=== PATIENT | female | born 1940 | race Caucasian/White ===

== ENCOUNTER 2019-09-12 15:16 | Outpatient (CLI) | payer MEDICARE, SELFPAY ==
--- NOTE | ~2019-09-12 | MM_ITS ---
EXAMINATION: MM screening rajiv BI w deangelo HISTORY: Screening mammogram TECHNIQUE: Craniocaudal and mediolateral oblique 3-D tomosynthesis images were obtained and synthetic 2-D images were generated. CAD analysis was submitted and interpreted. COMPARISON: 09/14/2018 diagnostic right digital mammogram , 08/18/2017, 08/16/2016 bilateral digital screening mammogram examinations BREAST PARENCHYMAL COMPOSITION: There are scattered areas of fibroglandular density. FINDINGS: There is no evidence of suspicious mass, calcification, or architectural distortion to sugg est malignancy in either breast. There has been no suspicious interval change. IMPRESSION: 1. No mammographic evidence of malignancy. 2. Recommend routine screening mammography in one year. BI-RADS Category 1: Negative Reviewed, dictated and finalized at location A. LOOP MACHINE OPERATOR
== END 2019-09-12 15:17 | disposition home or self-care (01) ==
LOC: ANHIMG 15:22
PROVIDERS: PCP Emergency Medicine; Visit Provider Emergency Medicine
DX: Z12.31 Encounter for screening mammogram for malignant neoplasm of breast (principal)
CPT/HCPCS: 77063; 77067

== ENCOUNTER 2019-11-12 12:32 | Outpatient (CLI) | payer MEDICARE, SELFPAY ==
[2019-11-12 13:08] LABS: Alanine Aminotransferase 11 U/L (4-35); Albumin Level 4.2 g/dL (3.5-5.1); Alkaline Phosphatase 103 U/L (38-126); Aspartate Amino Transferase 23 U/L (14-36); Bilirubin,Total 0.2 mg/dL (0.2-1.3); Blood Urea Nitrogen 18 mg/dL (7-17); Calcium 9.2 mg/dL (8.4-10.2); Carbon Dioxide 29 mmol/L (22-30); Chloride 104 mmol/L (98-107); Estimated Glomerular Filt Rate > 60; Glucose 112 mg/dL (65-105); Potassium 3.7 mmol/L (3.4-5.0); Sodium 138 mmol/L (137-145)
[2019-11-12 13:37] LABS: Thyroid Stimulating Hormone 0.603 uIU/mL (0.465-4.680)
== END 2019-11-12 12:33 | disposition home or self-care (01) ==
PROVIDERS: PCP Emergency Medicine; Visit Provider Emergency Medicine
DX: E78.5 Hyperlipidemia, unspecified (principal); E03.9 Hypothyroidism, unspecified
CPT/HCPCS: 36415; 80053; 84443

== ENCOUNTER 2020-01-11 10:40 | Outpatient (CLI) | payer MEDICARE, SELFPAY ==
[2020-01-11 11:02] LABS: Basophils Percent Auto 0.3 % (0.2-1.2); Eosinophils Percent Auto 0.5 % (0-4.4); Hematocrit 39.9 % (37.0-47.0); Hemoglobin 12.8 g/dL (12.0-15.0); Immature Granulocyte Absolute 0.01 K/mm3 (0.00-0.031); Immature Granulocyte Percent A 0.2 % (0-0.5); Lymphocytes Absolute Auto 1.06 K/mm3 (0.9-3.2); Lymphocytes Percent Auto 17.2 % (18.3-44.2); Mean Corpuscular HGB Conc 32.1 g/dl (32-36); Mean Corpuscular Hemoglobin 29.5 pg (26-34); Mean Corpuscular Volume 91.9 fl (80-100); Mean Platelet Volume 9.7 fl (7.4-10.4); Monocytes Absolute Auto 0.4 K/mm3 (0.1-0.6); Monocytes Percent Auto 6.5 % (2.6-8.5); Neutrophils Absolute Auto 4.7 K/mm3 (1.3-6.7); Neutrophils Percent Auto 75.3 % (45.5-73.1); Platelet Count Result 221 k/mm3 (150-375); Red Blood Count 4.34 M/mm3 (4.2-5.4); Red Cell Distribution Width 14.3 % (11.5-14.5); White Blood Count 6.2 K/mm3 (4.5-10.0)
[2020-01-11 11:14] LABS: Alanine Aminotransferase 11 U/L (4-35); Albumin Level 4.3 g/dL (3.5-5.1); Alkaline Phosphatase 115 U/L (38-126); Aspartate Amino Transferase 22 U/L (14-36); Bilirubin,Total 0.3 mg/dL (0.2-1.3); Blood Urea Nitrogen 14 mg/dL (7-17); Calcium 9.3 mg/dL (8.4-10.2); Carbon Dioxide 26 mmol/L (22-30); Chloride 103 mmol/L (98-107); Estimated Glomerular Filt Rate > 60; Glucose 102 mg/dL (65-105); Potassium 4.1 mmol/L (3.4-5.0); Sodium 137 mmol/L (137-145)
== END 2020-01-11 10:41 | disposition home or self-care (01) ==
LOC: ANHLAB 10:45
PROVIDERS: PCP Emergency Medicine; Visit Provider Internal Medicine Gastroenterology
DX: K50.919 Crohn's disease, unspecified, with unspecified complications (principal)
CPT/HCPCS: 36415; 80048; 80076; 85025

== ENCOUNTER 2020-01-17 10:48 | Outpatient (CLI) | payer MEDICARE, SELFPAY ==
--- NOTE | ~2020-01-17 | XR_ITS ---
XR chest 2V DATE: 01/17/2020 11:31 INDICATION: Crohn's disease of small intestine TECHNIQUE: PA and lateral views COMPARISON: 10/27/2018 2 view chest FINDINGS: Normal heart size. No hilar or mediastinal enlargement. Bilateral hyperinflation. No pulmon brayden infiltrate or consolidation, pleural effusion or pulmonary vascular congestion or pneumothorax. IMPRESSION: Bilateral hyperinflation; no active cardiopulmonary disease Diffuse osteopenia Reviewed, dictated and finalized at location B.
[2020-01-22 23:04] LABS: NIL 0.01 IU/mL; Quantiferon TB Plus, 1T NEGATIVE (NEGATIVE); TB1-NIL 0.01 IU/mL; TB2-NIL 0.03 IU/mL
== END 2020-01-17 10:49 | disposition home or self-care (01) ==
PROVIDERS: PCP Emergency Medicine
DX: K50.00 Crohn's disease of small intestine without complications (principal); M85.88 Other specified disorders of bone density and structure, other site; R91.8 Other nonspecific abnormal finding of lung field
CPT/HCPCS: 36415; 71046; 86480

== ENCOUNTER 2020-02-28 09:56 | Outpatient (CLI) | payer MEDICARE, SELFPAY ==
[2020-02-28 10:44] LABS: Alanine Aminotransferase 12 U/L (4-35); Albumin Level 4.4 g/dL (3.5-5.1); Alkaline Phosphatase 105 U/L (38-126); Anion Gap 6 mmol/L (8-16); Aspartate Amino Transferase 25 U/L (14-36); Bilirubin,Total 0.6 mg/dL (0.2-1.3); Blood Urea Nitrogen 12 mg/dL (7-17); Calcium 9.5 mg/dL (8.4-10.2); Carbon Dioxide 28 mmol/L (22-30); Chloride 103 mmol/L (98-107); Estimated Glomerular Filt Rate > 60; Glucose 101 mg/dL (65-105); Potassium 4.2 mmol/L (3.4-5.0); Sodium 137 mmol/L (137-145)
[2020-02-28 11:14] LABS: Thyroid Stimulating Hormone 0.703 uIU/mL (0.465-4.680)
== END 2020-02-28 09:57 | disposition home or self-care (01) ==
PROVIDERS: PCP Emergency Medicine; Visit Provider Emergency Medicine
DX: E78.5 Hyperlipidemia, unspecified (principal)
CPT/HCPCS: 36415; 80053; 84443

== ENCOUNTER 2020-06-24 11:26 | Outpatient (CLI) | payer MEDICARE, SELFPAY ==
[2020-06-24 12:45] LABS: Alanine Aminotransferase 10 U/L (4-35); Albumin Level 3.7 g/dL (3.5-5.1); Alkaline Phosphatase 86 U/L (38-126); Anion Gap 5 mmol/L (8-16); Aspartate Amino Transferase 23 U/L (14-36); Bilirubin,Total 0.4 mg/dL (0.2-1.3); Blood Urea Nitrogen 14 mg/dL (7-17); Calcium 9.2 mg/dL (8.4-10.2); Carbon Dioxide 30 mmol/L (22-30); Chloride 103 mmol/L (98-107); Estimated Glomerular Filt Rate > 60; Glucose 97 mg/dL (65-105); Potassium 3.6 mmol/L (3.4-5.0); Sodium 138 mmol/L (137-145)
[2020-06-24 13:14] LABS: Thyroid Stimulating Hormone 0.618 uIU/mL (0.465-4.680)
== END 2020-06-24 11:27 | disposition home or self-care (01) ==
LOC: ANHLAB 11:28
PROVIDERS: PCP Emergency Medicine; Visit Provider Emergency Medicine
DX: E03.9 Hypothyroidism, unspecified (principal)
CPT/HCPCS: 36415; 80053; 84443

== ENCOUNTER 2020-08-11 15:41 | Outpatient (CLI) | payer MEDICARE, SELFPAY ==
[2020-08-11 16:54] LABS: Alanine Aminotransferase 17 U/L (4-35); Albumin Level 3.5 g/dL (3.5-5.1); Alkaline Phosphatase 105 U/L (38-126); Anion Gap 3 mmol/L (8-16); Aspartate Amino Transferase 24 U/L (14-36); Bilirubin,Total 0.4 mg/dL (0.2-1.3); Blood Urea Nitrogen 10 mg/dL (7-17); Calcium 8.8 mg/dL (8.4-10.2); Carbon Dioxide 29 mmol/L (22-30); Chloride 106 mmol/L (98-107); Estimated Glomerular Filt Rate > 60; Glucose 91 mg/dL (65-105); Potassium 3.5 mmol/L (3.4-5.0); Sodium 138 mmol/L (137-145)
[2020-08-11 17:01] LABS: NT Pro B Type Natriuretic Pept 2460 PG/ML (5-100)
== END 2020-08-11 15:42 | disposition home or self-care (01) ==
LOC: ANHLAB 15:41
PROVIDERS: PCP Emergency Medicine; Visit Provider Emergency Medicine
DX: I50.9 Heart failure, unspecified (principal); E78.5 Hyperlipidemia, unspecified
CPT/HCPCS: 36415; 80053; 83880

== ENCOUNTER 2020-09-15 09:25 | Outpatient (CLI) | payer MEDICARE, SELFPAY ==
--- NOTE | ~2020-09-15 | MM_ITS ---
EXAMINATION: MM screening rajiv BI w deangelo HISTORY: Screening mammogram TECHNIQUE: Craniocaudal and mediolateral oblique 3-D tomosynthesis images were obtained and synthetic 2-D images were generated. CAD analysis was submitted and interpreted. COMPARISON: 09/2019 bilateral digital screening mammogram 09/14/2018 diagnostic right digital mammogram 08/21/2018, 08/18/2016, 08/16/2016 bilateral digital screening mammogram examinations BREAST PARENCHYMAL COMPOSITION: There are scattered areas of fibroglandular density. FINDINGS: There is no evidence of suspicious mass, calcification, or architectural distortion to sugg est malignancy in either breast. There has been no suspicious interval change. IMPRESSION: 1. No mammographic evidence of malignancy. 2. Recommend routine screening mammography in one year. BI-RADS Category 1: Negative Reviewed, dictated and finalized at location A. ASSEMBLY LINE MACHINE OPERATOR
== END 2020-09-15 09:26 | disposition home or self-care (01) ==
LOC: ANHIMG 09:31
PROVIDERS: PCP Emergency Medicine; Visit Provider Emergency Medicine
DX: Z12.31 Encounter for screening mammogram for malignant neoplasm of breast (principal)
CPT/HCPCS: 77063; 77067

== ENCOUNTER 2020-09-23 12:26 | Outpatient (CLI) | payer MEDICARE, SELFPAY ==
--- NOTE | 2020-09-23 13:02 | ECHO_ITS ---
Patient Info Name: Mikaela Mesa Age: 80 years : 1940 Gender: Female Ht: 67 in Wt: 135 lbs BSA: 1.70 m2 HR: 71 bpm BP: 172 / 90 mmHg Technical Quality: Good Exam Date: 09/23/2020 1:12 PM Exam Location: [facility] Patient Status: Outpatient Admit Date: 09/23/2020 Staff Ordering Physician: Manjit Obregon MD Rubber Mold Maker: Ricky Marcos, SARAH, RT Attending Provider: Manjit Obregon MD Referring Physician: Sabas MOSER; Exam Type: CA echo doppler color flow Study Info Indications R60.0 - Localized edema Complete two-dimentional, color flow and Doppler transthoracic echocardiogram is performed with agitated saline and with contrast to opacify the left ventricle and to improve the delineation of the left ventricle endocardial borders. Strain analysis performed. Summary 1. Left ventricular chamber dimension is normal. 2. Left ventricular systolic function is normal, estimated at 60-65%. 3. The left ventricular diastolic function is grade I diastolic dysfunction. 4. E/e' 11 is mildly elevated. 5. Global longitudinal strain is normal at -17.9%. 6. Left atrial chamber dimension is mildly enlarged. 7. There is mild aortic valve sclerosis. 8. The mitral valve has mildly calcified annulus. 9. There is mild mitral valve regurgitation. 10. There is trace tricuspid valve regurgitation. 11. Mild pulmonary hypertension, estimated pulmonary arterial systolic pressure is 42 mmHg. 12. Dilated inferior vena cava with >50% collapse upon inspiration consistent with elevated right atrial pressure, 10 mmHg. Left Ventricle E/e' 11 is mildly elevated. Global longitudinal strain is normal at -17.9%. Left ventricular chamber dimension is normal. Left ventricular systolic function is normal, estimated at 60-65%. The left ventricular diastolic function is grade I diastolic dysfunction. Right Ventricle Right ventricular chamber dimension is normal. Right ventricular systolic function is normal. Left Atria Left atrial chamber dimension is mildly enlarged. Right Atria Right atrial chamber dimension is normal. Aortic Valve The aortic valve is trileaflet. There is mild aortic valve sclerosis. There is no aortic valve stenosis. There is no aortic valve regurgitation. Pulmonic Valve There is no pulmonic regurgitation. Mitral Valve The mitral valve has mildly calcified annulus. There is no mitral valve stenosis. There is mild mitral valve regurgitation. Tricuspid Valve There is trace tricuspid valve regurgitation. Mild pulmonary hypertension, estimated pulmonary arterial systolic pressure is 42 mmHg. Pericardium/Pleural There is no pericardial effusion. Inferior Vena Cava Dilated inferior vena cava with >50% collapse upon inspiration consistent with elevated right atrial pressure, 10 mmHg. Aorta The aortic root size at the sinus of Valsalva is normal. Left Ventricular Outflow Tract Name Value Normal LVOT 2D LVOT Diameter 2.0 cm LVOT Doppler LVOT Peak Gradient 5 mmHg LVOT Mean Gradient 3 mmHg LVOT VTI
== END 2020-09-23 12:27 | disposition home or self-care (01) ==
PROVIDERS: PCP Emergency Medicine; Visit Provider Emergency Medicine
DX: R60.0 Localized edema (principal); I35.8 Other nonrheumatic aortic valve disorders; I34.0 Nonrheumatic mitral (valve) insufficiency
CPT/HCPCS: 93306

== ENCOUNTER 2020-09-30 14:25 | Outpatient (CLI) | payer MEDICARE, SELFPAY ==
[2020-09-30 15:30] LABS: Alanine Aminotransferase 10 U/L (4-35); Albumin Level 4.1 g/dL (3.5-5.1); Alkaline Phosphatase 101 U/L (38-126); Anion Gap 5 mmol/L (8-16); Aspartate Amino Transferase 24 U/L (14-36); Bilirubin,Total 0.3 mg/dL (0.2-1.3); Blood Urea Nitrogen 15 mg/dL (7-17); Calcium 9.7 mg/dL (8.4-10.2); Carbon Dioxide 30 mmol/L (22-30); Chloride 104 mmol/L (98-107); Estimated Glomerular Filt Rate > 60; Glucose 94 mg/dL (65-105); Potassium 3.8 mmol/L (3.4-5.0); Sodium 139 mmol/L (137-145)
[2020-09-30 15:38] LABS: NT Pro B Type Natriuretic Pept 365 PG/ML (5-100)
[2020-09-30 15:59] LABS: Thyroid Stimulating Hormone 0.673 uIU/mL (0.465-4.680)
== END 2020-09-30 14:26 | disposition home or self-care (01) ==
PROVIDERS: PCP Emergency Medicine; Visit Provider Emergency Medicine
DX: E03.9 Hypothyroidism, unspecified (principal); I11.0 Hypertensive heart disease with heart failure
CPT/HCPCS: 36415; 80053; 83880; 84443

== ENCOUNTER 2020-12-24 13:07 | Outpatient (CLI) | payer MEDICARE, SELFPAY ==
[2020-12-24 13:53] LABS: Alanine Aminotransferase 10 U/L (4-35); Albumin Level 3.9 g/dL (3.5-5.1); Alkaline Phosphatase 99 U/L (38-126); Anion Gap 8 mmol/L (8-16); Aspartate Amino Transferase 24 U/L (14-36); Bilirubin,Total 0.2 mg/dL (0.2-1.3); Blood Urea Nitrogen 17 mg/dL (7-17); Calcium 9.5 mg/dL (8.4-10.2); Carbon Dioxide 27 mmol/L (22-30); Chloride 106 mmol/L (98-107); Estimated Glomerular Filt Rate > 60; Glucose 86 mg/dL (65-105); Potassium 3.6 mmol/L (3.4-5.0); Sodium 141 mmol/L (137-145)
== END 2020-12-24 13:08 | disposition home or self-care (01) ==
PROVIDERS: PCP Emergency Medicine; Visit Provider Emergency Medicine
DX: I10 Essential (primary) hypertension (principal); E03.9 Hypothyroidism, unspecified
CPT/HCPCS: 36415; 80053; 84443

== ENCOUNTER 2021-03-31 15:04 | Outpatient (CLI) | payer MEDICARE, SELFPAY ==
[2021-03-31 16:28] LABS: Alanine Aminotransferase 11 U/L (4-35); Albumin Level 3.9 g/dL (3.5-5.1); Alkaline Phosphatase 99 U/L (38-126); Anion Gap 7 mmol/L (8-16); Aspartate Amino Transferase 22 U/L (14-36); Bilirubin,Total 0.2 mg/dL (0.2-1.3); Blood Urea Nitrogen 20 mg/dL (7-17); Calcium 9.7 mg/dL (8.4-10.2); Carbon Dioxide 28 mmol/L (22-30); Chloride 106 mmol/L (98-107); Estimated Glomerular Filt Rate > 60; Glucose 129 mg/dL (65-110); Potassium 3.4 mmol/L (3.4-5.0); Sodium 141 mmol/L (137-145)
[2021-03-31 16:57] LABS: Thyroid Stimulating Hormone 0.893 uIU/mL (0.465-4.680)
== END 2021-03-31 15:05 | disposition home or self-care (01) ==
LOC: ANHLAB 15:06
PROVIDERS: PCP Emergency Medicine; Visit Provider Emergency Medicine
DX: E03.9 Hypothyroidism, unspecified (principal); I10 Essential (primary) hypertension
CPT/HCPCS: 36415; 80053; 84443

== ENCOUNTER 2021-04-20 13:38 | Outpatient (CLI) | payer MEDICARE, SELFPAY ==
--- NOTE | ~2021-04-20 | XR_ITS ---
XR knee LT 3V DATE: 04/20/2021 14:11 INDICATION: Knee pain TECHNIQUE: AP, lateral and sunrise views COMPARISON: None FINDINGS: There is diffuse osteopenia. No fracture or dislocation or joint effusion. There is superior pole patellar enthesopathy at the quadriceps tendon insertion. No periosteal reaction or bone destruction. No radiopaque intra-articular loose body or chondrocalcin osis. Joint spaces are relatively preserved. IMPRESSION: Osteopenia Reviewed, dictated and finalized at location B. IMPRESSION: Osteopenia
--- NOTE | ~2021-04-20 | XR_ITS ---
XR knee RT 3V DATE: 04/20/2021 14:11 INDICATION: Right knee pain TECHNIQUE: AP, lateral, sunrise views COMPARISON: None FINDINGS: There is diffuse osteopenia. No fracture or dislocation or joint effusion. No periosteal reaction or bone destruction. No radiopaq ue intra-articular loose body or chondrocalcinosis. Knee joint spaces are relatively preserved. There is slight periarticular spurring of the patella. IMPRESSION: Osteopenia Slight periarticular spurring of the patella Reviewed, dictated and finalized at location B.
== END 2021-04-20 13:39 | disposition home or self-care (01) ==
LOC: ANHIMG 13:45
PROVIDERS: PCP Emergency Medicine; Visit Provider Emergency Medicine
DX: M85.861 Other specified disorders of bone density and structure, right lower leg (principal); M85.862 Other specified disorders of bone density and structure, left lower leg
CPT/HCPCS: 73562

== ENCOUNTER 2021-04-29 16:04 | Emergency (ER) | payer MEDICARE, SELFPAY ==
[2021-04-29 16:30] VITALS: BP 127/62; PULSE 99; RESP 20; TEMP 36.4; O2SAT 97
[2021-04-29] MEDS: ONDANSETRON HCL ODT 4 MG TABLET PO (18:51)
[2021-04-29] MEDS: HYDROcodone/acetaminophen (*CRX) 5-325 MG TABLET 1 TAB PO (18:52)
--- NOTE | 2021-04-29 19:01 | ED.GENADULT ---
HPI - General Adult General Chief complaint: Extremity Problem,Nontraumatic Stated complaint: Bilateral Knee pain Time Seen by Provider: 04/29/21 18:38 Source: patient, family and RN notes reviewed Mode of arrival: ambulatory Limitations: no limitations History of Present Illness HPI narrative: Patient is 80-year-old female who presents for evaluation of bilateral knee pain that began after dancing at a wedding 3 weeks ago primary care is seen her for this have bilateral knee x-rays which were unremarkable has been taken Tylenol arthritis with no pain the pain has increased over the duration of this time presents noting aching pain to the bilateral knees no other complaints denies any radicular symptoms or paresthesias Related Data Home Medications Medication Instructions Recorded Confirmed adalimumab [Humira] 40 mg SUBCUT [id number] 07/12/19 04/08/21 cyanocobalamin (vitamin B-12) 1,000 mcg DAILY 07/12/19 04/08/21 mesalamine 500 mg 500 mg PO .COMPLEX 11/14/19 04/08/21 capsule,controlled release Allergies Allergy/AdvReac Type Severity Reaction Status Date / Time certolizumab pegol Allergy Unknown RASH, Verified 04/29/21 18:45 SWELLING tetracycline Allergy Unknown Unknown Verified 04/29/21 18:45 Tetracyclines Allergy Unknown unknown Verified 04/29/21 18:45 Review of Systems Review of Systems: All systems reviewed & are unremarkable except as noted in HPI and below PMFSH Past Medical History Medical History (Updated 04/29/21 @ 19:04 by Piyush Love PA-C) COPD (chronic obstructive pulmonary disease) Crohn's disease Hypertension Hypothyroid Pulmonary nodule Surgical History Surgical History Hx of colonoscopy Hx of tubal ligation Family History Family History Father Family history of malignant neoplasm of brain, Onset Age: 68 Grandparent Diabetes mellitus Hypertension Asthma Family history of cardiovascular disease Other Family history of malignant neoplasm Family history of throat cancer Social History Social History Smoking packs per day: 1 Smoking cigarettes per day: 20.0 Smoking status: Current every day smoker Alcohol intake: never Substance use: never Gender identity (if verbalized by the patient): Female Exam Narrative: GENERAL: Well-appearing, well-nourished, and in no acute distress. HEAD: Normocephalic, atraumatic. EYES: PERRLA and EOMI. ENT: Nares clear, no rhinorrhea or epistaxis. Mucous membranes moist. CHEST: Clear to auscultation. No respiratory distress. No wheezes rales or rhonchi HEART: Regular rate and rhythm. No murmur heard. Normal peripheral pulses. EXTREMITIES: Normal range of motion. No edema. Tenderness of the anterior knees bilaterally noted other deformities noted SKIN: Warm, dry, no rash. NEURO: No focal deficits. Alert and oriented x3. Neurovascularly intact. Capillary refill less than 2 seconds PSYCH: Normal mood and affect. Course Course Emergency Course: Patient in the room nondistressed will be referred to orthopedic surgery Jason wrap supplied bilaterally provided with reasons to return afebrile nontoxic-appearing Vital Signs Vital signs: Vital Signs Temperature 97.6 F 04/29/21 16:30 Pulse Rate 99 04/29/21 16:30 Respiratory Rate 20 04/29/21 16:30 Blood Pressure 127/62 04/29/21 16:30 Pulse Oximetry 97 04/29/21 16:30 Temperature 97.6 F 04/29/21 16:30 Pulse Rate 99 04/29/21 16:30 Respiratory Rate 20 04/29/21 16:30 Blood Pressure 127/62 04/29/21 16:30 Pulse Oximetry 97 04/29/21 16:30 Medical Decision Making MDM Narrative Medical decision making narrative: Patients injury or pain is consistent with musculoskeletal etiology. No signs of neurological or vascular compromise on exam. Compartments and tisues are soft witho
[2021-04-29 19:34] VITALS: BP 134/75; PULSE 93; RESP 18; TEMP 36.4; O2SAT 100
== END 2021-04-29 19:36 | disposition home or self-care (01) ==
LOC: ANHED 19:04
PROVIDERS: Emergency Provider Family Medicine; PCP Emergency Medicine
DX: M25.562 Pain in left knee (principal); M25.561 Pain in right knee; J44.9 Chronic obstructive pulmonary disease, unspecified; I10 Essential (primary) hypertension; E03.9 Hypothyroidism, unspecified
CPT/HCPCS: 99283; A9270

== ENCOUNTER 2021-06-13 07:49 | Outpatient (CLI) | payer MEDICARE, SELFPAY ==
--- NOTE | ~2021-06-13 | DEXA_ITS ---
Bone Density Report Name: Mikaela Mesa Age: 80 Sex: Female Ethnicity: White Date of : 1940 Indication: osteopenia; parental hip fracture; height loss; inflammatory bowel disease; postmenopausal Referring Provider: Julián, Linda Alvarez Study: Bone densitometry was performed. Exam Date: June 13, 2021 Accession number: [id number] Bone Density: Region BMD T-score Z-score Classification AP Spine (L1-L4) 0.800 -2.2 0.4 Osteopenia Femoral Neck (Left) 0.599 -2.2 0.0 Osteopenia Total Hip (Left) 0.620 -2.6 -0.6 Osteoporosis Total Hip Bilateral Avg 0.626 -2.6 -0.6 Osteoporosis Femoral Neck (Right) 0.626 -2.0 0.3 Osteopenia Total Hip (Right) 0.630 -2.6 -0.5 Osteoporosis World Health Organization criteria for BMD impression classify patients as: Normal (T-score at or above -1.0), Osteopenia (T-score between -1.0 and -2.5), or Osteoporosis (T-score at or below -2.5). 10-year Fracture Risk: FRAX not reported because: Some T-score for Spine Total or Hip Total or Femoral Neck at or below -2.5 Previous Exams: Region Exam Age BMD T-score BMD Change BMD Change Date g/cm2 vs Baseline vs Previous AP Spine(L1-L4) 06/13/2021 80 0.800 -2.2 -0.025(-3.1%)# -0.006(-0.8%) 04/27/2019 78 0.806 -2.2 -0.019(-2.3%)# -0.005(-0.6%) 11/15/2016 76 0.812 -2.1 -0.014(-1.7%)# -0.024(-2.9%)* 09/04/2014 74 0.836 -1.9 0.010(1.3%)# 0.009(1.1%)# 06/12/2012 71 0.827 -2.0 0.001(0.2%)# 0.071(9.4%)# 06/09/2010 69 0.755 -2.7 -0.070(-8.5%)* -0.070(-8.5%)* 06/01/2008 67 0.825 -2.0 Total Hip(Left) 06/13/2021 80 0.620 -2.6 -0.089(-12.5%) -0.046(-6.9%)* 04/27/2019 78 0.666 -2.3 -0.043(-6.1%)# -0.085(-11.4%) 11/15/2016 76 0.751 -1.6 0.042(6.0%)# 0.016(2.1%) 09/04/2014 74 0.736 -1.7 0.027(3.8%)# -0.026(-3.5%)# 06/12/2012 71 0.762 -1.5 0.053(7.5%)# 0.079(11.6%)# 06/09/2010 69 0.683 -2.1 -0.026(-3.7%) -0.026(-3.7%) 06/01/2008 67 0.709 -1.9 Total Hip(Right) 06/13/2021 80 0.630 -2.6 -0.078(-11.0%) -0.042(-6.2%)* 04/27/2019 78 0.672 -2.2 -0.036(-5.1%)# -0.020(-2.9%) 11/15/2016 76 0.692 -2.0 -0.016(-2.2%)# -0.003(-0.5%) 09/04/2014 74 0.696 -2.0 -0.012(-1.8%)# -0.047(-6.4%)# 06/12/2012 71 0.743 -1.6 0.035(4.9%)# 0.075(11.3%)# 06/09/2010 69 0.668 -2.2 -0.040(-5.7%)* -0.040(-5.7%)* 06/01/2008 67 0.708 -1.9 *Denotes significance at 95% confidence level, LSC for AP Spine = 0.022 g/cm2, LSC for Total Hip = 0.027 g/cm2 Clinical Information Provided by Patient:
== END 2021-06-13 07:50 | disposition home or self-care (01) ==
PROVIDERS: PCP Emergency Medicine; Visit Provider Physician Assistant Medical
DX: Z78.0 Asymptomatic menopausal state (principal); E55.9 Vitamin D deficiency, unspecified; M85.89 Other specified disorders of bone density and structure, multiple sites; M81.0 Age-related osteoporosis without current pathological fracture
CPT/HCPCS: 77080

== ENCOUNTER 2021-06-25 09:05 | Outpatient (CLI) | payer MEDICARE, SELFPAY ==
[2021-06-25 11:54] LABS: Vitamin D 25 Hydroxy 41.5 ng/mL
== END 2021-06-25 09:06 | disposition home or self-care (01) ==
PROVIDERS: PCP Emergency Medicine; Visit Provider Physician Assistant Medical
DX: E55.9 Vitamin D deficiency, unspecified (principal); E53.8 Deficiency of other specified B group vitamins
CPT/HCPCS: 36415; 82306; 82607

== ENCOUNTER 2021-07-10 11:39 | Outpatient (CLI) | payer MEDICARE, SELFPAY ==
[2021-07-10 12:07] LABS: Alanine Aminotransferase 10 U/L (4-35); Alkaline Phosphatase 97 U/L (38-126); Anion Gap 7 mmol/L (8-16); Aspartate Amino Transferase 20 U/L (14-36); Bilirubin,Total 0.3 mg/dL (0.2-1.3); Blood Urea Nitrogen 13 mg/dL (7-17); Calcium 9.4 mg/dL (8.4-10.2); Carbon Dioxide 28 mmol/L (22-30); Chloride 104 mmol/L (98-107); Estimated Glomerular Filt Rate > 60; Glucose 144 mg/dL (65-110); Potassium 3.2 mmol/L (3.4-5.0); Sodium 139 mmol/L (137-145)
[2021-07-10 12:37] LABS: Thyroid Stimulating Hormone 0.203 uIU/mL (0.465-4.680)
== END 2021-07-10 11:40 | disposition home or self-care (01) ==
LOC: ANHLAB 11:42
PROVIDERS: PCP Emergency Medicine; Visit Provider Emergency Medicine
DX: E03.9 Hypothyroidism, unspecified (principal); I10 Essential (primary) hypertension
CPT/HCPCS: 36415; 80053; 84443

== ENCOUNTER 2021-07-15 08:26 | Outpatient (CLI) | payer MEDICARE, SELFPAY ==
[2021-07-15 09:10] LABS: Potassium 3.4 mmol/L (3.4-5.0)
== END 2021-07-15 08:27 | disposition home or self-care (01) ==
PROVIDERS: PCP Emergency Medicine; Visit Provider Emergency Medicine
DX: E87.6 Hypokalemia (principal)
CPT/HCPCS: 36415; 84132

== ENCOUNTER 2021-08-11 09:35 | Outpatient (CLI) | payer MEDICARE, SELFPAY ==
[2021-08-11 13:55] LABS: Magnesium 1.7 mg/dL (1.6-2.3); Potassium 3.9 mmol/L (3.4-5.0)
[2021-08-11 14:26] LABS: Thyroid Stimulating Hormone 0.628 uIU/mL (0.465-4.680)
== END 2021-08-11 09:36 | disposition home or self-care (01) ==
PROVIDERS: PCP Emergency Medicine; Visit Provider Emergency Medicine
DX: R53.83 Other fatigue (principal)
CPT/HCPCS: 36415; 83735; 84132; 84443

== ENCOUNTER 2021-09-09 12:06 | Outpatient (CLI) | payer MEDICARE, SELFPAY ==
[2021-09-09 12:22] LABS: Hematocrit 36.9 % (37.0-47.0); Hemoglobin 11.5 g/dL (12.0-15.0); Mean Corpuscular HGB Conc 31.2 g/dl (32-36); Mean Corpuscular Hemoglobin 29.6 pg (26-34); Mean Corpuscular Volume 95.1 fl (80-100); Mean Platelet Volume 9.5 fl (7.4-10.4); Platelet Count Result 221 k/mm3 (150-375); Red Blood Count 3.88 M/mm3 (4.2-5.4); Red Cell Distribution Width 14.3 % (11.5-14.5); White Blood Count 6.4 K/mm3 (4.5-10.0)
[2021-09-09 12:30] LABS: Alanine Aminotransferase 10 U/L (4-35); Albumin Level 4.1 g/dL (3.5-5.1); Alkaline Phosphatase 99 U/L (38-126); Anion Gap 6 mmol/L (8-16); Aspartate Amino Transferase 21 U/L (14-36); Bilirubin,Total 0.5 mg/dL (0.2-1.3); Blood Urea Nitrogen 19 mg/dL (7-17); Carbon Dioxide 28 mmol/L (22-30); Chloride 105 mmol/L (98-107); Estimated Glomerular Filt Rate > 60; Glucose 133 mg/dL (65-110); Potassium 3.2 mmol/L (3.4-5.0); Sodium 139 mmol/L (137-145)
[2021-09-12 13:18] LABS: NIL 0.02 IU/mL; Quantiferon TB Plus, 1T NEGATIVE (NEGATIVE); TB2-NIL 0.01 IU/mL
== END 2021-09-09 12:07 | disposition home or self-care (01) ==
LOC: ANHLAB 12:09
PROVIDERS: PCP Emergency Medicine; Visit Provider Nurse Practitioner Family
DX: K50.90 Crohn's disease, unspecified, without complications (principal)
CPT/HCPCS: 36415; 80053; 85027; 86480

== ENCOUNTER 2021-10-05 14:19 | Outpatient (CLI) | payer MEDICARE, SELFPAY ==
--- NOTE | ~2021-10-05 | MM_ITS ---
EXAMINATION: MM screening [facility] BI w deangelo HISTORY: Screening mammogram TECHNIQUE: Craniocaudal and mediolateral oblique 3-D tomosynthesis images were obtained and synthetic 2-D images were generated. CAD analysis was submitted and interpreted. COMPARISON: 09/15/2020, 09/12/2019, 09/14/2018, 08/21/2018 BREAST PARENCHYMAL COMPOSITION: There are scattered areas of fibroglandular density. FINDINGS: There is no suspicious mass, calcification, or architectural distortion to suggest malignan cy in either breast. There has been no suspicious interval change. IMPRESSION: 1. No mammographic evidence of malignancy. 2. Recommend routine screening mammography while the patient remains in good health. BI-RADS Category 1: Negative Reviewed, dictated and finalized at location A. IMPRESSION: 1. No mammographic evidence of malignancy. 2. Recommend routine screening mammography while the patient remains in good he alth. BI-RADS Category 1: Negative
== END 2021-10-05 14:20 | disposition home or self-care (01) ==
LOC: ANHIMG 14:21
PROVIDERS: PCP Emergency Medicine; Visit Provider Emergency Medicine
DX: Z12.31 Encounter for screening mammogram for malignant neoplasm of breast (principal)
CPT/HCPCS: 77063; 77067

== ENCOUNTER 2021-10-08 12:19 | Outpatient (CLI) | payer MEDICARE, SELFPAY ==
[2021-10-08 12:46] LABS: Alanine Aminotransferase 9 U/L (4-35); Albumin Level 4.3 g/dL (3.5-5.1); Alkaline Phosphatase 110 U/L (38-126); Anion Gap 6 mmol/L (8-16); Aspartate Amino Transferase 24 U/L (14-36); Bilirubin,Total 0.4 mg/dL (0.2-1.3); Blood Urea Nitrogen 18 mg/dL (7-17); Calcium 9.3 mg/dL (8.4-10.2); Carbon Dioxide 28 mmol/L (22-30); Chloride 104 mmol/L (98-107); Estimated Glomerular Filt Rate > 60; Glucose 94 mg/dL (65-110); Potassium 3.9 mmol/L (3.4-5.0); Sodium 138 mmol/L (137-145)
[2021-10-08 13:17] LABS: Thyroid Stimulating Hormone 0.871 uIU/mL (0.465-4.680)
== END 2021-10-08 12:20 | disposition home or self-care (01) ==
LOC: ANHLAB 12:21
PROVIDERS: PCP Emergency Medicine; Visit Provider Emergency Medicine
DX: R53.83 Other fatigue (principal); I10 Essential (primary) hypertension
CPT/HCPCS: 36415; 80053; 84443

== ENCOUNTER 2022-01-12 11:58 | Outpatient (CLI) | payer MEDICARE, SELFPAY ==
[2022-01-12 12:14] LABS: Basophils Percent Auto 0.3 % (0.2-1.2); Eosinophils Absolute Auto 0.1 K/mm3 (0-0.3); Eosinophils Percent Auto 0.8 % (0-4.4); Hematocrit 37.6 % (37.0-47.0); Hemoglobin 11.7 g/dL (12.0-15.0); Immature Granulocyte Absolute 0.01 K/mm3 (0.00-0.031); Immature Granulocyte Percent A 0.2 % (0-0.5); Lymphocytes Absolute Auto 1.55 K/mm3 (0.9-3.2); Lymphocytes Percent Auto 23.6 % (18.3-44.2); Mean Corpuscular HGB Conc 31.1 g/dl (32-36); Mean Corpuscular Hemoglobin 29.4 pg (26-34); Mean Corpuscular Volume 94.5 fl (80-100); Mean Platelet Volume 9.4 fl (7.4-10.4); Monocytes Absolute Auto 0.5 K/mm3 (0.1-0.6); Monocytes Percent Auto 6.9 % (2.6-8.5); Neutrophils Absolute Auto 4.5 K/mm3 (1.3-6.7); Neutrophils Percent Auto 68.2 % (45.5-73.1); Platelet Count Result 214 k/mm3 (150-375); Red Blood Count 3.98 M/mm3 (4.2-5.4); White Blood Count 6.6 K/mm3 (4.5-10.0)
[2022-01-12 12:29] LABS: Alanine Aminotransferase 11 U/L (6-35); Albumin Level 4.1 g/dL (3.5-5.1); Alkaline Phosphatase 104 U/L (38-126); Anion Gap 5 mmol/L (8-16); Aspartate Amino Transferase 19 U/L (14-36); Bilirubin,Total 0.2 mg/dL (0.2-1.3); Blood Urea Nitrogen 17 mg/dL (7-17); Calcium 8.9 mg/dL (8.4-10.2); Carbon Dioxide 27 mmol/L (22-30); Chloride 105 mmol/L (98-107); Estimated Glomerular Filt Rate > 60; Glucose 94 mg/dL (65-110); Potassium 3.9 mmol/L (3.4-5.0); Sodium 137 mmol/L (137-145)
[2022-01-12 13:44] LABS: Folic Acid > 20.0 ng/mL (2.76->20)
== END 2022-01-12 11:59 | disposition home or self-care (01) ==
LOC: ANHLAB 12:00
PROVIDERS: PCP Emergency Medicine; Visit Provider Emergency Medicine
DX: R53.83 Other fatigue (principal); I10 Essential (primary) hypertension; Z13.6 Encounter for screening for cardiovascular disorders; E03.9 Hypothyroidism, unspecified
CPT/HCPCS: 36415; 80053; 82607; 82746; 84443; 85025

== ENCOUNTER 2022-04-12 01:56 | Day surgery (SDC) | payer MEDICARE, SELFPAY ==
[2022-03-24 10:52] VITALS: BMI 22.6
[2022-04-12 07:57] VITALS: BP 115/72; PULSE 83; RESP 16; TEMP 36.1; O2SAT 98; BMI 23.7
[2022-04-12] MEDS: LACTATED RINGERS 1,000 ML 150 ML IV CONT (08:07)
--- NOTE | 2022-04-12 08:44 | WPDANESEPPF ---
Anes - Initial Pre Proc Eval Procedure: Operation Date: 04/12/22 09:15 Proposed Procedures p Colonoscopy - Beto Langley MD Date/Time: 04/12/22 08:44 Surgeon: Beto Langley MD Pre Op Diagnosis: crohn's disease Patient Data Age: 81 Gender: F Height: 1.68 m Weight: 66.7 kg Last Vital Signs Temp 97 F L 04/12/22 07:57 Pulse 83 04/12/22 07:57 Resp 16 04/12/22 07:57 BP 115/72 04/12/22 07:57 Pulse Ox 98 04/12/22 07:57 O2 Del Method Room Air 04/12/22 07:57 Allergies Allergy/AdvReac Type Severity Reaction Status Date / Time certolizumab pegol Allergy Unknown RASH, Verified 04/12/22 07:56 SWELLING tetracycline Allergy Unknown Unknown Verified 04/12/22 07:56 Tetracyclines Allergy Unknown unknown Verified 04/12/22 07:56 Home Medications Medication Instructions Recorded Confirmed Type potassium chloride 10 mEq 10 meq PO DAILY #7 tabs 08/11/20 03/24/22 Rx tablet,extended release lisinopril 10 See Rx Instructions .Route 08/03/21 03/24/22 Rx mg-hydrochlorothiazide 12.5 mg .COMPLEX #90 tabs tablet adalimumab 40 mg/0.8 mL 40 mg (0.8 mL) subcut [id number] #2 ea 03/03/22 03/24/22 Rx subcutaneous syringe kit (Humira) azathioprine 75 mg tablet (Azasan) 75 mg PO DAILY #90 tabs 03/03/22 03/24/22 Rx calcium carbonate 600 mg calcium 600 mg PO BID 03/03/22 03/24/22 History (1,500 mg) tablet (Calcium) mesalamine 500 mg capsule,extended 1,000 mg PO QID 1 month #240 caps 03/04/22 03/24/22 Rx release (Pentasa) Patient hx anesthesia problems: none Family hx anesthesia problems: none Results Review: All pre-operative results and documents have been reviewed as part of the pre-operative evaluation. [facility] Past Medical History Medical History (Updated 03/03/22 @ 14:07 by SINCERE PatelN-C) COPD (chronic obstructive pulmonary disease) Crohn's disease Hypertension Hypothyroid Pulmonary nodule Vitamin B 12 deficiency Surgical History Surgical History Hx of colonoscopy Hx of tubal ligation Family History Family History Father Family history of malignant neoplasm of brain, Onset Age: 68 Grandparent Diabetes mellitus Hypertension Asthma Family history of cardiovascular disease Other Family history of malignant neoplasm Family history of throat cancer Social History Social History Smoking packs per day: 1 Smoking cigarettes per day: 20.0 Smoking status: Current every day smoker Tobacco type: cigarettes Alcohol intake: never Substance use: never Living arrangements: with family Gender identity (if verbalized by the patient): Female Anes - Eval Final PreProcedure Day of Procedure 04/12/22 08:44 Patient weight: normal Heart: regular rate and rhythm Lungs: clear to auscultation Airway: Mallampati scale class II Neurological: alert and oriented Last oral intake: >/= 8 hours ASA classification: III Emergent: no Anesthetic plan: proceed Anesthesia type and monitoring: general GIVS and standard monitoring Results Review: All pre-operative results and documents have been reviewed as part of the pre-operative evaluation. Informed Consent: The patient's anesthetic plan and its attendant risks and benefits were discussed with the patient/family/POA. Questions were solicited and answers provided to the satisfaction of the patient/family/POA.
--- NOTE | 2022-04-12 08:49 | PM.HPGS ---
History of Present Illness History of Present Illness Consent: Risks, benefits, and alternatives have been discussed and questions answered. Patient agrees to proceed with procedure. Chief complaint: crohn's disease Narrative: Mikaela Mesa is a 81 year old female due to have another colonoscopy,c urrently on Humira 40 mg subq every 2 weeks, Azasan 75 mg daily and Pentasa 500mg x 8 pills daily. No recent flares.. Her last colonoscopy was in 2019 with TA polyps, ileum with a moderate benign appearing intrinsic stenosis, diverticulosis, and hemorrhoids Review of Systems Constitutional: Constitutional: Denies headache(s) and Denies weakness Eyes: Eyes: Denies blurry vision ENT: Reports Normal hearing present, Denies headache(s) and Denies neck pain Cardiovascular: Cardiovascular: Denies chest pain and Denies dyspnea Respiratory: Respiratory: Denies dyspnea Gastrointestinal: Gastrointestinal: Reports no additional gastrointestinal complaints Genitourinary: Genitourinary: Denies dysuria Musculoskeletal: Musculoskeletal: Denies neck pain Integumentary/Breasts: Skin/Breast: Denies dry skin Neurologic: Reports Normal hearing present, Denies headache(s) and Denies weakness Psychiatric: Psychiatric: Denies anxiety Endocrine: Endocrine: Denies change in body appearance Hematologic/Lymphatic: Hematologic/Lymphatic: Denies easy bleeding Allergic/Immunologic: Allergic/Immunologic: Denies urticaria PMFSH Past Medical History Medical History (Updated 03/03/22 @ 14:07 by SINCERE PatelN-C) COPD (chronic obstructive pulmonary disease) Crohn's disease Hypertension Hypothyroid Pulmonary nodule Vitamin B 12 deficiency Surgical History Surgical History Hx of colonoscopy Hx of tubal ligation Family History Family History Father Family history of malignant neoplasm of brain, Onset Age: 68 Grandparent Diabetes mellitus Hypertension Asthma Family history of cardiovascular disease Other Family history of malignant neoplasm Family history of throat cancer Social History Social History Smoking packs per day: 1 Smoking cigarettes per day: 20.0 Smoking status: Current every day smoker Tobacco type: cigarettes Alcohol intake: never Substance use: never Living arrangements: with family Gender identity (if verbalized by the patient): Female Meds Home Medications and Allergies Home Medications Medication Instructions Recorded Confirmed Type potassium chloride 10 mEq 10 meq PO DAILY #7 tabs 08/11/20 03/24/22 Rx tablet,extended release lisinopril 10 See Rx Instructions .Route 08/03/21 03/24/22 Rx mg-hydrochlorothiazide 12.5 mg .COMPLEX #90 tabs tablet adalimumab 40 mg/0.8 mL 40 mg (0.8 mL) subcut [id number] #2 ea 03/03/22 03/24/22 Rx subcutaneous syringe kit (Humira) azathioprine 75 mg tablet (Azasan) 75 mg PO DAILY #90 tabs 03/03/22 03/24/22 Rx calcium carbonate 600 mg calcium 600 mg PO BID 03/03/22 03/24/22 History (1,500 mg) tablet (Calcium) mesalamine 500 mg capsule,extended 1,000 mg PO QID 1 month #240 caps 03/04/22 03/24/22 Rx release (Pentasa) Allergies Allergy/AdvReac Type Severity Reaction Status Date / Time certolizumab pegol Allergy Unknown RASH, Verified 04/12/22 07:56 SWELLING tetracycline Allergy Unknown Unknown Verified 04/12/22 07:56 Tetracyclines Allergy Unknown unknown Verified 04/12/22 07:56 Vital Signs Vital Signs - 24 hr 04/12/22 07:57 Temperature 97 F L Pulse Rate 83 Respiratory Rate 16 Blood Pressure 115/72 Pulse Oximetry 98 Oxygen Delivery Room Air Exam Const: General: comfortable and no acute distress HENMT: Face/Nose/Sinus: Normal nares present Eyes: General: appearance normal, both eyes and all related structures Neck: Neck: no JVD Resp:
[2022-04-12 09:13] VITALS: BP 100/54; PULSE 81; RESP 26; O2SAT 96
[2022-04-12 09:23] VITALS: BP 94/53; PULSE 77; RESP 25; O2SAT 98
[2022-04-12 09:33] VITALS: BP 101/64; PULSE 74; RESP 21; O2SAT 98
== END 2022-04-12 09:44 | disposition home or self-care (01) ==
PROVIDERS: PCP Emergency Medicine; Visit Provider Internal Medicine Gastroenterology
PROC: 0DJD8ZZ Inspection of Lower Intestinal Tract, Via Natural or Artificial Opening Endoscopic (ICD-10-PCS; CPT 45378; principal; 2022-04-12 09:15)
DX: K50.90 Crohn's disease, unspecified, without complications (principal); Z86.010 Personal history of colon polyps; K57.30 Diverticulosis of large intestine without perforation or abscess without bleeding; K64.8 Other hemorrhoids; K64.4 Residual hemorrhoidal skin tags; K56.699 Other intestinal obstruction unspecified as to partial versus complete obstruction; K52.9 Noninfective gastroenteritis and colitis, unspecified; J44.9 Chronic obstructive pulmonary disease, unspecified; I10 Essential (primary) hypertension; E03.9 Hypothyroidism, unspecified; E53.8 Deficiency of other specified B group vitamins; F17.210 Nicotine dependence, cigarettes, uncomplicated
CPT/HCPCS: 45380; 88305; J2704; J7120

== ENCOUNTER 2022-04-13 11:26 | Outpatient (CLI) | payer MEDICARE, SELFPAY ==
[2022-04-13 12:51] LABS: Alanine Aminotransferase 15 U/L (6-35); Albumin Level 4.1 g/dL (3.5-5.1); Alkaline Phosphatase 101 U/L (38-126); Anion Gap 10 mmol/L (8-16); Aspartate Amino Transferase 24 U/L (14-36); Bilirubin,Total 0.3 mg/dL (0.2-1.3); Blood Urea Nitrogen 23 mg/dL (7-17); Calcium 9.1 mg/dL (8.4-10.2); Carbon Dioxide 26 mmol/L (22-30); Chloride 105 mmol/L (98-107); Cholesterol 199 mg/dL (0-200); Estimated Glomerular Filt Rate 53; Glucose 100 mg/dL (65-110); HDL Direct 65 mg/dL; Potassium 3.7 mmol/L (3.4-5.0); Sodium 141 mmol/L (137-145); Triglycerides 130 mg/dL (<150)
[2022-04-13 13:02] LABS: LDL Cholesterol Direct 89 mg/dL
[2022-04-16 14:19] LABS: Vitamin D 1,25 (OH)2 Total 13 pg/mL (18-72); Vitamin D2 1,25 (OH)2 <8 pg/mL; Vitamin D3 1,25 (OH)2 13 pg/mL
== END 2022-04-13 11:27 | disposition home or self-care (01) ==
PROVIDERS: PCP Emergency Medicine; Visit Provider Emergency Medicine
DX: E55.9 Vitamin D deficiency, unspecified (principal); E03.9 Hypothyroidism, unspecified; I10 Essential (primary) hypertension
CPT/HCPCS: 36415; 80053; 80061; 82652

== ENCOUNTER 2022-07-21 13:20 | Outpatient (CLI) | payer MEDICARE, SELFPAY ==
[2022-07-21 13:59] LABS: Alanine Aminotransferase 13 U/L (6-35); Albumin Level 3.9 g/dL (3.5-5.1); Alkaline Phosphatase 88 U/L (38-126); Anion Gap 4 mmol/L (8-16); Aspartate Amino Transferase 19 U/L (14-36); Bilirubin,Total 0.3 mg/dL (0.2-1.3); Blood Urea Nitrogen 14 mg/dL (7-17); Calcium 9.1 mg/dL (8.4-10.2); Carbon Dioxide 30 mmol/L (22-30); Chloride 103 mmol/L (98-107); Estimated Glomerular Filt Rate > 60; Glucose 115 mg/dL (65-110); Potassium 3.7 mmol/L (3.4-5.0); Sodium 137 mmol/L (137-145)
[2022-07-21 14:27] LABS: Thyroid Stimulating Hormone 0.838 uIU/mL (0.465-4.680)
[2022-07-24 23:20] LABS: Vitamin D 1,25 (OH)2 Total 41 pg/mL (18-72); Vitamin D2 1,25 (OH)2 <8 pg/mL; Vitamin D3 1,25 (OH)2 41 pg/mL
== END 2022-07-21 13:21 | disposition home or self-care (01) ==
PROVIDERS: PCP Emergency Medicine; Visit Provider Emergency Medicine
DX: E55.9 Vitamin D deficiency, unspecified (principal); I10 Essential (primary) hypertension; E03.9 Hypothyroidism, unspecified
CPT/HCPCS: 36415; 80053; 82652; 84443

== ENCOUNTER 2022-08-18 13:49 | Outpatient (CLI) | payer MEDICARE, SELFPAY ==
[2022-08-18 14:19] LABS: Hematocrit 38.2 % (37.0-47.0); Hemoglobin 12.1 g/dL (12.0-15.0); Mean Corpuscular HGB Conc 31.7 g/dl (32-36); Mean Corpuscular Hemoglobin 29.3 pg (26-34); Mean Corpuscular Volume 92.5 fl (80-100); Mean Platelet Volume 9.9 fl (7.4-10.4); Platelet Count Result 278 k/mm3 (150-375); Red Blood Count 4.13 M/mm3 (4.2-5.4); White Blood Count 6.2 K/mm3 (4.5-10.0)
[2022-08-18 14:25] LABS: CRP 1.4 mg/dL (<1.0)
[2022-08-18 15:12] LABS: Erythrocyte Sedimentation Rate 45 mm/hr (0-20)
[2022-08-20 14:27] LABS: NIL 0.01 IU/mL; Quantiferon TB Plus, 1T NEGATIVE (NEGATIVE); TB1-NIL 0.02 IU/mL; TB2-NIL 0.01 IU/mL
== END 2022-08-18 13:50 | disposition home or self-care (01) ==
LOC: ANHLAB 13:50
PROVIDERS: PCP Emergency Medicine; Visit Provider Nurse Practitioner Family
DX: K50.90 Crohn's disease, unspecified, without complications (principal); K52.9 Noninfective gastroenteritis and colitis, unspecified
CPT/HCPCS: 36415; 85027; 85652; 86140; 86480

== ENCOUNTER 2022-08-19 08:25 | Outpatient (CLI) | payer MEDICARE, SELFPAY ==
[2022-08-26 20:51] LABS: Calprotectin, Stool 258 mcg/g
== END 2022-08-19 08:26 | disposition home or self-care (01) ==
PROVIDERS: PCP Emergency Medicine; Visit Provider Nurse Practitioner Family
DX: K50.90 Crohn's disease, unspecified, without complications (principal)
CPT/HCPCS: 83993

== ENCOUNTER 2022-09-03 09:01 | Outpatient (CLI) | payer MEDICARE, SELFPAY ==
--- NOTE | ~2022-09-03 | XR_ITS ---
XR small bowel follow through DATE: 09/03/2022 10:26 INDICATION: Crohn's disease TECHNIQUE: Serial images of the abdomen after oral ingestion of barium. Spot radiographs of the small bowel including terminal ileum. DAP: 20 6.251Gycm 2 1.6 minutes fluoroscopy time 16 images COMPARISON: 03/17/2013 small bowel series FINDINGS: There is evidence for small sliding hiatal hernia. Normal position of the ligament of Treitz. There is no evidence of small bowel obstruction. Contrast material is noted in the transverse colon w ithin 30 minutes. There is a long segment of distal and terminal ileum which is strictured, with mucosal effacement and mild irregularity, consistent with Crohn's disease. No extravasated contrast material is detected. IMPRESSION: Abnormal stricture of the distal and terminal ileum consistent with Crohn's disease Reviewed, dictated and finalized at [facility]. Reviewed, dictated and finalized at location A. [employer]
== END 2022-09-03 09:02 | disposition home or self-care (01) ==
PROVIDERS: PCP Emergency Medicine; Visit Provider Nurse Practitioner Family
DX: K50.90 Crohn's disease, unspecified, without complications (principal)
CPT/HCPCS: 74250

== ENCOUNTER 2022-10-20 13:40 | Outpatient (CLI) | payer MEDICARE, SELFPAY ==
[2022-10-20 14:15] LABS: Alanine Aminotransferase 17 U/L (6-35); Albumin Level 4.1 g/dL (3.5-5.1); Alkaline Phosphatase 94 U/L (38-126); Anion Gap 7 mmol/L (8-16); Aspartate Amino Transferase 22 U/L (14-36); Bilirubin,Total 0.5 mg/dL (0.2-1.3); Blood Urea Nitrogen 17 mg/dL (7-17); Calcium 9.4 mg/dL (8.4-10.2); Carbon Dioxide 30 mmol/L (22-30); Chloride 103 mmol/L (98-107); Estimated Glomerular Filt Rate > 60; Glucose 118 mg/dL (65-110); Potassium 3.6 mmol/L (3.4-5.0); Sodium 140 mmol/L (137-145)
[2022-10-20 15:35] LABS: Folic Acid > 20.0 ng/mL (2.76->20)
[2022-10-24 21:40] LABS: Vitamin D 1,25 (OH)2 Total 33 pg/mL (18-72); Vitamin D2 1,25 (OH)2 <8 pg/mL; Vitamin D3 1,25 (OH)2 33 pg/mL
== END 2022-10-20 13:41 | disposition home or self-care (01) ==
PROVIDERS: PCP Emergency Medicine; Visit Provider Emergency Medicine
DX: E53.8 Deficiency of other specified B group vitamins (principal); E11.9 Type 2 diabetes mellitus without complications; E55.9 Vitamin D deficiency, unspecified
CPT/HCPCS: 36415; 77063; 77067; 80053; 82607; 82652; 82746

== ENCOUNTER 2022-10-20 16:08 | Outpatient (CLI) | payer MEDICARE, SELFPAY ==
--- NOTE | ~2022-10-20 | MM_ITS ---
EXAMINATION: MM screening [facility] BI w deangelo HISTORY: Screening TECHNIQUE: Craniocaudal and mediolateral oblique 3-D tomosynthesis images were obtained and synthetic 2-D images were generated. CAD analysis was submitted and interpreted. COMPARISON: Comparison to multiple prior studies sequentially, with oldest reviewed study dated 02/2018. BREAST PARENCHYMAL COMPOSITION: Breast composed of scattered areas of fibroglandular density FINDINGS: There is possible new area of architectural distortion in the subareolar location of the le ft breast. The right breast is stable without evidence for malignancy. IMPRESSION: 1. Possible new focus of architectural distortion subareolar location of the left breast. 2. Additional mammographic views and possible breast ultrasound are recommended. BI-RADS Category 0: Incomplete: Needs additional imaging evaluation. Reviewed, dictated and finalized at location L. IMPRESSION: 1. Possible new focus of architectural distortion subareolar location of the le ft breast. 2. Additional mammographic views and possible breast ultrasound are recommended . BI-RADS Category 0: Incomplete: Needs additional imaging evaluation.
== END 2022-10-20 16:09 | disposition home or self-care (01) ==
LOC: ANHIMG 16:08
PROVIDERS: PCP Emergency Medicine; Visit Provider Emergency Medicine
DX: Z12.31 Encounter for screening mammogram for malignant neoplasm of breast (principal); R92.8 Other abnormal and inconclusive findings on diagnostic imaging of breast
CPT/HCPCS: 77063; 77067

== ENCOUNTER 2022-11-30 12:02 | Outpatient (CLI) | payer MEDICARE, SELFPAY ==
--- NOTE | ~2022-11-30 | MM_ITS ---
EXAMINATION: MM diagnostic [facility] LT w deangelo HISTORY: Possible left breast architectural distortion on screening mammogram TECHNIQUE: Additional 3-D tomosynthesis images of the left breast were performed and synthetic 2-D im ages were generated. CAD analysis was submitted and interpreted. COMPARISON: 10/20/2022, 10/05/2021, 09/15/2020, 09/12/2019 BREAST PARENCHYMAL COMPOSITION: There are scattered areas of fibroglandular density. FINDINGS: There is a return to baseline fibroglandular appearance with spot compression of the left b reast in the area questioned on screening mammogram. IMPRESSION: 1. No mammographic evidence of malignancy. 2. Recommend annual screening mammography while the patient remains in good health. BI-RADS Category 1: Negative Reviewed, dictated and finalized at location A. IMPRESSION: 1. No mammographic evidence of malignancy. 2. Recommend annual screening mammography while the patient remains in good hea lt. BI-RADS Category 1: Negative
== END 2022-11-30 12:03 | disposition home or self-care (01) ==
PROVIDERS: PCP Emergency Medicine; Visit Provider Emergency Medicine
DX: R92.8 Other abnormal and inconclusive findings on diagnostic imaging of breast (principal)
CPT/HCPCS: 77061; 77065; G0279

== ENCOUNTER 2023-01-10 16:07 | Inpatient (IN) | payer MEDICARE, SELFPAY ==
[2023-01-10] VITALS (15 sets, daily range): BP systolic 108–136; BP diastolic 54–70; PULSE 88–112; RESP 18–22; TEMP 36.5–36.6; O2SAT 93–98; BMI 22.3; BMI 22.2
--- NOTE | ~2023-01-10 | CT_ITS ---
EXAMINATION: CT abdomen pelvis w con DATE: 01/10/2023 20:38 INDICATION: Abdominal generalized pain, diarrhea, nausea, vomiting. TECHNIQUE: Computed tomography (CT) of the abdomen and pelvis was performed with 100 CC Omnipaque 350 intravenous contrast. Automated exposure control and iterative reconstruction technique were employe d. Exam dose: 386.88 mGy-cm total exam DLP. COMPARISON: September 03, 2022 small bowel follow-through 11/14/2017 CT abdomen pelvis FINDINGS: There is mild discoid atelectasis or scarring at the anteromedial right mid and lower lung including right upper and middle lobes. Calcified left hilar nodes, calcified left lower lobe pulmonary granulomas consistent with old pulmon brayden granulomatous disease. There is peripheral septal soft tissue thickening of the lungs, greatest in the lower lung zones, wit h honeycombing, suggesting usual interstitial pneumonia type interstitial fibrosis. Normal heart size. Coronary artery calcifications. No pericardial or pleural effusion. Moderate sized sliding hiatal hernia. The liver, gallbladder, bile ducts, pancreas, pancreatic duct and spleen are unremarkable. There are calcified hepatic and splenic granulomas consistent with old granulomatous disease. Normal morphology of the adrenal glands. Occasional bilateral renal cysts, the largest on the right, measuring 11 mm. No urinary tract calculus or hydroureteronephrosis. There is atherosclerotic calcification of the abdominal aorta but no aneurysm. No intraperitoneal or retroperitoneal or pelvic mass lesion or adenopathy or ascites. The urinary bladder is evacuated. There dilated small bowel segment measuring up to 4 cm, with multiple small bowel air-fluid levels. There is mucosal enhancement, wall thickening and irregularity of the distal 10 cm of the terminal il eum, consistent with history of Crohn's disease, with active disease. No abscess cavity is identified . No intraperitoneal free air is detected. There is diverticulosis in the colon; no CT evidence of diverticulitis. No suspicious osteolytic or osteoblastic lesions. 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 Reviewed, dictated and finalized at [facility]. 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
--- NOTE | ~2023-01-10 | XR_ITS ---
XR chest 2V DATE: 01/10/2023 19:42 INDICATION: Productive cough. History of COPD, smoking. TECHNIQUE: PA and lateral views 01/17/2020 COMPARISON: PA and lateral chest FINDINGS: Bilateral hyperinflation and relative flattening of the diaphragm and increased retrosterna l airspace, consistent with COPD. There are increased pulmonary interstitial markings particularly lower lung zones, which are likely c hronic comminuted interstitial fibrotic change. No pulmonary consolidation, pleural effusion, pulmona ry vascular congestion or pneumothorax is detected. Heart size is within normal limits. Aortic arch calcification. There is evidence of old pulmonary granulomatous disease including calcified pulmonary granulomas, ca lcified hilar nodes. Diffuse osteopenia. IMPRESSION: COPD Reviewed, dictated and finalized at [facility]. IMPRESSION: COPD
--- NOTE | ~2023-01-10 | XR_ITS ---
EXAMINATION: XR UGI water soluble w sbs DATE: 01/12/2023 09:29 INDICATION: Crohn disease. Small bowel stricture. TECHNIQUE: The patient drank thick barium, gas-producing crystals, and thin barium. Fluoroscopy of th e esophagus, stomach, and small bowel was performed. Fluoroscopy exposure time was 4.0 minutes. Radio graphs of the abdomen were obtained. The total number of images was 247. COMPARISON: CT abdomen and pelvis 01/10/2023 FINDINGS: UPPER GASTROINTESTINAL SERIES: There is no mass or stricture of the esophagus. There is decreased primary and secondary esophageal p eristalsis. No abnormal tertiary waves. There is a moderate-sized sliding hiatal hernia. The stomach shows a normal folding pattern. SMALL BOWEL SERIES: There are dilated loops of distal small bowel. There is a stricture of the terminal ileum spanning 20 cm. Transit time to the colon was 15 minutes. IMPRESSION: 1. Dilated small bowel with stricture of the terminal ileum spanning 20 cm, consistent with partial s mall bowel obstruction. 2. Moderate-sized sliding hiatal hernia. 3. Moderate esophageal dysmotility. Reviewed, dictated and finalized at [facility]. IMPRESSION: 1. Dilated small bowel with stricture of the terminal ileum spanning 20 cm, con sistent with partial small bowel obstruction. 2. Moderate-sized sliding hiatal hernia. 3. Moderate esophageal dysmotility.
[2023-01-10 18:48] LABS: Basophils Percent Auto 0.2 % (0.2-1.2); Eosinophils Percent Auto 0.3 % (0-4.4); Hematocrit 40.3 % (37.0-47.0); Hemoglobin 13.1 g/dL (12.0-15.0); Immature Granulocyte Absolute 0.04 K/mm3 (0.00-0.031); Immature Granulocyte Percent A 0.3 % (0-0.5); Lymphocytes Absolute Auto 1.61 K/mm3 (0.9-3.2); Lymphocytes Percent Auto 13.7 % (18.3-44.2); Mean Corpuscular HGB Conc 32.5 g/dl (32-36); Mean Corpuscular Hemoglobin 29.9 pg (26-34); Mean Platelet Volume 9.9 fl (7.4-10.4); Monocytes Absolute Auto 0.8 K/mm3 (0.1-0.6); Neutrophils Absolute Auto 9.3 K/mm3 (1.3-6.7); Neutrophils Percent Auto 78.5 % (45.5-73.1); Platelet Count Result 272 k/mm3 (150-375); Red Blood Count 4.38 M/mm3 (4.2-5.4); Red Cell Distribution Width 14.5 % (11.5-14.5); White Blood Count 11.8 K/mm3 (4.5-10.0)
[2023-01-10 18:59] LABS: Alanine Aminotransferase 19 U/L (6-35); Albumin Level 4.1 g/dL (3.5-5.1); Alkaline Phosphatase 92 U/L (38-126); Anion Gap 5 mmol/L (8-16); Aspartate Amino Transferase 25 U/L (14-36); Bilirubin,Total 0.8 mg/dL (0.2-1.3); Blood Urea Nitrogen 32 mg/dL (7-17); Calcium 9.3 mg/dL (8.4-10.2); Carbon Dioxide 31 mmol/L (22-30); Chloride 102 mmol/L (98-107); Estimated Glomerular Filt Rate 48; Glucose 110 mg/dL (65-110); Lipase 57 U/L (23-300); Sodium 138 mmol/L (137-145)
--- NOTE | 2023-01-10 19:22 | ED.ABDPAIN ---
HPI - Abdominal Pain General Chief Complaint: Abdominal Pain <Juliana Lyon PA-C - Last Filed: 01/10/23 23:00> Stated Complaint: abd pain <Juliana Lyon PA-C - Last Filed: 01/10/23 23:00> Time Seen by Provider: 01/10/23 18:34 <Juliana Lyon PA-C - Last Filed: 01/10/23 23:00> Source: patient <KB Reyna Last Filed: 01/10/23 23:00> Mode of arrival: ambulatory <KB Reyna Last Filed: 01/10/23 23:00> Limitations: no limitations <KB Reyna Last Filed: 01/10/23 23:00> History of Present Illness HPI narrative: This is an 82-year-old female that presents to the emergency department after feeling unwell for the last week. Reports she started to have subjective fevers, cough, and congestion about a week ago. Over the last several days she has developed abdominal discomfort and vomiting. She does also report she has had some loose stools. She has history of Crohn's disease. She got in touch with her GI doctor who prompted her to be seen in the ER. Denies chest pain, shortness of breath or dysuria. <Juliana Lyon PA-C - Last Filed: 01/10/23 23:00> Related Data Home Medications: Home Medications Medication Instructions Recorded Confirmed folic acid 1 mg tablet 1 mg PO DAILY 01/10/23 01/10/23 <Juliana Lyon PA-C - Last Filed: 01/10/23 23:00> Allergies/Adverse Reactions: Allergies Allergy/AdvReac Type Severity Reaction Status Date / Time certolizumab pegol Allergy Unknown RASH, Verified 12/28/22 11:30 SWELLING tetracycline Allergy Unknown Unknown Verified 12/28/22 11:30 Tetracyclines Allergy Unknown unknown Verified 12/28/22 11:30 <KB Reyna Last Filed: 01/10/23 23:00> Review of Systems Review of Systems: CONSTITUTIONAL: Reports fever ENT: Reports rhinorrhea, congestion CARDIOVASCULAR: Denies chest pain, or edema. RESPIRATORY: Reports cough. Denies dyspnea. GASTROINTESTINAL: Reports abdominal pain, nausea, vomiting, and diarrhea. GENITOURINARY: Denies dysuria or hematuria. <Juliana Lyon PA-C - Last Filed: 01/10/23 23:00> All systems reviewed & are unremarkable except as noted in HPI and below <Juliana Lyon PA-C - Last Filed: 01/10/23 23:00> [facility] Past Medical History Medical History: Medical History COPD (chronic obstructive pulmonary disease) Crohn's disease Hypertension Hypothyroid Pulmonary nodule Vitamin B 12 deficiency <Juliana Lyon PA-C - Last Filed: 01/10/23 23:00> Surgical History Surgical History: Surgical History History of squamous cell carcinoma excision Hx of colonoscopy Hx of tubal ligation <Juliana Lyon PA-C - Last Filed: 01/10/23 23:00> Family History Family History: Family History Father Family history of malignant neoplasm of brain, Onset Age: 68 Grandparent Diabetes mellitus Hypertension Asthma Family history of cardiovascular disease Other Family history of malignant neoplasm Family history of throat cancer <Juliana Lyon PA-C - Last Filed: 01/10/23 23:00> Social History Social History: Social History Smoking packs per day: 1 Smoking cigarettes per day: 20.0 Years smoked: 61 Smoking pack-years: 61.00 Smoking status: Current every day smoker Tobacco type: cigarettes Second hand tobacco smoke exposure: Yes Alcohol intake: never Substance use: never Substance use type: does not use Lack of Transportation: No Lack of Food: Never True Current Housing: I Have Housing Concerned About Future Housing: No Difficulty Paying Gas/Electric Bills: No Difficulty Paying for Meds: No Currently Unemployed: No Education: High School Diploma/GED Difficulty w/ Chil
[2023-01-10 19:34] LABS: Add Urine Microscopic? YES; Appearance Urine Cloudy (Clear); Bacteria Urine None Seen /hpf; Bilirubin Urine Negative (Negative); Blood Urine Negative (Negative); Color Urine Dark Yellow (Yellow); Glucose Urine UA Negative (Negative); Hyaline Casts Urine Present /lpf; Ketones Urine 1+ mg/dL (Negative); Leukocyte Esterase Ur Trace LEU/UL (Negative); Nitrate Urine Negative (Negative); Protein Urine 1+ mg/dL (Negative); Specific Grav Ur 1.023 (1.001-1.035); Squamous Epithelial Cell Urine Few /hpf (Few); WBC Urine 0-5 /hpf; pH Urine 5.5 (5.0-9.0)
[2023-01-10] MEDS: SODIUM CHLORIDE 0.9% IV 500 ML 999 ML IV CONT (19:58)
[2023-01-10 20:22] LABS: Influenza A QL RT-PCR Negative (Negative); Influenza B QL RT-PCR Negative (Negative); SARS-CoV-2 RNA PCR Negative (Negative)
--- NOTE | 2023-01-10 22:26 | PM.IMHP ---
H&P: HPI History of Present Illness Date/Time: 01/10/23 22:26 Chief Complaint: Acute abdominal pain Narrative: This is an 82-year-old female with a past medical history of Crohn's disease, HTN, COPD, hypothyroidism that presents to the emergency department after feeling unwell for the last week.? She started to have subjective fevers, cough, and congestion about a week ago.? During the subsequent week, she has developed abdominal discomfort and vomiting.? She does also report she has had some loose stools.? She has history of Crohn's disease.? She got in touch with her GI doctor who prompted her to be seen in the ER.? Denies chest pain, shortness of breath or dysuria. She has recently lost her sister and has been upset about the situation. She was started on clear liquid, IV fluids, IV antibiotics and pain medications with mild improvement of her symptoms. GI was consulted. CT of the med and pelvis reveals?mucosal enhancement, wall thickening and stricture of approximately 10 cm length of terminal ileum consistent with active Crohn's; the patient was admitted to this hospital. Review of Systems Review of Systems: CONSTITUTIONAL: Positive for fatigue, malaise, decreased appetite, loose bowel stool when she eats fluid. Negative for any fevers, chills, night sweats. CARDIOVASCULAR: Negative for chest pain, palpitations, dizziness, orthopnea or lower extremity edema. RESPIRATORY: Negative for shortness of breath, cough, wheezing, sputum. GASTROintestinal: no nausea, vomiting; positive for diarrhea and diarrhea. No blood in stools. GENITOURINARY: Negative for frequency, nocturia, dysuria, hematuria. GYNECOLOGIC: Negative for abnormal bleeding. HEMATOLOGIC: Negative for any abnormal bleeding or bruising. MUSCULOSKELETAL: Negative for joint swelling, stiffness or pain. SKIN: Negative for rashes, eruptions, lesions or dryness. NEUROLOGIC: Negative for any focal neurologic complaints. PSYCHIATRIC: Negative for anxiety, panic, depression. [facility] Past Medical History Medical History COPD (chronic obstructive pulmonary disease) Crohn's disease Hypertension Hypothyroid Pulmonary nodule Vitamin B 12 deficiency Surgical History Surgical History History of squamous cell carcinoma excision Hx of colonoscopy Hx of tubal ligation Family History Family History Father Family history of malignant neoplasm of brain, Onset Age: 68 Grandparent Diabetes mellitus Hypertension Asthma Family history of cardiovascular disease Other Family history of malignant neoplasm Family history of throat cancer Social History Social History Smoking packs per day: 1 Smoking cigarettes per day: 20.0 Years smoked: 61 Smoking pack-years: 61.00 Smoking status: Current every day smoker Tobacco type: cigarettes Second hand tobacco smoke exposure: Yes Alcohol intake: never Substance use: never Substance use type: does not use Lack of Transportation: No Lack of Food: Never True Current Housing: I Have Housing Concerned About Future Housing: No Difficulty Paying Gas/Electric Bills: No Difficulty Paying for Meds: No Currently Unemployed: No Education: High School Diploma/GED Difficulty w/ Childcare or Family Care: No Living arrangements: with family Gender identity (if verbalized by the patient): Female Spiritual care concerns: No Meds Home Medications and Allergies Home Medications Medication Instructions Recorded Confirmed Type adalimumab 40 mg/0.8 mL 40 mg (0.8 mL) subcut [id number] #2 ea 03/03/22 01/10/23 Rx subcutaneous syringe kit (Humira) mesalamine 500 mg capsule,extended 1,000 mg PO QID 1 month #240 caps 03/04/22 01/10/23 Rx release (Pentasa) lisinopril 10 See Rx I
[2023-01-10] MEDS: levoFLOXacin 750 MG/D5W 150 ML 750 MG/150 ML BAG 100 MG IVPB (22:43)
[2023-01-10] MEDS: methylPREDNISolone SOD SUCC 40 MG VIAL IV PUSH (22:43)
[2023-01-11] MEDS: metroNIDAZOLE 500 MG/ISO 100ML 500 MG/100 ML BAG 100 MG IVPB ×5 (00:03→23:41)
--- NOTE | 2023-01-11 00:18 | ADMGEN ---
This patient, Mikaela Mesa, was admitted to Medical Room [facility] at 2324. Patient/family oriented to hospital policies and general routines including ID bracelet, bed and alarms, visiting hours, pain management, procedures, bathroom and other care routines, personal items, smoking policy, room service/diet, and visiting hours. Information on how to activate the Rapid Response Team has been discussed. Patient/Family are encouraged to report perceived risks to care and to ask questions if they do not understand what they are told or what they should do.
[2023-01-11] MEDS: LACTATED RINGERS 1,000 ML 70 ML IV CONT ×2 (04:07→22:32)
[2023-01-11] MEDS: ACETAMINOPHEN/CODEINE ELIXIR (*CRX) 120-12 MG/5 ML UDC 10 ML PO ×2 (04:08→23:43)
[2023-01-11 05:48] LABS: Basophils Percent Auto 0.1 % (0.2-1.2); Hematocrit 37.7 % (37.0-47.0); Hemoglobin 12.1 g/dL (12.0-15.0); Immature Granulocyte Absolute 0.04 K/mm3 (0.00-0.031); Immature Granulocyte Percent A 0.5 % (0-0.5); Lymphocytes Absolute Auto 0.65 K/mm3 (0.9-3.2); Mean Corpuscular HGB Conc 32.1 g/dl (32-36); Mean Corpuscular Hemoglobin 29.7 pg (26-34); Mean Corpuscular Volume 92.6 fl (80-100); Mean Platelet Volume 10.2 fl (7.4-10.4); Monocytes Absolute Auto 0.1 K/mm3 (0.1-0.6); Neutrophils Absolute Auto 7.3 K/mm3 (1.3-6.7); Neutrophils Percent Auto 90.4 % (45.5-73.1); Platelet Count Result 251 k/mm3 (150-375); Red Blood Count 4.07 M/mm3 (4.2-5.4); Red Cell Distribution Width 14.4 % (11.5-14.5); White Blood Count 8.1 K/mm3 (4.5-10.0)
[2023-01-11 05:52] VITALS: BP 108/65; PULSE 76; RESP 20; TEMP 36.5; O2SAT 96
[2023-01-11 05:56] LABS: Anion Gap 9 mmol/L (8-16); Blood Urea Nitrogen 30 mg/dL (7-17); Calcium 8.7 mg/dL (8.4-10.2); Carbon Dioxide 25 mmol/L (22-30); Chloride 104 mmol/L (98-107); Estimated CRCL calculation 38 ml/min; Estimated Glomerular Filt Rate 53; Glucose 152 mg/dL (65-110); Potassium 3.9 mmol/L (3.4-5.0); Sodium 138 mmol/L (137-145)
[2023-01-11] MEDS: methylPREDNISolone SOD SUCC 40 MG VIAL IV PUSH ×3 (05:59→20:33)
--- NOTE | 2023-01-11 08:35 | WPDGICN ---
Assessment and Plan Assessment and plan (1) Crohn's disease: Code(s): K50.90 - Crohn's disease, unspecified, without complications Status: Acute Assessment and Plan: Patient with Crohn's disease. She appears to have a recent flare of disease. Small-bowel stricturing appears evident on CT scan imaging performed emergency room. At present time because of her symptoms with some vomiting abdominal cramping will limit her to liquid diet. Small-bowel follow-through will be obtained today. Agree with treating her with IV steroids currently Solu-Medrol, broad-spectrum antibiotics with Levaquin and Flagyl. Continue oral Pentasa and Humira for now. Further recommendations after small-bowel follow-through. Hopefully as small-bowel narrowing improves diet can be advanced to a low residue diet eventually. GI Consult Note Consult date/time: 01/11/23 08:35 Reason for consult: Crohn's disease HPI: Mikaela Mesa is a 82 year old female I am asked see at the request the hospitalist service because of Crohn's disease. Patient diagnosed with Crohn's disease many years ago. She recently has been treated with Humira supplemented with Pentasa. Patient states last week she developed sinusitis. [place] some sinus congestion. Over the weekend developed vague abdominal pain with nausea and vomited. Upon presenting to the emergency room CT scan imaging reveals small-bowel strictures. These are chronic and consistent with her known Crohn's disease. Patient states after overnight IV fluid rehydration she feels somewhat better. She has not eaten. She did drink some water. She states she had a bowel movement yesterday. Patient denies any fever. She denies any abdominal pain this morning. Family history is significant for recent passage of her sister. There is no other family with inflammatory bowel disease. Small-bowel follow-through in August of this year revealed small bowel stricture ring. 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 Review of Systems Review of Systems: Review of systems noncontributory. [facility] Past Medical History Medical History COPD (chronic obstructive pulmonary disease) Crohn's disease Hypertension Hypothyroid Pulmonary nodule Vitamin B 12 deficiency Surgical History Surgical History History of squamous cell carcinoma excision Hx of colonoscopy Hx of tubal ligation Family History Family History Father Family history of malignant neoplasm of brain, Onset Age: 68 Grandparent Diabetes mellitus Hypertension Asthma Family history of cardiovascular disease Other Family history of malignant neoplasm Family history of throat cancer Social History Social History Smoking packs per day: 1 Smoking cigarettes per day: 20.0 Years smoked: 61 Smoking pack-years: 61.00 Smoking status: Current every day smoker Tobacco type: cigarettes Second hand tobacco smoke exposure: Yes Alcohol intake: never Substance use: never Substance use type: does not use Lack of Transportation: No Lack of Food: Never True Current Housing: I Have Housing Concerned About Future Housing: No Difficulty Paying Gas/Electric Bills: No Difficulty Paying for Meds: No Currently Unemployed: No Education: High School Diploma/GED Difficulty w/ Childcare or Family Care: No Living arrangements: with family Gender identity (if verbalized by the patient): Female Spiritual care concerns: No Meds Home Medications and Allergies Home Medications Medication Instructions Recorded Confirmed Type adalimumab 40 mg/0.8 mL 40 mg (0.8 mL) subcut [id number] #2 ea 03/03/22 01/10/23 Rx subcutaneous syringe kit (Humira) mesalamine 500 mg capsule,extended 1,000
[2023-01-11] MEDS: FOLIC ACID 1 MG TABLET PO (09:28)
[2023-01-11] MEDS: ENOXAPARIN 30 MG/0.3 ML SYRINGE SUB-Q (09:28)
--- NOTE | 2023-01-11 10:45 | PM.IMPN ---
Progress Note: A&P Assessment and Plan (1) Acute Crohn's disease: Qualifiers: Digestive disease complication type: without complication Qualified Code(s): K50.90 - Crohn's disease, unspecified, without complications Code(s): K50.90 - Crohn's disease, unspecified, without complications Status: Acute Assessment and Plan: Presented to the ED with complaints of fevers, cough, congestion diarrhea nausea and vomiting CT of the abdomen and pelvis showed mucosal enhancement wall thickening and stricture of 10 cm in length consistent with active Crohn's GI consulted patient was started on clear liquids IV fluids continue continue Levaquin and Flagyl for now along with Humira and Pentasa small-bowel follow-through per GI ordered advance diet per GI (2) Acute kidney injury: Code(s): N17.9 - Acute kidney failure, unspecified Status: Acute Assessment and Plan: BUN and creatinine upon arrival was 32/1.10 unknown baseline however in October BUN creatinine was 17/0.7 currently 30/1.0 most likely related to dehydration since she was having severe nausea vomiting diarrhea seems to be resolved continue trend continue IV fluids (3) Vitamin D2 deficiency: Code(s): E55.9 - Vitamin D deficiency, unspecified Status: Acute Assessment and Plan: vitamin-D level vitamin-D 133, vitamin-D2 less than 8, vitamin D3 33 supplement as needed stable at this time (4) Vitamin B 12 deficiency: Code(s): E53.8 - Deficiency of other specified B group vitamins Status: Acute Assessment and Plan: vitamin B12 160 continue home B12 injections monthly on the 5th supplement as needed. (5) Hypothyroid: Qualifiers: Hypothyroidism type: acquired Qualified Code(s): E03.9 - Hypothyroidism, unspecified Code(s): E03.9 - Hypothyroidism, unspecified Status: Acute Assessment and Plan: stable (6) HTN (hypertension): Qualifiers: Hypertension type: primary hypertension Qualified Code(s): I10 - Essential (primary) hypertension Code(s): I10 - Essential (primary) hypertension Status: Acute Assessment and Plan: current blood pressure 108/65 hold hydrochlorothiazide and lisinopril Trend blood pressure adjust therapy as indicated (7) COPD (chronic obstructive pulmonary disease): Qualifiers: COPD type: unspecified COPD Qualified Code(s): J44.9 - Chronic obstructive pulmonary disease, unspecified Code(s): J44.9 - Chronic obstructive pulmonary disease, unspecified Status: Acute Assessment and Plan: No evidence of acute exacerbation. Continue home meds Time Spent With Patient Time: 39 minutes Time with patient: Greater than 35 minutes Subjective Date/time seen: 01/11/23 1045 Interval history: 01/11/23 104 patient was resting in bed. Patient stated that she did have very good 19 get much sleep. She denies having any abdominal pain, nausea, vomiting, diarrhea, constipation, chest pain or shortness of breath. Patient stated that she is feeling a lot better and she is doing well with food. Currently she is hungry and stated that she would like something to eat. 01/10/23? 22:26 This is an 82-year-old female with a past medical history of Crohn's disease, HTN, COPD, hypothyroidism that presents to the emergency department after feeling unwell for the last week.? She started to have subjective fevers, cough, and congestion about a week ago.? During the subsequent week, she has developed abdominal discomfort and vomiting.? She does also report she has had some loose stools.? She has history of Crohn's disease.? She got in touch with her GI doctor who prompted her to be seen in the ER.? Denies chest pain, shortness of breath or dysuria. She has re
--- NOTE | 2023-01-11 10:45 | P.PNIM_ITS ---
Progress Note: A&P Assessment and Plan (1) Acute Crohn's disease: Qualifiers: Digestive disease complication type: without complication Qualified Code(s): K50.90 - Crohn's disease, unspecified, without complications Code(s): K50.90 - Crohn's disease, unspecified, without complications Status: Acute Assessment and Plan: * Presented to the ED with complaints of fevers, cough, congestion diarrhea nausea and vomiting * CT of the abdomen and pelvis showed mucosal enhancement wall thickening and s tricture of 10 cm in length consistent with active Crohn's * GI consulted * patient was started on clear liquids * IV fluids continue * continue Levaquin and Flagyl for now along with Humira and Pentasa * small-bowel follow-through per GI ordered * advance diet per GI (2) Acute kidney injury: Code(s): N17.9 - Acute kidney failure, unspecified Status: Acute Assessment and Plan: * BUN and creatinine upon arrival was 32/1.10 * unknown baseline however in October BUN creatinine was 17/0.7 * currently 30/1.0 * most likely related to dehydration since she was having severe nausea vomiting diarrhea * seems to be resolved * continue trend * continue IV fluids (3) Vitamin D2 deficiency: Code(s): E55.9 - Vitamin D deficiency, unspecified Status: Acute Assessment and Plan: * vitamin-D level vitamin-D 133, vitamin-D2 less than 8, vitamin D3 33 * supplement as needed * stable at this time (4) Vitamin B 12 deficiency: Code(s): E53.8 - Deficiency of other specified B group vitamins Status: Acute Assessment and Plan: * vitamin B12 160 * continue home B12 injections monthly on the * supplement as needed. (5) Hypothyroid: Qualifiers: Hypothyroidism type: acquired Qualified Code(s): E03.9 - H ypothyroidism, unspecified Code(s): E03.9 - Hypothyroidism, unspecified Status: Acute Assessment and Plan: * stable (6) HTN (hypertension): Qualifiers: Hypertension type: primary hypertension Qualified Code(s): I10 - Essential (primary) hypertension Code(s): I10 - Essential (primary) hypertension Status: Acute Assessment and Plan: * current blood pressure 108/65 * hold hydrochlorothiazide and lisinopril * Trend blood pressure * adjust therapy as indicated (7) COPD (chronic obstructive pulmonary disease): Qualifiers: COPD type: unspecified COPD Qualified Code(s): J44.9 - Chronic obstructive pulmonary disease, unspecified Code(s): J44.9 - Chronic obstructive pulmonary disease, unspecified Status: Acute Assessment and Plan: * No evidence of acute exacerbation. Continue home meds Time Spent With Patient Time: 39 minutes Time with patient: Greater than 35 minutes Subjective Date/time seen: 01/11/231044 Interval history: 01/11/231044 patient was resting in bed. Patient stated that she did have very good 19 get much sleep. She denies having any abdominal pain, nausea, vomiting, diarrhea, constipation, chest pain or shortness of breath. Patient stated that she is feeling a lot better and she is doing well with food. Currently she is hungry and stated that she woul
[2023-01-11 14:00] VITALS: BP 120/54; PULSE 68; RESP 16; TEMP 36.5; O2SAT 96
[2023-01-11 20:00] VITALS: PULSE 81; RESP 20; O2SAT 95
[2023-01-11 20:56] VITALS: BP 139/62; PULSE 81; RESP 20; TEMP 36.5; O2SAT 95
[2023-01-12 05:33] LABS: Basophils Percent Auto 0.1 % (0.2-1.2); Hematocrit 34.1 % (37.0-47.0); Hemoglobin 10.8 g/dL (12.0-15.0); Immature Granulocyte Absolute 0.08 K/mm3 (0.00-0.031); Immature Granulocyte Percent A 0.6 % (0-0.5); Lymphocytes Absolute Auto 0.87 K/mm3 (0.9-3.2); Lymphocytes Percent Auto 6.8 % (18.3-44.2); Mean Corpuscular HGB Conc 31.7 g/dl (32-36); Mean Corpuscular Hemoglobin 29.2 pg (26-34); Mean Corpuscular Volume 92.2 fl (80-100); Mean Platelet Volume 10.2 fl (7.4-10.4); Monocytes Absolute Auto 0.4 K/mm3 (0.1-0.6); Neutrophils Absolute Auto 11.4 K/mm3 (1.3-6.7); Neutrophils Percent Auto 89.5 % (45.5-73.1); Platelet Count Result 203 k/mm3 (150-375); Red Cell Distribution Width 14.2 % (11.5-14.5); White Blood Count 12.7 K/mm3 (4.5-10.0)
[2023-01-12 05:39] LABS: Alanine Aminotransferase 15 U/L (6-35); Albumin Level 3.2 g/dL (3.5-5.1); Alkaline Phosphatase 59 U/L (38-126); Anion Gap 5 mmol/L (8-16); Aspartate Amino Transferase 20 U/L (14-36); Bilirubin,Total 0.5 mg/dL (0.2-1.3); Blood Urea Nitrogen 23 mg/dL (7-17); Calcium 8.8 mg/dL (8.4-10.2); Carbon Dioxide 27 mmol/L (22-30); Chloride 107 mmol/L (98-107); Estimated CRCL calculation 47 ml/min; Estimated Glomerular Filt Rate > 60; Glucose 135 mg/dL (65-110); Magnesium 1.7 mg/dL (1.6-2.3); Potassium 4.1 mmol/L (3.4-5.0); Sodium 139 mmol/L (137-145)
[2023-01-12] MEDS: methylPREDNISolone SOD SUCC 40 MG VIAL IV PUSH (05:40)
[2023-01-12] MEDS: metroNIDAZOLE 500 MG/ISO 100ML 500 MG/100 ML BAG 100 MG IVPB ×3 (05:40→19:48)
[2023-01-12 05:46] VITALS: BP 138/64; PULSE 62; RESP 20; TEMP 36.5; O2SAT 95
--- NOTE | 2023-01-12 07:42 | WPDGIPROGNO ---
Progress Note: A&P Assessment and Plan (1) Crohn's disease: Code(s): K50.90 - Crohn's disease, unspecified, without complications Status: Acute Assessment and Plan: Patient admitted with apparent flare of Crohn's disease. Currently symptoms have improved. Plan to advance to low residue diet. Small-bowel follow-through to further assess stricture ring is pending at this time. If she is able to tolerate diet than changing IV steroids to a tapering dose of prednisone and oral antibiotics for 1 week is advised. If able to tolerate diet with no pain she can be discharged in a.m.. Subjective Date/time seen: 01/12/23 07:42 Interval history: Patient comfortable this morning. Denies abdominal pain. She states she is hungry. She has been passing bowel movements. Small-bowel follow-through unable to be obtained yesterday. Review of Systems Review of Systems: Review of systems noncontributory. Exam Narrative: Physical exam reveals patient be alert. Vital signs stable. HEENT exam is unremarkable. Patient is anicteric. Lungs are clear. Heart without murmur. Abdomen soft flat nontender bowel sounds present no hepatosplenomegaly. No tenderness. Objective Data Vital Signs Vital Signs: Vital Signs - 24 hr 01/11/23 09:28 01/11/23 14:00 01/11/23 20:56 Temperature 97.7 F 97.7 F Pulse Rate 68 81 Respiratory Rate 16 20 Blood Pressure 120/54 L 139/62 Pulse Oximetry 96 95 Oxygen Delivery Room Air 01/11/23 20:00 01/12/23 05:46 Temperature 97.7 F Pulse Rate 81 62 Respiratory Rate 20 20 Blood Pressure 138/64 Pulse Oximetry 95 95 Oxygen Delivery Room Air Intake/Output Intake/Output: Intake & Output 01/09/23 01/10/23 01/11/23 01/12/23 23:59 23:59 23:59 23:59 Intake Total 650 2840 200 Output Total 1 Balance 650 2839 200 Meds/Results Medications: Active Medications Generic Name Dose Route Start Last Admin Trade Name Freq PRN Reason Stop Dose Admin Acetaminophen 650 mg 01/11/23 02:41 Acetaminophen Elixir 325 Mg/10.15 Ml Udc PO Q4H PRN Mild Pain (1-3) or Fever Acetaminophen/Codeine Phosphate 10 ml 01/11/23 02:41 01/11/23 23:43 Acetaminophen/Codeine Elixir (*Crx) 120-12 Mg/5 Ml Udc PO 10 ml Q4H PRN Administration Pain Rated 4-6 Cyanocobalamin 200 mcg 01/12/23 09:00 Cyanocobalamin Inj 1,000 Mcg/Ml Vial IM MONTHLY ANTONIO Enoxaparin Sodium 30 mg 01/11/23 09:00 01/11/23 09:28 Enoxaparin 30 Mg/0.3 Ml Syringe SUB-Q 30 mg DAILY ANTONIO Administration Folic Acid 1 mg 01/11/23 09:00 01/11/23 09:28 Folic Acid 1 Mg Tablet PO 1 mg DAILY ANTONIO Administration Levofloxacin/Dextrose 750 mg in 150 mls @ 100 mls/hr 01/12/23 21:00 Levaquin 750 Mg/D5w 150 Ml IVPB Q48H ANTONIO Metronidazole 500 mg in 100 mls @ 100 mls/hr 01/11/23 06:00 01/12/23 06:40 Flagyl 500 Mg/Iso Soln 100 Ml IVPB Infused Q6H ANTONIO Infusion Lactated Ringer's 1,000 mls @ 70 mls/hr 01/11/23 02:50 01/11/23 22:32 Lr - Lactated Ringers Iv IV CONT 70 mls/hr .[id number] ANTONIO Administration Methylprednisolone Sodium Succinate 40 mg 01/11/23 06:00 01/12/23 05:40 Methylprednisolone Sod Succ 40 Mg Vial IV PUSH 40 mg Q8H ANTONIO Administration Radiology Results: ITS Impressions Chest X-Ray 01/10/23 19:44 IMPRESSION: COPD Abdomen/Pelvis CT 01/10/23 20:58 IMPRESSION: Mucosal enhancement, wall thickening and stricture of approximately 10 cm length of terminal ileum consistent with active Crohn's, small bowel dilatation proximally up to 4 cm diameter, multiple small bowel air-fluid levels Moderate size sliding hiatal hernia 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
[2023-01-12] MEDS: ENOXAPARIN 30 MG/0.3 ML SYRINGE SUB-Q (08:18)
[2023-01-12] MEDS: FOLIC ACID 1 MG TABLET PO (08:18)
[2023-01-12] MEDS: CYANOCOBALAMIN INJ 1,000 MCG/ML VIAL 200 MCG IM (08:18)
[2023-01-12] MEDS: LACTATED RINGERS 1,000 ML 70 ML IV CONT (13:31)
[2023-01-12] MEDS: predniSONE 20 MG TABLET PO (13:31)
[2023-01-12 14:00] VITALS: BP 132/54; PULSE 74; RESP 16; TEMP 36.9; O2SAT 99
--- NOTE | 2023-01-12 15:19 | P.PNIM_ITS ---
Progress Note: A&P Assessment and Plan (1) Acute Crohn's disease: Qualifiers: Digestive disease complication type: without complication Qualified Code(s): K50.90 - Crohn's disease, unspecified, without complications Code(s): K50.90 - Crohn's disease, unspecified, without complications Status: Acute Assessment and Plan: Presented to the ED with complaints of fevers, cough, congestion diarrhea nausea and vomiting. CT of the abdomen and pelvis showed mucosal enhancement wall thickening and stricture of 10 cm in length consistent with active Crohn's * GI consulted * IV fluids continue * continue Levaquin and Flagyl for now along with Humira and Pentasa * IV Solu-Medrol tapered to oral prednisone * small-bowel follow-through per GI revealing partial small-bowel obstruction * advance diet per GI (2) Acute kidney injury: Code(s): N17.9 - Acute kidney failure, unspecified Status: Resolved Assessment and Plan: * BUN and creatinine upon arrival was 32/1.10 * unknown baseline however in October BUN creatinine was 17/0.7 * most likely related to dehydration since she was having severe nausea vomiting diarrhea * continue trend * resolved (3) Vitamin D2 deficiency: Code(s): E55.9 - Vitamin D deficiency, unspecified Status: Acute Assessment and Plan: * vitamin-D level vitamin-D 133, vitamin-D2 less than 8, vitamin D3 33 * supplement as needed * stable at this time (4) Vitamin B 12 deficiency: Code(s): E53.8 - Deficiency of other specified B group vitamins Status: Acute Assessment and Plan: * vitamin B12 160 * continue home B12 injections monthly on the * supplement as needed. (5) Hypothyroid: Qualifiers: Hypothyroidism type: acquired Qualified Code(s): E03.9 - Hypothyroidism, unspecified Code(s): E03.9 - Hypothyroidism, unspecified Status: Acute Assessment and Plan: * stable (6) HTN (hypertension): Qualifiers: Hypertension type: primary hypertension Qualified Code(s): I10 - Essential (primary) hypertension Code(s): I10 - Essential (primary) hypertension Status: Acute Assessment and Plan: * current blood pressure 108/65 * hold hydrochlorothiazide and lisinopril * Trend blood pressure * adjust therapy as indicated (7) COPD (chronic obstructive pulmonary disease): Qualifiers: COPD type: unspecified COPD Qualified Code(s): J44.9 - Chronic obstructive pulmonary disease, unspecified Code(s): J44.9 - Chronic obstructive pulmonary disease, unspecified Status: Acute Assessment and Plan: * No evidence of acute exacerbation. Continue home meds Subjective Date/time seen: 01/12/23 15:19 Interval history: patient is doing well and sitting up on side of the bed. She is having diarrhea currently that this is normal for her to her Crohn's disease. She d enies any bloody diarrhea. She is not having any abdominal pain at this time she did have small-bowel follow-through that showed partial obstruction. Per GI she is able to advance diet as tolerated. IV steroids were tapered. I suspect the patient should be able to discharge home tomorrow if she tolerates her diet. Review of Systems
--- NOTE | 2023-01-12 15:19 | PM.IMPN ---
Progress Note: A&P Assessment and Plan (1) Acute Crohn's disease: Qualifiers: Digestive disease complication type: without complication Qualified Code(s): K50.90 - Crohn's disease, unspecified, without complications Code(s): K50.90 - Crohn's disease, unspecified, without complications Status: Acute Assessment and Plan: Presented to the ED with complaints of fevers, cough, congestion diarrhea nausea and vomiting. CT of the abdomen and pelvis showed mucosal enhancement wall thickening and stricture of 10 cm in length consistent with active Crohn's GI consulted IV fluids continue continue Levaquin and Flagyl for now along with Humira and Pentasa IV Solu-Medrol tapered to oral prednisone small-bowel follow-through per GI revealing partial small-bowel obstruction advance diet per GI (2) Acute kidney injury: Code(s): N17.9 - Acute kidney failure, unspecified Status: Resolved Assessment and Plan: BUN and creatinine upon arrival was 32/1.10 unknown baseline however in October BUN creatinine was 17/0.7 most likely related to dehydration since she was having severe nausea vomiting diarrhea continue trend resolved (3) Vitamin D2 deficiency: Code(s): E55.9 - Vitamin D deficiency, unspecified Status: Acute Assessment and Plan: vitamin-D level vitamin-D 133, vitamin-D2 less than 8, vitamin D3 33 supplement as needed stable at this time (4) Vitamin B 12 deficiency: Code(s): E53.8 - Deficiency of other specified B group vitamins Status: Acute Assessment and Plan: vitamin B12 160 continue home B12 injections monthly on the 5th supplement as needed. (5) Hypothyroid: Qualifiers: Hypothyroidism type: acquired Qualified Code(s): E03.9 - Hypothyroidism, unspecified Code(s): E03.9 - Hypothyroidism, unspecified Status: Acute Assessment and Plan: stable (6) HTN (hypertension): Qualifiers: Hypertension type: primary hypertension Qualified Code(s): I10 - Essential (primary) hypertension Code(s): I10 - Essential (primary) hypertension Status: Acute Assessment and Plan: current blood pressure 108/65 hold hydrochlorothiazide and lisinopril Trend blood pressure adjust therapy as indicated (7) COPD (chronic obstructive pulmonary disease): Qualifiers: COPD type: unspecified COPD Qualified Code(s): J44.9 - Chronic obstructive pulmonary disease, unspecified Code(s): J44.9 - Chronic obstructive pulmonary disease, unspecified Status: Acute Assessment and Plan: No evidence of acute exacerbation. Continue home meds Subjective Date/time seen: 01/12/23 15:19 Interval history: patient is doing well and sitting up on side of the bed. She is having diarrhea currently that this is normal for her to her Crohn's disease. She denies any bloody diarrhea. She is not having any abdominal pain at this time she did have small-bowel follow-through that showed partial obstruction. Per GI she is able to advance diet as tolerated. IV steroids were tapered. I suspect the patient should be able to discharge home tomorrow if she tolerates her diet. Review of Systems Review of Systems: All systems reviewed & are unremarkable except as noted in HPI and below Exam Narrative: GENERAL: Comfortable, no acute distress HENMT: moist mucous membranes EYES: EOM intact b/l NECK: no lymphadenopathy RESPIRATORY: clear to auscultation CARDIO: RRR GI: soft, nontender, bowel sounds present SKIN: no rashes EXTREMITIES: no edema, redness or tenderness Objective Data Vital Signs Vital Signs: Vital Signs - 24 hr 01/11/23 20:56 01/11/23 20:00 01/12/23 05:46 Temperature 97.7 F 97.7 F Pulse Rate 81 81 62 Respiratory Rate 20 20 20 Blood
[2023-01-12 20:00] VITALS: PULSE 74; RESP 16; O2SAT 99
[2023-01-12] MEDS: levoFLOXacin 750 MG/D5W 150 ML 750 MG/150 ML BAG 100 MG IVPB (20:56)
[2023-01-12 21:35] VITALS: BP 137/59; PULSE 62; RESP 14; TEMP 37.2; O2SAT 95
[2023-01-12] MEDS: ACETAMINOPHEN/CODEINE ELIXIR (*CRX) 120-12 MG/5 ML UDC 10 ML PO (23:43)
[2023-01-13] MEDS: metroNIDAZOLE 500 MG/ISO 100ML 500 MG/100 ML BAG 100 MG IVPB ×2 (01:44→12:30)
[2023-01-13 05:38] VITALS: BP 142/55; PULSE 52; RESP 12; TEMP 36.6; O2SAT 97
[2023-01-13 05:46] LABS: Hematocrit 32.3 % (37.0-47.0); Hemoglobin 10.4 g/dL (12.0-15.0); Mean Corpuscular HGB Conc 32.2 g/dl (32-36); Mean Corpuscular Volume 93.1 fl (80-100); Mean Platelet Volume 10.4 fl (7.4-10.4); Platelet Count Result 186 k/mm3 (150-375); Red Blood Count 3.47 M/mm3 (4.2-5.4); Red Cell Distribution Width 14.6 % (11.5-14.5); White Blood Count 10.1 K/mm3 (4.5-10.0)
[2023-01-13 05:56] LABS: Alanine Aminotransferase 18 U/L (6-35); Alkaline Phosphatase 62 U/L (38-126); Anion Gap 6 mmol/L (8-16); Aspartate Amino Transferase 22 U/L (14-36); Bilirubin,Total 0.4 mg/dL (0.2-1.3); Blood Urea Nitrogen 24 mg/dL (7-17); Calcium 8.5 mg/dL (8.4-10.2); Carbon Dioxide 27 mmol/L (22-30); Chloride 108 mmol/L (98-107); Estimated CRCL calculation 42 ml/min; Estimated Glomerular Filt Rate 60; Glucose 93 mg/dL (65-110); Potassium 3.4 mmol/L (3.4-5.0); Sodium 141 mmol/L (137-145)
[2023-01-13 08:00] VITALS: PULSE 52; RESP 12; O2SAT 97
[2023-01-13] MEDS: predniSONE 20 MG TABLET PO (08:24)
[2023-01-13] MEDS: FOLIC ACID 1 MG TABLET PO (08:24)
[2023-01-13] MEDS: ENOXAPARIN 30 MG/0.3 ML SYRINGE SUB-Q (08:24)
--- NOTE | 2023-01-13 08:47 | WPDGIPROGNO ---
Progress Note: A&P Assessment and Plan (1) Crohn's disease: Code(s): K50.90 - Crohn's disease, unspecified, without complications Status: Acute Assessment and Plan: Patient admitted with what appears to have been acute exacerbation of her Crohn's disease. Imaging studies reveal a stricture of the ileum. Plan for patient to be on a low residue diet. Continue outpatient medications including Humira and Pentasa. Tapering dose of prednisone advised after discharge. One week of oral antibiotics to be continued and subsequently discharged. Patient should follow-up electively with the GI service as currently scheduled. She currently follows with Dr. Abrams in the GI office. Subjective Date/time seen: 01/13/23 08:47 Interval history: Patient alert comfortable this morning. Denies abdominal pain. Tolerating low residue diet without difficulty. No fever. No abdominal pain reported. Review of Systems Review of Systems: Review of systems noncontributory. Exam Narrative: Physical exam reveals patient be alert. Vital signs stable. HEENT exam unremarkable. Patient anicteric. Lungs are clear. Heart without murmur. Abdomen bowel sounds present soft nontender with no organomegaly. Objective Data Vital Signs Vital Signs: Vital Signs - 24 hr 01/12/23 09:30 01/12/23 14:00 01/12/23 20:00 Temperature 98.5 F Pulse Rate 74 74 Respiratory Rate 16 16 Blood Pressure 132/54 L Pulse Oximetry 99 99 Oxygen Delivery Room Air Room Air 01/12/23 21:35 01/13/23 05:38 Temperature 98.9 F 97.8 F Pulse Rate 62 52 L Respiratory Rate 14 12 Blood Pressure 137/59 L 142/55 H Pulse Oximetry 95 97 Oxygen Delivery Intake/Output Intake/Output: Intake & Output 01/10/23 01/11/23 01/12/23 01/13/23 23:59 23:59 23:59 23:59 Intake Total 650 3690 2750 850 Output Total 1 Balance 650 2839 2750 850 Meds/Results Medications: Active Medications Generic Name Dose Route Start Last Admin Trade Name Freq PRN Reason Stop Dose Admin Acetaminophen 650 mg 01/11/23 02:41 Acetaminophen Elixir 325 Mg/10.15 Ml Udc PO Q4H PRN Mild Pain (1-3) or Fever Acetaminophen/Codeine Phosphate 10 ml 01/11/23 02:41 01/12/23 23:43 Acetaminophen/Codeine Elixir (*Crx) 120-12 Mg/5 Ml Udc PO 10 ml Q4H PRN Administration Pain Rated 4-6 Cyanocobalamin 200 mcg 01/12/23 09:00 01/12/23 08:18 Cyanocobalamin Inj 1,000 Mcg/Ml Vial IM 200 mcg MONTHLY ANTONIO Administration Enoxaparin Sodium 30 mg 01/11/23 09:00 01/13/23 08:24 Enoxaparin 30 Mg/0.3 Ml Syringe SUB-Q 30 mg DAILY ANTONIO Administration Folic Acid 1 mg 01/11/23 09:00 01/13/23 08:24 Folic Acid 1 Mg Tablet PO 1 mg DAILY ANTONIO Administration Levofloxacin/Dextrose 750 mg in 150 mls @ 100 mls/hr 01/12/23 21:00 01/12/23 22:30 Levaquin 750 Mg/D5w 150 Ml IVPB Infused Q48H ANTONIO Infusion Metronidazole 500 mg in 100 mls @ 100 mls/hr 01/11/23 06:00 01/13/23 07:51 Flagyl 500 Mg/Iso Soln 100 Ml IVPB Not Given Q6H ANTONIO Lactated Ringer's 1,000 mls @ 70 mls/hr 01/11/23 02:50 01/12/23 13:31 Lr - Lactated Ringers Iv IV CONT 70 mls/hr .[id number] ANTONIO Administration Prednisone 20 mg 01/12/23 12:00 01/13/23 08:24 Prednisone 20 Mg Tablet PO 20 mg DAILY@0800 ANTONIO Administration Radiology Results: ITS Impressions Chest X-Ray 01/10/23 19:44 IMPRESSION: COPD Abdomen/Pelvis CT 01/10/23 20:58 IMPRESSION: Mucosal enhancement, wall thickening and stricture of approximately 10 cm length of terminal ileum consistent with active Crohn's, small bowel dilatation proximally up to 4 cm diameter, multiple small bowel air-fluid levels Moderate size sliding hiatal hernia 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 Dilated small bowel with stricture of the terminal ileum spanning 20 cm, consistent with partial smal
[2023-01-13] MEDS: LACTATED RINGERS 1,000 ML 70 ML IV CONT (12:31)
--- NOTE | 2023-01-13 12:47 | P.DS_ITS ---
DS: Admitting Diagnosis Discharge Date 01/13/23 Admitting Diagnosis Crohn's disease flare DS: Discharge Diagnosis Discharge Diagnosis (1) Acute Crohn's disease: Qualifiers: Digestive disease complication type: without complication Qualified Code(s): K50.90 - Crohn's disease, unspecified, without complications Code(s): K50.90 - Crohn's disease, unspecified, without complications Status: Acute Assessment and Plan: Presented to the ED with complaints of fevers, cough, congestion diarrhea nausea and vomiting. CT of the abdomen and pelvis showed mucosal enhancement wall thickening and stricture of 10 cm in length consistent with active Crohn's * GI consulted * IV fluids continue * continue Levaquin and Flagyl for now along with Humira and Pentasa * IV Solu-Medrol tapered to oral prednisone * small-bowel follow-through per GI revealing partial small-bowel obstruction * advance diet per GI -- patient tolerated diet well. Per GI patient can be discharged (2) Acute kidney injury: Code(s): N17.9 - Acute kidney failure, unspecified Status: Resolved Assessment and Plan: * BUN and creatinine upon arrival was 32/1.10 * unknown baseline however in October BUN creatinine was 17/0.7 * most likely related to dehydration since she was having severe nausea vomiting diarrhea * continue trend * resolved (3) Vitamin D2 deficiency: Code(s): E55.9 - Vitamin D deficiency, unspecified Status: Acute Assessment and Plan: * vitamin-D level vitamin-D 133, vitamin-D2 less than 8, vitamin D3 33 * supplement as needed * stable at this time (4) Vitamin B 12 deficiency: Code(s): E53.8 - Deficiency of other specified B group vitamins Status: Acute Assessment and Plan: * vitamin B12 160 * continue home B12 injections monthly on the * supplement as needed. (5) Hypothyroid: Qualifiers: Hypothyroidism type: acquired Qualified Code(s): E03.9 - Hypothyroidism, unspecified Code(s): E03.9 - Hypothyroidism, unspecified Status: Acute Assessment and Plan: * stable (6) HTN (hypertension): Qualifiers: Hypertension type: primary hypertension Qualified Code(s): I10 - Essential (primary) hypertension Code(s): I10 - Essential (primary) hypertension Status: Acute Assessment and Plan: * current blood pressure 108/65 * hold hydrochlorothiazide and lisinopril * Trend blood pressure * adjust therapy as indicated (7) COPD (chronic obstructive pulmonary disease): Qualifiers: COPD type: unspecified COPD Qualified Code(s): J44.9 - Chronic o bstructive pulmonary disease, unspecified Code(s): J44.9 - Chronic obstructive pulmonary disease, unspecified Status: Acute Assessment and Plan: * No evidence of acute exacerbation. Continue home meds DS: Summary Hospital Course Hospital Course: This is an 83-year-old female with past medical history of Crohn's disease, hypertension, COPD and hypothyroidism presents to the ED on 01/10/2023 for subjective fever, cough and congestion approximately 1 week prior. After this she developed abdominal pain and vomiting. CT of the abdomen pelvis revealed mucosal enhancement, wall thick
--- NOTE | 2023-01-13 12:47 | PM.DS ---
DS: Admitting Diagnosis Discharge Date 01/13/23 Admitting Diagnosis Crohn's disease flare DS: Discharge Diagnosis Discharge Diagnosis (1) Acute Crohn's disease: Qualifiers: Digestive disease complication type: without complication Qualified Code(s): K50.90 - Crohn's disease, unspecified, without complications Code(s): K50.90 - Crohn's disease, unspecified, without complications Status: Acute Assessment and Plan: Presented to the ED with complaints of fevers, cough, congestion diarrhea nausea and vomiting. CT of the abdomen and pelvis showed mucosal enhancement wall thickening and stricture of 10 cm in length consistent with active Crohn's GI consulted IV fluids continue continue Levaquin and Flagyl for now along with Humira and Pentasa IV Solu-Medrol tapered to oral prednisone small-bowel follow-through per GI revealing partial small-bowel obstruction advance diet per GI -- patient tolerated diet well. Per GI patient can be discharged (2) Acute kidney injury: Code(s): N17.9 - Acute kidney failure, unspecified Status: Resolved Assessment and Plan: BUN and creatinine upon arrival was 32/1.10 unknown baseline however in October BUN creatinine was 17/0.7 most likely related to dehydration since she was having severe nausea vomiting diarrhea continue trend resolved (3) Vitamin D2 deficiency: Code(s): E55.9 - Vitamin D deficiency, unspecified Status: Acute Assessment and Plan: vitamin-D level vitamin-D 133, vitamin-D2 less than 8, vitamin D3 33 supplement as needed stable at this time (4) Vitamin B 12 deficiency: Code(s): E53.8 - Deficiency of other specified B group vitamins Status: Acute Assessment and Plan: vitamin B12 160 continue home B12 injections monthly on the 5th supplement as needed. (5) Hypothyroid: Qualifiers: Hypothyroidism type: acquired Qualified Code(s): E03.9 - Hypothyroidism, unspecified Code(s): E03.9 - Hypothyroidism, unspecified Status: Acute Assessment and Plan: stable (6) HTN (hypertension): Qualifiers: Hypertension type: primary hypertension Qualified Code(s): I10 - Essential (primary) hypertension Code(s): I10 - Essential (primary) hypertension Status: Acute Assessment and Plan: current blood pressure 108/65 hold hydrochlorothiazide and lisinopril Trend blood pressure adjust therapy as indicated (7) COPD (chronic obstructive pulmonary disease): Qualifiers: COPD type: unspecified COPD Qualified Code(s): J44.9 - Chronic obstructive pulmonary disease, unspecified Code(s): J44.9 - Chronic obstructive pulmonary disease, unspecified Status: Acute Assessment and Plan: No evidence of acute exacerbation. Continue home meds DS: Summary Hospital Course Hospital Course: This is an 83-year-old female with past medical history of Crohn's disease, hypertension, COPD and hypothyroidism presents to the ED on 01/10/2023 for subjective fever, cough and congestion approximately 1 week prior. After this she developed abdominal pain and vomiting. CT of the abdomen pelvis revealed mucosal enhancement, wall thickening and stricture of approximately 10 cm length of terminal ileum consistent with active Crohn's. GI consulted. Patient was started on IV fluids, IV antibiotics and clear liquid diet. She was started on IV Solu-Medrol, Levaquin and Flagyl. Her home Crohn's medications were continued. Small-bowel follow-through revealing partial small-bowel obstruction. Patient improved with steroids and antibiotic therapy. Her diet was slowly advanced and she tolerated it well. She will undergo a steroid taper and complete p.o. antibiotics for 7 days after discharge. Is advised that she follow-up wit
== END 2023-01-13 14:20 | disposition home or self-care (01) | DRG 386 ==
LOC: ANHED 18:39 → ANH3MED 22:56
PROVIDERS: Nurse Practitioner; Admitting Provider Internal Medicine; Emergency Provider Physician Assistant; PCP Emergency Medicine; Visit Provider Internal Medicine Critical Care Medicine
DX: K50.012 Crohn's disease of small intestine with intestinal obstruction (principal); N17.9 Acute kidney failure, unspecified; E86.0 Dehydration; E55.9 Vitamin D deficiency, unspecified; E53.8 Deficiency of other specified B group vitamins; E03.9 Hypothyroidism, unspecified; J44.9 Chronic obstructive pulmonary disease, unspecified; I10 Essential (primary) hypertension; F17.210 Nicotine dependence, cigarettes, uncomplicated; Z85.828 Personal history of other malignant neoplasm of skin; Z20.822 Contact with and (suspected) exposure to COVID-19
CPT/HCPCS: 36415; 71046; 74177; 74240; 74248; 80048; 80053; 81001; 83690; 83735; 85025; 85027; 87177; 87209; 87269; 87272; 87636; 96360; 96361; 99285; A9270; J1650; J1836; J1956; J2920; J3420; J7040; J7120; J7512; Q9967

== ENCOUNTER 2023-01-18 14:39 | Outpatient (CLI) | payer MEDICARE, SELFPAY ==
[2023-01-18 15:26] LABS: Hematocrit 40.5 % (37.0-47.0); Hemoglobin 12.9 g/dL (12.0-15.0); Mean Corpuscular HGB Conc 31.9 g/dl (32-36); Mean Corpuscular Hemoglobin 29.7 pg (26-34); Mean Corpuscular Volume 93.1 fl (80-100); Mean Platelet Volume 10.8 fl (7.4-10.4); Platelet Count Result 224 k/mm3 (150-375); Red Blood Count 4.35 M/mm3 (4.2-5.4); Red Cell Distribution Width 14.7 % (11.5-14.5)
[2023-01-18 15:49] LABS: Iron 63 ug/dL (37-170)
[2023-01-18 15:53] LABS: Alanine Aminotransferase 21 U/L (6-35); Albumin Level 3.9 g/dL (3.5-5.1); Alkaline Phosphatase 78 U/L (38-126); Anion Gap 5 mmol/L (8-16); Aspartate Amino Transferase 22 U/L (14-36); Bilirubin,Total 0.5 mg/dL (0.2-1.3); Blood Urea Nitrogen 15 mg/dL (7-17); CRP < 0.5 mg/dL (<1.0); Calcium 9.2 mg/dL (8.4-10.2); Carbon Dioxide 30 mmol/L (22-30); Chloride 104 mmol/L (98-107); Estimated Glomerular Filt Rate > 60; Glucose 126 mg/dL (65-110); Potassium 3.2 mmol/L (3.4-5.0); Sodium 139 mmol/L (137-145)
[2023-01-18 15:58] LABS: Percent Iron Saturation 22 % (20-50)
[2023-01-18 16:08] LABS: Erythrocyte Sedimentation Rate 19 mm/hr (0-20)
[2023-01-18 17:12] LABS: Folic Acid > 20.0 ng/mL (2.76->20)
== END 2023-01-18 14:40 | disposition home or self-care (01) ==
LOC: ANHLAB 14:45
PROVIDERS: PCP Emergency Medicine; Visit Provider Nurse Practitioner Family
DX: K50.90 Crohn's disease, unspecified, without complications (principal)
CPT/HCPCS: 36415; 80053; 82607; 82746; 83540; 83550; 85027; 85652; 86140

== ENCOUNTER 2023-02-01 09:23 | Outpatient (CLI) | payer MEDICARE, SELFPAY ==
--- NOTE | ~2023-02-01 | XR_ITS ---
EXAMINATION: XR small bowel follow through DATE: 02/01/2023 10:40 INDICATION: Crohn's disease with small bowel strictures TECHNIQUE: Production Control Pegboard Clerk radiograph(s) of the abdomen was/were obtained. Oral contrast was administered, and sequential radiographs of the abdomen were obtained until oral contrast was noted to be in the proxi mal colon. Spot fluoroscopic images of the small bowel were obtained. Fluoroscopy exposure time was 0 .9 minutes. A total of 12 fluoroscopic images and 3 overhead radiographs were obtained. COMPARISON: CT abdomen pelvis dated 01/10/2023 and small bowel follow-through dated 01/12/2023 FINDINGS: Normal bowel gas pattern on the [employer] integration architect radiograph. Small sliding-type hiatal hernia.Transit time from the stomach to proximal colon was between 15 and 30 minutes. Again seen is a stricture approximately 20 cm length of the terminal ileum. When filled with contrast the minimal diameter of the region of s tricture is approximately 3 mm. There is normal caliber and mucosal fold pattern throughout the more proximal small bowel. IMPRESSION: 1. Persistent stricture of approximately 20 cm length at the terminal ileum consistent with sequela o f chronic Crohn's disease. This does not appear to result in a significant stenosis with no dilation of the more upstream small bowel and with normal transit time to the colon of between 15-30 minutes. Reviewed, dictated and finalized at location A. IMPRESSION: 1. Persistent stricture of approximately 20 cm length at the terminal ileum con sistent with sequela of chronic Crohn's disease. This does not appear to result in a significant stenosis with no dilation of the more upstream small bowel an d with normal transit time to the colon of between 15-30 minutes.
== END 2023-02-01 09:24 | disposition home or self-care (01) ==
LOC: ANHIMG 09:24
PROVIDERS: PCP Emergency Medicine; Visit Provider Nurse Practitioner Family
DX: K50.90 Crohn's disease, unspecified, without complications (principal); Z87.19 Personal history of other diseases of the digestive system
CPT/HCPCS: 74250

== ENCOUNTER 2023-03-16 12:56 | Outpatient (CLI) | payer MEDICARE, SELFPAY ==
[2023-03-16 13:48] LABS: Hematocrit 41.8 % (37.0-47.0); Mean Corpuscular HGB Conc 31.1 g/dl (32-36); Mean Corpuscular Hemoglobin 29.1 pg (26-34); Mean Corpuscular Volume 93.5 fl (80-100); Mean Platelet Volume 10.7 fl (7.4-10.4); Platelet Count Result 250 k/mm3 (150-375); Red Blood Count 4.47 M/mm3 (4.2-5.4); Red Cell Distribution Width 13.6 % (11.5-14.5); White Blood Count 7.1 K/mm3 (4.5-10.0)
[2023-03-16 13:57] LABS: Alanine Aminotransferase 15 U/L (6-35); Albumin Level 4.1 g/dL (3.5-5.1); Alkaline Phosphatase 98 U/L (38-126); Anion Gap 7 mmol/L (8-16); Aspartate Amino Transferase 24 U/L (14-36); Bilirubin,Total 0.4 mg/dL (0.2-1.3); Blood Urea Nitrogen 13 mg/dL (7-17); Calcium 9.2 mg/dL (8.4-10.2); Carbon Dioxide 28 mmol/L (22-30); Chloride 103 mmol/L (98-107); Estimated Glomerular Filt Rate > 60; Glucose 106 mg/dL (65-110); Potassium 3.3 mmol/L (3.4-5.0); Sodium 138 mmol/L (137-145)
[2023-03-16 15:11] LABS: Folic Acid > 20.0 ng/mL (2.76->20)
== END 2023-03-16 12:57 | disposition home or self-care (01) ==
PROVIDERS: PCP Emergency Medicine; Visit Provider Emergency Medicine
DX: I10 Essential (primary) hypertension (principal)
CPT/HCPCS: 36415; 80053; 82607; 82746; 84443; 85027

== ENCOUNTER 2023-05-22 09:29 | Emergency (ER) | payer MEDICARE, SELFPAY ==
[2023-05-22 09:31] VITALS: BP 149/63; PULSE 102; RESP 20; TEMP 36.1; O2SAT 98
[2023-05-22 09:50] VITALS: BP 129/72; PULSE 65; RESP 16; O2SAT 99
--- NOTE | 2023-05-22 10:00 | ED.GENADULT ---
HPI - General Adult General Chief complaint: Neck Pain/Injury Stated complaint: posterior neck pain Time Seen by Provider: 05/22/23 09:34 History of Present Illness HPI narrative: Patient is an 82-year-old female who presents ER with neck pain. Ongoing over the last 2 days. Has difficulty turning her head. No fevers chills or sweats. No trauma. Located mainly in the trapezius muscle bilaterally. No numbness or tingling to an arm or leg. Has tried ibuprofen with minimal improvement. Related Data Home Medications Medication Instructions Recorded Confirmed folic acid 1 mg tablet 1 mg PO DAILY 01/10/23 05/07/23 ustekinumab 130 mg/26 mL 390 mg IV ONCE 03/21/23 05/07/23 intravenous solution (Stelara) Allergies Allergy/AdvReac Type Severity Reaction Status Date / Time certolizumab pegol Allergy Unknown RASH, Verified 05/22/23 09:41 SWELLING tetracycline Allergy Unknown Unknown Verified 05/22/23 09:41 Tetracyclines Allergy Unknown unknown Verified 05/22/23 09:41 Review of Systems Constitutional: Constitutional: Reports chills and Denies fever(s) ENT: Denies nasal congestion and Denies sore throat Cardiovascular: Cardiovascular: Reports no additional cardiovascular complaints Respiratory: Respiratory: Reports no additional respiratory complaints Musculoskeletal: Musculoskeletal: Denies back pain, Denies arthralgias and Denies joint swelling Comments: Right-sided neck pain Neurologic: Denies focal weakness and Denies numbness PMFSH Past Medical History Medical History COPD (chronic obstructive pulmonary disease) Crohn's disease Hypertension Hypothyroid Pulmonary nodule Small bowel stricture Vitamin B 12 deficiency Surgical History Surgical History History of squamous cell carcinoma excision Hx of colonoscopy Hx of tubal ligation Family History Family History Father Family history of malignant neoplasm of brain, Onset Age: 68 Grandparent Diabetes mellitus Hypertension Asthma Family history of cardiovascular disease Other Family history of malignant neoplasm Family history of throat cancer Social History Social History Smoking packs per day: 1 Smoking cigarettes per day: 20.0 Years smoked: 61 Smoking pack-years: 61.00 Smoking status: Current every day smoker Tobacco type: cigarettes Second hand tobacco smoke exposure: Yes Alcohol intake: never Substance use: never Substance use type: does not use Lack of Transportation: No Lack of Food: Never True Current Housing: I Have Housing Concerned About Future Housing: No Difficulty Paying Gas/Electric Bills: No Difficulty Paying for Meds: No Currently Unemployed: No Education: High School Diploma/GED Difficulty w/ Childcare or Family Care: No Living arrangements: with family Gender identity (if verbalized by the patient): Female Spiritual care concerns: No Exam Narrative: GENERAL: Well-appearing, well-nourished, and in no acute distress. HEAD: Normocephalic, atraumatic. ENT: Mucous membranes moist. NECK: Supple. Tender palpation over the trapezius musculature of the neck right greater than left reproducing patient's pain. CHEST: Clear to auscultation. No respiratory distress. HEART: Regular rate and rhythm. Normal peripheral pulses. EXTREMITIES: Normal range of motion. No edema. SKIN: Warm, dry, no rash. NEURO: Alert and oriented x3. PSYCH: Normal mood and affect. Course Course Emergency Course: Patient resting comfortably. Feels improved with Toradol and tizanidine. Discharge home with supportive care. Vital Signs Vital signs: Vital Signs Temperature 96.9 F L 05/22/23 09:31 Pulse Rate 102 H 05/22/23 09:31 Respiratory Rate
[2023-05-22] MEDS: SODIUM CHLORIDE 0.9% IV 500 ML 999 ML IV CONT (10:16)
[2023-05-22] MEDS: KETOROLAC 15 MG/ML VIAL (*BKC) IV PUSH (10:17)
[2023-05-22] MEDS: TIZANIDINE HCL 2 MG TABLET PO (10:20)
[2023-05-22 10:31] VITALS: BP 153/70; PULSE 66; RESP 16; TEMP 36.7; O2SAT 100
[2023-05-22 12:15] VITALS: BP 145/80; PULSE 66; RESP 18; TEMP 36.7; O2SAT 100
== END 2023-05-22 12:19 | disposition home or self-care (01) ==
PROVIDERS: Emergency Provider Emergency Medicine; PCP Emergency Medicine
DX: S16.1XXA Strain of muscle, fascia and tendon at neck level, initial encounter (principal); J44.9 Chronic obstructive pulmonary disease, unspecified; I10 Essential (primary) hypertension; E03.9 Hypothyroidism, unspecified; E53.8 Deficiency of other specified B group vitamins; K50.90 Crohn's disease, unspecified, without complications; F17.210 Nicotine dependence, cigarettes, uncomplicated; Z85.828 Personal history of other malignant neoplasm of skin; X58.XXXA Exposure to other specified factors, initial encounter
CPT/HCPCS: 96361; 96374; 99284; A9270; J1885; J7040

== ENCOUNTER 2023-06-17 08:14 | Outpatient (CLI) | payer MEDICARE, SELFPAY ==
[2023-06-17 09:59] LABS: Alanine Aminotransferase 9 U/L (6-35); Albumin Level 3.7 g/dL (3.5-5.1); Alkaline Phosphatase 102 U/L (38-126); Anion Gap 8 mmol/L (8-16); Aspartate Amino Transferase 19 U/L (14-36); Bilirubin,Total 0.7 mg/dL (0.2-1.3); Blood Urea Nitrogen 17 mg/dL (7-17); Calcium 9.6 mg/dL (8.4-10.2); Carbon Dioxide 27 mmol/L (22-30); Chloride 104 mmol/L (98-107); Cholesterol 174 mg/dL (0-200); Estimated Glomerular Filt Rate > 60; Glucose 90 mg/dL (65-110); HDL Direct 49 mg/dL; Potassium 3.5 mmol/L (3.4-5.0); Sodium 139 mmol/L (137-145); Triglycerides 104 mg/dL (<150)
[2023-06-17 10:10] LABS: LDL Cholesterol Direct 81 mg/dL
[2023-06-17 11:05] LABS: Folic Acid > 20.0 ng/mL (2.76->20); Vitamin B12 > 1000.0 pg/mL (239-931)
[2023-06-17 11:34] LABS: Vitamin D 25 Hydroxy 13.3 ng/mL
== END 2023-06-17 08:15 | disposition home or self-care (01) ==
PROVIDERS: PCP Emergency Medicine; Visit Provider Emergency Medicine
DX: E53.8 Deficiency of other specified B group vitamins (principal); I10 Essential (primary) hypertension; E55.9 Vitamin D deficiency, unspecified; E03.9 Hypothyroidism, unspecified
CPT/HCPCS: 36415; 80053; 80061; 82306; 82607; 82746

== ENCOUNTER 2023-08-08 13:31 | Outpatient (CLI) | payer MEDICARE, SELFPAY ==
[2023-08-08 13:49] LABS: Hematocrit 38.3 % (37.0-47.0); Hemoglobin 11.7 g/dL (12.0-15.0); Immature Platelet Fraction Pct 5.2 % (0.9-11.2); Mean Corpuscular HGB Conc 30.5 g/dl (32-36); Mean Corpuscular Hemoglobin 27.9 pg (26-34); Mean Corpuscular Volume 91.2 fl (80-100); Mean Platelet Volume 9.9 fl (7.4-10.4); Platelet Count Result 296 k/mm3 (150-375); Red Cell Distribution Width 14.5 % (11.5-14.5); White Blood Count 6.7 K/mm3 (4.5-10.0)
[2023-08-08 14:07] LABS: Alanine Aminotransferase 12 U/L (6-35); Albumin Level 3.7 g/dL (3.5-5.1); Alkaline Phosphatase 106 U/L (38-126); Anion Gap 8 mmol/L (8-16); Aspartate Amino Transferase 20 U/L (14-36); Bilirubin,Total 0.3 mg/dL (0.2-1.3); Blood Urea Nitrogen 16 mg/dL (7-17); CRP 1.6 mg/dL (<1.0); Calcium 9.3 mg/dL (8.4-10.2); Carbon Dioxide 29 mmol/L (22-30); Chloride 102 mmol/L (98-107); Estimated Glomerular Filt Rate > 60; Glucose 116 mg/dL (65-110); Potassium 2.9 mmol/L (3.4-5.0); Sodium 139 mmol/L (137-145)
[2023-08-08 15:15] LABS: Erythrocyte Sedimentation Rate 53 mm/hr (0-20)
[2023-08-17 07:38] LABS: NIL 0.04; TB1-NIL <0.00; TB2-NIL <0.00
[2023-08-17 07:39] LABS: Quantiferon TB Plus, 1T Negative
== END 2023-08-08 13:32 | disposition home or self-care (01) ==
LOC: ANHLAB 13:34
PROVIDERS: Nurse Practitioner Family; PCP Emergency Medicine; Visit Provider Internal Medicine Gastroenterology
DX: K50.90 Crohn's disease, unspecified, without complications (principal); Z79.899 Other long term (current) drug therapy
CPT/HCPCS: 36415; 80053; 85027; 85055; 85652; 86140; 86480

== ENCOUNTER 2023-08-10 10:03 | Outpatient (CLI) | payer MEDICARE, SELFPAY ==
[2023-08-15 23:42] LABS: Calprotectin, Stool 122 mcg/g
== END 2023-08-10 10:04 | disposition home or self-care (01) ==
LOC: ANHLAB 10:04
PROVIDERS: PCP Emergency Medicine; Visit Provider Internal Medicine Gastroenterology
DX: K50.90 Crohn's disease, unspecified, without complications (principal)
CPT/HCPCS: 83993

== ENCOUNTER 2023-09-20 09:26 | Outpatient (CLI) | payer MEDICARE, SELFPAY ==
[2023-09-20 10:47] LABS: Alanine Aminotransferase 13 U/L (6-35); Albumin Level 3.9 g/dL (3.5-5.1); Alkaline Phosphatase 96 U/L (38-126); Anion Gap 6 mmol/L (8-16); Aspartate Amino Transferase 21 U/L (14-36); Bilirubin,Total 0.5 mg/dL (0.2-1.3); Blood Urea Nitrogen 15 mg/dL (7-17); Calcium 9.6 mg/dL (8.4-10.2); Carbon Dioxide 29 mmol/L (22-30); Chloride 106 mmol/L (98-107); Estimated Glomerular Filt Rate > 60; Glucose 126 mg/dL (65-110); Sodium 141 mmol/L (137-145)
[2023-09-20 11:40] LABS: Vitamin D 25 Hydroxy 28.5 ng/mL
[2023-09-20 13:09] LABS: Folic Acid > 20.0 ng/mL (2.76->20)
== END 2023-09-20 09:27 | disposition home or self-care (01) ==
LOC: ANHLAB 09:31
PROVIDERS: PCP Emergency Medicine; Visit Provider Emergency Medicine
DX: E55.9 Vitamin D deficiency, unspecified (principal); E53.9 Vitamin B deficiency, unspecified; I10 Essential (primary) hypertension
CPT/HCPCS: 36415; 80053; 82306; 82607; 82746

== ENCOUNTER 2023-09-27 15:56 | Outpatient (CLI) | payer MEDICARE, SELFPAY ==
[2023-09-27 16:38] LABS: Potassium 4.3 mmol/L (3.4-5.0)
== END 2023-09-27 15:57 | disposition home or self-care (01) ==
LOC: ANHLAB 15:59
PROVIDERS: PCP Emergency Medicine; Visit Provider Emergency Medicine
DX: E87.6 Hypokalemia (principal)
CPT/HCPCS: 36415; 84132

== ENCOUNTER 2024-01-03 12:30 | Outpatient (CLI) | payer MEDICARE, SELFPAY ==
[2024-01-03 14:08] LABS: Alanine Aminotransferase 8 U/L (6-35); Albumin Level 4.1 g/dL (3.5-5.1); Alkaline Phosphatase 104 U/L (38-126); Anion Gap 7 mmol/L (4-12); Aspartate Amino Transferase 33 U/L (14-36); Bilirubin,Total 0.5 mg/dL (0.2-1.3); Blood Urea Nitrogen 18 mg/dL (7-17); Calcium 9.3 mg/dL (8.4-10.2); Carbon Dioxide 28 mmol/L (22-30); Chloride 105 mmol/L (98-107); Estimated Glomerular Filt Rate > 60; Glucose 101 mg/dL (65-110); Potassium 3.9 mmol/L (3.4-5.0); Sodium 140 mmol/L (137-145)
[2024-01-03 14:16] LABS: Vitamin D 25 Hydroxy 27.8 ng/mL
== END 2024-01-03 12:31 | disposition home or self-care (01) ==
LOC: ANHLAB 12:32
PROVIDERS: PCP Emergency Medicine; Visit Provider Emergency Medicine
DX: E78.5 Hyperlipidemia, unspecified (principal); E55.9 Vitamin D deficiency, unspecified
CPT/HCPCS: 36415; 80053; 82306

== ENCOUNTER 2024-01-11 14:04 | Outpatient (CLI) | payer MEDICARE, SELFPAY ==
--- NOTE | ~2024-01-11 | XR_ITS ---
XR hip RT 2V w AP pelvis Ordering provider: Manjit Obregon MD History: . M25.551 - Pain in right hip, NO INJURY . Comparison: April 06, 2010 FINDINGS: BONES: No acute fracture or dislocation. HIP JOINT SPACES: Normal. SACROILIAC JOINT SPACES/LUMBAR SPINE: The sacroiliac joint spaces are normal. Mild degenerative brown es of the visualized lower lumbar spine. PUBIC SYMPHYSIS: Pubic symphysitis. SOFT TISSUES: Normal. IMPRESSION: No acute osseous abnormality pelvis and right hip. Reviewed, dictated and finalized at location A.
== END 2024-01-11 14:05 | disposition home or self-care (01) ==
LOC: ANHIMG 14:07
PROVIDERS: PCP Emergency Medicine; Visit Provider Emergency Medicine
DX: M25.551 Pain in right hip (principal)
CPT/HCPCS: 73502

== ENCOUNTER 2024-01-26 15:23 | Outpatient (CLI) | payer MEDICARE, SELFPAY ==
--- NOTE | ~2024-01-26 | MM_ITS ---
EXAMINATION: MM screening rajiv BI w deangelo HISTORY: Screening TECHNIQUE: Craniocaudal and mediolateral oblique 3-D tomosynthesis images were obtained and synthetic 2-D images were generated. CAD analysis was submitted and interpreted. COMPARISON: Comparison to multiple prior studies sequentially, with oldest reviewed study dated 01/2019. BREAST PARENCHYMAL COMPOSITION: Not dense: There are scattered areas of fibroglandular density. FINDINGS: There is no evidence of suspicious mass, calcification, or architectural distortion to sugg est malignancy in either breast. There has been no suspicious interval change. IMPRESSION: 1. No mammographic evidence of malignancy. 2. Recommend routine screening mammography in one year. BI-RADS Category 1: Negative Reviewed, dictated and finalized at location B.
== END 2024-01-26 15:24 | disposition home or self-care (01) ==
PROVIDERS: PCP Emergency Medicine; Visit Provider Emergency Medicine
DX: Z12.31 Encounter for screening mammogram for malignant neoplasm of breast (principal)
CPT/HCPCS: 77063; 77067

== ENCOUNTER 2024-02-17 11:26 | Outpatient (CLI) | payer MEDICARE, SELFPAY ==
[2024-02-17 12:12] LABS: Hematocrit 39.3 % (37.0-47.0); Hemoglobin 12.5 g/dL (12.0-15.0); Mean Corpuscular HGB Conc 31.8 g/dl (32-36); Mean Corpuscular Hemoglobin 29.3 pg (26-34); Platelet Count Result 271 k/mm3 (150-375); Red Blood Count 4.27 M/mm3 (4.2-5.4); White Blood Count 7.2 K/mm3 (4.5-10.0)
[2024-02-17 12:48] LABS: Erythrocyte Sedimentation Rate 24 mm/hr (0-20)
[2024-02-17 13:50] LABS: Alanine Aminotransferase 9 U/L (6-35); Alkaline Phosphatase 116 U/L (38-126); Anion Gap 7 mmol/L (4-12); Aspartate Amino Transferase 20 U/L (14-36); Bilirubin,Total 0.3 mg/dL (0.2-1.3); Blood Urea Nitrogen 14 mg/dL (7-17); Calcium 9.4 mg/dL (8.4-10.2); Carbon Dioxide 33 mmol/L (22-30); Chloride 101 mmol/L (98-107); Estimated Glomerular Filt Rate > 60; Glucose 104 mg/dL (65-110); Potassium 3.9 mmol/L (3.4-5.0); Sodium 141 mmol/L (137-145)
== END 2024-02-17 11:27 | disposition home or self-care (01) ==
LOC: ANHLAB 11:33
PROVIDERS: PCP Emergency Medicine; Visit Provider Internal Medicine Gastroenterology
DX: K50.90 Crohn's disease, unspecified, without complications (principal); K56.699 Other intestinal obstruction unspecified as to partial versus complete obstruction
CPT/HCPCS: 36415; 80053; 85027; 85652; 86140

== ENCOUNTER 2024-03-23 19:04 | Emergency (ER) | payer MEDICARE, SELFPAY ==
--- NOTE | ~2024-03-23 | CT_ITS ---
CT abdomen pelvis w con Ordering provider: Casie Alcaraz MD History: 83 years Female with . L flank pain . Comparison: January 15, 2023 Technique: CT abdomen and pelvis with IV and without oral contrast. Automated exposure control and it erative reconstruction technique were employed. The dose-length product was 344.13 mGy-cm. 100 mL Omn ipaque 350 was given IV. Findings: VISUALIZED LOWER CHEST: Fibrotic changes with left basilar atelectasis versus pneumonia. UPPER ABDOMINAL ORGANS: Liver: Normal. Gallbladder: Normal. Spleen: Normal. Stomach/duodenum: Sliding hiatus hernia. Pancreas: Normal. Adrenals: Normal. Kidneys: Small cyst in the right kidney upper pole. Tiny cyst in the left kidney upper pole. PELVIC ORGANS: The bladder shows soft tissue density in the right side of the urinary bladder posteri judy which may indicate ureterocele. BOWEL AND MESENTERY: Colon: No evidence of diverticulitis. Thickened wall of the rectum is noted which is suggestive of pr octitis. No evidence of appendicitis. Small Bowel: Slight dilatation of the small bowel in the pelvis which may indicate enteritis. Clinica l correlation and follow-up advised. No obstruction. Peritoneum/mesentery: No free air or free fluid. No mesenteric lymphadenopathy. RETROPERITONEUM: Mild atheromatous disease of the abdominal aorta. No retroperitoneal lymphadenopat hy. MUSCULOSKELETAL: Superficial soft tissues: The superficial soft tissues are normal. Bones: Normal spine. IMPRESSION: 1. No evidence of appendicitis, diverticulitis or intestinal obstruction. 2. Slightly dilated small bowel loops in the pelvis suggestive of enteritis. Early obstruction is le ss likely. Follow-up advised. 3. Constipation. 4. Left basal atelectasis versus pneumonia. Reviewed, dictated and finalized at location A. IMPRESSION: 1. No evidence of appendicitis, diverticulitis or intestinal obstruction. 2. Slightly dilated small bowel loops in the pelvis suggestive of enteritis. E naeem obstruction is less likely. Follow-up advised. 3. Constipation. 4. Left basal atelectasis versus pneumonia.
--- NOTE | ~2024-03-23 | XR_ITS ---
XR chest 2V Ordering provider: Casie Alcaraz MD History: 83 years Female with . L flank pain/KEAGAN . Comparison: January 10, 2023 FINDINGS: MEDIASTINUM: The cardiac silhouette is not enlarged. LUNGS: No , effusions or pneumothorax. Opacification the left lung base suggestive of atelectasis lois mikey pneumonia. Underlying fibrotic and emphysematous changes. OTHER: No free air under the diaphragm. IMPRESSION: Left basilar atelectasis versus pneumonia. Reviewed, dictated and finalized at location A.
--- NOTE | 2024-03-23 19:30 | ECG_ITS ---
Test Date: 2024-03-23 19:45:39 Measurements Intervals [place] Rate: 96 P: 8 ND: 147 QRS: -17 QRSD: 90 T: 44 QT: 340 QTc: 431 Interpretive Statements SINUS RHYTHM POSSIBLE LEFT ATRIAL ENLARGEMENT DELAYED PRECORDIAL R/S TRANSITION BORDERLINE ST ABNORMALITY- LATERAL LEADS BASELINE ARTIFACT- II, III, AVR, AVL, AVF, V4 BORDERLINE ECG No previous ECG available for comparison Electronically Signed On 03-23-2024 20:27:05 CDT by Fazal Peoples D.O.
[2024-03-23] MEDS: AZITHROMYCIN 250 MG TABLET 500 MG PO (20:01)
[2024-03-23 20:10] LABS: Basophils Percent Auto 0.1 % (0.2-1.2); Eosinophils Absolute Auto 0.1 K/mm3 (0-0.3); Eosinophils Percent Auto 0.4 % (0-4.4); Hematocrit 34.5 % (37.0-47.0); Hemoglobin 11.3 g/dL (12.0-15.0); Immature Granulocyte Absolute 0.06 K/mm3 (0.00-0.031); Immature Granulocyte Percent A 0.4 % (0-0.5); Lymphocytes Absolute Auto 1.26 K/mm3 (0.9-3.2); Lymphocytes Percent Auto 8.5 % (18.3-44.2); Mean Corpuscular HGB Conc 32.8 g/dl (32-36); Mean Corpuscular Hemoglobin 29.4 pg (26-34); Mean Corpuscular Volume 89.6 fl (80-100); Mean Platelet Volume 10.3 fl (7.4-10.4); Monocytes Absolute Auto 0.8 K/mm3 (0.1-0.6); Monocytes Percent Auto 5.5 % (2.6-8.5); Neutrophils Absolute Auto 12.6 K/mm3 (1.3-6.7); Neutrophils Percent Auto 85.1 % (45.5-73.1); Platelet Count Result 206 k/mm3 (150-375); Red Blood Count 3.85 M/mm3 (4.2-5.4); Red Cell Distribution Width 14.6 % (11.5-14.5); White Blood Count 14.8 K/mm3 (4.5-10.0)
--- NOTE | 2024-03-23 20:21 | ED.BACK ---
HPI - Back Pain/Injury General Chief Complaint: Back Pain/Injury Stated Complaint: left flank pain Time Seen by Provider: 03/23/24 19:10 History of Present Illness HPI Narrative: Patient started having a cough and chills around Tuesday, her son also has similar symptoms. Today it has been getting worse so she came in. No nausea vomiting or abdominal pain. States it feels like the time she got the flu. Also having some left back/side pain. Related Data Home Medications Medication Instructions Recorded Confirmed ustekinumab 130 mg/26 mL 390 mg IV ONCE 03/21/23 02/23/24 intravenous solution (Stelara) Allergies Allergy/AdvReac Type Severity Reaction Status Date / Time certolizumab pegol Allergy Unknown RASH, Verified 02/21/24 13:32 SWELLING tetracycline Allergy Unknown Unknown Verified 02/21/24 13:32 Tetracyclines Allergy Unknown unknown Verified 02/21/24 13:32 Review of Systems Review of Systems: All systems reviewed & are unremarkable except as noted in HPI and below PMFSH Past Medical History Medical History Abnormal mammogram Acute Crohn's disease Acute kidney injury Acute sinusitis, unspecified Anticipatory grieving Breast asymmetry Contact dermatitis COPD (chronic obstructive pulmonary disease) Crohn's disease Crohn's disease Crohn's disease, unspecified, without complications Flank pain Hypertension Hypokalemia Hypothyroid Interstitial lung disease Knee pain Neck strain Plantar fasciitis of left foot Polyosteoarthritis, unspecified Post herpetic neuralgia Pulmonary nodule Pulmonary nodule Sinusitis Slow transit constipation Small bowel stricture Thigh shingles Tobacco abuse URI, acute Vitamin B 12 deficiency Vitamin B 12 deficiency Vitamin D deficiency Surgical History Surgical History History of squamous cell carcinoma excision Hx of colonoscopy Hx of tubal ligation Family History Family History Father Family history of malignant neoplasm of brain, Onset Age: 68 Grandparent Diabetes mellitus Hypertension Asthma Family history of cardiovascular disease Other Family history of malignant neoplasm Family history of throat cancer Social History Social History Smoking packs per day: 1 Smoking cigarettes per day: 20.0 Years smoked: 61 Smoking pack-years: 61.00 Smoking status: Current every day smoker Tobacco type: cigarettes Second hand tobacco smoke exposure: Yes Alcohol intake: never Substance use: never Substance use type: does not use Do You Feel Safe in your Home?: Yes Lack of Transportation: No Lack of Food: Never True Current Housing: I Have Housing Concerned About Future Housing: No Difficulty Paying Gas/Electric Bills: YES Difficulty Paying for Meds: No Education: Associate Degree Living arrangements: with family Gender identity (if verbalized by the patient): Female Spiritual care concerns: No Exam Narrative: EXAMINATION OF ORGAN SYSTEMS/BODY AREAS: Constitutional: Vital signs per nursing GENERAL:[No acute distress, non-toxic appearing.] HEAD: Normal with no signs of head trauma. EYES: EOMI, conjunctiva normal ENT: Hearing grossly intact LUNGS: Nonlabored breathing. clear to auscultation bilaterally HEART: [Regular rate and rhythm] ABD: [Soft], non[tender to palpation] EXT: Normal range of motion SKIN: [No rashes or lesions.] NEURO: [Alert and oriented x 3. No gross focal sensory or strength deficits.] PSYCH: Normal affect Course Vital Signs Vital signs: Vital Signs Temperature 98.3 F 03/23/24 20:28 Pulse Rate 92 03/23/24 20:28 Respiratory Rate 23 H 03/23/24 20:28 Blood Pressure 131/68 03/23/24 20:28 Pulse Oximetry 95 03/23/24 20:28
[2024-03-23 20:22] LABS: Lactic Acid Reflex 0.8 mmol/L (0.7-2.0)
[2024-03-23 20:24] LABS: Alanine Aminotransferase 10 U/L (6-35); Alkaline Phosphatase 141 U/L (38-126); Anion Gap 12 mmol/L (4-12); Aspartate Amino Transferase 20 U/L (14-36); Bilirubin,Total 0.5 mg/dL (0.2-1.3); Blood Urea Nitrogen 21 mg/dL (7-17); Calcium 9.1 mg/dL (8.4-10.2); Carbon Dioxide 22 mmol/L (22-30); Chloride 104 mmol/L (98-107); Estimated CRCL calculation 37 ml/min; Estimated Glomerular Filt Rate 53; Glucose 108 mg/dL (65-110); Potassium 3.2 mmol/L (3.4-5.0); Sodium 138 mmol/L (137-145)
[2024-03-23 20:28] VITALS: BP 131/68; PULSE 92; RESP 23; TEMP 36.8; O2SAT 95
[2024-03-23] MEDS: POTASSIUM CHLORIDE 20 MEQ PACKET (FOR LIQUID) 40 MEQ PO (20:32)
[2024-03-23 20:45] LABS: Influenza A QL RT-PCR Negative (Negative); Influenza B QL RT-PCR Negative (Negative); RSV RNA, RT-PCR Negative (Negative); SARS-CoV-2 RNA PCR Negative (Negative)
[2024-03-23 20:53] LABS: Add Urine Microscopic? YES; Appearance Urine Cloudy (Clear); Bacteria Urine None Seen /hpf; Bilirubin Urine Negative (Negative); Blood Urine Negative (Negative); Color Urine Dark Yellow (Yellow); Glucose Urine UA Negative (Negative); Ketones Urine 1+ mg/dL (Negative); Leukocyte Esterase Ur 1+ LEU/UL (Negative); Need Manual Microscopic Reviewed; Nitrate Urine Negative (Negative); Non Pathogenic Casts >20; Protein Urine 1+ mg/dL (Negative); RBC Urine 0-2 /hpf (0-2); Specific Grav Ur 1.023 (1.001-1.035); Squamous Epithelial Cell Urine Few /hpf (Few)
[2024-03-23] MEDS: LACTATED RINGERS 1,000 ML 999 ML IV CONT (21:31)
[2024-03-23 22:36] VITALS: BP 133/66; PULSE 92; RESP 19; TEMP 36.9; O2SAT 97
== END 2024-03-23 22:55 | disposition home or self-care (01) ==
PROVIDERS: Emergency Provider Emergency Medicine; PCP Emergency Medicine
DX: J18.9 Pneumonia, unspecified organism (principal); Z20.822 Contact with and (suspected) exposure to COVID-19; I10 Essential (primary) hypertension; E03.9 Hypothyroidism, unspecified; E53.8 Deficiency of other specified B group vitamins; E55.9 Vitamin D deficiency, unspecified; J84.9 Interstitial pulmonary disease, unspecified; J44.9 Chronic obstructive pulmonary disease, unspecified; K50.90 Crohn's disease, unspecified, without complications; M19.90 Unspecified osteoarthritis, unspecified site; F17.210 Nicotine dependence, cigarettes, uncomplicated; Z85.828 Personal history of other malignant neoplasm of skin; Z79.899 Other long term (current) drug therapy; R94.31 Abnormal electrocardiogram [ECG] [EKG]; K59.00 Constipation, unspecified
CPT/HCPCS: 36415; 71046; 74177; 80053; 81001; 83605; 85025; 87040; 87086; 87637; 93005; 96361; 96365; 99284; A9270; J0696; J7120; Q9967

== ENCOUNTER 2024-03-26 13:05 | Outpatient (CLI) | payer MEDICARE, SELFPAY ==
--- NOTE | ~2024-03-26 | DEXA_ITS ---
Bone Density Report Name: CHELSI BOLDEN Age: 83 Sex: Female Ethnicity: White Date of : 1940 Indication: postmenopausal osteoporosis; parental hip fracture; height loss; inflammatory bowel disease; Referring Provider: KIN MA Study: Bone densitometry was performed. Exam Date: March 26, 2024 Accession number: [id number] Bone Density: Region BMD T-score Z-score Classification AP Spine(L1-L4) 0.777 -2.5 0.3 Osteoporosis Femoral Neck (Left) 0.606 -2.2 0.2 Osteopenia Total Hip (Left) 0.612 -2.7 -0.5 Osteoporosis Femoral Neck (Right) 0.602 -2.2 0.2 Osteopenia Total Hip (Right) 0.585 -2.9 -0.7 Osteoporosis Total Hip Mean 0.598 -2.8 -0.6 Osteoporosis World Health Organization criteria for BMD impression classify patients as: Normal (T-score at or above -1.0), Osteopenia (T-score between -1.0 and -2.5), or Osteoporosis (T-score at or below -2.5). 10-year Fracture Risk: FRAX not reported because: Some T-score for Spine Total or Hip Total or Femoral Neck at or below -2.5 Previous Exams: Region Exam Age BMD T-score BMD Change BMD Change Date g/cm2 vs Baseline vs Previous AP Spine (L1-L4) 03/26/2024 83 0.777 -2.5 -0.059 (-7.1%) -0.023 (-2.9%) 06/13/2021 80 0.800 -2.2 -0.036 (-4.3%) -0.006 (-0.8%) 04/27/2019 78 0.806 -2.2 -0.030 (-3.5%) -0.005 (-0.6%) 11/15/2016 76 0.812 -2.1 -0.024 (-2.9%) -0.024 (-2.9%) 09/04/2014 74 0.836 -1.9 Total Hip(Left) 03/26/2024 83 0.612 -2.7 -0.124 (-16.9% -0.009 (-1.4%) 06/13/2021 80 0.620 -2.6 -0.116 (-15.7% -0.046 (-6.9%) 04/27/2019 78 0.666 -2.3 -0.070 (-9.5%) -0.085 (-11.4% 11/15/2016 76 0.751 -1.6 0.016 (2.1%) 0.016 (2.1%) 09/04/2014 74 0.736 -1.7 Total Hip(Right) 03/26/2024 83 0.585 -2.9 -0.111 (-15.9% -0.045 (-7.2%) 06/13/2021 80 0.630 -2.6 -0.066 (-9.4%) -0.042 (-6.2%) 04/27/2019 78 0.672 -2.2 -0.024 (-3.4%) -0.020 (-2.9%) 11/15/2016 76 0.692 -2.0 -0.003 (-0.5%) -0.003 (-0.5%) 09/04/2014 74 0.696 -2.0 *Denotes significance at 95% confidence level, LSC for AP Spine = 0.022 g/cm2, LSC for Total Hip = 0.027 g/cm2 Clinical Information Provided by Patient: Parent has had a hip fracture Smokes Has the following medical conditions: Inflammatory bowel diseases Patient maximum height was 67.5 Menopause Age: 46 No regular weight bearing exercise Does not regularly consume dairy products Drinks caffeinated beverages Onset of menses at age 15 Number of children 2
== END 2024-03-26 13:06 | disposition home or self-care (01) ==
LOC: ANHIMG 13:06
PROVIDERS: PCP Emergency Medicine; Visit Provider Emergency Medicine
DX: Z78.0 Asymptomatic menopausal state (principal); M81.0 Age-related osteoporosis without current pathological fracture; M85.852 Other specified disorders of bone density and structure, left thigh; M85.851 Other specified disorders of bone density and structure, right thigh
CPT/HCPCS: 77080

== ENCOUNTER 2024-04-18 10:07 | Emergency (ER) | payer MEDICARE, SELFPAY ==
--- NOTE | ~2024-04-18 | XR_ITS ---
EXAMINATION: XR foot LT min 3V DATE: 04/18/2024 13:58 INDICATION: Left foot injury and pain. TECHNIQUE: 4 views of left foot were obtained. COMPARISON: Left foot radiographs 05/24/2017 FINDINGS: Alignment is normal. No fracture. There is mild osteoarthritis of talonavicular joint and s ome of the interphalangeal joints. There are enthesophytes at the posterior and plantar aspects of ca lcaneal tuberosity. IMPRESSION: 1. Mild polyarticular osteoarthritis. Reviewed, dictated and finalized at location A.
--- NOTE | ~2024-04-18 | XR_ITS ---
EXAMINATION: XR ankle LT min 3V DATE: 04/18/2024 14:46 INDICATION: Left ankle pain. TECHNIQUE: 4 views of left ankle were obtained. COMPARISON: None. FINDINGS: Alignment is normal. No fracture. There is mild osteoarthritis of talonavicular joint. Ther e are enthesophytes at the posterior and plantar aspects of calcaneal tuberosity. IMPRESSION: 1. Mild osteoarthritis of talonavicular joint. Reviewed, dictated and finalized at location A.
[2024-04-18 10:11] VITALS: BP 126/61; PULSE 88; RESP 20; TEMP 36.4; O2SAT 99
--- NOTE | 2024-04-18 13:14 | ED.GENADULT ---
HPI - General Adult General Chief complaint: Extremity Injury, Lower Stated complaint: trouble walking, started tuesday Time Seen by Provider: 04/18/24 13:14 Focused HPI: Patient is an 83 y/o female who presents to the ED with c/o L foot pain. Patient reports over the last couple of days, she has been having pain in her left dorsal foot. She has noticed an area of bruising. She notes she has been having trouble walking due to the pain. Denies any known injury or fall. She took Tylenol last night, has not taken anything for pain today. She does note that she had a flare-up of her Crohn's disease on Tuesday which consisted of several episodes of nausea, vomiting, diarrhea. She states the symptoms have since resolved. She also notes she was treated for pneumonia last month. Denies significant further cough or fevers. GENERAL: Elderly, well-nourished, and in no acute distress. HEAD: Normocephalic, atraumatic. CHEST: Clear to auscultation. ?No respiratory distress. HEART: Regular rate and rhythm.?Peripheral pulses intact. MSK: TTP in L dorsal proximal foot, extending laterally, small area of bruising/swelling. Sensation intact. NEURO: ?Alert and oriented x3. Patient screened in triage and initial orders placed.? ?Additional care and disposition to be based upon?diagnostic testing and treatment. Source: patient Mode of arrival: wheelchair Limitations: no limitations Related Data Home Medications Medication Instructions Recorded Confirmed ustekinumab 130 mg/26 mL 390 mg IV ONCE 03/21/23 04/10/24 intravenous solution (Stelara) Allergies Allergy/AdvReac Type Severity Reaction Status Date / Time certolizumab pegol Allergy Unknown RASH, Verified 04/18/24 10:08 SWELLING tetracycline Allergy Unknown Unknown Verified 04/18/24 10:08 Tetracyclines Allergy Unknown unknown Verified 04/18/24 10:08 [facility] Past Medical History Medical History Abnormal mammogram Acute Crohn's disease Acute kidney injury Acute sinusitis, unspecified Anticipatory grieving Breast asymmetry Contact dermatitis COPD (chronic obstructive pulmonary disease) Crohn's disease Crohn's disease Crohn's disease, unspecified, without complications Flank pain Hypertension Hypokalemia Hypothyroid Interstitial lung disease Knee pain Neck strain Plantar fasciitis of left foot Pneumonia Polyosteoarthritis, unspecified Post herpetic neuralgia Pulmonary nodule Pulmonary nodule Sinusitis Slow transit constipation Small bowel stricture Thigh shingles Tobacco abuse URI, acute Vitamin B 12 deficiency Vitamin B 12 deficiency Vitamin D deficiency Surgical History Surgical History History of squamous cell carcinoma excision Hx of colonoscopy Hx of tubal ligation Family History Family History Father Family history of malignant neoplasm of brain, Onset Age: 68 Grandparent Diabetes mellitus Hypertension Asthma Family history of cardiovascular disease Other Family history of malignant neoplasm Family history of throat cancer Social History Social History Smoking packs per day: 1 Smoking cigarettes per day: 20.0 Years smoked: 61 Smoking pack-years: 61.00 Smoking status: Current every day smoker Tobacco type: cigarettes Second hand tobacco smoke exposure: Yes Alcohol intake: never Substance use: never Substance use type: does not use Do You Feel Safe in your Home?: Yes Lack of Transportation: No Lack of Food: Never True Current Housing: I Have Housing Concerned About Future Housing: No Difficulty Paying Gas/Electric Bills: YES Difficulty Paying for Meds: No Education: Associate Degree Living arrangements: with family Gender identity (if verbalized by the patient): Fema
[2024-04-18 13:34] VITALS: BP 147/94; PULSE 80; RESP 19; TEMP 36.4; O2SAT 100
[2024-04-18 13:50] LABS: Basophils Percent Auto 0.2 % (0.2-1.2); Eosinophils Percent Auto 0.2 % (0-4.4); Hematocrit 38.4 % (37.0-47.0); Hemoglobin 12.3 g/dL (12.0-15.0); Immature Granulocyte Absolute 0.06 K/mm3 (0.00-0.031); Immature Granulocyte Percent A 0.4 % (0-0.5); Lymphocytes Absolute Auto 1.68 K/mm3 (0.9-3.2); Mean Corpuscular Hemoglobin 28.5 pg (26-34); Mean Corpuscular Volume 89.1 fl (80-100); Mean Platelet Volume 9.6 fl (7.4-10.4); Monocytes Absolute Auto 0.7 K/mm3 (0.1-0.6); Monocytes Percent Auto 4.9 % (2.6-8.5); Neutrophils Absolute Auto 11.5 K/mm3 (1.3-6.7); Neutrophils Percent Auto 82.3 % (45.5-73.1); Platelet Count Result 324 k/mm3 (150-375); Red Blood Count 4.31 M/mm3 (4.2-5.4); Red Cell Distribution Width 14.2 % (11.5-14.5)
[2024-04-18 13:52] VITALS: BP 125/68; PULSE 82; RESP 16; O2SAT 100
[2024-04-18 14:01] VITALS: BP 124/54; PULSE 66; RESP 16; TEMP 36.6; O2SAT 98
[2024-04-18 14:03] LABS: Anion Gap 13 mmol/L (4-12); Blood Urea Nitrogen 54 mg/dL (7-17); Calcium 9.2 mg/dL (8.4-10.2); Carbon Dioxide 24 mmol/L (22-30); Chloride 101 mmol/L (98-107); Estimated CRCL calculation 27 ml/min; Estimated Glomerular Filt Rate 39; Glucose 94 mg/dL (65-110); Magnesium 2.3 mg/dL (1.6-2.3); Potassium 3.6 mmol/L (3.4-5.0); Sodium 138 mmol/L (137-145)
[2024-04-18] MEDS: ACETAMINOPHEN 500 MG TABLET 1000 MG PO (14:26)
[2024-04-18 14:31] VITALS: BP 120/98; PULSE 89; RESP 15; O2SAT 99
--- NOTE | 2024-04-18 15:00 | ED.LOWEXIN ---
HPI - Extremity Injury (Lower) General Chief Complaint: Extremity Injury, Lower Stated Complaint: trouble walking, started tuesday Time Seen by Provider: 04/18/24 13:14 Source: patient Mode of arrival: wheelchair Limitations: no limitations History of Present Illness HPI Narrative: This is an 83-year-old female, with history of Crohn's, who presents to the emergency department complaining of left foot and ankle pain. The patient states 3 days ago, she felt increased abdominal pain and cramping consistent with a Crohn's flare. Throughout the night, her pain restricted her to the floor and she ultimately slept against a wall. She believes during that time her foot was pending against the floor by her body. She denies falls or other injury. She she states her left foot pain is sore and intermittently sharp, rated 6/10 with direct pressure and almost gone at rest. She has no other complaints at this time. Related Data Home Medications Medication Instructions Recorded Confirmed ustekinumab 130 mg/26 mL 390 mg IV ONCE 03/21/23 04/10/24 intravenous solution (Stelara) Allergies Allergy/AdvReac Type Severity Reaction Status Date / Time certolizumab pegol Allergy Unknown RASH, Verified 04/18/24 10:08 SWELLING tetracycline Allergy Unknown Unknown Verified 04/18/24 10:08 Tetracyclines Allergy Unknown unknown Verified 04/18/24 10:08 Review of Systems Review of Systems: All systems reviewed & are unremarkable except as noted in HPI and below PMFSH Past Medical History Medical History Abnormal mammogram Acute Crohn's disease Acute kidney injury Acute sinusitis, unspecified Anticipatory grieving Breast asymmetry Contact dermatitis COPD (chronic obstructive pulmonary disease) Crohn's disease Crohn's disease Crohn's disease, unspecified, without complications Flank pain Hypertension Hypokalemia Hypothyroid Interstitial lung disease Knee pain Neck strain Plantar fasciitis of left foot Pneumonia Polyosteoarthritis, unspecified Post herpetic neuralgia Pulmonary nodule Pulmonary nodule Sinusitis Slow transit constipation Small bowel stricture Thigh shingles Tobacco abuse URI, acute Vitamin B 12 deficiency Vitamin B 12 deficiency Vitamin D deficiency Surgical History Surgical History History of squamous cell carcinoma excision Hx of colonoscopy Hx of tubal ligation Family History Family History Father Family history of malignant neoplasm of brain, Onset Age: 68 Grandparent Diabetes mellitus Hypertension Asthma Family history of cardiovascular disease Other Family history of malignant neoplasm Family history of throat cancer Social History Social History Smoking packs per day: 1 Smoking cigarettes per day: 20.0 Years smoked: 61 Smoking pack-years: 61.00 Smoking status: Current every day smoker Tobacco type: cigarettes Second hand tobacco smoke exposure: Yes Alcohol intake: never Substance use: never Substance use type: does not use Do You Feel Safe in your Home?: Yes Lack of Transportation: No Lack of Food: Never True Current Housing: I Have Housing Concerned About Future Housing: No Difficulty Paying Gas/Electric Bills: YES Difficulty Paying for Meds: No Education: Associate Degree Living arrangements: with family Gender identity (if verbalized by the patient): Female Spiritual care concerns: No Exam Narrative: GENERAL: Well-developed, well-nourished, and in no acute distress. HEAD: Normocephalic, atraumatic. EYES: PERRLA and EOMI. CHEST: Clear to auscultation. No respiratory distress. No wheezes rales or rhonchi HEART: Regular rate and rhythm. No murmur heard. Normal peripheral pulses. ABDOMEN: Soft, nont
== END 2024-04-18 15:22 | disposition home or self-care (01) ==
PROVIDERS: Physician Assistant; Emergency Provider Preventive Medicine Aerospace Medicine; PCP Emergency Medicine
DX: M19.072 Primary osteoarthritis, left ankle and foot (principal); E86.0 Dehydration; I10 Essential (primary) hypertension; J44.9 Chronic obstructive pulmonary disease, unspecified; J84.9 Interstitial pulmonary disease, unspecified; E03.9 Hypothyroidism, unspecified; E53.8 Deficiency of other specified B group vitamins; E55.9 Vitamin D deficiency, unspecified; K50.90 Crohn's disease, unspecified, without complications; M19.90 Unspecified osteoarthritis, unspecified site; Z87.01 Personal history of pneumonia (recurrent); Z85.828 Personal history of other malignant neoplasm of skin
CPT/HCPCS: 36415; 73610; 73630; 80048; 83735; 85025; 99283; A9270

== ENCOUNTER 2024-05-10 09:01 | Outpatient (CLI) | payer MEDICARE, SELFPAY ==
[2024-05-10 09:52] LABS: Hematocrit 37.5 % (37.0-47.0); Hemoglobin 11.8 g/dL (12.0-15.0); Mean Corpuscular HGB Conc 31.5 g/dl (32-36); Mean Corpuscular Hemoglobin 28.4 pg (26-34); Mean Corpuscular Volume 90.4 fl (80-100); Mean Platelet Volume 9.9 fl (7.4-10.4); Platelet Count Result 278 k/mm3 (150-375); Red Blood Count 4.15 M/mm3 (4.2-5.4); Red Cell Distribution Width 14.7 % (11.5-14.5); White Blood Count 6.6 K/mm3 (4.5-10.0)
[2024-05-10 10:02] LABS: Alanine Aminotransferase 10 U/L (6-35); Alkaline Phosphatase 115 U/L (38-126); Anion Gap 10 mmol/L (4-12); Aspartate Amino Transferase 21 U/L (14-36); Bilirubin,Total 0.3 mg/dL (0.2-1.3); Blood Urea Nitrogen 13 mg/dL (7-17); Calcium 9.3 mg/dL (8.4-10.2); Carbon Dioxide 27 mmol/L (22-30); Chloride 103 mmol/L (98-107); Estimated Glomerular Filt Rate > 60; Glucose 92 mg/dL (65-110); Potassium 3.4 mmol/L (3.4-5.0); Sodium 140 mmol/L (137-145)
[2024-05-10 10:43] LABS: Vitamin D 25 Hydroxy 20.7 ng/mL
[2024-05-10 11:08] LABS: Folic Acid 7.5 ng/mL (2.76->20)
== END 2024-05-10 09:02 | disposition home or self-care (01) ==
PROVIDERS: PCP Emergency Medicine; Visit Provider Emergency Medicine
DX: R53.83 Other fatigue (principal); E55.9 Vitamin D deficiency, unspecified; E78.5 Hyperlipidemia, unspecified; E53.8 Deficiency of other specified B group vitamins
CPT/HCPCS: 36415; 80053; 82306; 82607; 82746; 85027

== ENCOUNTER 2024-07-30 12:13 | Outpatient (CLI) | payer MEDICARE, SELFPAY ==
[2024-07-30 12:43] LABS: Hemoglobin 12.5 g/dL (12.0-15.0); Mean Corpuscular HGB Conc 31.3 g/dl (32-36); Mean Corpuscular Hemoglobin 27.7 pg (26-34); Mean Corpuscular Volume 88.7 fl (80-100); Platelet Count Result 249 k/mm3 (150-375); Red Blood Count 4.51 M/mm3 (4.2-5.4); Red Cell Distribution Width 14.5 % (11.5-14.5); White Blood Count 8.6 K/mm3 (4.5-10.0)
[2024-07-30 13:02] LABS: Alanine Aminotransferase 9 U/L (6-35); Albumin Level 3.6 g/dL (3.5-5.1); Alkaline Phosphatase 106 U/L (38-126); Anion Gap 7 mmol/L (4-12); Aspartate Amino Transferase 16 U/L (14-36); Bilirubin,Total 0.4 mg/dL (0.2-1.3); Blood Urea Nitrogen 17 mg/dL (7-17); Calcium 9.7 mg/dL (8.4-10.2); Carbon Dioxide 30 mmol/L (22-30); Chloride 102 mmol/L (98-107); Estimated Glomerular Filt Rate > 60; Glucose 138 mg/dL (65-110); Potassium 3.5 mmol/L (3.4-5.0); Sodium 139 mmol/L (137-145)
[2024-08-01 16:03] LABS: NIL 0.01 IU/mL; Quantiferon TB Plus, 1T NEGATIVE (NEGATIVE)
--- OUTSIDE RECORDS SUMMARY | 2024-08-02 13:09 | XMS_ITS | Clinical Summary ---
Author Organization [facility] Address [address] [place] [address] Care Team Providers Care Pressing Department Supervisor Name Role Phone Manjti Obregon MD Primary Care Provider [phone] Source Comments [facility] and Associated Physician Practices is amultiple site organization consisting of ambulatory clinics and hospital sitesin [place], [place], [place] and [place]. This disclosure is being madepursuant to the Care Everywhere program and may not contain all information available regarding this patient. Last updated 18.[facility] Social History Tobacco Use Types Packs/Day Years Used Date Smoking Tobacco: Never Assessed Sex and Gender Information Value Date Recorded Sex Assigned at Not on file Gender Identity Not on file Sexual Orientation Not on file Plan of Treatment Health Maintenance Due Date Last Done Comments BONE DENSITY TESTING 1940 MEDICARE AWV ? 12 MONTHS 1940 DTAP/TDAP/TD VACCINES (1 - Tdap) 1960 PNEUMOCOCCAL VACCINE 50+ (1 of 1 - PCV) 1991 ZOSTER VACCINE (1 of 2) 1991 Respiratory Syncytial Virus (RSV) Vaccine Pt: or over 60 yrs (1 - 1-dose 75+ series) 2016 COVID-19 VACCINE ( - 2023-2 5 season) 2024 INFLUENZA VACCINE (#1) 2024 DEPRESSION SCREENING 07/11/2024 HEPATITIS B VACCINE Aged Out No longe r eligible based on patient's age to complete this topic HIB VACCINE Aged Out No longer eligi ble based on patient's age to complete this topic HPV VACCINE Aged Out No longer eligi ble based on patient's age to complete this topic MENINGOCOCCAL (Group B) VACCINE Aged Out No longer eligible based on patient's age to complete this topic MENINGOCOCCAL VACCINE Aged Out No matias jeanne eligible based on patient's age to complete this topic Care Teams Pressing Department Supervisor Relationship Specialty Start Date End Date Manjit Obregon MD [address] [place] [address] [address] [place] [address] PCP - General 04/21/22
--- OUTSIDE RECORDS SUMMARY | 2024-08-02 13:09 | XMS_ITS | Encounter Summary ---
Author Organization [facility] Address [address] [place] [address] Phone Care Team Providers Care Screw Down Name Role Phone Manjit Obregon MD Primary Care Provider [phone] Leeroy Kim DO Unavailable [phone] Reason for Visit * Reason Comments Medication Refill Encounter Details Date Type Department Care Team (Late st Contact Info) Description 01/13/2021 Refill [facility] - Gastroenterology [facility] [address] [place] [address] Linda Gallego Ketty, [facility] [address] [place] [address] Medication Refill Social History Tobacco Use Types Packs/Day Years Used Date Smoking Tobacco: Every Day Cigarettes 0.5 55 Smokeless Tobacco: Never Alcohol Use Standard Drinks/Week Comments No 0 (1 standard drink = 0.6 oz pur e alcohol) Comments No Sex and Gender Information Value Date Recorded Sex Assigned at Not on file Legal Sex Female 11:21 PM CDT Gender Identity Not on file Sexual Orientation Not on file documented as of this encounter Miscellaneous Notes * Telephone Encounter - Gabby Shell CMA - 01/13/2021 4:55 PM CDT Pharmacy requesting refill of: Requested Prescriptions Pending Prescriptions Disp Refills ??? Pentasa 500 MG Capsule CR [Pharmacy Med Name: PENTASA ER CAPS 500MG] 240 Capsule 11 Sig: TAKE 2 CAPSULES FOUR TIMES A DAY Last fill: 01/07/2021 Patients last OV with GI: 01/16/2020 Next Office Visit with GI: 01/16/2021 documented in this encounter Plan of Treatment Not on file documented as of this encounter Visit Diagnoses Not on filedocumented in this encounter Care Teams Screw Down Relationship Specialty Start Date End Date Manjit Obregon MD [address] [place] [address] PCP - General Internal Medicine 04/28/16 Leeroy Kim DO [address] [place] [address] Gastroenterology 04/29/16 documented as of this encounter
--- OUTSIDE RECORDS SUMMARY | 2024-08-02 13:09 | XMS_ITS | Encounter Summary ---
Author Organization [facility] Address [address] [place] [address] Phone Care Team Providers Care Parts Counterman Name Role Phone Manjit Obregon MD Primary Care Provider [phone] Leeroy Kim DO Unavailable [phone] Reason for Visit * Reason Comments Medication Refill Encounter Details Date Type Department Care Team ([facility] Contact Info) Description 06/30/2021 Refill [facility] - Gastroenterology [facility] [address] [place] [address] Linda Gallego Ketty, [facility] [address] [place] [address] Medication Refill Social History Tobacco Use Types Packs/Day Years Used Date Smoking Tobacco: Every Day Cigarettes 0.5 55 Smokeless Tobacco: Never Alcohol Use Standard Drinks/Week Comments No 0 (1 standard drink = 0.6 oz pur e alcohol) Sexually Active [employer] Comments Not Currently Comments No Sex and Gender Information Value Date Recorded Sex Assigned at Not on file Legal Sex Female 11:21 PM CDT Gender Identity Not on file Sexual Orientation Not on file documented as of this encounter Miscellaneous Notes * Telephone Encounter - Emilia Padron RN - 07/01/2021 9:48 AM [facility] Pharmacy requesting refill of: Requested Prescriptions Pending Prescriptions Disp Refills ??? azaTHIOprine (IMURAN) 50 MG Tablet [Pharmacy Med Name: AZATHIOPRINE TABS 50MG] 90 Tablet 3 Sig: TAKE 1 TABLET DAILY Last fill: 01/28/2021 Patients last OV with GI: 01/28/2021 Next Office Visit with GI: None scheduled. Medication failed protocol. Order pended, please review. E [facility] documented in this encounter Plan of Treatment Not on file documented as of this encounter Visit Diagnoses Diagnosis Crohn's disease of small intestine without complication (HCC) Regional enteritis of small intestine documented in this encounter Care Teams Parts Counterman Relationship Specialty Start Date End Date Manjit Obregon MD [address] [place] [address] PCP - General Internal Medicine 04/28/16 Leeroy Kim DO [address] [place] [address] Gastroenterology 04/29/16 documented as of this encounter
--- OUTSIDE RECORDS SUMMARY | 2024-08-02 13:09 | XMS_ITS | Clinical Summary ---
Author Organization [facility] Address [address] [place] [address] Phone Care Team Providers Care Supervisor Drying And Softening Name Role Phone Manjit Obregon MD Primary Care Provider [phone] Leeroy Kim DO Unavailable [phone] Allergies Active Allergy Reactions Criticality Noted Date Comments Tetracycline Unknown Medications levothyroxine (SYNTHROID) 75 MCG Tablet 6 Active lisinopril-hydro CHLOROthiazide (PRINZIDE, ZESTORETIC) 10-12.5 MG Tablet 6 Active Potassium 75 MG Tablet Take by mouth. Activ e COLLAGEN PO Take by mouth. Act néstor Mesalamine (Pentasa) 500 MG Capsule CRIndications:Cr ohn's disease of small intestine without complication (HCC) 2 capsule capsules 4 x a day 720 Capsule 3 1 Active ergocalciferol (VITAMIN D) 74803 UNIT Capsule Take 1 Capsule by mouth once a week. 12 Capsule 1 1 Active azaTHIOprine (IMURAN) 50 MG TabletIndication s:Crohn's disease of small intestine without complication (HCC) TAKE 1 TABLET DAILY 90 Tablet 2 1 Active Cyanocobalamin 1000 MCG/ML KitIndications:V itamin B12 deficiency 1,000 mcg by Subcutaneous route every 14 days. 6 Kit 1 2 Active folic acid (FOLVITE) 1 MG TabletIndication s:Crohn's disease of small intestine without complication (HCC) TAKE 1 TABLET DAILY 90 Tablet 3 2 Active Adalimumab (Humira) 40 MG/0.8ML Prefilled Syringe Kit 0.8 mL by Subcutaneous route every 14 days. 8 Each 2 Active Active Problems Problem Noted Date Diagnosed Date Low bone mass 01/16/2020 Vitamin D deficiency 01/16/2020 Vitamin B12 deficiency 01/16/2020 Crohn's disease Immunizations Immunization Administration Dates Next Due Covid-19 Vaccine, Vector-nr, Rs-ad26, Pf, 0.5 Ml ([employer]) 09/16/2020 Hepatitis B Vaccine 04/07/2015 Influenza, Seasonal, Injecta ble, Undefined 04/26/2014,04/22/2013 Influenza, Trivalent, Adjuvanted, PF 05/28/2018 Influenza, high-dose, trivalent, PF 04/10,05/18/2017,05/13/2016,2014 Pneumococcal Vaccine - 13 Valent 04/16/2015 Pneumococcal Vaccine Adult - 23 Valent 05/13/2016 Zoster Vaccine Recombinant 08/31/2018,02/23/2018 Family History Medical History Relation Name Comments Cancer Daughter vaginal Cancer Father brain Relation Name Status Comments Daughter Father Social History Tobacco Use Types Packs/Day Years Used Date Smoking Tobacco: Every Day Cigarettes 0.5 55 Smokeless Tobacco: Never Tobacco Cessation:Ready to Q uit: No; Counseling Given: No Alcohol Use Standard Drinks/Week Comments No 0 (1 standard drink = 0.6 oz pur e alcohol) Sexually Active Control Partners Comments Not Currently Comments No Sex and Gender Information Value Date Recorded Sex Assigned at Not on file Legal Sex Female 11:21 PM CDT Gender Identity Not on file Sexual Orientation Not on file Last Filed Vital Signs Vital Sign Reading Time Taken Comments Blood Pressure 138/70 01/28/2021 11:24 AM CDT Pulse 80 01/28/2021 11:24 AM CDT Temperature 36.5 ??C (97.7 ??F) 01/16/2020 11:04 AM C DT Respiratory Rate 18 01/28/2021 11:24 AM CDT Oxygen Saturation 100% 01/28/2021 11:24 AM CDT Inhaled Oxygen Concentration - - Weight 66.7 kg (147 lb) 01/28/2021 11:24 AM CDT Height 170.2 cm (5' 7 ) 01/28/2021 11:24 AM CDT Body Mass Index 23.02 01/28/2021 11:24 AM CDT Plan of Treatment Health Maintenance Due Date Last Done Comments Hepatitis C Virus (HCV) Screening 1940 TdaP Immunization 1941 Cologuard 1991 Immunochemical Fecal Occult Blood 1991 Hepatitis B Immunization (2 of 3 - 19+ 3-dose series) 05/05/2015 04/07/2015 Respiratory Syncytial Virus (RSV) Immunization (Adult) (1 - 1-dose 75+ series) 2016 Colonoscopy 07/19/2021 07/19/2019, 11/2016, 05/15/2015, Additional history exists Colorectal Cancer Screening 07/19/2021 DEXA Bone Density 06/13/2023 06/13/2021, 04/27/2019 Influenza Immunization (#1) 03/11/202404/10, 05/28/2018, 05/18/2017, Additional history exists SARS-COV-2 Immunization ( season) 2024 08/21/2021, 09/16/2020 Colonoscopy High Risk 07/19/2029 07/19/2019 , 04/14/2017, 05/15/2015, Additional history exists Pneumococcal Immunization (50+ years) Completed 05/13/2016, 04/16/2015 Pneumococcal Immunization Combined Discontinued 05/13/2016, 04/16/2015 Zoster Immunization Completed 08/31/2018, 8 Meningococcal Immunization (ACWY) Aged Out No longer eligible based on patient's age to complete this topic Rotavirus Immunization Aged Out No lo nger eligible based on patient's age to complete this topic Procedures Procedure Name Priority Date/Time Associated Diagnosis Comments BONE DENSITY GENERIC 06/13/2021 12:00 AM CAPSULE FILLER HM COLONOSCOPY Routine 07/19/2019 from Last 3 Months or Most Recently Relevant to Health Maintenance Results * BONE DENSITY GENERIC SCAN (06/13/2021 12:00 AM CAPSULE FILLER) 06/13/2021 us Not On File Provider IMG DEXA ORDERABLES Final R esult SCAN * HM COLONOSCOPY (07/19/2019) Leeroy Kim DO PROCEDURE/MINOR SURGICAL ORDERA BLES Final Result from Last 3 Months or Most Recently Relevant to Health Maintenance Insurance MEDICARE [facility] Care Teams Supervisor Drying And Softening Relationship Specialty Start Date End Date Manjit Obregon MD [address] [place] [address] PCP - General Internal Medicine 04/28/16 Leeroy Kim DO [address] [place] [address] Gastroenterology 04/29/16
--- OUTSIDE RECORDS SUMMARY | 2024-08-02 13:09 | XMS_ITS | Encounter Summary ---
Author Organization [facility] Address [address] [facility] [place] [address] Phone Care Team Providers Care Cold Storage Worker Name Role Phone Manjit Obregon MD Primary Care Provider [phone] Leeroy Kim DO Unavailable [phone] Reason for Visit * Reason Comments Medication Refill Encounter Details Date Type Department Care Team (Late Contact Info) Description 12/26/2019 Refill [facility] - Gastroenterology [facility] [address] [place] [address] Leeroy Kim, DO [address] [address] Medication Refill Social History Tobacco Use Types [...] encounter Miscellaneous Notes * Telephone Encounter - Aletha Boggs RN - 12/26/2019 7:06 AM CDT Pharmacy requesting: Requested Prescriptions Pending Prescriptions Disp Refills ??? HUMIRA 40 MG/0.8ML Prefilled Syringe Kit [Pharmacy Med Name: HUMIRA PREFLD SYR 0.8ML 2'S 40MG] 6 Each 3 Sig: INJECT 0.8 ML UNDER THE SKIN EVERY 14 DAYS Last refill: 10/23/19 Last OV: 04/24/19 Next OV: 01/16/20 documented in this encounter Plan of Treatment Not on file documented as of this encounter Visit Diagnoses Not on filedocumented in this encounter Care Teams Cold Storage Worker Relationship Specialty Start Date End Date Manjit Obregon MD [address] [place] [address] PCP - General Internal Medicine 04/28/16 Leeroy Kim DO [address] [place] [address] Gastroenterology 04/29/16 documented as of this encounter
--- OUTSIDE RECORDS SUMMARY | 2024-08-02 13:09 | XMS_ITS | Encounter Summary ---
Author Organization [facility] Address [address] [place] [address] Care Team Providers Care First Responder Name Role Phone Manjit Obregon MD Primary Care Provider [phone] Encounter Details Date Type Department Care Team (Late st Contact Info) Description 05/27/2022 Lab Requisition [facility] Care DermPath Lab [address] [place] [id number] Cachorro [place] [address] Social History Tobacco Use Types Packs/Day Years Used Date Smoking Tobacco: Never Assessed Sex and Gender Information Value Date Recorded Sex Assigned at Not on file Gender Identity Not on file Sexual Orientation Not on file documented as of this encounter Plan of Treatment Not on file documented as of this encounter Procedures Procedure Name Priority Date/Time Associated Diagnosis Comments DERMATOPATHOLOGY Routine 05/26/2022 12:0 0 AM SCHOOL CHILD CARE ATTENDANT documented in this encounter Results * DERMATOPATHOLOGY (05/26/2022 12:00 AM SCHOOL CHILD CARE ATTENDANT) Case Report Dermatopathology Report ? Case: [id number] ? Authorizing Provider: ??Cachorro Ibrahim MD ?Collected: ? 05/26/2022 12:00 AM ? Ordering Location: ? [facility] D[facility] Lab ?Received: ?05/27/2022 01:33 PM ? Pathologist: ? Claudia Jorge MD ? Specimen: ?Skin, nose ? 2 2:[address] [facility] DERMATOP[facility]Y LABORATORY Final Diagnosis Specimen A. 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 DERMATOP[facility]ORATORY Clinical History R/O Lentigo vs. Other 2 2:[address] [facility] DERMATOPATHOLOGY LABORATORY Gross Description Specimen A: Received is one formalin filled container labeled with the patient's name and designated nose. The specimen consists of a shave biopsy measuring [id number]. Jar 0. 2 2:[address] [facility] DERMATOPATHOLOGY LABORATORY Microscopic Description Specimen A. SKIN, nose: The epidermis shows parakeratosis, full thickness disorderly maturation of keratinocytes, mitoses at different levels, and dyskeratotic cells. Sections show abundant melanin within melanophages around the superficial vascular plexus. 2 2:[address] [facility] DERMATOPATHOLOGY LABORATORY Disclaimer An external and internal positive and negative controls are appropriate for the histochemical, immunohistochemical and immunofluorescence stain(s) in this case (if any), except where stated explicitly. The performance characteristics of the stain(s) cited in this report were developed and its performance characteristic determined by the Dermatopathology Laboratory at [facility], directed by Dr. Roberto Jorge. These tests need not be, and therefore are not, approved by the [place] Food and Drug Administration. The tests are used for clinical purposes. Billing Codes Specimen Charges Stain Charges 55059 1 2 2:18 PM SCHOOL CHILD CARE ATTENDANT DERMATOPATHOLOGY LABORATORY Embedded Images 2 2:18 PM SCHOOL CHILD CARE ATTENDANT DERMATOPATHOLOGY LABORATORY Pathology/Cytolog y TISSUE SPECIMEN FROM SKIN / Unknown 05/26/2022 05/27/2022 1:33 PM SCHOOL CHILD CARE ATTENDANT Cachorro Ibrahim MD LAB - PATHOLOGY/CYTO LOGY ORDERABLES DERMATOPATHOLOGY LABORATORY [facility] - Department of Dermatology [address], [address] [phone] documented in this encounter Visit Diagnoses Not on filedocumented in this encounter Care Teams First Responder Relationship Specialty Start Date End Date Manjit Obregon MD [facility] [address] [place] [id number] PCP - General 04/21/22 documented as of this encounter
--- OUTSIDE RECORDS SUMMARY | 2024-08-02 13:09 | XMS_ITS | Continuity of Care Document ---
Author Organization [facility] Address [address] [place] [address] [place] [address] Phone Care Team Providers Care Nursing Specialist Name Role Phone Marah Birmingham Unavailable Unavailable [...] Providers Copied on Encounter Office/outpat ient Visit, [facility], [address] [place] [address] [address], [place], [place], [address], [place] tel:[phone] [facility] No Information Sep-1 4-201 0 [address] , [address], [place], [address], [place]. tel:[phone] Office/outpat ient Visit, [facility], [address] [place] [address] [address], [place], [place], [id number], tel:[phone] [facility] No Information Sep-0 8-200 9 [address] , [address], [place], [place], [facility], [place]. tel:[phone] Referring Provider: Marah Taveras, [address], [place], [facility]. tel:[phone] Office/outpat ient Visit, Est [facility], [address], [place], [place], [address], [place] tel:[phone] [facility] No Information 200 9 [address]. [address] , [address], [place], [facility], [place]. tel:[phone] [facility], [address], [place], [place], [address], [place] tel:[phone] [facility] No Information 200 8 [address]. [address] , [address], [place], [facility], [place]. tel:[phone] [facility], [address], [place], [place], [address], [place] tel:[phone] [facility] No Information 0 8-200 8 Valencia Crystal. [address] , [address], [place], [facility], [place]. tel:[phone] [facility], [address], [place], [place], [address], [place] tel:[phone] [facility] No Information 1-200 8 [address] OD Leeroy. [address] , [address], [place], [facility], [place]. tel:[phone] [facility], [address], [place], [place], [address], [place] tel:[phone] [facility] No Information 1200 [address]. [address], [place], [facility], . tel:[phone] [facility], [address] [place] [address] [address], [place], [place], [address], tel:[phone] [facility] No Information Jan-2 2-200 8 Valencia [address]on [address] [facility] , [address], [place], [facility], . tel:[phone] Referring Provider: Marah Taveras [address] [facility] [address], [place], [facility]. tel:[phone] [facility], [address] [place] [address] [address], [place], [place], [address], tel:[phone] [facility] No Information Elias-0 1-200 8 Valencia Crystal. [address] [facility] , [address], [place], [facility], . tel:[phone] [facility], [address] [place] [address] [address], [place], [place], [address], tel:[phone] [facility] No Information Apr-0 3-200 7 Valencia Crystal. [facility] , [address], [place], [place], [facility], . tel:[phone] Family History Family Member Type Diagnosis Age At Onset No Information Payers Payer name Insurance type Covered alliance party ID Authorshahida tisenia(s) [place] [id number] Social History Type Description Quantity Date Captured [...]
--- OUTSIDE RECORDS SUMMARY | 2024-08-02 13:09 | XMS_ITS | Referral Summary ---
Author Organization [facility] Address [address] [place] [address] Care Team Providers Care Land Clearer Name Role Phone Manjit Obregon MD Primary Care Provider [phone] Source Comments [facility],non-[facility] Affiliates and Associated Physician Practices is amultiple site organization consisting of ambulatory clinics and hospital sitesin [place], [place], [place] and [place]. This disclosure is being madepursuant to the Care Everywhere program and may not contain all information available regarding this patient. Last updated 18.[facility] Social History Tobacco Use Types Packs/Day Years Used Date Smoking Tobacco: Never Assessed Sex and Gender Information Value Date Recorded Sex Assigned at Not on file Gender Identity Not on file Sexual Orientation Not on file Plan of Treatment Not on file Administered Medications Care Teams Land Clearer Relationship Specialty Start Date End Date Manjit Obregon MD [address] [facility] [address] [place] [address] PCP - General 04/21/22
--- OUTSIDE RECORDS SUMMARY | 2024-08-02 13:09 | XMS_ITS | Patient Health Summary ---
Author Organization [facility] Address [address] [place] [address] Care Team Providers Care Metal Filer Name Role Phone Manjit Obregon MD Primary Care Provider [phone] Note from [facility],non-owned Affiliates and Associated Physician Practices is amultiple site organization consisting of ambulatory clinics and hospital sitesin [place], [place], [place]. This disclosure is being madepursuant to the Care Everywhere program and may not contain all information available regarding this patient. Last updated 18.[facility] Social History Tobacco Use Types Packs/Day Years Used Date Smoking Tobacco: Never Assessed Sex and Gender Information Value Date Recorded Sex Assigned at Not on file Gender Identity Not on file Sexual Orientation Not on file Procedures * DERMATOPATHOLOGY(Performed 05/26/2022) * SKIN TEST PPD - POINT OF CARE(Performed 05/19/2016) Performed for Screening examination for pulmonary tuberculosis Results * DERMATOPATHOLOGY (05/26/2022 12:00 AM [employer]ING INTERNSH[employer]) Case Report Dermatopathology Report ? Case: [id number] ? Authorizing Provider: ??Cachorro Ibrahim MD ?Collected: ? 05/26/2022 12:00 AM ? Ordering Location: ? [facility] ?Received: ?05/27/2022 01:33 PM ? Pathologist: ? Claudia Jorge MD ? Specimen: ?Skin, nose ? 2 2:18 PM [facility] DERMATOPATHOLOGY LABORATORY Final Diagnosis Specimen A. 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 Other 2 2:18 PM [facility] DERMATOPATHOLOGY LABORATORY Gross Description Specimen A: Received is one formalin filled container labeled with the patient's name and designated nose. The specimen consists of a shave biopsy measuring [id number]. Jar 0. 2 2:18 PM [facility] DERMATOPATHOLOGY LABORATORY Microscopic Description Specimen A. SKIN, nose: The epidermis shows parakeratosis, full thickness disorderly maturation of keratinocytes, mitoses at different levels, and dyskeratotic cells. Sections show abundant melanin within melanophages around the superficial vascular plexus. 2 2:18 PM [facility] DERMATOPATHOLOGY LABORATORY Disclaimer An external and internal positive and negative controls are appropriate for the histochemical, immunohistochemical and immunofluorescence stain(s) in this case (if any), except where stated explicitly. The performance characteristics of the stain(s) cited in this report were developed and its performance characteristic determined by the Dermatopathology Laboratory at [facility], directed by Dr. Roberto Jorge. These tests need not be, and therefore are not, approved by the [place] Food and Drug Administration. The tests are used for clinical purposes. Billing Codes Specimen Charges Stain Charges 20506 1 2 2:18 PM [employer] DERMATOPATHOLOGY LABORATORY Embedded Images 2 2:18 PM [employer] DERMATOPATHOLOGY LABORATORY Pathology/Cytolog y TISSUE SPECIMEN FROM SKIN / Unknown 05/26/2022 05/27/2022 1:33 PM [employer] Cachorro Ibrahim MD LAB - PATHOLOGY/CYTO LOGY ORDERABLES DERMATOPATHOLOGY LABORATORY [facility] - Department of Dermatology [address] [phone] * SKIN TEST PPD - POINT OF CARE (05/19/2016 11:17 AM VIDEO EDIT[employer]NSH[employer]) PPD 0mm Comment:normal MISCELLANEOUS SAMPLE S / Unknown 05/19/2016 11:17 AM [employer] Kamar Ingram METAL ROLLING MILL OPERATOR-INFORMATION TECHNOLOGY CONSULTANT LAB - POINT OF CARE ORDERABLES Care Teams Metal Filer Relationship Specialty Start Date End Date Manjit Obregon MD [address] [facility] [address] [facility] [address] [place] [address] PCP - General 04/21/22
== END 2024-07-30 12:14 | disposition home or self-care (01) ==
PROVIDERS: PCP Emergency Medicine; Visit Provider Nurse Practitioner Family
DX: K50.90 Crohn's disease, unspecified, without complications (principal); Z79.899 Other long term (current) drug therapy
CPT/HCPCS: 36415; 80053; 85027; 86480

== ENCOUNTER 2024-09-12 07:47 | Outpatient (CLI) | payer MEDICARE, SELFPAY ==
--- OUTSIDE RECORDS SUMMARY | 2024-09-12 07:54 | XMS_ITS | Patient Health Summary ---
Author Organization [facility] Address [address] [place] [address] Care Team Providers Care Raw Cheese Worker Name Role Phone Manjit Obregon MD Primary Care Provider Note from [facility],non-owned Affiliates and Associated Physician Practices is amultiple site organization consisting of ambulatory clinics and hospital sitesin [place], [place], [place] and [place]. This disclosure is being madepursuant to the Care Everywhere program and may not contain all information available regarding this patient. Last updated 18.[facility] Social History Tobacco Use Types Packs/Day Years Used Date Smoking Tobacco: Never Assessed Sex and Gender Information Value Date Recorded Sex Assigned at Not on file Gender Identity Not on file Sexual Orientation Not on file Procedures * DERMATOPATHOLOGY(Performed 05/26/2022) * SKIN TEST PPD - POINT OF CARE(Performed 05/19/2016) Performed for Screening examination for pulmonary tuberculosis Results * DERMATOPATHOLOGY (05/26/2022 12:00 AM MECHANIC HELPER) Case Report Dermatopathology Report Case: [id number] Authorizing Provider: Cachorro Ibrahim MD Collected: 05/26/2022 12:00 AM Ordering Location: [facility] DermPath Lab Received: 05/27/2022 01:33 PM Pathologist: Claudia Jorge MD Specimen: Skin, nose 2 2:18 PM MECHANIC HELPER DERMATOPATHOLOGY LABORATORY Final Diagnosis Specimen A. 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 Other 2 2:18 PM [facility] DERMATOPATHOLOGY LABORATORY Gross Description Specimen A: Received is one formalin filled container labeled with the patient's name and designated nose. The specimen consists of a shave biopsy measuring [id number]. Jar 0. 2 2:18 PM [facility] DERMATOPATHOLOGY LABORATORY Microscopic Description Specimen A. SKIN, nose: The epidermis shows parakeratosis, full thickness disorderly maturation of keratinocytes, mitoses at different levels, and dyskeratotic cells. Sections show abundant melanin within melanophages around the superficial vascular plexus. 2 2:18 PM [facility] DERMATOPATHOLOGY LABORATORY Disclaimer An external and internal positive and negative controls are appropriate for the histochemical, immunohistochemical and immunofluorescence stain(s) in this case (if any), except where stated explicitly. The performance characteristics of the stain(s) cited in this report were developed and its performance characteristic determined by the Dermatopathology Laboratory at [facility], directed by Dr. Roberto Jorge. These tests need not be, and therefore are not, approved by the [place] Food and Drug Administration. The tests are used for clinical purposes. Billing Codes Specimen Charges Stain Charges 05374 1 2 2:18 PM [facility] DERMATOPATHOLOGY LABORATORY Embedded Images 2 2:18 PM [facility] DERMATOPATHOLOGY LABORATORY Pathology/Cytolog y TISSUE SPECIMEN FROM SKIN / Unknown 05/26/2022 05/27/2022 1:33 PM MECHANIC HELPER Cachorro Ibrahim MD LAB - PATHOLOGY/CYTO LOGY ORDERABLES DERMATOPATHOLOGY LABORATORY [facility] - Department of Dermatology [address], [address] [phone] * SKIN TEST PPD - POINT OF CARE (05/19/2016 11:17 AM MECHANIC HELPER) PPD 0mm Comment:normal MISCELLANEOUS SAMPLE S / Unknown 05/19/2016 11:17 AM MECHANIC HELPER Kamar Ingram SUPERVISOR-CENTRAL COMMUNICATIONS SPECIALIST LAB - POINT OF CARE ORDERABLES Care Teams Raw Cheese Worker Relationship Specialty [place] [address] [place] [address] PCP - General 04/21/22
--- OUTSIDE RECORDS SUMMARY | 2024-09-12 07:54 | XMS_ITS | Encounter Summary ---
Author Organization [facility] Address [address] [place] [address] Care Team Providers Care Patternmaker Plaster Name Role Phone Manjit Obregon MD Primary Care Provider [phone] Encounter Details Date Type Department Care Team (Late st Contact Info) Description 05/27/2022 Lab Requisition [facility] DermPath Lab [address] [place] [id number] Cachorro [place] [address] Social History Tobacco Use Types Packs/Day Years [...] Comments DERMATOPATHOLOGY Routine 05/26/2022 12:0 0 AM OLIVE PACKER documented in this encounter Results * DERMATOPATHOLOGY (05/26/2022 12:00 AM OLIVE PACKER) Case Report Dermatopathology Report Case: [id number] Authorizing Provider: Cachorro Ibrahim MD Collected: 05/26/2022 12:00 AM Ordering Location: [facility] DermPath Lab Received: 05/27/2022 01:33 PM Pathologist: Claudia Jorge MD Specimen: Skin, nose 2:18 PM OLIVE PACKER DERMATOPATHOLOGY LABORATORY Final Diagnosis Specimen A. 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 Other 2 2:18 PM OLIVE PACKER DERMATOPATHOLOGY LABORATORY Gross Description Specimen A: Received is one formalin filled container labeled with the patient's name and designated nose. The specimen consists of a shave biopsy measuring [id number]. Jar 0. 2 2:18 PM OLIVE PACKER DERMATOPATHOLOGY LABORATORY Microscopic Description Specimen A. SKIN, nose: The epidermis shows parakeratosis, full thickness disorderly maturation of keratinocytes, mitoses at different levels, and dyskeratotic cells. Sections show abundant melanin within melanophages around the superficial vascular plexus. 2 2:18 PM OLIVE PACKER DERMATOPATHOLOGY LABORATORY Disclaimer An external and internal positive and negative controls are appropriate for the histochemical, immunohistochemical and immunofluorescence stain(s) in this case (if any), except where stated explicitly. The performance characteristics of the stain(s) cited in this report were developed and its performance characteristic determined by the Dermatopathology Laboratory at [facility], directed by Dr. Roberto Jorge. These tests need not be, and therefore are not, approved by the [place] Food and Drug Administration. The tests are used for clinical purposes. Billing Codes Specimen Charges Stain Charges 23696 1 2 2:18 PM OLIVE PACKER DERMATOPATHOLOGY LABORATORY Embedded Images 2 2:18 PM OLIVE PACKER DERMATOPATHOLOGY LABORATORY Pathology/Cytolog y TISSUE SPECIMEN FROM SKIN / Unknown 05/26/2022 05/27/2022 1:33 PM OLIVE PACKER Cachorro Ibrahim MD LAB - PATHOLOGY/CYTO LOGY ORDERABLES DERMATOPATHOLOGY LABORATORY [facility] - Department of Dermatology [facility] [address] [place] [address], [address] [phone] documented in this encounter Visit Diagnoses Not on filedocumented in this encounter Care Teams Patternmaker Plaster Relationship Specialty Start Date End Date Manjit Obregon MD [address] [address] PCP - General 04/21/22 documented as of this encounter
--- OUTSIDE RECORDS SUMMARY | 2024-09-12 07:54 | XMS_ITS | Clinical Summary ---
Author Organization [facility] Address [address] [place] [address] Care Team Providers Care Student Nurse Name Role Phone Manjit Obregon MD Primary Care Provider Source Comments [facility] and Associated Physician Practices is amultiple site organization consisting of ambulatory clinics and hospital sitesin [place], [place], [place] and [place]. This disclosure is being madepursuant to the Care Everywhere program and may not contain all information available regarding this patient. Last updated 18.[facility] Social History Tobacco Use Types Packs/Day Years Used Date Smoking Tobacco: Never Assessed Sex and Gender Information Value Date Recorded Sex Assigned at Not on file Gender Identity Not on file Sexual Orientation Not on file Plan of Treatment Health Maintenance Due Date Last Done Comments BONE DENSITY TESTING 1940 MEDICARE AWV 12 MONTHS 1940 DTAP/TDAP/TD VACCINES (1 - [...] age to complete this topic Care Teams Student Nurse Relationship Specialty Start Date End Date Manjit Obregon MD [address] [place] [address] [address] [place] [address] PCP - General 04/21/22
--- OUTSIDE RECORDS SUMMARY | 2024-09-12 07:54 | XMS_ITS | Referral Summary ---
Author Organization [facility] Address [address] [place] [address] Care Team Providers Care Cleaner And Dyer Name Role Phone Manjit Obregon MD Primary Care Provider [phone] Source Comments [facility],non-[facility] Affiliates and Associated Physician Practices is amultiple site organization consisting of ambulatory clinics and hospital sitesin [place], [place], [place] and [place]. This disclosure is being madepursuant to the Care Everywhere program and may not contain all information available regarding this patient. Last updated 18.[facility] Social History Tobacco Use Types Packs/Day Years Used Date Smoking Tobacco: Never Assessed Sex and Gender Information Value Date Recorded Sex Assigned at Not on file Gender Identity Not on file Sexual Orientation Not on file Plan of Treatment Not on file Administered Medications Care Teams Cleaner And Dyer Relationship Specialty Start Date End Date Manjti Obregon MD [address] [place] [address] PCP - General 04/21/22
--- OUTSIDE RECORDS SUMMARY | 2024-09-12 07:54 | XMS_ITS | Continuity of Care Document ---
Author Organization [facility] Address [address] [place] [address] [place] [address] Phone Care Team Providers Care Psychological Tests Sales Agent Name Role Phone Marah Birmingham Unavailable Unavailable [...] Providers Copied on Encounter Office/outpat ient Visit, [facility], [address] [place] [address] [address], [place], [place], [id number], [place] tel:[phone] [facility] No Information Sep-1 4-201 0 Valencia [address]on [address], [place], [address], [place]. tel:[phone] Office/outpat ient Visit, [facility], [address] [place] [address] [address], [place], [place], [id number], tel:[phone] [facility] No Information Sep-0 8-200 9 [address] , [address], [place], [place], [facility], [place]. tel:[phone] Referring Provider: Marah Taveras, [address], [place], [facility]. tel:[phone] Office/outpat ient Visit, [facility], [address], [place], [place], [id number], [place] tel:[phone] [facility] No Information [address]. [address], [place], [facility], [place]. tel:[phone] [facility], [address], [place], [place], [address], [place] tel:[phone] [facility] No Information 200 8 [address]. [address], [place], [facility], [place]. tel:[phone] [facility], [address], [place], [place], [address], [place] tel:[phone] [facility] No Information 0 8-200 8 [address]. [address], [place], [facility], [place]. tel:[phone] [facility], [address], [place], [place], [address], [place] tel:[phone] [facility] No Information 1-200 8 H[address] OD Leeroy. [address], [place], [facility], [place]. tel:[phone] [facility], [address], [place], [place], [address], [place] tel:[phone] Nov [facility] No Information 1200 8 [address]. [address], [place], [facility], . tel:[phone] [facility], [address] [place] [address] [address], [place], [place], [address], tel:[phone] [facility] No Information Jan-2 2-200 8 Valencia [address]on [address] [facility] , [address], [place], [facility], . tel:[phone] Referring Provider: Marah Tvaeras [address], [place], [facility]. tel:[phone] [facility], [address] [place] [address] [address], [place], [place], [address], tel:[phone] [facility] No Information Elias-0 1-200 8 [address]. [address] [facility] , [address], [place], [facility], . tel:[phone] [facility], [address] [place] [address] [address], [place], [place], [address], tel:[phone] [facility] No Information Apr-0 3-200 7 Valencia Crystal. Counts include 234 beds at the [facility] , [address], [place], [place], [facility], . tel:[phone] Family History Family Member Type Diagnosis Age At Onset No Information Payers Payer name Insurance type Covered constitution party ID Authorshahida tisenia(s) [place] [id number] Social History Type Description Quantity Date Captured [...]
[2024-09-12 08:30] LABS: Alanine Aminotransferase 12 U/L (6-35); Albumin Level 3.7 g/dL (3.5-5.1); Alkaline Phosphatase 106 U/L (38-126); Anion Gap 5 mmol/L (4-12); Aspartate Amino Transferase 22 U/L (14-36); Bilirubin,Total 0.6 mg/dL (0.2-1.3); Blood Urea Nitrogen 16 mg/dL (7-17); Calcium 9.5 mg/dL (8.4-10.2); Carbon Dioxide 30 mmol/L (22-30); Chloride 105 mmol/L (98-107); Cholesterol 192 mg/dL (0-200); Estimated Glomerular Filt Rate > 60; Glucose 96 mg/dL (65-110); HDL Direct 69 mg/dL; Potassium 3.5 mmol/L (3.4-5.0); Sodium 140 mmol/L (137-145); Triglycerides 118 mg/dL (<150)
[2024-09-12 08:41] LABS: LDL Cholesterol Direct 81 mg/dL
[2024-09-12 09:21] LABS: Vitamin D 25 Hydroxy 22.9 ng/mL
== END 2024-09-12 07:48 | disposition home or self-care (01) ==
LOC: ANHLAB 07:50
PROVIDERS: PCP Emergency Medicine; Visit Provider Emergency Medicine
DX: E78.5 Hyperlipidemia, unspecified (principal); E55.9 Vitamin D deficiency, unspecified
CPT/HCPCS: 36415; 80053; 80061; 82306

== ENCOUNTER 2024-09-23 10:35 | Inpatient (IN) | payer MEDICARE, SELFPAY ==
--- NOTE | ~2024-09-23 | XR_ITS ---
EXAMINATION: XR sm bowel follow through [facility] DATE: 09/24/2024 12:19 INDICATION: Obstruction versus ileus in patient with Crohn's disease TECHNIQUE: Rn Staff radiograph(s) of the abdomen was/were obtained. Water-soluble oral contrast was admi nistered, and sequential radiographs of the abdomen were obtained until oral contrast was noted to be in the proximal colon. Spot fluoroscopic images of the small bowel were obtained. A total of 10 over head radiographs and 16 fluoroscopic images were recorded. Fluoroscopy exposure time was 2.2 minutes. Total DAP was 93 Gycm^2. COMPARISON: CT dated 09/23/2024 FINDINGS: Diffuse mild dilation of the small bowel extending to the terminal ileum where there is a patent but persistently narrowed lumen with intramural fat evident on the prior CT consistent with likely chroni c stricture related to reported Crohn's disease. No mucosal fold thickening evident in the more prox imal small bowel. Transit time from the stomach to proximal colon was approximately 1 hour. No tether ing or abnormal mass effect observed upon the small bowel with real-time fluoroscopy. IMPRESSION: 1. Mild small bowel dilation but without evident delayed transit to the colon which occurs within 1 h our. This could be due to a mild ileus or partial small bowel obstruction related to likely chronic C rohn's disease related stricture at the terminal ileum. Reviewed, dictated and finalized at location A. IMPRESSION: 1. Mild small bowel dilation but without evident delayed transit to the colon w hich occurs within 1 hour. This could be due to a mild ileus or partial small b owel obstruction related to likely chronic Crohn's disease related stricture at the terminal ileum.
--- NOTE | ~2024-09-23 | CT_ITS ---
CT abdomen pelvis wo con Ordering provider: Billy Rene MD History: 84 years Female with . Left lower abdominal pain . Comparison: None. Technique: CT abdomen and pelvis without IV and without oral contrast. Automated exposure control and iterative reconstruction technique were employed. The dose-length product was 174.69 mGy-cm. Findings: VISUALIZED LOWER CHEST: Focal areas of atelectasis versus pneumonia in the left lung base medially. D ependent atelectatic changes with fibrotic/emphysematous changes in the lung bases. Nodule seen in th e left lower lobe measuring 4 mm. 6-12 months follow-up advised. Trace of pericardial effusion. Left hilar calcified lymph nodes. Granuloma in the left lower lobe posteriorly UPPER ABDOMINAL ORGANS: Liver: Normal. Benign calcifications. Gallbladder: Normal. Spleen: Normal.. Benign calcifications. Stomach/duodenum: Sliding hiatus hernia. Pancreas: Normal. Adrenals: Normal. Kidneys: Left upper pole hyperdense area measuring 8 mm most likely hemorrhagic cyst. Small mass jovon ot be excluded. 3-6 months follow-up CT is advised. PELVIC ORGANS: The bladder is normal. BOWEL AND MESENTERY: Colon: No evidence of diverticulitis. Normal appendix. Small Bowel: Dilated small bowel is noted with the transition zone is in the right pelvis with thicke bryan wall of the bowel suggestive of obstruction. Ileus is also possible. Peritoneum/mesentery: No free air or free fluid. No mesenteric lymphadenopathy. RETROPERITONEUM: Mild atheromatous disease of the abdominal aorta. No retroperitoneal lymphadenopat hy. MUSCULOSKELETAL: Superficial soft tissues: The superficial soft tissues are normal. Bones: Age appropriate degenerative changes of the spine. Bilateral sacroiliacs. Pubic symphysitis. IMPRESSION: 1. Dilated small bowel proximal to the terminal ileum suggestive of obstruction. Ileus is also possi ble. Thickening wall of the small bowel in the pelvic area is noted. 2. Sliding hiatus hernia. 3. Focal area of atelectasis versus pneumonia in the left lung base. Fibrotic changes in the lungs. 4. 4 mm nodule in the left lower lobe 6 months follow-up CT is advised. 5. Trace of pericardial effusion. Reviewed, dictated and finalized at location A. IMPRESSION: 1. Dilated small bowel proximal to the terminal ileum suggestive of obstructio n. Ileus is also possible. Thickening wall of the small bowel in the pelvic are a is noted. 2. Sliding hiatus hernia. 3. Focal area of atelectasis versus pneumonia in the left lung base. Fibrotic changes in the lungs. 4. 4 mm nodule in the left lower lobe 6 months follow-up CT is advised. 5. Trace of pericardial effusion.
--- OUTSIDE RECORDS SUMMARY | 2024-09-23 10:37 | XMS_ITS | Clinical Summary ---
Author Organization [facility] Address [address] [place] [address] Phone Care Team Providers Care Patcher Bowling Ball Name Role Phone Manjit Obregon MD Primary Care Provider [phone] Leeroy Kim DO Unavailable [phone] Allergies Active Allergy Reactions Criticality Noted [...] Capsule 3 1 Active ergocalciferol (VITAMIN D) 98265 UNIT Capsule Take 1 Capsule by mouth [...] Covid-19 Vaccine, Vector-nr, Rs-ad26, Pf, 0.5 Ml (Zokem/TextualAds) 09/16/2020 Hepatitis B Vaccine 04/07/2015 Influenza, Seasonal, [...] 80 01/28/2021 11:24 AM CDT Temperature 36.5 C (97.7 F) 01/16/2020 11:04 AM CDT Respiratory Rate 18 01/28/2021 11:24 AM CDT [...] Comments BONE DENSITY GENERIC 06/13/2021 12:00 AM DESK CLERKS SUPERVISOR COLONOSCOPY Routine 07/19/2019 from Last 3 Months or Most Recently Relevant to Health Maintenance Results * BONE DENSITY GENERIC SCAN (06/13/2021 12:00 AM DESK CLERKS SUPERVISOR) 06/13/2021 us Not On File Provider IMG DEXA ORDERABLES Final R esult SCAN * HM COLONOSCOPY (07/19/2019) Leeroy Kim DO PROCEDURE/MINOR SURGICAL ORDERA BLES Final Result from Last 3 Months or Most Recently Relevant to Health Maintenance Insurance MEDICARE [facility] Care Teams Patcher Bowling Ball Relationship Specialty Start Date End Date Manjit Obregon MD [address] [place] [address] PCP - General Internal Medicine 04/28/16 Leeroy Kim DO [address] [place] [address] Gastroenterology 04/29/16
--- OUTSIDE RECORDS SUMMARY | 2024-09-23 10:37 | XMS_ITS | Encounter Summary ---
Author Organization [facility] Address [address] [place] [address] Phone Care Team Providers Care Data Conversion Analyst Name Role Phone Manjit Obregon MD Primary Care Provider [phone] Leeroy Kim DO Unavailable [phone] Reason for Visit * Reason Comments Medication Refill Encounter Details Date Type Department Care Team ([facility] Contact Info) Description 06/30/2021 Refill [facility] - Gastroenterology [facility] [address] [place] [address] Linda Gallego Ketty, PAC [address] [place] [address] Medication Refill Social History Tobacco Use Types [...] Emilia Padron RN - 07/01/2021 9:48 AM WEB DEVELOPMENT INTERN Pharmacy requesting refill of: Requested Prescriptions Pending Prescriptions Disp Refills ??? azaTHIOprine (IMURAN) 50 MG Tablet [Pharmacy Med Name: AZATHIOPRINE TABS 50MG] 90 Tablet 3 Sig: TAKE 1 TABLET DAILY Last fill: 01/28/2021 Patients last OV with GI: 01/28/2021 Next Office Visit with GI: None scheduled. Medication failed protocol. Order pended, please review. DEVELOPMENT INTERN documented in this encounter Plan of Treatment Not on file documented as of this encounter Visit Diagnoses Diagnosis Crohn's disease of small intestine without complication (HCC) Regional enteritis of small intestine documented in this encounter Care Teams Data Conversion Analyst Relationship Specialty Start Date End Date Manjit Obregon MD [address] [place] [address] PCP - General Internal Medicine 04/28/16 Leeroy Kim DO [address] [place] [address] Gastroenterology 04/29/16 documented as of this encounter
--- OUTSIDE RECORDS SUMMARY | 2024-09-23 10:37 | XMS_ITS | Continuity of Care Document ---
Author Organization [facility] Address [address] [place] [address] [place] [address] Phone Care Team Providers Care Event Crew Technician Name Role Phone Marah Birmingham Unavailable Unavailable [...] Providers Copied on Encounter Office/outpat ient Visit, [facility], [address] [place] [address] [address], [place], [place], [address], [place] tel:[phone] [facility] No Information Sep-1 4-201 0 [address]on [address] , [address], [place], [address], [place]. tel:[phone] Office/outpat ient Visit, [facility], [address] [place] [address] [address], [place], [place], [address], tel:[phone] [facility] No Information Sep-0 8-200 9 [address]on [address], [place], [facility], [place]. tel:[phone] Referring Provider: Marah Taveras, [address], [place], [facility]. tel:[phone] Office/outpat ient Visit, [facility], [address], [place], [place], [address], [place] tel:[phone] [facility] No Information [address] 9 [address]. [address], [place], [facility], [place]. tel:[phone] [facility], [address], [place], [place], [address], [place] tel:[phone] [facility] No Information 200 8 [address]. [address], [place], [facility], [place]. tel:[phone] [facility], [address], [place], [place], [address], [place] tel:[phone] [facility] No Information 0 8-200 8 [address]. [address], [place], [facility], [place]. tel:[phone] [facility], [address], [place], [place], [address], [place] tel:[phone] [facility] No Information 1-200 8 [address] Leeroy. [address], [place], [facility], [place]. tel:[phone] [facility], [address], [place], [place], [address], [place] tel:[phone] Nov [facility] No Information [address]. [address], [place], [facility], . tel:[phone] [facility], [address] [place] [address] [address], [place], [place], [address], tel:[phone] [facility] No Information Jan-2 2-200 8 [address] [facility] , [address], [place], [facility], . tel:[phone] Referring Provider: Marah Taveras [address], [place], [facility]. tel:[phone] [facility], [address] [place] [address] [address], [place], [place], [address], tel:[phone] [facility] No Information Elias-0 1-200 8 [address]. [address] [facility] , [address], [place], [facility], . tel:[phone] [facility], [address] [place] [address] [address], [place], [place], [address], tel:[phone] [facility] No Information Apr-0 3-200 7 [address]. [facility] , [address], [place], [facility], . tel:[phone] Family History Family Member Type Diagnosis Age At Onset No Information Payers Payer name Insurance type Covered constitution party ID Authorshahida tisenia(s) [place] [id number] Social History Type Description Quantity Date Captured [...]
--- OUTSIDE RECORDS SUMMARY | 2024-09-23 10:37 | XMS_ITS | Encounter Summary ---
Author Organization [facility] Address [address] [facility] [place] [address] Phone Care Team Providers Care Print Production Manager Name Role Phone Manjit Obregon MD Primary Care Provider [phone] Leeroy Kim DO Unavailable [phone] Reason for Visit * Reason Comments Medication Refill Encounter Details Date Type Department Care Team (Late Contact Info) Description 12/26/[address] [facility] - Gastroenterology [facility] [address] [place] [address] Leeroy Kim, DO [address] [address] Medication Refill Social History Tobacco [...] on filedocumented in this encounter Care Teams Print Production Manager Relationship Specialty Start Date End Date Manjit Obregon MD [address] [place] [address] PCP - General Internal Medicine 04/28/16 Leeroy Kim DO [address] [place] [address] Gastroenterology 04/29/16 documented as of this encounter
--- OUTSIDE RECORDS SUMMARY | 2024-09-23 10:37 | XMS_ITS | Encounter Summary ---
Author Organization [facility] Address [address] [place] [address] Phone Care Team Providers Care Transit Manager Name Role Phone Manjit Obregon MD Primary Care Provider [phone] Leeroy Kim DO Unavailable [phone] Reason for Visit * Reason Comments Medication Refill Encounter Details Date Type Department Care Team (Late st Contact Info) Description 01/13/2021 Refill [facility] - Gastroenterology [facility] [address] [place] [address] Linda Gallego Ketty, PAC [address] [place] [address] Medication Refill Social History Tobacco Use Types [...] on filedocumented in this encounter Care Teams Transit Manager Relationship Specialty Start Date End Date Manjit Obregon MD [address] [place] [address] PCP - General Internal Medicine 04/28/16 Leeroy Kim DO [address] [place] [address] Gastroenterology 04/29/16 documented as of this encounter
--- OUTSIDE RECORDS SUMMARY | 2024-09-23 10:37 | XMS_ITS | Clinical Summary ---
Author Organization [facility] Address [address] [place] [address] Care Team Providers Care Web Production Assistant Name Role Phone Manjit Obregon MD Primary Care Provider Source Comments [facility] and Associated Physician Practices is amultiple site organization consisting of ambulatory clinics and hospital sitesin [place], [place], [place] and [place]. This disclosure is being madepursuant to the Care Everywhere program and may not contain all information available regarding this patient. Last updated 18.[facility] Social History Tobacco Use Types Packs/Day [...] to complete this topic MENINGOCOCCAL (Group B) VACC INE SHARED DECISION-MAKING Aged Out No longer eligibl e based on patient's age to complete this topic MENINGOCOCCAL GROUPS A/C/Y/W VACCINE Aged Out No longer eligible b ased on patient's age to complete this topic Care Teams Web Production Assistant Relationship Specialty Start Date End Date Manjit Obregon MD [address] [place] [address] PCP - General 04/21/22
--- OUTSIDE RECORDS SUMMARY | 2024-09-23 10:37 | XMS_ITS | Encounter Summary ---
Author Organization [facility] Address [address] [place] [address] Care Team Providers Care Graphic Artist Name Role Phone Manjit Obregon MD Primary Care Provider Encounter Details Date Type Department Care Team (Late st Contact Info) Description 05/27/2022 Lab Requisition [facility] DermPath Lab [address] [place] [id number] [place] [address] Social History Tobacco Use Types Packs/Day Years [...] Comments DERMATOPATHOLOGY Routine 05/26/2022 12:0 0 AM TRAFFIC INCIDENT MANAGEMENT MANAGER documented in this encounter Results * DERMATOPATHOLOGY (05/26/2022 12:00 AM TRAFFIC INCIDENT MANAGEMENT MANAGER) Case Report Dermatopathology Report Case: [id number] Authorizing Provider: Cachorro Ibrahim MD Collected: 05/26/2022 12:00 AM Ordering Location: [facility] DermPath Lab Received: 05/27/2022 01:33 PM Pathologist: Claudia Jorge MD Specimen: Skin, nose 2:18 PM TRAFFIC INCIDENT MANAGEMENT MANAGER DERMATOPATHOLOGY LABORATORY Final Diagnosis Specimen A. 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 Other 2 2:18 PM TRAFFIC INCIDENT MANAGEMENT MANAGER DERMATOPATHOLOGY LABORATORY Gross Description Specimen A: Received is one formalin filled container labeled with the patient's name and designated nose. The specimen consists of a shave biopsy measuring [id number]. Jar 0. 2 2:18 PM TRAFFIC INCIDENT MANAGEMENT MANAGER DERMATOPATHOLOGY LABORATORY Microscopic Description Specimen A. SKIN, nose: The epidermis shows parakeratosis, full thickness disorderly maturation of keratinocytes, mitoses at different levels, and dyskeratotic cells. Sections show abundant melanin within melanophages around the superficial vascular plexus. 2 2:18 PM TRAFFIC INCIDENT MANAGEMENT MANAGER DERMATOPATHOLOGY LABORATORY Disclaimer An external and internal positive and negative controls are appropriate for the histochemical, immunohistochemical and immunofluorescence stain(s) in this case (if any), except where stated explicitly. The performance characteristics of the stain(s) cited in this report were developed and its performance characteristic determined by the Dermatopathology Laboratory at [facility], directed by Dr. Roberto Jorge. These tests need not be, and therefore are not, approved by the [place] Food and Drug Administration. The tests are used for clinical purposes. Billing Codes Specimen Charges Stain Charges 23268 1 2 2:18 PM TRAFFIC INCIDENT MANAGEMENT MANAGER DERMATOPATHOLOGY LABORATORY Embedded Images 2 2:18 PM TRAFFIC INCIDENT MANAGEMENT MANAGER DERMATOPATHOLOGY LABORATORY Pathology/Cytolog y TISSUE SPECIMEN FROM SKIN / Unknown 05/26/2022 05/27/2022 1:33 PM TRAFFIC INCIDENT MANAGEMENT MANAGER Cachorro Ibrahim MD LAB - PATHOLOGY/CYTO LOGY ORDERABLES DERMATOPATHOLOGY LABORATORY [facility] - Department of Dermatology [facility] [address] [place] [address], [address] [phone] documented in this encounter Visit Diagnoses Not on filedocumented in this encounter Care Teams Graphic Artist Relationship Specialty Start Date End Date Manjit Obregon MD [address] [address] PCP - General 04/21/22 documented as of this encounter
--- OUTSIDE RECORDS SUMMARY | 2024-09-23 10:37 | XMS_ITS | Patient Health Summary ---
Author Organization [facility] Address [address] [address] Care Team Providers Care Sales Donor Recruitment Representative Name Role Phone Manjit Obregon MD Primary Care Provider Note from [facility],non-owned Affiliates and Associated Physician Practices is amultiple site organization consisting of ambulatory clinics and hospital sitesin [place], [place], [place] and [place]. This disclosure is being madepursuant to the Care Everywhere program and may not contain all information available regarding this patient. Last updated 18.[facility] Social History Tobacco Use Types [...] tuberculosis Results * DERMATOPATHOLOGY (05/26/2022 12:00 AM ORE BRIDGE OPERATOR) Case Report Dermatopathology Report Case: [id number] Authorizing Provider: Cachorro Ibrahim MD Collected: 05/26/2022 12:00 AM Ordering Location: [facility] DermPath Lab Received: 05/27/2022 01:33 PM Pathologist: Claudia Jorge MD Specimen: Skin, nose 2 2:18 PM ORE BRIDGE OPERATOR DERMATOPATHOLOGY LABORATORY Final Diagnosis Specimen A. 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 Other 2 2:18 PM [facility] DERMATOPATHOLOGY LABORATORY Gross Description Specimen A: Received is one formalin filled container labeled with the patient's name and designated nose. The specimen consists of a shave biopsy measuring [id number]. Jar 0. 2 2:18 PM [facility] DERMATOPATHOLOGY LABORATORY Microscopic Description Specimen A. SKIN, nose: The epidermis shows parakeratosis, full thickness disorderly maturation of keratinocytes, mitoses at different levels, and dyskeratotic cells. Sections show abundant melanin within melanophages around the superficial vascular plexus. 2 2:18 PM [facility] DERMATOPATHOLOGY LABORATORY Disclaimer An external and internal positive and negative controls are appropriate for the histochemical, immunohistochemical and immunofluorescence stain(s) in this case (if any), except where stated explicitly. The performance characteristics of the stain(s) cited in this report were developed and its performance characteristic determined by the Dermatopathology Laboratory at [facility], directed by Dr. Roberto Jorge. These tests need not be, and therefore are not, approved by the [place] Food and Drug Administration. The tests are used for clinical purposes. Billing Codes Specimen Charges Stain Charges 84611 1 2 2:18 PM [facility] DERMATOPATHOLOGY LABORATORY Embedded Images 2 2:18 PM [facility] DERMATOPATHOLOGY LABORATORY Pathology/Cytolog y TISSUE SPECIMEN FROM SKIN / Unknown 05/26/2022 05/27/2022 1:33 PM ORE BRIDGE OPERATOR Cachorro Ibrahim MD LAB - PATHOLOGY/CYTO LOGY ORDERABLES DERMATOPATHOLOGY LABORATORY [facility] - Department of Dermatology [address], [address] [phone] * SKIN TEST PPD - POINT OF CARE (05/19/2016 11:17 AM ORE BRIDGE OPERATOR) PPD 0mm Comment:normal MISCELLANEOUS SAMPLE S / Unknown 05/19/2016 11:17 AM ORE BRIDGE OPERATOR Kamar Ingram SUPERVISOR FELLING BUCKING-ETHYLENE PLANT HELPER LAB - POINT OF CARE ORDERABLES Care Teams Sales Donor Recruitment Representative Relationship Specialty [place] [address] [place] [address] PCP - General 04/21/22
--- OUTSIDE RECORDS SUMMARY | 2024-09-23 10:37 | XMS_ITS | Referral Summary ---
Author Organization [facility] Address [address] [place] [address] Care Team Providers Care University Librarian Name Role Phone Manjit Obregon MD Primary Care Provider [phone] Source Comments [facility] Affiliates and Associated Physician Practices is amultiple site organization consisting of ambulatory clinics and hospital sitesin [place], [place], [place] and [place]. This disclosure is being madepursuant to the Care Everywhere program and may not contain all information available regarding this patient. Last updated 18.[facility] Social History Tobacco Use Types Packs/Day Years Used Date Smoking Tobacco: Never Assessed Sex and Gender Information Value Date Recorded Sex Assigned at Not on file Gender Identity Not on file Sexual Orientation Not on file Plan of Treatment Not on file Administered Medications Care Teams University Librarian Relationship Specialty Start Date End Date Manjit Obregon MD [address] [facility] [address] [place] [address] PCP - General 04/21/22
[2024-09-23 10:38] VITALS: BP 123/59; PULSE 69; RESP 16; TEMP 36.3; O2SAT 97
--- OUTSIDE RECORDS SUMMARY | 2024-09-23 10:57 | XMS_ITS | Encounter Summary ---
Author Organization [facility] Address [address] [place] [address] Care Team Providers Care Director Of Retail Analytics Name Role Phone Manjit Obregon MD Primary Care Provider Encounter Details Date Type Department Care Team (Late st Contact Info) Description 05/27/2022 Lab Requisition [facility] DermPath Lab [address] [place] [phone] Cachorro [place] [address] Social History Tobacco Use Types Packs/Day Years [...] Comments DERMATOPATHOLOGY Routine 05/26/2022 12:0 0 AM PSYCHOLOGIST EXPERIMENTAL documented in this encounter Results * DERMATOPATHOLOGY (05/26/2022 12:00 AM PSYCHOLOGIST EXPERIMENTAL) Case Report Dermatopathology Report Case: [id number] Authorizing Provider: Cachorro Ibrahim MD Collected: 05/26/2022 12:00 AM Ordering Location: [facility] DermPath Lab Received: 05/27/2022 01:33 PM Pathologist: Claudia Jorge MD Specimen: Skin, nose 2:18 PM PSYCHOLOGIST EXPERIMENTAL DERMATOPATHOLOGY LABORATORY Final Diagnosis Specimen A. 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 Other 2 2:18 PM PSYCHOLOGIST EXPERIMENTAL DERMATOPATHOLOGY LABORATORY Gross Description Specimen A: Received is one formalin filled container labeled with the patient's name and designated nose. The specimen consists of a shave biopsy measuring [id number]. Jar 0. 2 2:18 PM PSYCHOLOGIST EXPERIMENTAL DERMATOPATHOLOGY LABORATORY Microscopic Description Specimen A. SKIN, nose: The epidermis shows parakeratosis, full thickness disorderly maturation of keratinocytes, mitoses at different levels, and dyskeratotic cells. Sections show abundant melanin within melanophages around the superficial vascular plexus. 2 2:18 PM PSYCHOLOGIST EXPERIMENTAL DERMATOPATHOLOGY LABORATORY Disclaimer An external and internal positive and negative controls are appropriate for the histochemical, immunohistochemical and immunofluorescence stain(s) in this case (if any), except where stated explicitly. The performance characteristics of the stain(s) cited in this report were developed and its performance characteristic determined by the Dermatopathology Laboratory at [facility], directed by Dr. Roberto Jorge. These tests need not be, and therefore are not, approved by the [place] Food and Drug Administration. The tests are used for clinical purposes. Billing Codes Specimen Charges Stain Charges 44541 1 2 2:18 PM PSYCHOLOGIST EXPERIMENTAL DERMATOPATHOLOGY LABORATORY Embedded Images 2 2:18 PM PSYCHOLOGIST EXPERIMENTAL DERMATOPATHOLOGY LABORATORY Pathology/Cytolog y TISSUE SPECIMEN FROM SKIN / Unknown 05/26/2022 05/27/2022 1:33 PM PSYCHOLOGIST EXPERIMENTAL Cachorro Ibrahim MD LAB - PATHOLOGY/CYTO LOGY ORDERABLES DERMATOPATHOLOGY LABORATORY [facility] - Department of Dermatology [facility] [address] [place] [address], [address] [phone] documented in this encounter Visit Diagnoses Not on filedocumented in this encounter Care Teams Director Of Retail Analytics Relationship Specialty Start Date End Date Manjit Obregon MD [address] [address] PCP - General 04/21/22 documented as of this encounter
--- OUTSIDE RECORDS SUMMARY | 2024-09-23 10:57 | XMS_ITS | Encounter Summary ---
Author Organization [facility] Address [address] [place] [address] Phone Care Team Providers Care String Laster Name Role Phone Manjit Obregon MD Primary Care Provider [phone] Leeroy Kim DO Unavailable [phone] Reason for Visit * Reason Comments Medication Refill Encounter Details Date Type Department Care Team ([facility] Contact Info) Description 06/30/2021 Refill [facility] - Gastroenterology [facility] [address] [place] [address] Linda Gallego Ketty, PAC [address] [place] [address] Medication Refill Social History Tobacco Use Types [...] Emilia Padron RN - 07/01/2021 9:48 AM HEADING MAKER Pharmacy requesting refill of: Requested Prescriptions Pending Prescriptions Disp Refills ??? azaTHIOprine (IMURAN) 50 MG Tablet [Pharmacy Med Name: AZATHIOPRINE TABS 50MG] 90 Tablet 3 Sig: TAKE 1 TABLET DAILY Last fill: 01/28/2021 Patients last OV with GI: 01/28/2021 Next Office Visit with GI: None scheduled. Medication failed protocol. Order pended, please review. ING MAKER documented in this encounter Plan of Treatment Not on file documented as of this encounter Visit Diagnoses Diagnosis Crohn's disease of small intestine without complication (HCC) Regional enteritis of small intestine documented in this encounter Care Teams String Laster Relationship Specialty Start Date End Date Manjit Obregon MD [address] [place] [address] PCP - General Internal Medicine 04/28/16 Leeroy Kim DO [address] [place] [address] Gastroenterology 04/29/16 documented as of this encounter
--- OUTSIDE RECORDS SUMMARY | 2024-09-23 10:57 | XMS_ITS | Continuity of Care Document ---
Author Organization [facility] Address [address] [place] [address] [place] [address] Phone Care Team Providers Care Accelerator Technician Name Role Phone Marah Birmingham Unavailable [...] Providers Copied on Encounter Office/outpat ient Visit, [facility], [address] [place] [address] [address], [place], [place], [id number], [place] tel:[phone] [facility] No Information Sep-1 4-201 0 [address], [place], [address], [place]. tel:[phone] Office/outpat ient Visit, [facility], [address] [place] [address] [address], [place], [place], [id number], tel:[phone] [facility] No Information Sep-0 8-200 9 [address], [place], [place], [facility], [place]. tel:[phone] Referring Provider: Marah Taveras, [address], [place], [place], [facility]. tel:[phone] Office/outpat ient Visit, [facility], [address], [place], [place], [id number], [place] tel:[phone] [facility] No Information [address], [place], [place], [facility], [place]. tel:[phone] [facility], [address], [place], [place], [address], [place] tel:[phone] [facility] No Information [address], [place], [place], [facility], [place]. tel:[phone] [facility], [address], [place], [place], [address], [place] tel:[phone] [facility] No Information 0 8-200 8 [address] [place]. [address], [place], [place], [facility], [place]. tel:[phone] [facility], [address], [place], [place], [address], [place] tel:[phone] [facility] No Information 1-200 8 [address] OD Leeroy. [address], [place], [place], [facility], [place]. tel:[phone] [facility], [address], [place], [place], [address], [place] tel:[phone] Nov [facility] No Information [address]. [address], [place], [place], [facility], . tel:[phone] [facility], [address] [place] [address] [address], [place], [place], [address], tel:[phone] [facility] No Information Jan-2 2-200 8 [address] [facility] , [address], [place], [place], [facility], . tel:[phone] Referring Provider: Marah Taveras [address] [facility] [address], [place], [place], [facility]. tel:[phone] [facility], [address] [place] [address] [address], [place], [place], [address], tel:[phone] [facility] No Information Elias-0 1-200 8 [address]. [address] [facility] , [address], [place], [facility], . tel:[phone] [facility], [address] [place] [address] [address], [place], [place], [address], tel:[phone] [facility] No Information Apr-0 3-200 7 [address] [place]. [facility] , [address], [place], [place], [facility], . tel:[phone] Family History Family Member Type Diagnosis Age At Onset No Information Payers Payer name Insurance type Covered green party ID Authorshahida tisenia(s) [place] [id number] Social History Type Description Quantity Date Captured [...]
--- OUTSIDE RECORDS SUMMARY | 2024-09-23 10:57 | XMS_ITS | Referral Summary ---
Author Organization [facility] Address [address] [place] [address] Care Team Providers Care Inside Sales Territory Manager Name Role Phone Manjit Obregon MD Primary Care Provider [phone] Source Comments [facility],non-[facility] Affiliates and Associated Physician Practices is amultiple site organization consisting of ambulatory clinics and hospital sitesin [place], [place], [place] and [place]. This disclosure is being madepursuant to the Care Everywhere program and may not contain all information available regarding this patient. Last updated 18.[facility] Social History Tobacco Use Types Packs/Day Years Used Date Smoking Tobacco: Never Assessed Sex and Gender Information Value Date Recorded Sex Assigned at Not on file Gender Identity Not on file Sexual Orientation Not on file Plan of Treatment Not on file Administered Medications Care Teams Inside Sales Territory Manager Relationship Specialty Start Date End Date Manjit Obregon MD [address] [facility] [address] [place] [address] PCP - General 04/21/22
--- OUTSIDE RECORDS SUMMARY | 2024-09-23 10:57 | XMS_ITS | Clinical Summary ---
Author Organization [facility] Address [address] [place] [address] Care Team Providers Care Wash Operator Name Role Phone Manjit Obregon MD Primary Care Provider Source Comments [facility] and Associated Physician Practices is amultiple site organization consisting of ambulatory clinics and hospital sitesin [place], [place], [place] and [place]. This disclosure is being madepursuant to the Care Everywhere program and may not contain all information available regarding this patient. Last updated 18.[facility] Social History Tobacco Use Types [...] age to complete this topic Care Teams Wash Operator Relationship Specialty Start Date End Date Manjit Obregon MD [address] [place] [address] PCP - General 04/21/22
--- OUTSIDE RECORDS SUMMARY | 2024-09-23 10:57 | XMS_ITS | Clinical Summary ---
Author Organization [facility] Address [address] [place] [address] Phone Care Team Providers Care Route Sales Trainee Name Role Phone Manjit Obregon MD Primary Care Provider [phone] Leeroy Kim DO Unavailable [phone] Allergies Active Allergy Reactions Criticality Noted [...] Capsule 3 1 Active ergocalciferol (VITAMIN D) 31661 UNIT Capsule Take 1 Capsule by mouth [...] Covid-19 Vaccine, Vector-nr, Rs-ad26, Pf, 0.5 Ml ([employer]) 09/16/2020 Hepatitis B Vaccine 04/07/2015 Influenza, Seasonal, [...] Comments BONE DENSITY GENERIC 06/13/2021 12:00 AM LINE ANALYST COLONOSCOPY Routine 07/19/2019 from Last 3 Months or Most Recently Relevant to Health Maintenance Results * BONE DENSITY GENERIC SCAN (06/13/2021 12:00 AM LINE ANALYST) 06/13/2021 us Not On File Provider IMG DEXA ORDERABLES Final R esult SCAN * HM COLONOSCOPY (07/19/2019) Leeroy Kim DO PROCEDURE/MINOR SURGICAL ORDERA BLES Final Result from Last 3 Months or Most Recently Relevant to Health Maintenance Insurance MEDICARE [facility] Care Teams Route Sales Trainee Relationship Specialty Start Date End Date Manjit Obregon MD [address] [place] [address] PCP - General Internal Medicine 04/28/16 Leeroy Kim DO [address] [place] [address] Gastroenterology 04/29/16
--- OUTSIDE RECORDS SUMMARY | 2024-09-23 10:57 | XMS_ITS | Encounter Summary ---
Author Organization [facility] Address [address] [facility] [place] [address] Phone Care Team Providers Care Grade Recorder Name Role Phone Manjit Obregon MD Primary Care Provider [phone] Leeroy Kim DO Unavailable [phone] Reason for Visit * Reason Comments Medication Refill Encounter Details Date Type Department Care Team (Late st Contact Info) Description 01/13/2021 Refill [facility] - Gastroenterology [facility] [address] [place] [address] Linda Gallego Ketty, PAC [address] [place] [address] Medication Refill Social History Tobacco Use Types [...] on filedocumented in this encounter Care Teams Grade Recorder Relationship Specialty Start Date End Date Manjit Obregon MD [address] [place] [address] PCP - General Internal Medicine 04/28/16 Leeroy Kim DO [address] [place] [address] Gastroenterology 04/29/16 documented as of this encounter
--- OUTSIDE RECORDS SUMMARY | 2024-09-23 10:57 | XMS_ITS | Encounter Summary ---
Author Organization [facility] Address [address] include [address] [facility] [address] [facility] [place] [address] Phone Care Team Providers Care Transplanter Name Role Phone Manjit Obregon MD Primary Care Provider [phone] Leeroy Kim DO Unavailable [phone] Reason for Visit * Reason Comments Medication Refill Encounter Details Date Type Department Care Team (Late Contact Info) Description 12/26/2019 Refill [facility] - Gastroenterology [facility] [address] [place] [address] Leeroy Kim, DO [address] [address] Medication Refill Social History Tobacco [...] on filedocumented in this encounter Care Teams Transplanter Relationship Specialty Start Date End Date Manjit Obregon MD [address] [place] [address] PCP - General Internal Medicine 04/28/16 Leeroy Kim DO [address] [place] [address] Gastroenterology 04/29/16 documented as of this encounter
--- OUTSIDE RECORDS SUMMARY | 2024-09-23 10:57 | XMS_ITS | Patient Health Summary ---
Author Organization [facility] Address [address] [place] [address] Care Team Providers Care E Learning Manager Name Role Phone Manjit Obregon MD Primary Care Provider [phone] Note from [facility],non-owned Affiliates and Associated Physician Practices is amultiple site organization consisting of ambulatory clinics and hospital sitesin [place], [place], [place] and [place]. This disclosure is being madepursuant to the Care Everywhere program and may not contain all information available regarding this patient. Last updated 18.[facility] Social History Tobacco Use Types [...] tuberculosis Results * DERMATOPATHOLOGY (05/26/2022 12:00 AM ANGULAR JS DEVELOPER) Case Report Dermatopathology Report Case: [id number] Authorizing Provider: Cachorro Ibrahim MD Collected: 05/26/2022 12:00 AM Ordering Location: [facility] DermPath Lab Received: 05/27/2022 01:33 PM Pathologist: Claudia Jorge MD Specimen: Skin, nose 2 2:18 PM ANGULAR JS DEVELOPER DERMATOPATHOLOGY LABORATORY Final Diagnosis Specimen A. 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 Other 2 2:18 PM [facility] DERMATOPATHOLOGY LABORATORY Gross Description Specimen A: Received is one formalin filled container labeled with the patient's name and designated nose. The specimen consists of a shave biopsy measuring [id number]. Jar 0. 2 2:18 PM [facility] DERMATOPATHOLOGY LABORATORY Microscopic Description Specimen A. SKIN, nose: The epidermis shows parakeratosis, full thickness disorderly maturation of keratinocytes, mitoses at different levels, and dyskeratotic cells. Sections show abundant melanin within melanophages around the superficial vascular plexus. 2 2:18 PM [facility] DERMATOPATHOLOGY LABORATORY Disclaimer An external and internal positive and negative controls are appropriate for the histochemical, immunohistochemical and immunofluorescence stain(s) in this case (if any), except where stated explicitly. The performance characteristics of the stain(s) cited in this report were developed and its performance characteristic determined by the Dermatopathology Laboratory at [facility], directed by Dr. Roberto Jorge. These tests need not be, and therefore are not, approved by the [place] Food and Drug Administration. The tests are used for clinical purposes. Billing Codes Specimen Charges Stain Charges 01934 1 2 2:18 PM [facility] DERMATOPATHOLOGY LABORATORY Embedded Images 2 2:18 PM [facility] DERMATOPATHOLOGY LABORATORY Pathology/Cytolog y TISSUE SPECIMEN FROM SKIN / Unknown 05/26/2022 05/27/2022 1:33 PM ANGULAR JS DEVELOPER Cachorro Ibrahim MD LAB - PATHOLOGY/CYTO LOGY ORDERABLES DERMATOPATHOLOGY LABORATORY [facility] - Department of Dermatology [address], [address] [phone] * SKIN TEST PPD - POINT OF CARE (05/19/2016 11:17 AM ANGULAR JS DEVELOPER) PPD 0mm Comment:normal MISCELLANEOUS SAMPLE S / Unknown 05/19/2016 11:17 AM ANGULAR JS DEVELOPER Kamar Ingram TELEPHONE CLERK TELEGRAPH OFFICE-[employer] LAB - POINT OF CARE ORDERABLES Care Teams E Learning Manager Relationship Specialty [place] [address] [place] [id number] PCP - General 04/21/22
[2024-09-23 11:13] LABS: Basophils Percent Auto 0.2 % (0.2-1.2); Eosinophils Percent Auto 0.3 % (0-4.4); Hematocrit 41.2 % (37.0-47.0); Hemoglobin 12.9 g/dL (12.0-15.0); Immature Granulocyte Absolute 0.03 K/mm3 (0.00-0.031); Immature Granulocyte Percent A 0.3 % (0-0.5); Lymphocytes Absolute Auto 1.52 K/mm3 (0.9-3.2); Lymphocytes Percent Auto 13.7 % (18.3-44.2); Mean Corpuscular HGB Conc 31.3 g/dl (32-36); Mean Corpuscular Hemoglobin 27.9 pg (26-34); Mean Platelet Volume 10.3 fl (7.4-10.4); Monocytes Absolute Auto 0.8 K/mm3 (0.1-0.6); Monocytes Percent Auto 7.6 % (2.6-8.5); Neutrophils Absolute Auto 8.7 K/mm3 (1.3-6.7); Neutrophils Percent Auto 77.9 % (45.5-73.1); Platelet Count Result 268 k/mm3 (150-375); Red Blood Count 4.63 M/mm3 (4.2-5.4); Red Cell Distribution Width 15.6 % (11.5-14.5); White Blood Count 11.1 K/mm3 (4.5-10.0)
[2024-09-23] MEDS: ONDANSETRON INJ 4 MG/2 ML VIAL IV PUSH (11:24)
[2024-09-23 11:30] LABS: Add Urine Microscopic? YES; Appearance Urine Cloudy (Clear); Bacteria Urine 2+ /hpf; Bilirubin Urine Negative (Negative); Blood Urine Negative (Negative); Color Urine Dark Yellow (Yellow); Glucose Urine UA Negative (Negative); Ketones Urine Trace mg/dL (Negative); Leukocyte Esterase Ur Negative LEU/UL (Negative); Need Manual Microscopic Reviewed; Nitrate Urine Negative (Negative); Non Pathogenic Casts >20; Protein Urine 1+ mg/dL (Negative); Specific Grav Ur 1.017 (1.001-1.035); Squamous Epithelial Cell Urine Many /hpf (Few)
[2024-09-23 12:12] LABS: Alanine Aminotransferase 14 U/L (6-35); Albumin Level 4.1 g/dL (3.5-5.1); Alkaline Phosphatase 101 U/L (38-126); Anion Gap 17 mmol/L (4-12); Aspartate Amino Transferase 22 U/L (14-36); Bilirubin,Total 0.8 mg/dL (0.2-1.3); Blood Urea Nitrogen 57 mg/dL (7-17); Calcium 8.8 mg/dL (8.4-10.2); Carbon Dioxide 23 mmol/L (22-30); Chloride 96 mmol/L (98-107); Estimated CRCL calculation 20 ml/min; Estimated Glomerular Filt Rate 27; Glucose 108 mg/dL (65-110); Lipase 50 U/L (23-300); Sodium 136 mmol/L (137-145)
--- NOTE | 2024-09-23 12:14 | ED.GENADULT ---
HPI - General Adult General Chief complaint: Abdominal Pain Stated complaint: abd pain Time Seen by Provider: 09/23/24 10:49 History of Present Illness HPI narrative: 84-year-old female history of Crohn's disease present to the emergency department for evaluation for nausea vomiting and some diarrhea. Patient reports symptoms started on . Patient did receive a flu shot and pneumonia shot on Tuesday. Patient states she is having primarily nausea and vomiting with some diarrhea. Patient denies any blood in her stool. Patient does have history of diverticulosis as well. Patient does describe lower abdominal pain worse in the left lower quadrant. Related Data Home Medications ?Medication ?Instructions ?Recorded ?Confirmed ?Last Taken ?Type ustekinumab 90 mg/mL subcutaneous 90 mg subcut .every 8 weeks 08/21/24 09/23/24 09/03/24 History syringe (Stelara) mesalamine 500 mg capsule,extended See Rx Instructions .Route .COMPLEX 09/23/24 09/23/24 09/23/24 History release Allergies Allergy/AdvReac Type Severity Reaction Status Date / Time certolizumab pegol Allergy Unknown RASH, Verified 09/23/24 10:46 SWELLING tetracycline Allergy Unknown Unknown Verified 09/23/24 10:46 Tetracyclines Allergy Unknown unknown Verified 09/23/24 10:46 Review of Systems Review of Systems: All systems reviewed & are unremarkable except as noted in HPI and below PMFSH Past Medical History Medical History Pulmonary nodule COPD (chronic obstructive pulmonary disease) Small bowel stricture High risk medication use Anxiety Diastolic dysfunction Hypothyroid Vitamin D2 deficiency Vitamin B 12 deficiency Abnormal mammogram Tobacco abuse Thigh shingles Slow transit constipation Post herpetic neuralgia Polyosteoarthritis, unspecified Plantar fasciitis of left foot Interstitial lung disease Breast asymmetry Hypokalemia Sinusitis Acute kidney injury Contact dermatitis Hypertension Crohn's disease Surgical History Surgical History Hx of tubal ligation History of squamous cell carcinoma excision Hx of colonoscopy Family History Family History Father Family history of malignant neoplasm of brain, Onset Age: 68 Grandparent Diabetes mellitus Hypertension Asthma Family history of cardiovascular disease Other Family history of malignant neoplasm Family history of throat cancer Social History Social History Smoking packs per day: 1 Smoking cigarettes per day: 20.0 Years smoked: 61 Smoking pack-years: 61.00 Smoking status: Current every day smoker Second hand tobacco smoke exposure: Yes Alcohol intake: never Substance use: never Substance use type: does not use Do You Feel Safe in your Home?: Yes Lack of Transportation: No Lack of Food: Never True Current Housing: I Have Housing Concerned About Future Housing: No Difficulty Paying Gas/Electric Bills: YES Difficulty Paying for Meds: YES Currently Unemployed: No Education: Associate Degree Difficulty w/ Childcare or Family Care: No Living arrangements: with family Gender identity (if verbalized by the patient): Female Spiritual care concerns: No Exam Narrative: APPEARANCE: Well appearing, no pain, no distress, well-nourished. HEAD: normocephalic, atraumatic. EYES: PERRLA/EOMI, conjunctivae clear. NOSE: Normal no drainage EARS:TMS clear with good light reflex. THROAT: Pharynx clear, no exudate. NECK: Supple. No adenopathy, no masses. RESPIRATORY: Airway patent, respirations nonlabored. Clear to auscultation bilaterally, no rales, rhonchi, wheezing. CARDIOVASCULAR: Regular rate and rhythm without murmurs rubs or gallops. ABDOMINAL: Left lower quadrant tenderness to palpation MUSCULOSKELETAL: Moves all extremities. Strength/ROM intact, No edema, No calf tenderness. NEURO: Alert. Cranial nerves II through XII intact. Good gait. Good coordination SKIN: Warm, dry. Normal Color Course Vital Signs Vital signs: Vital Signs Temperature 97.4 F L 09/23/24 10:38 Pulse Rate 69 09/23/24 10:38 Respiratory Rate 16 09/23/24 10:38 Blood Pressure 123/59 L 09/23/24 10:38 Pulse Oximetry 97 09/23/24 10:38 Oxygen Delivery Room Air 09/23/24 10:38 Temperature 98.2 F 09/23/24 16:57 Pulse Rate 85 09/23/24 16:57 Respiratory Rate 18 09/23/24 16:57 Blood Pressure 109/52 L 09/23/24 16:57 Pulse Oximetry 97 09/23/24 16:57 Oxygen Delivery Room Air 09/23/24 18:37 Medical Decision Making [facility] Narrative Medical decision making narrative: 84-year-old female presents emergency department for evaluation for left lower quadrant pain. Patient is afebrile with a leukocytosis 11.1 a stable hemoglobin of 12.9. Patient does have acute kidney injury with a creatinine of 1.8. Typical creatinine as closer to 0.9. Patient was treated with IV fluids IV Zofran. Patient declined any medications for pain control. UA was positive for ketones and was positive for red and white blood cells with many squamous. Patient denies any urinary symptoms. Urine culture was ordered. CT scan was ordered. CT scan was concerning for obstruction versus ileus. Surgery was consulted for the obstruction and GI was consulted for the history of Crohn's and a possible Crohn's flare. Differential Diagnosis Differential Diagnosis: Colitis, diverticulitis, bowel obstruction Vital Signs Vital Signs: Vital Signs Temperature 97.4 F L 09/23/24 10:38 Pulse Rate 69 09/23/24 10:38 Respiratory Rate 16 09/23/24 10:38 Blood Pressure 123/59 L 09/23/24 10:38 Pulse Oximetry 97 09/23/24 10:38 Oxygen Delivery Room Air 09/23/24 10:38 Temperature 98.2 F 09/23/24 16:57 Pulse Rate 85 09/23/24 16:57 Respiratory Rate 18 09/23/24 16:57 Blood Pressure 109/52 L 09/23/24 16:57 Pulse Oximetry 97 09/23/24 16:57 Oxygen Delivery Room Air 09/23/24 18:37 Lab Data Lab results reviewed: Yes I reviewed the patient's lab results. 09/23/24 11:06 09/23/24 11:45 Labs: Lab Results 09/23/24 09/23/24 Range/Units 11:06 11:45 WBC 11.1 H (4.5-10.0) K/mm3 RBC 4.63 (4.2-5.4) M/mm3 Hgb 12.9 (12.0-15.0) g/dL Hct 41.2 (37.0-47.0) % MCV 89.0 (80-100) fl MCH 27.9 (26-34) pg MCHC 31.3 L (32-36) g/dl RDW 15.6 H (11.5-14.5) % Plt Count 268 (150-375) k/mm3 MPV 10.3 (7.4-10.4) fl Immature Gran % (Auto) 0.3 (0-0.5) % Neut % (Auto) 77.9 H (45.5-73.1) % Lymph % (Auto) 13.7 L (18.3-44.2) % [place] % (Auto) 7.6 (2.6-8.5) % Eos % (Auto) 0.3 (0-4.4) % Baso % (Auto) 0.2 (0.2-1.2) % Lymph # (Auto) 1.52 (0.9-3.2) K/mm3 [place]ake # (Auto) 0.8 H (0.1-0.6) K/mm3 Eos # (Auto) 0.0 (0-0.3) K/mm3 Baso # (Auto) 0.0 (0.0-0.1) K/mm3 Abs Immat Gran (auto) 0.03 (0.00-0.031) K/mm3 Absolute Neuts (auto) 8.7 H (1.3-6.7) K/mm3 Absolute Nucleated RBC 0.000 (0.0-0.012) K/mm3 Nucleated RBC % 0.0 (0.0-0.2) % Sodium 136 L (137-145) mmol/L Potassium 4.0 (3.4-5.0) mmol/L Chloride 96 L (98-107) mmol/L Carbon Dioxide 23 (22-30) mmol/L Anion Gap 17 H (4-12) mmol/L BUN 57 H D (7-17) mg/dL Creatinine 1.80 H (0.7-1.0) mg/dL Estim Creat Clear Calc 20 ml/min Estimated GFR 27 L (59 - ) Glucose 108 (65-110) mg/dL Calcium 8.8 (8.4-10.2) mg/dL Total Bilirubin 0.8 (0.2-1.3) mg/dL AST 22 (14-36) U/L ALT 14 (6-35) U/L Alkaline Phosphatase 101 (38-126) U/L Total Protein 8.0 (6.3-8.2) g/dL Albumin 4.1 (3.5-5.1) g/dL Lipase 50 (23-300) U/L Urine Color Dark yellow (Yellow) Urine Appearance Cloudy H (Clear) Urine pH 5.0 (5.0-9.0) Ur Specific [place] 1.017 (1.001-1.035) Urine Protein 1+ H (Negative) mg/dL Urine Glucose (UA) Negative (Negative) mg/dL Urine Ketones Trace H (Negative) mg/dL Ur Blood (Man) Negative (Negative) Urine Nitrate Negative (Negative) Urine Bilirubin Negative (Negative) Urine Urobilinogen 1.0 (<2.0) mg/dL Add Ur Microanalysis Reviewed Leukocyte Esterase Rfl Negative (Negative) NANDO/UL Urine RBC 6-10 H (0-2) /hpf Urine WBC 6-10 H (0-3) /hpf Ur Squamous Epith Cells Many H (Few) /hpf Urine Bacteria 2+ H /hpf Urine Casts >20 Hyaline Casts 5-9 H (None) /lpf Imaging Data Radiologist's impression: Impressions Abdomen/Pelvis CT 09/23/24 13:04 IMPRESSION: 1. Dilated small bowel proximal to the terminal ileum suggestive of obstruction. Ileus is also possible. Thickening wall of the small bowel in the pelvic area is noted. 2. Sliding hiatus hernia. 3. Focal area of atelectasis versus pneumonia in the left lung base. Fibrotic changes in the lungs. 4. 4 mm nodule in the left lower lobe 6 months follow-up CT is advised. 5. Trace of pericardial effusion. Discharge Plan Discharge Clinical Impression: Bowel obstruction Crohn's disease Qualifiers: Gastrointestinal tract location: unspecified location Digestive disease complication type: unspecified complication Qualified Code(s): K50.919 - Crohn's disease, unspecified, with unspecified complications Patient Disposition: Still a Patient Condition: Stable
[2024-09-23] MEDS: LACTATED RINGERS 1,000 ML 999 ML IV CONT (13:08)
[2024-09-23 14:47] VITALS: BP 125/49; PULSE 88; RESP 15; TEMP 37.2; O2SAT 95
[2024-09-23] MEDS: SODIUM CHLORIDE 0.9% IV 1,000 ML 125 ML IV CONT (15:01)
[2024-09-23] MEDS: HYDROmorphone HCL INJ (*CRX) 1 MG/ML SYR 0.5 MG IV PUSH (15:01)
--- NOTE | 2024-09-23 16:16 | PM.IMHP ---
H&P: HPI History of Present Illness Date/Time: 09/23/24 16:16 Chief Complaint: Lower Abdominal Pain, N/V/D Narrative: 84 y/o F presents here with lower abdominal pain, nausea, vomiting, diarrhea with PMH of Crohn's disease, COPD, diastolic dysfunction, hypothyroidism, small bowel stricture, and hypertension. The patient presents here today (09/23) from home for further evaluation of left lower abdominal pain. She reports onset on Tuesday (09/20). She describes the pain as left lower, deep, radiating around her waist (band-like), intermittent, aggravated by palpation, no aggravating factors. Abdominal pain is accompanied by nausea, vomiting, diarrhea. She reports 1 BMs in the last 24 hours, denies blood in stool. She attempted to take Tylenol for these symptoms but was an able to keep the medication down due to nausea and vomiting. She has a history of Crohn's and follows with GI here at [place]. Last flare up of her Crohn's was around 6 months ago and resolved quickly. Initial VS at presentation: 97.4? F, HR 69, R 16, 123/59, and 97% on RA. ED workup showed: WBC 11.1, no anemia, creatinine reported at 12:27 p.m. (previously 0.65 and GFR >60 on 09/12/2024), and UA equivocal for UTI (contaminant versus infection, many epithelial cells). CT of the abdomen/pelvis showed a dilated small bowel proximal to the terminal ileum suggestive of obstruction (ileus also possible), thickened walled small bowel in the pelvic area, sliding hiatus hernia, focal area of atelectasis versus pneumonia in left lung base, 4 mm nodule in the left lower lobe, and trace pericardial effusion. Review of Systems Review of Systems: All systems reviewed & are unremarkable except as noted in HPI and below [facility] Past Medical History Medical History (Updated 09/23/24 @ 22:31 by Doreen Wilder APRN) Acute kidney injury Pulmonary nodule COPD (chronic obstructive pulmonary disease) Small bowel stricture High risk medication use Anxiety Diastolic dysfunction Hypothyroid Vitamin D2 deficiency Vitamin B 12 deficiency Abnormal mammogram Tobacco abuse Thigh shingles Slow transit constipation Post herpetic neuralgia Polyosteoarthritis, unspecified Plantar fasciitis of left foot Interstitial lung disease Breast asymmetry Hypokalemia Sinusitis Contact dermatitis Hypertension Crohn's disease Surgical History Surgical History Hx of tubal ligation History of squamous cell carcinoma excision Hx of colonoscopy Family History Family History Father Family history of malignant neoplasm of brain, Onset Age: 68 Grandparent Diabetes mellitus Hypertension Asthma Family history of cardiovascular disease Other Family history of malignant neoplasm Family history of throat cancer Social History Social History Smoking packs per day: 1 Smoking cigarettes per day: 20.0 Years smoked: 61 Smoking pack-years: 61.00 Smoking status: Current every day smoker Second hand tobacco smoke exposure: Yes Alcohol intake: never Substance use: never Substance use type: does not use Do You Feel Safe in your Home?: Yes Lack of Transportation: No Lack of Food: Never True Current Housing: I Have Housing Concerned About Future Housing: No Difficulty Paying Gas/Electric Bills: YES Difficulty Paying for Meds: YES Currently Unemployed: No Education: Associate Degree Difficulty w/ Childcare or Family Care: No Living arrangements: with family Gender identity (if verbalized by the patient): Female Spiritual care concerns: No Meds Home Medications and Allergies Home Medications ?Medication ?Instructions ?Recorded ?Confirmed ?Type ustekinumab 90 mg/mL subcutaneous 90 mg subcut .every 8 weeks 08/21/24 09/23/24 History syringe (Stelara) lisinopril 10 1 tablet PO DAILY 09/23/24 09/23/24 History mg-hydrochlorothiazide 12.5 mg tablet mesalamine 500 mg capsule,extended See Rx Instructions .Route .COMPLEX 09/23/24 09/23/24 History release Allergies Allergy/AdvReac Type Severity Reaction Status Date / Time certolizumab pegol Allergy Unknown RASH, Verified 09/23/24 10:46 SWELLING tetracycline Allergy Unknown Unknown Verified 09/23/24 10:46 Tetracyclines Allergy Unknown unknown Verified 09/23/24 10:46 Vital Signs Vital Signs - 24 hr 09/23/24 10:38 09/23/24 14:47 Temperature 97.4 F L 98.9 F Pulse Rate 69 88 Respiratory Rate 16 15 Blood Pressure 123/59 L 125/49 L Pulse Oximetry 97 95 Oxygen Delivery Room Air Exam Const: General: comfortable and no acute distress Other: , female, nontoxic appearance HENMT: Face/Nose/Sinus: Normal nares present Mouth: Yes moist mucous membranes Eyes: General: appearance normal, both eyes and all related structures Sclera: sclerae normal Pupils: Equal, round and reactive pupils present EOM: EOMs intact bilaterally Resp: Effort & Inspection: normal respiratory effort Auscultation: clear to auscultation bilaterally Cardio: Rate: regular rate Rhythm: regular rhythm Other: S1-S2 present without murmur, rub, ectopy GI: Other: Abdomen soft, nondistended, nontender. Normoactive bowel sounds in all quadrants. Skin: General skin exam: normal color and no rashes or lesions noted Wounds: no wounds Neuro: Speech: normal speech Motor exam (neuro): 5/5 motor strength present throughout Sensory Exam: normal sensation Other: A&O x4 Extrem: General: normal to inspection Psych: Mental Status: mental status grossly normal Affect: normal affect Other: Good insight and judgment, pleasant H&P: Results Labs Labs: Short CBC 09/23/24 Range/Units 11:06 WBC 11.1 H (4.5-10.0) K/mm3 Hgb 12.9 (12.0-15.0) g/dL Hct 41.2 (37.0-47.0) % Plt Count 268 (150-375) k/mm3 BMP 09/23/24 11:45 Sodium 136 L Potassium 4.0 Chloride 96 L Carbon Dioxide 23 BUN 57 H D Creatinine 1.80 H Glucose 108 Calcium 8.8 Liver Function 09/23/24 Range/Units 11:45 Total Bilirubin 0.8 (0.2-1.3) mg/dL AST 22 (14-36) U/L ALT 14 (6-35) U/L Alkaline Phosphatase 101 (38-126) U/L Albumin 4.1 (3.5-5.1) g/dL Urine 09/23/24 Range/Units 11:06 Urine Color Dark yellow (Yellow) Urine Appearance Cloudy H (Clear) Urine pH 5.0 (5.0-9.0) Ur Specific [place] 1.017 (1.001-1.035) Urine Protein 1+ H (Negative) mg/dL Urine Glucose (UA) Negative (Negative) mg/dL Assessment and Plan Assessment and plan (1) Bowel obstruction: Qualifiers: Intestinal obstruction extent: unspecified extent Intestinal obstruction type: unspecified Qualified Code(s): K56.609 - Unspecified intestinal obstruction, unspecified as to partial versus complete obstruction Code(s): K56.609 - Unspecified intestinal obstruction, unspecified as to partial versus complete obstruction Status: Suspected Assessment and Plan: - CT abd/pelvis: 1. Dilated small bowel proximal to the terminal ileum suggestive of obstruction. Ileus is also possible. Thickening wall of the small bowel in the pelvic area is noted. 2. Sliding hiatus hernia. 3. Focal area of atelectasis versus pneumonia in the left lung base. Fibrotic changes in the lungs. 4. 4 mm nodule in the left lower lobe 6 months follow-up CT is advised. 5. Trace of pericardial effusion. - NPO, NS at 125 mL/hour, and monitor I&Os - general surgery consulted - antiemetics p.r.n. (2) Crohn's disease: Qualifiers: Digestive disease complication type: unspecified complication Gastrointestinal tract location: unspecified location Qualified Code(s): K50.919 - Crohn's disease, unspecified, with unspecified complications Code(s): K50.90 - Crohn's disease, unspecified, without complications Status: Acute Assessment and Plan: - GI consulted for possible Crohn's flare will start prednisone 40 mg daily in interim for possible flare - continue home medications: mesalamine (3) Acute kidney injury: Code(s): N17.9 - Acute kidney failure, unspecified Status: Acute Assessment and Plan: - creatinine 1.8 and GFR 27, previously 0.65 and GFR >60 on 09/12 - suspect injury secondary to hypovolemia given patient has been experiencing nausea, vomiting, and diarrhea due to partial obstruction/suspected Crohn's flare. Will trial IV fluids over the next 24 hours. If no improvement, consider further workup and nephrology consultation. - trend renal function - trend electrolytes, correct as needed (4) HTN (hypertension): Qualifiers: Hypertension type: primary hypertension Qualified Code(s): I10 - Essential (primary) hypertension Code(s): I10 - Essential (primary) hypertension Status: Chronic Assessment and Plan: - chronic, currently 109/52 - continue home medications: Lisinopril-hydrochlorothiazide - monitor Plan Possible pneumonia on CT, no current respiratory symptoms. Monitor white count, currently 11.1. Diet: NPO GI Prophylaxis: Pantoprazole DVT Prophylaxis: SCDs Lines: Peripheral Code Status: Full code Quality VTE Prophylaxis VTE prophylaxis: mechanical ordered Hospitalist [facility] Advance Care Plan I have confirmed that the patient's Advanced Care Plan is present, code status is documented, or surrogate decision maker is listed in patient medical record.: Yes Medication Reconciliation I have utilized all available resources to obtain, update and review the patients current medications (includes all prescriptions, OTC, herbals, cannabis, and nutritional supplements).: Yes
[2024-09-23 16:57] VITALS: BP 109/52; PULSE 85; RESP 18; TEMP 36.8; O2SAT 97
[2024-09-23 18:02] VITALS: BMI 20.9
--- NOTE | 2024-09-23 18:03 | ADMGEN ---
This patient, Mikaela Mesa, was admitted to Medical Room 258-. Patient/family oriented to hospital policies and general routines including ID bracelet, bed and alarms, visiting hours, pain management, procedures, bathroom and other care routines, personal items, smoking policy, room service/diet, and visiting hours. Information on how to activate the Rapid Response Team has been discussed. Patient/Family are encouraged to report perceived risks to care and to ask questions if they do not understand what they are told or what they should do.
[2024-09-23 23:02] VITALS: BP 110/48; PULSE 80; RESP 16; TEMP 36.3; O2SAT 94
[2024-09-24] MEDS: SODIUM CHLORIDE 0.9% IV 1,000 ML 125 ML IV CONT ×2 (02:24→22:35)
[2024-09-24 04:58] LABS: Basophils Percent Auto 0.2 % (0.2-1.2); Eosinophils Absolute Auto 0.1 K/mm3 (0-0.3); Eosinophils Percent Auto 1.6 % (0-4.4); Hematocrit 36.5 % (37.0-47.0); Hemoglobin 11.3 g/dL (12.0-15.0); Immature Granulocyte Absolute 0.04 K/mm3 (0.00-0.031); Immature Granulocyte Percent A 0.5 % (0-0.5); Lymphocytes Absolute Auto 1.35 K/mm3 (0.9-3.2); Lymphocytes Percent Auto 16.3 % (18.3-44.2); Mean Corpuscular Hemoglobin 27.3 pg (26-34); Mean Corpuscular Volume 88.2 fl (80-100); Mean Platelet Volume 10.2 fl (7.4-10.4); Monocytes Absolute Auto 0.7 K/mm3 (0.1-0.6); Monocytes Percent Auto 8.8 % (2.6-8.5); Neutrophils Percent Auto 72.6 % (45.5-73.1); Platelet Count Result 241 k/mm3 (150-375); Red Blood Count 4.14 M/mm3 (4.2-5.4); Red Cell Distribution Width 15.3 % (11.5-14.5); White Blood Count 8.3 K/mm3 (4.5-10.0)
[2024-09-24 05:15] LABS: Anion Gap 13 mmol/L (4-12); Blood Urea Nitrogen 46 mg/dL (7-17); Calcium 8.6 mg/dL (8.4-10.2); Carbon Dioxide 23 mmol/L (22-30); Chloride 103 mmol/L (98-107); Estimated CRCL calculation 35 ml/min; Estimated Glomerular Filt Rate 52; Glucose 73 mg/dL (65-110); Potassium 3.9 mmol/L (3.4-5.0); Sodium 139 mmol/L (137-145)
[2024-09-24 06:20] VITALS: BP 126/50; PULSE 79; RESP 18; TEMP 36.1; O2SAT 97
--- NOTE | 2024-09-24 08:30 | P.CONGI_ITS ---
<Statement entered by Beto Langley MD - 09/24/24 16:36> I, Beto Langley MD, have provided a substantive portion of the care of this patient and discussed the patient with my Nurse Practitioner. I have reviewed any new relevant radiographic and laboratory results including medications. I agree with her documentation as noted below.?I personally performed the medical decision making and much of the history and exam for this encounter. briefly, she has known h/o Crohn's who used to be on cimzia, then humira and finally for last few months on stelara doing quite well. She just recently recently received flu and pneumonia vaccine then started having abdominal pain and decided to come here. Last colonoscopy with known mild TI stricture and ileitis. CT scan with similar findings. Pain has improved and she has just a large BM. Will advance diet, get stool calprotectin and reassess. Assessment and Plan Assessment and plan (1) Crohn's disease: Qualifiers: Digestive disease complication type: unspecified complication Gastrointestinal tract location: unspecified location Qualified Code(s): K50.919 - Crohn's disease, unspecified, with unspecified complications <Lyla Davis APRN - Last Filed: 09/24/24 09:46> Code(s): K50.90 - Crohn's disease, unspecified, without complications <Lyla Davis, PHYS ASSISTANT - Last Filed: 09/24/24 09:46> Status: Acute <Lyla Davis PHYS ASSISTANT - Last Filed: 09/24/24 09:46> (2) Abnormal digestive system diagnostic imaging: Code(s): R93.3 - Abnormal findings on diagnostic imaging of other parts of digestive tract <Lyla Davis APRN - Last Filed: 09/24/24 09:46> Status: Acute <Lyla Davis APRN - Last Filed: 09/24/24 09:46> (3) Stricture of bowel: Code(s): K56.699 - Other intestinal obstruction unspecified as to partial versus complete obstruction <Lyla Davis APRN - Last Filed: 09/24/24 09:46> Status: Acute <Lyla Davis APRN - Last Filed: 09/24/24 09:46> (4) Nausea and vomiting: Qualifiers: Vomiting type: bilious vomiting Qualified Code(s): R11.14 - Bilious vomiting <Lyla Davis APRN - Last Filed: 09/24/24 09:46> Code(s): R11.2 - Nausea with vomiting, unspecified <Lyla Davis PHYS ASSISTANT - Last Filed: 09/24/24 09:46> Status: Acute <Lyla Davis PHYS ASSISTANT - Last Filed: 09/24/24 09:46> (5) LLQ pain: Code(s): R10.32 - Left lower quadrant pain <Lyla Davis, PHYS ASSISTANT - Last Filed: 09/24/24 09:46> Status: Acute <Lyla Davis PHYS ASSISTANT - Last Filed: 09/24/24 09:46> Assessment and Plan: 1. Crohn's disease/abnormal imaging digestive/diarrhea/LLQ pain/nausea/vomiting: Last colonoscopy September 2021 at which time mild benign appearing stenosis at terminal ileum noted and biopsies showed active ileitis. patient initially diagnosed with Crohn's around 2009. It previously tried Cimza which caused rash was changed to Humira which she had been on since 2016 before changing to Stelara around 6 months ago which she has been taking in combination with mesalamine 2000 mg b.i.d. On this regimen she has been doing well and denies any significant flares requiring the use of prednisone. Her last Stelara injection was 09/03/2024. Last time the rectum was checked was in July of 2023 with level at 122. Patient states she received her flu and pneumonia vaccine last Tuesday and then the following day she started having left-sided abdominal pain, diarrhea, nausea and vomiting. Bowel movement today was more formed but still very loose. Abdominal pain, nausea and vomiting have resolved. Patient with known chronic stricture at the terminal ileum, recent CT performed this admission was done without contrast but appears to be similar to prior CTs and small-bowel follow-throughs. Area where patient was having abdominal pain is not consistent with where her chronic obstruction is. She is passing gas and having bowel movements. H/H was normal on admission at and today which may be secondary to dilution as she has no signs of active GI bleeding. * Continue mesalamine 2000 mg BID * continue prednisone for now but if there are no acute changes on work up this could likely be discontinued at time of discharge * Small bowel follow through ordered * Fecal calprotectin ordered * Patient does not have any acute symptoms consistent with true bowel obstruction, further recommendations to follow owrk up * Surgery previously consulted but she will likely not require any surgical intervention * acute symptoms secondary to vaccinations? Thank you very much for allowing me to share in the care of this very nice patient. This report may have been done utilizing a voice recognition system. Attempts have been made to correct errors. However, there may be uncorrected grammatical, spelling, and recognition errors present. <Lyla Davis APRN - Last Filed: 09/24/24 09:46> GI Consult Note Consult date/time: 09/24/24 08:30 <Lyla Davis APRN - Last Filed: 09/24/24 09:46> Reason for consult: Crohn's, abdominal pain and obstruction vs ileus <Lyla Davis APRN - Last Filed: 09/24/24 09:46> HPI: Mikaela Mesa is a 84 year old female With past medical-surgical history of COPD, Crohn's disease with chronic small-bowel strictures, HTN, pulmonary nodule, hypothyroidism, SCC and tubal ligation. She presented to the ER yesterday with complaints of abdominal pain, nausea and vomiting. GI has been consulted for Crohn's and possible obstruction vs ileus. Initially diagnosed with Crohn's disease around 2009 and has Hx of chronic small bowels strictures with previous hospitalization. SBFT 01/2023 showed persistent stricture of approximately 20 cm length at the terminal ileum consistent with sequela of chronic Crohn's disease. This does not appear to result in a significant stenosis with no dilation of the more upstream small bowel and with normal transit time to the colon of between 15-30 minutes. Colonoscopy April 2022 noted ileal stenosis She was previously on Cimza and Humira since 2016 and Pentasa but switched to Stelara in January 2023 due to flare-ups every 2-3 months. She had no flairs requiring steroid use since starting Stelara. Last Stelara injection was 09/03/2024 and patient has been tolerating the medication well in combination with mesalamine 2000 mg BID. Patient states that she had a Flu and Pneumonia vaccine done last Tuesday and the next day she started having abdominal pain, nausea, vomiting and diarrhea. The pain she was having was LLQ quadrant and would wrap around to her lower back. The pain, nausea and vomiting has resolved since admission. She is still having loose stools but she states that her BM today was more formed. Denies bloating, odynophagia, dysphagia, reflux, regurgitation, early satiety, weight loss, appetite loss, constipation, hematochezia or melena. Admits to using Aleve as needed a few times per month. Smokes 6 cigarettes per day and cessation was strongly recommended. Denies alcohol or marijuana use. Family Hx negative for CRC or IBD. ENDOSCOPY HISTORY: EGD: No prior EGD Hx Colonoscopy: 09/17/2021 (Dr. Abrams) Indication: History of colon polyps and Crohn's disease Findings: - Few diverticula in sigmoid colon - Normal colon, no obvious inflammation or colitis - No polyps - Mild benign-appearing stenosis at terminal ileum with normal mucosa - Medium-sized hemorrhoids in rectum -No repeat colonoscopy was recommended at that time due to age Biopsy results: - Ileum: Active ileitis, no granulomas or dysplasia - Random colon: No histopathologic abnormality, no granulomas or dysplasia Recommendation: No need to repeat colonoscopy unless symptoms change COLONOSCOPY: 07/19/[address] Burnett for Crohns Disease and personal Hx of colon polyps Findings: In the ileum, a moderate, benign appearing intrinsic stenosis was noted. The stenosis was not transversed In the proximal ascending colon, 2 polyps were seen. The polyps were adenomatous in appearance and were excised with forceps In the proximal sigmoid colon, a single wide mouth diverticulum was present in the rectum a few small sized internal hemorrhoids were seen 2-3 year repeat colonoscopy recommended Bx Results: A. PROXIMAL ASCENDING COLON POLYPS x2, ENDOSCOPIC REMOVAL: - TUBULAR ADENOMA. - BENIGN POLYP LABS AND STOOL STUDIES: IMAGING: CT abd/pelvis w/o contrast 09/23/2024: IMPRESSION: 1. Dilated small bowel proximal to the terminal ileum suggestive of obstruction. Ileus is also possible. Thickening wall of the small bowel in the pelvic area is noted. 2. Sliding hiatus hernia. 3. Focal area of atelectasis versus pneumonia in the left lung base. Fibrotic changes in the lungs. 4. 4 mm nodule in the left lower lobe 6 months follow-up CT is advised. 5. Trace of pericardial effusion. CT abd/pelvis w/ contrast 03/23/2024: IMPRESSION: 1. No evidence of appendicitis, diverticulitis or intestinal obstruction. 2. Slightly dilated small bowel loops in the pelvis suggestive of enteritis. Early obstruction is less likely. Follow-up advised. 3. Constipation. 4. Left basal atelectasis versus pneumonia. XR small bowel follow-through (02/01/2023): - Persistent stricture of approximately 20 cm length at terminal ileum - No significant stenosis or upstream small bowel dilation - Normal transit time to colon (15-30 minutes) XR UGI water soluble w sbs (01/12/2023): - Dilated loops of distal small bowel - Stricture of terminal ileum spanning 20 cm - Transit time to colon: 15 minutes - Moderate-sized sliding hiatal hernia - Moderate esophageal dysmotility CT abdomen pelvis w con (01/10/2023): - Mucosal enhancement, wall thickening, and stricture of approximately 10 cm length of terminal ileum - Small bowel dilatation up to 4 cm diameter with multiple air-fluid levels - Moderate-sized sliding hiatal hernia - 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, hepatic, and splenic granulomatous disease <Lyla Davis APRN - Last Filed: 09/24/24 09:46> Review of Systems 2 Constitutional: Constitutional: Reports as per HPI <Lyla Davis APRN - Last Filed: 09/24/24 09:46> ENT: Reports as per HPI <Lyla Davis APRN - Last Filed: 09/24/24 09:46> Cardiovascular: Cardiovascular: Reports as per HPI, Denies chest pain and Denies dyspnea <Lyla Davis APRN - Last Filed: 09/24/24 09:46> Respiratory: Respiratory: Denies cough and Denies dyspnea <Lyla Davis APRN - Last Filed: 09/24/24 09:46> Gastrointestinal: Gastrointestinal: Reports as per HPI <Lyla Davis APRN - Last Filed: 09/24/24 09:46> Musculoskeletal: Musculoskeletal: Reports as per HPI <Lyla Davis APRN Last Filed: 09/24/24 09:46> Integumentary/Breasts: Skin/Breast: Reports as per HPI <Lyla Davis APRN Last Filed: 09/24/24 09:46> Psychiatric: Psychiatric: Reports as per HPI <Lyla Davis APRN - Last Filed: 09/24/24 09:46> Endocrine: Endocrine: Reports no additional endocrine complaints <Lyla Davis PHYS ASSISTANT Last Filed: 09/24/24 09:46> Hematologic/Lymphatic: Hematologic/Lymphatic: Reports no additional hematologic/lymphatic complaints <Lyla Davis PHYS ASSISTANT Last Filed: 09/24/24 09:46> [facility] Past Medical History Medical History: Medical History (Updated 09/24/24 @ 14:13 by RODERICK Saunders) Acute kidney injury Pulmonary nodule COPD (chronic obstructive pulmonary disease) Small bowel stricture High risk medication use Anxiety Diastolic dysfunction Hypothyroid Vitamin D2 deficiency Vitamin B 12 deficiency Abnormal mammogram Tobacco abuse Thigh shingles Slow transit constipation Post herpetic neuralgia Polyosteoarthritis, unspecified Plantar fasciitis of left foot Interstitial lung disease Breast asymmetry Hypokalemia Sinusitis Contact dermatitis Hypertension Crohn's disease <Lyla Davis Last Filed: 09/24/24 09:46> Surgical History Surgical History: Surgical History Hx of tubal ligation History of squamous cell carcinoma excision Hx of colonoscopy <Lyla Davis PHYS ASSISTANT Last Filed: 09/24/24 09:46> Family History Family History: Family History Father Family history of malignant neoplasm of brain, Onset Age: 68 Grandparent Diabetes mellitus Hypertension Asthma Family history of cardiovascular disease Other Family history of malignant neoplasm Family history of throat cancer <Lyla Davis APRN Last Filed: 09/24/24 09:46> Social History Social History: Social History Smoking packs per day: 1 Smoking cigarettes per day: 20.0 Years smoked: 61 Smoking pack-years: 61.00 Smoking status: Current every day smoker Second hand tobacco smoke exposure: Yes Alcohol intake: never Substance use: never Substance use type: does not use Do You Feel Safe in your Home?: Yes Lack of Transportation: No Lack of Food: Never True Current Housing: I Have Housing Concerned About Future Housing: No Difficulty Paying Gas/Electric Bills: YES Difficulty Paying for Meds: YES Currently Unemployed: No Education: Associate Degree Difficulty w/ Childcare or Family Care: No Living arrangements: with family Gender identity (if verbalized by the patient): Female Spiritual care concerns: No <Lyla Davis APRN - Last Filed: 09/24/24 09:46> Meds Home Medications and Allergies Home medications: Home Medications ?Medication ?Instructions ?Recorded ?Confirmed ?Type ustekinumab 90 mg/mL subcutaneous 90 mg subcut .every 8 weeks 08/21/24 09/23/24 History syringe (Stelara) lisinopril 10 1 tablet PO DAILY 09/23/24 09/23/24 History mg-hydrochlorothiazide 12.5 mg tablet mesalamine 500 mg capsule,extended See Rx Instructions .Route .COMPLEX 09/23/24 09/23/24 History release <Lyla Davis APRN - Last Filed: 09/24/24 09:46> Allergies/Adverse reactions: Allergies Allergy/AdvReac Type Severity Reaction Status Date / Time certolizumab pegol Allergy Unknown RASH, Verified 09/23/24 10:46 SWELLING tetracycline Allergy Unknown Unknown Verified 09/23/24 10:46 Tetracyclines Allergy Unknown unknown Verified 09/23/24 10:46 <Lyla Davis APRN - Last Filed: 09/24/24 09:46> Vital Signs Vital Signs - 24 hr 09/23/24 10:38 09/23/24 14:47 09/23/24 16:57 Temperature 97.4 F L 98.9 F 98.2 F Pulse Rate 69 88 85 Respiratory Rate 16 15 18 Blood Pressure 123/59 L 125/49 L 109/52 L Pulse Oximetry 97 95 97 Oxygen Delivery Room Air 09/23/24 18:37 09/23/24 20:00 09/23/24 23:02 Temperature 97.3 F L Pulse Rate 80 Respiratory Rate 16 Blood Pressure 110/48 L Pulse Oximetry 94 Oxygen Delivery Room Air Room Air 09/24/24 06:20 Temperature 97.0 F L Pulse Rate 79 Respiratory Rate 18 Blood Pressure 126/50 L Pulse Oximetry 97 Oxygen Delivery <yLla Davis APRN - Last Filed: 09/24/24 09:46> Exam 2 Const: General: cooperative, healthy appearing, comfortable, no acute distress and well developed <Lyla Davis APRN - Last Filed: 09/24/24 09:46> Orientation/consciousness: oriented to person, oriented to place, oriented to time and patient oriented x3 <Lyla Davis APRN - Last Filed: 09/24/24 09:46> HENMT: Head: normal to inspection, normocephalic and atraumatic <Lyla Davis APRN - Last Filed: 09/24/24 09:46> Mouth: Yes Normal oral and palatal mucosa present and Yes moist mucous membranes <Lyla Davis APRN - Last Filed: 09/24/24 09:46> Eyes: General: appearance normal, both eyes and all related structures < Lyla Davis APRN - Last Filed: 09/24/24 09:46> Conjunctivae: conjunctivae normal <Lyla Davis APRN - Last Filed: 09/24/24 09:46> Sclera: sclerae normal <Lyla Davis APRN - Last Filed: 09/24/24 09:46> Pupils: Equal, round and reactive pupils present <Lyla Davis APRN - Last Filed: 09/24/24 09:46> Neck: Neck: normal visual inspection <Lyla Davis APRN - Last Filed: 09/24/24 09:46> Chest: Chest palpation & inspection: normal inspection of the chest < Lyla Davis APRN - Last Filed: 09/24/24 09:46> Resp: Effort & Inspection: normal respiratory effort and able to speak in complete sentences <Lyla Edwardsaustinleta PHYS ASSISTANT - Last Filed: 09/24/24 09:46> Auscultation: clear to auscultation bilaterally <Lyla Edwardsreynaldo PHYS ASSISTANT - Last Filed: 09/24/24 09:46> Cardio: Jugular venous distension: no JVD <Lyla Edwardsreynaldo PHYS ASSISTANT - Last Filed: 09/24/24 09:46> Rate: regular rate <Lyla Edwardsreynaldo PHYS ASSISTANT - Last Filed: 09/24/24 09:46> Rhythm: regular rhythm <Lyla Edwardsaustinleta PHYS ASSISTANT - Last Filed: 09/24/24 09:46> Heart sounds: S1 normal heart sound present and S2 normal heart sound present <Lyla Edwardsreynaldo PHYS ASSISTANT - Last Filed: 09/24/24 09:46> GI: Inspection: normal to inspection <Lyla Edwardsreynaldo PHYS ASSISTANT - Last Filed: 09/24/24 09:46> GI Palp: Yes Soft to palpation and Yes No hepatosplenomegaly present <Lyla Edwardsreynaldo PHYS ASSISTANT - Last Filed: 09/24/24 09:46> Auscultation: normal bowel sounds <Lyla Edwardsreynaldo PHYS ASSISTANT - Last Filed: 09/24/24 09:46> Rectal Exam: deferred <Lyla Edwardsreynaldo PHYS ASSISTANT - Last Filed: 09/24/24 09:46> Skin: General skin exam: normal color and no rashes or lesions noted < Lyla Edwardsreynaldo PHYS ASSISTANT - Last Filed: 09/24/24 09:46> Neuro: General: oriented to person, oriented to place, oriented to time and patient oriented x3 <Lyla Edwardsreynaldo PHYS ASSISTANT - Last Filed: 09/24/24 09:46> Cranial nerves: Yes Equal, round and reactive pupils present <Lyla Edwardsreynaldo PHYS ASSISTANT - Last Filed: 09/24/24 09:46> Speech: normal speech <Lyla Edwardsreynaldo [facility] Last Filed: 09/24/24 09:46> Extrem: General: normal to inspection and no clubbing, cyanosis or edema < Lyla Davis APRN - Last Filed: 09/24/24 09:46> Psych: Appearance: grossly normal and well kempt <Lyla Davis APRN - Last Filed: 09/24/24 09:46> Affect: normal affect <Lyla Davis APRN - Last Filed: 09/24/24 09:46> Results Labs CBC & Chem 7: 09/24/24 04:31 09/24/24 04:31 <Lyla Davis APRN - Last Filed: 09/24/24 09:46> Labs: Short CBC 09/23/24 09/24/24 Range/Units 11:06 04:31 WBC 11.1 H 8.3 (4.5-10.0) K/mm3 Hgb 12.9 11.3 L (12.0-15.0) g/dL Hct 41.2 36.5 L (37.0-47.0) % Plt Count 268 241 (150-375) k/mm3 BMP 09/23/24 09/24/24 11:45 04:31 Sodium 136 L 139 Potassium 4.0 3.9 Chloride 96 L 103 Carbon Dioxide 23 23 BUN 57 H D 46 H D Creatinine 1.80 H 1.01 H Glucose 108 73 Calcium 8.8 8.6 Liver Function 09/23/24 Range/Units 11:45 Total Bilirubin 0.8 (0.2-1.3) mg/dL AST 22 (14-36) U/L ALT 14 (6-35) U/L Alkaline Phosphatase 101 (38-126) U/L Albumin 4.1 (3.5-5.1) g/dL Urine 09/23/24 Range/Units 11:06 Urine Color Dark yellow (Yellow) Urine Appearance Cloudy H (Clear) Urine pH 5.0 (5.0-9.0) Ur Specific [place] 1.017 (1.001-1.035) Urine Protein 1+ H (Negative) mg/dL Urine Glucose (UA) Negative (Negative) mg/dL <Lyla Davis APRN - Last Filed: 09/24/24 09:46>
[2024-09-24] MEDS: hydroCHLOROthiazide 12.5 MG CAPSULE PO (09:03)
[2024-09-24] MEDS: predniSONE 20 MG TABLET 40 MG PO (09:03)
[2024-09-24] MEDS: lisinopriL 10 MG TABLET PO (09:03)
[2024-09-24] MEDS: PANTOPRAZOLE SODIUM IV 40 MG VIAL IV PUSH (09:04)
[2024-09-24] MEDS: MESALAMINE 250 MG CAP CR 2000 MG PO (09:04)
--- NOTE | 2024-09-24 09:52 | PM.IMPN ---
Progress Note: A&P Assessment and Plan (1) Bowel obstruction: Qualifiers: Intestinal obstruction extent: unspecified extent Intestinal obstruction type: unspecified Qualified Code(s): K56.609 - Unspecified intestinal obstruction, unspecified as to partial versus complete obstruction Code(s): K56.609 - Unspecified intestinal obstruction, unspecified as to partial versus complete obstruction Status: Suspected Assessment and Plan: - CT abd/pelvis: 1. Dilated small bowel proximal to the terminal ileum suggestive of obstruction. Ileus is also possible. Thickening wall of the small bowel in the pelvic area is noted. 2. Sliding hiatus hernia. 3. Focal area of atelectasis versus pneumonia in the left lung base. Fibrotic changes in the lungs. 4. 4 mm nodule in the left lower lobe 6 months follow-up CT is advised. 5. Trace of pericardial effusion. - NPO, NS at 125 mL/hour, and monitor I&Os - general surgery consulted GI consulted - antiemetics p.r.n. - bowel series today (2) Crohn's disease: Qualifiers: Digestive disease complication type: unspecified complication Gastrointestinal tract location: unspecified location Qualified Code(s): K50.919 - Crohn's disease, unspecified, with unspecified complications Code(s): K50.90 - Crohn's disease, unspecified, without complications Status: Acute Assessment and Plan: - GI consulted for possible Crohn's flare will start prednisone 40 mg daily in interim for possible flare - continue home medications: mesalamine (3) Acute kidney injury: Code(s): N17.9 - Acute kidney failure, unspecified Status: Acute Assessment and Plan: - creatinine 1.8 and GFR 27, previously 0.65 and GFR >60 on 09/12 - suspect injury secondary to hypovolemia given patient has been experiencing nausea, vomiting, and diarrhea due to partial obstruction/suspected Crohn's flare. Will trial IV fluids over the next 24 hours. If no improvement, consider further workup and nephrology consultation. - trend renal function and electrolytes (4) HTN (hypertension): Qualifiers: Hypertension type: primary hypertension Qualified Code(s): I10 - Essential (primary) hypertension Code(s): I10 - Essential (primary) hypertension Status: Chronic Assessment and Plan: - chronic, currently 109/52 - continue home medications: Lisinopril-hydrochlorothiazide - monitor Plan Possible pneumonia on CT, no current respiratory symptoms. Monitor white count, currently 11.1. Diet: NPO GI Prophylaxis: Pantoprazole DVT Prophylaxis: SCDs Lines: Peripheral Code Status: Full code Time Spent With Patient Time with patient: 25 - 35 minutes Subjective Date/time seen: 09/24/24 09:52 Interval history: 84 y/o F presents here with lower abdominal pain, nausea, vomiting, diarrhea with PMH of Crohn's disease, COPD, diastolic dysfunction, hypothyroidism, small bowel stricture, and hypertension. Admitted from home for further evaluation of left lower abdominal pain. Initial VS at presentation: 97.4? F, HR 69, R 16, 123/59, and 97% on RA. ED workup showed: WBC 11.1, no anemia, creatinine reported at 12:27 p.m. (previously 0.65 and GFR >60 on 09/12/2024), and UA equivocal for UTI (contaminant versus infection, many epithelial cells). CT of the abdomen/pelvis showed a dilated small bowel proximal to the terminal ileum suggestive of obstruction (ileus also possible), thickened walled small bowel in the pelvic area, sliding hiatus hernia, focal area of atelectasis versus pneumonia in left lung base, 4 mm nodule in the left lower lobe, and trace pericardial effusion. pt is seen and examined. Bloating still but no acute pain, having BMs, no nausea. GI consulted. Pt is to have bowel series today. Review of Systems Review of Systems: All systems reviewed & are unremarkable except as noted in HPI and below Exam Narrative: A/Ox4, Const: General: comfortable and no acute distress Other: , female, nontoxic appearance HENMT: Face/Nose/Sinus: Normal nares present Mouth: Yes moist mucous membranes Eyes: General: appearance normal, both eyes and all related structures Sclera: sclerae normal Pupils: Equal, round and reactive pupils present EOM: EOMs intact bilaterally Resp: Effort & Inspection: normal respiratory effort Auscultation: clear to auscultation bilaterally Cardio: Rate: regular rate Rhythm: regular rhythm Other: S1-S2 present without murmur, rub, ectopy GI: Other: Abdomen soft, nondistended, nontender. Normoactive bowel sounds in all quadrants. Skin: General skin exam: normal color and no rashes or lesions noted Wounds: no wounds Neuro: Cranial nerves: Yes Equal, round and reactive pupils present Speech: normal speech Motor exam (neuro): 5/5 motor strength present throughout Sensory Exam: normal sensation Other: A&O x4 Extrem: General: normal to inspection Psych: Mental Status: mental status grossly normal Affect: normal affect Other: Good insight and judgment, pleasant Objective Data Vital Signs Vital Signs: Vital Signs - 24 hr 09/23/24 10:38 09/23/24 14:47 09/23/24 16:57 Temperature 97.4 F L 98.9 F 98.2 F Pulse Rate 69 88 85 Respiratory Rate 16 15 18 Blood Pressure 123/59 L 125/49 L 109/52 L Pulse Oximetry 97 95 97 Oxygen Delivery Room Air 09/23/24 18:37 09/23/24 20:00 09/23/24 23:02 Temperature 97.3 F L Pulse Rate 80 Respiratory Rate 16 Blood Pressure 110/48 L Pulse Oximetry 94 Oxygen Delivery Room Air Room Air 09/24/24 06:20 09/24/24 08:00 Temperature 97.0 F L Pulse Rate 79 Respiratory Rate 18 Blood Pressure 126/50 L Pulse Oximetry 97 Oxygen Delivery Room Air Intake/Output Intake/Output: Intake & Output 09/21/24 09/22/24 09/23/24 09/24/24 23:59 23:59 23:59 23:59 Intake Total 2000 Output Total 300 1300 Balance 1700 -1300 Meds/Results Medications: Active Medications Generic Name Dose Route Start Last Admin Trade Name Freq PRN Reason Stop Dose Admin Hydrochlorothiazide 12.5 mg 09/24/24 09:00 09/24/24 09:03 Hydrochlorothiazide 12.5 Mg Capsule PO 12.5 mg QAM ANTONIO Administration Sodium Chloride 1,000 mls @ 125 mls/hr 09/23/24 14:40 09/24/24 02:24 Normal Saline Iv IV CONT 125 mls/hr .Q8H ANTONIO Administration Lisinopril 10 mg 09/24/24 09:00 09/24/24 09:03 Lisinopril 10 Mg Tablet PO 10 mg QAM ANTONIO Administration Mesalamine 2,000 mg 09/24/24 08:00 09/24/24 09:04 Mesalamine 250 Mg Cap Cr PO 2,000 mg DAILY@0800,1600 ANTONIO Administration Morphine Sulfate 2 mg 09/23/24 16:50 Morphine Sulfate (*Crx) 2 Mg/Ml Inj IV PUSH Q4H PRN Pain Rated 6 or Greater Ondansetron HCl 4 mg 09/23/24 14:36 Ondansetron Inj 4 Mg/2 Ml Vial IV PUSH Q4H PRN Nausea Pantoprazole Sodium 40 mg 09/24/24 09:00 09/24/24 09:04 Pantoprazole Sodium Iv 40 Mg Vial IV PUSH 40 mg QAM ANTONIO Administration Prednisone 40 mg 09/24/24 08:00 09/24/24 09:03 Prednisone 20 Mg Tablet PO 40 mg DAILY@0800 ANTONIO Administration Radiology Results: ITS Impressions Abdomen/Pelvis CT 09/23/24 13:04 IMPRESSION: 1. Dilated small bowel proximal to the terminal ileum suggestive of obstruction. Ileus is also possible. Thickening wall of the small bowel in the pelvic area is noted. 2. Sliding hiatus hernia. 3. Focal area of atelectasis versus pneumonia in the left lung base. Fibrotic changes in the lungs. 4. 4 mm nodule in the left lower lobe 6 months follow-up CT is advised. 5. Trace of pericardial effusion. Labs Labs: Laboratory Results - last 24 hr 09/23/24 09/23/24 09/24/24 11:06 11:45 04:31 WBC 11.1 H 8.3 RBC 4.63 4.14 L Hgb 12.9 11.3 L Hct 41.2 36.5 L MCV 89.0 88.2 MCH 27.9 27.3 MCHC 31.3 L 31.0 L RDW 15.6 H 15.3 H Plt Count 268 241 MPV 10.3 10.2 Immature Gran % (Auto) 0.3 0.5 Neut % (Auto) 77.9 H 72.6 Lymph % (Auto) 13.7 L 16.3 L [place] % (Auto) 7.6 8.8 H Eos % (Auto) 0.3 1.6 Baso % (Auto) 0.2 0.2 Lymph # (Auto) 1.52 1.35 [place] # (Auto) 0.8 H 0.7 H Eos # (Auto) 0.0 0.1 Baso # (Auto) 0.0 0.0 Abs Immat Gran (auto) 0.03 0.04 H Absolute Neuts (auto) 8.7 H 6.0 Absolute Nucleated RBC 0.000 0.000 Nucleated RBC % 0.0 0.0 Sodium 136 L 139 Potassium 4.0 3.9 Chloride 96 L 103 Carbon Dioxide 23 23 Anion Gap 17 H 13 H BUN 57 H D 46 H D Creatinine 1.80 H 1.01 H Estim Creat Clear Calc 20 35 Estimated GFR 27 L 52 L Glucose 108 73 Calcium 8.8 8.6 Total Bilirubin 0.8 AST 22 ALT 14 Alkaline Phosphatase 101 Total Protein 8.0 Albumin 4.1 Lipase 50 Urine Color Dark yellow Urine Appearance Cloudy H Urine pH 5.0 Ur Specific [place] 1.017 Urine Protein 1+ H Urine Glucose (UA) Negative Urine Ketones Trace H Ur Blood (Man) Negative Urine Nitrate Negative Urine Bilirubin Negative Urine Urobilinogen 1.0 Add Ur Microanalysis Reviewed Leukocyte Esterase Rfl Negative Urine RBC 6-10 H Urine WBC 6-10 H Ur Squamous Epith Cells Many H Urine Bacteria 2+ H Urine Casts >20 Hyaline Casts 5-9 H Quality VTE Prophylaxis VTE prophylaxis: mechanical ordered
[2024-09-24 14:00] VITALS: BP 147/60; PULSE 81; RESP 14; TEMP 35.9; O2SAT 100
--- NOTE | 2024-09-24 14:03 | P.CONGS_ITS ---
Assessment and Plan Assessment and plan (1) Partial small bowel obstruction: Code(s): K56.600 - Partial intestinal obstruction, unspecified as to cause Status: Acute Assessment and Plan: Patient with a history of Crohn's presents with LLQ abdominal pain x 3 days, vomiting, and diarrhea with CT evidence of small bowel wall thickening in the pelvis and dilated small bowel to the terminal ileum consistent with possible ileus versus obstruction. She has been moving her bowels since admission and her abdominal pain has improved. GI has been consulted for management of her Crohn's disease. She does not have any clinical evidence of a high-grade small bowel obstruction and her small bowel series showed contrast moving to the colon within 1 hour. Surgical management would be reserved for a high-grade small bowel obstruction caused by inflammation or a stricture, or also perforation. No indication for surgical intervention at this time. Would recommend to continue supportive management. Will advance to a clear liquid diet and her diet can be advanced as tolerated as she is improving. Continue management of her Crohn's disease by GI. We will sign off at this time as there are no acute surgical issues. Call if there are any future surgical concerns. (2) Crohn's disease: Qualifiers: Digestive disease complication type: unspecified complication G astrointestinal tract location: unspecified location Qualified Code(s): K50.919 - Crohn's disease, unspecified, with unspecified complications Code(s): K50.90 - Crohn's disease, unspecified, without complications Status: Acute Assessment and Plan: Continue management per GI. (3) Acute kidney injury: Code(s): N17.9 - Acute kidney failure, unspecified Status: Acute Assessment and Plan: Already improving with IV fluids, management per Hospitalist. (4) HTN (hypertension): Qualifiers: Hypertension type: primary hypertension Qualified Code(s): I10 - Essential (primary) hypertension Code(s): I10 - Essential (primary) hypertension Status: Chronic (5) COPD (chronic obstructive pulmonary disease): Qualifiers: COPD type: unspecified COPD Qualified Code(s): J44.9 - Chronic obstructive pulmonary disease, unspecified Code(s): J44.9 - Chronic obstructive pulmonary disease, unspecified Status: Chronic Plan I have discussed the patient's case and plan of care with Dr. Fernandes. History of Present Illness Consult details Consult date: 09/24/24 Reason for consult: other (Obstruction versus ileus) Requesting physician: Billy Rene MD Narrative: This is an 84 y/o F with PMH of Crohn's disease, COPD, HTN, and other medical problems, who we have been asked to see in surgical consultation for small bowel obstruction versus ileus. She presented to the ED yesterday for left lower quadrant abdominal pain x 3 days. Abdominal pain was accompanied by nausea, vomiting, diarrhea. She attempted to take Tylenol for these symptoms but was an able to keep the medication down due to her vomiting. She has a history of Crohn's and follows with GI here at [facility]. In the ED, her vital signs were stable. Workup showed WBC count of 11,[address] evidence of dilated small bowel proximal to the terminal ileum suggestive of obstruction vs ileus, small bowel wall thickening in the pelvic area. Also incidentally noted is a sliding hiatal hernia, focal area of atelectasis versus pneumonia in left lung base, 4 mm nodule in the left lower lobe, and trace pericardial effusion. She was admitted and NG tube was deferred. GI was consulted and she had a small bowel series ordered this morning, which showed mild small bowel dilatation but without evident delayed transit to the colon, which occurred within 1 hour. This could be due to a mild ileus or partial small bowel obstruction related to likely chronic Crohn's disease related stricture at the terminal ileum. She is moving her bowels following the contrast study. Her abdominal pain has improved since admission and her bloating a significantly come down. She has some bloating and nausea after the contrast study, but she has had multiple bowel movements since returning to her room from radiology. No other complaints at this time. Review of Systems 2 Review of Systems: All systems reviewed & are unremarkable except as noted in HPI and below PMFSH Past Medical History Medical History (Updated 09/24/24 @ 14:13 by RODERICK Saunders) Acute kidney injury Pulmonary nodule COPD (chronic obstructive pulmonary disease) Small bowel stricture High risk medication use Anxiety Diastolic dysfunction Hypothyroid Vitamin D2 deficiency Vitamin B 12 deficiency Abnormal mammogram Tobacco abuse Thigh shingles Slow transit constipation Post herpetic neuralgia Polyosteoarthritis, unspecified Plantar fasciitis of left foot Interstitial lung disease Breast asymmetry Hypokalemia Sinusitis Contact dermatitis Hypertension Crohn's disease Surgical History Surgical History Hx of tubal ligation History of squamous cell carcinoma excision Hx of colonoscopy Family History Family History Father Family history of malignant neoplasm of brain, Onset Age: 68 Grandparent Diabetes mellitus Hypertension Asthma Family history of cardiovascular disease Other Family history of malignant neoplasm Family history of throat cancer Social History Social History Smoking packs per day: 1 Smoking cigarettes per day: 20.0 Years smoked: 61 Smoking pack-years: 61.00 Smoking status: Current every day smoker Second hand tobacco smoke exposure: Yes Alcohol intake: never Substance use: never Substance use type: does not use Do You Feel Safe in your Home?: Yes Lack of Transportation: No Lack of Food: Never True Current Housing: I Have Housing Concerned About Future Housing: No Difficulty Paying Gas/Electric Bills: YES Difficulty Paying for Meds: YES Currently Unemployed: No Education: Associate Degree Difficulty w/ Childcare or Family Care: No Living arrangements: with family Gender identity (if verbalized by the patient): Female Spiritual care concerns: No Meds Home Medications and Allergies Home Medications ?Medication ?Instructions ?Recorded ?Confirmed ?Type ustekinumab 90 mg/mL subcutaneous 90 mg subcut .every 8 weeks 08/21/24 09/23/24 History syringe (Stelara) lisinopril 10 1 tablet PO DAILY 09/23/24 09/23/24 History mg-hydrochlorothiazide 12.5 mg tablet mesalamine 500 mg capsule,extended See Rx Instructions .Route .COMPLEX 09/23/24 09/23/24 History release Allergies Allergy/AdvReac Type Severity Reaction Status Date / Time certolizumab pegol Allergy Unknown RASH, Verified 09/23/24 10:46 SWELLING tetracycline Allergy Unknown Unknown Verified 09/23/24 10:46 Tetracyclines Allergy Unknown unknown Verified 09/23/24 10:46 Vital Signs Vital Signs - 24 hr 09/23/24 14:47 09/23/24 16:57 09/23/24 18:37 Temperature 98.9 F 98.2 F Pulse Rate 88 85 Respiratory Rate 15 18 Blood Pressure 125/49 L 109/52 L Pulse Oximetry 95 97 Oxygen Delivery Room Air 09/23/24 20:00 09/23/24 23:02 09/24/24 06:20 Temperature 97.3 F L 97.0 F L Pulse Rate 80 79 Respiratory Rate 16 18 Blood Pressure 110/48 L 126/50 L Pulse Oximetry 94 97 Oxygen Delivery Room Air 09/24/24 08:00 Temperature Pulse Rate Respiratory Rate Blood Pressure Pulse Oximetry Oxygen Delivery Room Air Exam 2 Const: General: comfortable and no acute distress O rientation/consciousness: patient oriented x3 HENMT: Head: normocephalic and atraumatic Ears: hearing grossly normal bilaterally Mouth: Yes moist mucous membranes Eyes: General: appearance normal, both eyes and all related structures P upils: Equal, round and reactive pupils present Neck: Neck: normal visual inspection and full ROM Resp: Effort & Inspection: no respiratory distress Auscultation: clear to auscultation bilaterally Cardio: Rate: regular rate Rhythm: regular rhythm Peripheral pulses: P eripheral pulses 2+ throughout Skin: General skin exam: normal color Neuro: General: moves all extremities and no focal motor deficits Speech: n ormal speech Motor exam (neuro): 5/5 motor strength present throughout Extrem: General: normal to inspection and no edema Psych: Mental Status: mental status grossly normal Attitude: cooperative Insight: Good insight present (Psych) Judgement: Good judgement present (Psych) Results Labs 09/24/24 04:31 09/24/24 04:31 Labs: Abnormal lab results 09/24/24 Range/Units 04:31 RBC 4.14 L (4.2-5.4) M/mm3 Hgb 11.3 L (12.0-15.0) g/dL Hct 36.5 L (37.0-47.0) % MCHC 31.0 L (32-36) g/dl RDW 15.3 H (11.5-14.5) % Lymph % (Auto) 16.3 L (18.3-44.2) % [place] % (Auto) 8.8 H (2.6-8.5) % [place] # (Auto) 0.7 H (0.1-0.6) K/mm3 Abs Immat Gran (auto) 0.04 H (0.00-0.031) K/mm3 Anion Gap 13 H (4-12) mmol/L BUN 46 H D (7-17) mg/dL Creatinine 1.01 H (0.7-1.0) mg/dL Estimated GFR 52 L (59 - ) Diabetes panel 09/24/24 Range/Units 04:31 Sodium 139 (137-145) mmol/L Potassium 3.9 (3.4-5.0) mmol/L Chloride 103 (98-107) mmol/L Carbon Dioxide 23 (22-30) mmol/L BUN 46 H D (7-17) mg/dL Creatinine 1.01 H (0.7-1.0) mg/dL Glucose 73 (65-110) mg/dL Calcium 8.6 (8.4-10.2) mg/dL Calcium panel 09/24/24 Range/Units 04:31 Calcium 8.6 (8.4-10.2) mg/dL Pituitary panel 09/24/24 Range/Units 04:31 Sodium 139 (137-145) mmol/L Potassium 3.9 (3.4-5.0) mmol/L Chloride 103 (98-107) mmol/L Carbon Dioxide 23 (22-30) mmol/L BUN 46 H D (7-17) mg/dL Creatinine 1.01 H (0.7-1.0) mg/dL Glucose 73 (65-110) mg/dL Calcium 8.6 (8.4-10.2) mg/dL Adrenal panel 09/24/24 Range/Units 04:31 Sodium 139 (137-145) mmol/L Potassium 3.9 (3.4-5.0) mmol/L Chloride 103 (98-107) mmol/L Carbon Dioxide 23 (22-30) mmol/L BUN 46 H D (7-17) mg/dL Creatinine 1.01 H (0.7-1.0) mg/dL Glucose 73 (65-110) mg/dL Calcium 8.6 (8.4-10.2) mg/dL All other labs normal. Imaging Additional studies: ITS Impressions Abdomen/Pelvis CT 09/23/24 13:04 IMPRESSION: 1. Dilated small bowel proximal to the terminal ileum suggestive of obstruction. Ileus is also possible. Thickening wall of the small bowel in the pelvic area is noted. 2. Sliding hiatus hernia. 3. Focal area of atelectasis versus pneumonia in the left lung base. Fibrotic changes in the lungs. 4. 4 mm nodule in the left lower lobe 6 months follow-up CT is advised. 5. Trace of pericardial effusion. Small Bowel X-Ray 09/24/24 12:33 IMPRESSION: 1. Mild small bowel dilation but without evident delayed transit to the colon which occurs within 1 hour. This could be due to a mild ileus or partial small bowel obstruction related to likely chronic Crohn's disease related stricture at the terminal ileum.
[2024-09-24] MEDS: ONDANSETRON INJ 4 MG/2 ML VIAL IV PUSH (14:35)
[2024-09-24 20:40] VITALS: PULSE 81; RESP 14; O2SAT 100
[2024-09-24 21:10] VITALS: BP 125/49; PULSE 70; RESP 20; TEMP 36.5; O2SAT 93
[2024-09-25 03:21] VITALS: BP 120/54; PULSE 67; RESP 20; TEMP 36.5; O2SAT 92
--- NOTE | 2024-09-25 08:35 | P.PNIM_ITS ---
Progress Note: A&P Assessment and Plan (1) Bowel obstruction: Qualifiers: Intestinal obstruction extent: unspecified extent Intestinal obstruction type: unspecified Qualified Code(s): K56.609 - Unspecified inte stinal obstruction, unspecified as to partial versus complete obstruction Code(s): K56.609 - Unspecified intestinal obstruction, unspecified as to partial versus complete obstruction Status: Suspected Assessment and Plan: - CT abd/pelvis: 1. Dilated small bowel proximal to the terminal ileum suggestive of obstruction. Ileus is also possible. Thickening wall of the small bowel in the pelvic area is noted. 2. Sliding hiatus hernia. 3. Focal area of atelectasis versus pneumonia in the left lung base. Fibrotic changes in the lungs. 4. 4 mm nodule in the left lower lobe 6 months follow-up CT is advised. 5. Trace of pericardial effusion. - NPO, NS at 125 mL/hour, and monitor I&Os - general surgery consulted GI consulted - antiemetics p.r.n. - bowel series today: 1. Mild small bowel dilation but without evident delayed transit to the colon which occurs within 1 hour. This could be due to a mild ileus or partial small bowel obstruction related to likely chronic Crohn's disease related stricture at the terminal ileum. - tolerating clear liquid- follow GI recommendations as to advancing diet -anticipate discharge in the next couple of days if tolerates diet (2) Crohn's disease: Qualifiers: Digestive disease complication type: unspecified complication Gastrointestinal tract location: unspecified location Qualified Code(s): K50.919 - Crohn's disease, unspecified, with unspecified complications Code(s): K50.90 - Crohn's disease, unspecified, without complications Status: Acute Assessment and Plan: - GI consulted for possible Crohn's flare will start prednisone 40 mg daily in interim for possible flare - continue home medications: mesalamine (3) Acute kidney injury: Code(s): N17.9 - Acute kidney failure, unspecified Status: Acute Assessment and Plan: - creatinine 1.8 and GFR 27, previously 0.65 and GFR >60 on 09/12 - suspect injury secondary to hypovolemia given patient has been experiencing nausea, vomiting, and diarrhea due to partial obstruction/suspected Crohn's flare. Will trial IV fluids over the next 24 hours. If no improvement, consider further workup and nephrology consultation. - trend renal function and electrolytes (4) HTN (hypertension): Qualifiers: Hypertension type: primary hypertension Qualified Code(s): I10 - Essential (primary) hypertension Code(s): I10 - Essential (primary) hypertension Status: Chronic Assessment and Plan: - chronic, currently 109/52 - continue home medications: Lisinopril-hydrochlorothiazide - monitor Plan Possible pneumonia on CT, no current respiratory symptoms. Monitor white count, currently 11.1. Diet: NPO- advance diet GI Prophylaxis: Pantoprazole DVT Prophylaxis: SCDs Lines: Peripheral Code Status: Full code Time Spent With Patient Time with patient: 25 - 35 minutes Subjective Date/time seen: 09/25/24 08:35 Interval history: 84 y/o F presents here with lower abdominal pain, nausea, vomiting, diarrhea with PMH of Crohn's disease, COPD, diastolic dysfunction, hypothyroidism, small bowel stricture, and hypertension. Admitted from home for further evaluation of left lower abdominal pain. Initial VS at presentation: 97.4? F, HR 69, R 16, 123/59, and 97% on RA. ED workup showed: WBC 11.1, no anemia, creatinine reported at 12:27 p.m. (previously 0.65 and GFR >60 on 09/12/2024), and UA equivocal for UTI (contaminant versus infection, many epithelial cells). CT of the abdomen/pelvis showed a dilated small bowel proximal to the terminal ileum suggestive of obstruction (ileus also possible), thickened walled small bowel in the pelvic area, sliding hiatus hernia, focal area of atelectasis versus pneumonia in left lung base, 4 mm nodule in the left lower lobe, and trace pericardial effusion. pt is seen and examined. Bloating still but no acute pain, having BMs, no nausea. GI consulted. Pt is to have bowel series today. Surgery saw her- no acute surgical interventions needed. Gi is following. Comfortable. Review of Systems Review of Systems: All systems reviewed & are unremarkable except as noted in HPI and below Exam Narrative: A/Ox4, Const: General: comfortable and no acute distress Other: , female, nontoxic appearance HENMT: Face/Nose/Sinus: Normal nares present Mouth: Yes moist mucous membranes Eyes: General: appearance normal, both eyes and all related structures Sclera: sclerae normal Pupils: Equal, round and reactive pupils present EOM: EOMs intact bilaterally Resp: Effort & Inspection: normal respiratory effort Auscultation: clear to auscultation bilaterally Cardio: Rate: regular rate Rhythm: regular rhythm Other: S1-S2 present without murmur, rub, ectopy GI: Other: Abdomen soft, nondistended, nontender. Normoactive bowel sounds in all lima drants. Skin: General skin exam: normal color and no rashes or lesions noted Wounds: no wounds Neuro: Cranial nerves: Yes Equal, round and reactive pupils present Speech: normal speech Motor exam (neuro): 5/5 motor strength present throughout Sensory Exam: normal sensation Other: A&O x4 Extrem: General: normal to inspection Psych: Mental Status: mental status grossly normal Affect: normal affect Other: Good insight and judgment, pleasant Objective Data Vital Signs Vital Signs: Vital Signs - 24 hr 09/24/24 14:00 09/24/24 20:40 09/24/24 21:10 Temperature 96.7 F L 97.7 F Pulse Rate 81 81 70 Respiratory Rate 14 14 20 Blood Pressure 147/60 H 125/49 L Pulse Oximetry 100 100 93 Oxygen Delivery Room Air 09/25/24 03:21 Temperature 97.7 F Pulse Rate 67 Respiratory Rate 20 Blood Pressure 120/54 L Pulse Oximetry 92 Oxygen Delivery Intake/Output Intake/Output: Intake & Output 09/22/24 09/23/24 09/24/24 09/25/24 23:59 23:59 23:59 23:59 Intake Total 1999 1610 340 Output Total 300 1601 Balance 1700 9 340 Meds/Results Medications: Active Medications Generic Name Dose Route Start Last Admin Trade Name Tysonq PRN Reason Stop Dose Admin Hydrochlorothiazide 12.5 mg 09/24/24 09:00 09/24/24 09:03 Hydrochlorothiazide 12.5 Mg Capsule PO 12.5 mg QAM ANTONIO Administration Sodium Chloride 1,000 mls @ 125 mls/hr 09/23/24 14:40 09/24/24 22:35 Normal Saline Iv IV CONT 125 mls/hr .Q8H ANTONIO Administration Lisinopril 10 mg 09/24/24 09:00 09/24/24 09:03 Lisinopril 10 Mg Tablet PO 10 mg QAM ANTONIO Administration Mesalamine 2,000 mg 09/24/24 08:00 09/24/24 20:27 Mesalamine 250 Mg Cap Cr PO Not Given DAILY@0800,1600 [facility] Morphine Sulfate 2 mg 09/23/24 16:50 Morphine Sulfate (*Crx) 2 Mg/Ml Inj IV PUSH Q4H PRN Pain Rated 6 or Greater Ondansetron HCl 4 mg 09/23/24 14:36 09/24/24 14:35 Ondansetron Inj 4 Mg/2 Ml Vial IV PUSH 4 mg Q4H PRN Administration Nausea Pantoprazole Sodium 40 mg 09/24/24 09:00 09/24/24 09:04 Pantoprazole Sodium Iv 40 Mg Vial IV PUSH 40 mg QAM ANTONIO Administration Prednisone 40 mg 09/24/24 08:00 09/24/24 09:03 Prednisone 20 Mg Tablet PO 40 mg DAILY@0800 [facility] Administration Radiology Results: ITS Impressions Abdomen/Pelvis CT 09/23/24 13:04 IMPRESSION: 1. Dilated small bowel proximal to the terminal ileum suggestive of obstruction. Ileus is also possible. Thickening wall of the small bowel in the pelvic area is noted. 2. Sliding hiatus hernia. 3. Focal area of atelectasis versus pneumonia in the left lung base. Fibrotic changes in the lungs. 4. 4 mm nodule in the left lower lobe 6 months follow-up CT is advised. 5. Trace of pericardial effusion. Small Bowel X-Ray 09/24/24 12:33 IMPRESSION: 1. Mild small bowel dilation but without evident delayed transit to the colon which occurs within 1 hour. This could be due to a mild ileus or partial small bowel obstruction related to likely chronic Crohn's disease related stricture at the terminal ileum. Quality VTE Prophylaxis VTE prophylaxis: mechanical ordered
[2024-09-25] MEDS: PANTOPRAZOLE SODIUM IV 40 MG VIAL IV PUSH (08:43)
[2024-09-25] MEDS: predniSONE 20 MG TABLET 40 MG PO (08:43)
[2024-09-25] MEDS: hydroCHLOROthiazide 12.5 MG CAPSULE PO (08:43)
[2024-09-25] MEDS: lisinopriL 10 MG TABLET PO (08:43)
[2024-09-25] MEDS: MESALAMINE 250 MG CAP CR 2000 MG PO ×2 (08:48→17:06)
[2024-09-25] MEDS: SODIUM CHLORIDE 0.9% IV 1,000 ML 125 ML IV CONT ×2 (12:53→22:29)
[2024-09-25 14:00] VITALS: BP 123/53; PULSE 70; RESP 16; TEMP 36.8; O2SAT 98
--- NOTE | 2024-09-25 15:35 | WPDGIPROGNO ---
Progress Note: A&P Assessment and Plan (1) Crohn's disease: Qualifiers: Digestive disease complication type: unspecified complication Gastrointestinal tract location: unspecified location Qualified Code(s): K50.919 - Crohn's disease, unspecified, with unspecified complications Code(s): K50.90 - Crohn's disease, unspecified, without complications Status: Acute Assessment and Plan: overall better she is on stelara at [facility] with mesalamine started on prednisone clinically better, no need of surgery SBFT with chronic findings at ileum will advance diet and hopefully home tomorrow (2) Ileitis: Code(s): K52.9 - Noninfective gastroenteritis and colitis, unspecified Status: Acute (3) Small bowel stricture: Code(s): K56.699 - Other intestinal obstruction unspecified as to partial versus complete obstruction Status: Acute (4) LLQ pain: Code(s): R10.32 - Left lower quadrant pain Status: Acute Subjective Date/time seen: 09/25/24 15:35 Interval history: pain is almost gone, she has liquid stool, tolerating liquid diet Review of Systems Review of Systems: All systems reviewed & are unremarkable except as noted in HPI and below Exam Const: General: comfortable and no acute distress Orientation/consciousness: patient oriented x3 HENMT: Head: normocephalic and atraumatic Eyes: General: appearance normal, both eyes and all related structures Neck: Neck: normal visual inspection and full ROM Resp: Effort & Inspection: no respiratory distress Auscultation: clear to auscultation bilaterally Cardio: Rate: regular rate Rhythm: regular rhythm GI: GI Palp: Yes Soft to palpation and No Tenderness to palpation present (GI) Auscultation: normal bowel sounds Skin: General skin exam: normal color Neuro: General: moves all extremities and no focal motor deficits Speech: normal speech Motor exam (neuro): 5/5 motor strength present throughout Extrem: General: normal to inspection and no edema Psych: Mental Status: mental status grossly normal Attitude: cooperative Insight: Good insight present (Psych) Judgement: Good judgement present (Psych) Objective Data Vital Signs Vital Signs: Vital Signs - 24 hr 09/24/24 20:40 09/24/24 21:10 09/25/24 03:21 Temperature 97.7 F 97.7 F Pulse Rate 81 70 67 Respiratory Rate 14 20 20 Blood Pressure 125/49 L 120/54 L Pulse Oximetry 100 93 92 Oxygen Delivery Room Air 09/25/24 08:45 09/25/24 14:00 Temperature 98.3 F Pulse Rate 70 Respiratory Rate 16 Blood Pressure 123/53 L Pulse Oximetry 98 Oxygen Delivery Room Air Intake/Output Intake/Output: Intake & Output 09/22/24 09/23/24 09/24/24 09/25/24 23:59 23:59 23:59 23:59 Intake Total 1999 1610 2270 Output Total 300 1601 Balance 1700 9 2270 Meds/Results Medications: Active Medications Generic Name Dose Route Start Last Admin Trade Name Freq PRN Reason Stop Dose Admin Hydrochlorothiazide 12.5 mg 09/24/24 09:00 09/25/24 08:43 Hydrochlorothiazide 12.5 Mg Capsule PO 12.5 mg QAM ANTONIO Administration Sodium Chloride 1,000 mls @ 125 mls/hr 09/23/24 14:40 09/25/24 12:53 Normal Saline Iv IV CONT 125 mls/hr .Q8H ANTONIO Administration Lisinopril 10 mg 09/24/24 09:00 09/25/24 08:43 Lisinopril 10 Mg Tablet PO 10 mg QAM ANTONIO Administration Mesalamine 2,000 mg 09/24/24 08:00 09/25/24 08:48 Mesalamine 250 Mg Cap Cr PO 2,000 mg DAILY@0800,1600 ANTONIO Administration Morphine Sulfate 2 mg 09/23/24 16:50 Morphine Sulfate (*Crx) 2 Mg/Ml Inj IV PUSH Q4H PRN Pain Rated 6 or Greater Ondansetron HCl 4 mg 09/23/24 14:36 09/24/24 14:35 Ondansetron Inj 4 Mg/2 Ml Vial IV PUSH 4 mg Q4H PRN Administration Nausea Pantoprazole Sodium 40 mg 09/24/24 09:00 09/25/24 08:43 Pantoprazole Sodium Iv 40 Mg Vial IV PUSH 40 mg QAM ANTONIO Administration Prednisone 40 mg 09/24/24 08:00 09/25/24 08:43 Prednisone 20 Mg Tablet PO 40 mg DAILY@0800 ANTONIO Administration Radiology Results: ITS Impressions Abdomen/Pelvis CT 09/23/24 13:04 IMPRESSION: 1. Dilated small bowel proximal to the terminal ileum suggestive of obstruction. Ileus is also possible. Thickening wall of the small bowel in the pelvic area is noted. 2. Sliding hiatus hernia. 3. Focal area of atelectasis versus pneumonia in the left lung base. Fibrotic changes in the lungs. 4. 4 mm nodule in the left lower lobe 6 months follow-up CT is advised. 5. Trace of pericardial effusion. Small Bowel X-Ray 09/24/24 12:33 IMPRESSION: 1. Mild small bowel dilation but without evident delayed transit to the colon which occurs within 1 hour. This could be due to a mild ileus or partial small bowel obstruction related to likely chronic Crohn's disease related stricture at the terminal ileum.
[2024-09-25 20:00] VITALS: PULSE 55; RESP 16; O2SAT 97
[2024-09-25 20:20] VITALS: O2SAT 95
[2024-09-25 20:40] VITALS: BP 137/53; PULSE 55; RESP 16; TEMP 36.5; O2SAT 97
[2024-09-26 05:40] VITALS: BP 155/71; PULSE 61; RESP 18; TEMP 36.4; O2SAT 97
[2024-09-26] MEDS: hydroCHLOROthiazide 12.5 MG CAPSULE PO (08:37)
[2024-09-26] MEDS: MESALAMINE 250 MG CAP CR 2000 MG PO (08:37)
[2024-09-26] MEDS: predniSONE 20 MG TABLET 40 MG PO (08:37)
[2024-09-26] MEDS: lisinopriL 10 MG TABLET PO (08:37)
--- NOTE | 2024-09-26 10:23 | PM.IMPN ---
Progress Note: A&P Assessment and Plan (1) Bowel obstruction: Qualifiers: Intestinal obstruction extent: unspecified extent Intestinal obstruction type: unspecified Qualified Code(s): K56.609 - Unspecified intestinal obstruction, unspecified as to partial versus complete obstruction Code(s): K56.609 - Unspecified intestinal obstruction, unspecified as to partial versus complete obstruction Status: Suspected Assessment and Plan: - CT abd/pelvis: 1. Dilated small bowel proximal to the terminal ileum suggestive of obstruction. Ileus is also possible. Thickening wall of the small bowel in the pelvic area is noted. 2. Sliding hiatus hernia. 3. Focal area of atelectasis versus pneumonia in the left lung base. Fibrotic changes in the lungs. 4. 4 mm nodule in the left lower lobe 6 months follow-up CT is advised. 5. Trace of pericardial effusion. - general surgery consulted GI consulted - antiemetics p.r.n. - bowel series today: 1. Mild small bowel dilation but without evident delayed transit to the colon which occurs within 1 hour. This could be due to a mild ileus or partial small bowel obstruction related to likely chronic Crohn's disease related stricture at the terminal ileum. (2) Crohn's disease: Qualifiers: Digestive disease complication type: unspecified complication Gastrointestinal tract location: unspecified location Qualified Code(s): K50.919 - Crohn's disease, unspecified, with unspecified complications Code(s): K50.90 - Crohn's disease, unspecified, without complications Status: Acute Assessment and Plan: - GI consulted for possible Crohn's flare will start prednisone 40 mg daily in interim for possible flare - continue home medications: mesalamine (3) Acute kidney injury: Code(s): N17.9 - Acute kidney failure, unspecified Status: Acute Assessment and Plan: - creatinine 1.8 and GFR 27, previously 0.65 and GFR >60 on 09/12 - suspect injury secondary to hypovolemia given patient has been experiencing nausea, vomiting, and diarrhea due to partial obstruction/suspected Crohn's flare. - trend renal function and electrolytes (4) HTN (hypertension): Qualifiers: Hypertension type: primary hypertension Qualified Code(s): I10 - Essential (primary) hypertension Code(s): I10 - Essential (primary) hypertension Status: Chronic Assessment and Plan: - chronic, currently 109/52 - continue home medications: Lisinopril-hydrochlorothiazide - monitor Plan Possible pneumonia on CT, no current respiratory symptoms. Monitor white count, currently 11.1. Diet: NPO- advance diet GI Prophylaxis: Pantoprazole DVT Prophylaxis: SCDs Lines: Peripheral Code Status: Full code Subjective Date/time seen: 09/26/24 10:23 Interval history: 84 y/o F presents here with lower abdominal pain, nausea, vomiting, diarrhea with PMH of Crohn's disease, COPD, diastolic dysfunction, hypothyroidism, small bowel stricture, and hypertension. Review of Systems Review of Systems: All systems reviewed & are unremarkable except as noted in HPI and below Exam Narrative: AF General: well nourished, well-developed female in no acute respiratory distress who is nontoxic appearing, lying semi recumbent in bed. HEENT: Normocephalic. Atraumatic. Pupils equal round reactive to light. Extraocular movement intact. Sclera clear and anicteric. Nares patent. No oral lesions. Moist mucous membranes. Tongue is midline. Palate kian symmetrically. No facial asymmetry. Neck: Neck was supple. No dominant adenopathy, thyromegaly or masses. 2+ carotid upstrokes without bruits. Chest: Lungs are clear to auscultation bilaterlly. No wheezes or crackles. CV: Heart was regular rate and rhythm. S1-S2. No murmurs, gallops, or rubs. Abd: Abdomen was soft. Nontender. Nondistended. Postive bowel sounds. No organomegaly or masses. Ext: No clubbing, cyanosis, or edema. 2+ DP pulses bilaterally. Neuro: Patient is alert and oriented x4. Strenth is 5/5 in both upper and lower extremities. Cranial nerves 2-12 are intact. Speech is clear. Psych: Normal nood and affect. Patient is pleasant and cooperative. Skin: Warm and dry. No rashes noted. Objective Data Vital Signs Vital Signs: Vital Signs - 24 hr 09/25/24 14:00 09/25/24 20:00 09/25/24 20:20 Temperature 98.3 F Pulse Rate 70 55 L Respiratory Rate 16 16 Blood Pressure 123/53 L Pulse Oximetry 98 97 95 Oxygen Delivery Room Air Room Air Fraction of Inspired Oxygen 21 21 09/25/24 20:40 09/26/24 05:40 09/26/24 08:35 Temperature 97.7 F 97.5 F L Pulse Rate 55 L 61 Respiratory Rate 16 18 Blood Pressure 137/53 L 155/71 H Pulse Oximetry 97 97 Oxygen Delivery Room Air Fraction of Inspired Oxygen Intake/Output Intake/Output: Intake & Output 09/23/24 09/24/24 09/25/24 09/26/24 23:59 23:59 23:59 23:59 Intake Total 1999 1610 3942 300 Output Total 300 1601 350 Balance 1700 9 3942 -50 Meds/Results Medications: Active Medications Generic Name Dose Route Start Last Admin Trade Name Freq PRN Reason Stop Dose Admin Hydrochlorothiazide 12.5 mg 09/24/24 09:00 09/26/24 08:37 Hydrochlorothiazide 12.5 Mg Capsule PO 12.5 mg QAM [facility] Administration Sodium Chloride 1,000 mls @ 125 mls/hr 09/23/24 14:40 09/26/24 08:38 Normal Saline Iv IV CONT Not Given .Q8H ANTONIO Lisinopril 10 mg 09/24/24 09:00 09/26/24 08:37 Lisinopril 10 Mg Tablet PO 10 mg QAM [facility] Administration Mesalamine 2,000 mg 09/24/24 08:00 09/26/24 08:37 Mesalamine 250 Mg Cap Cr PO 2,000 mg DAILY@0800,1600 [facility] Administration Morphine Sulfate 2 mg 09/23/24 16:50 Morphine Sulfate (*Crx) 2 Mg/Ml Inj IV PUSH Q4H PRN Pain Rated 6 or Greater Ondansetron HCl 4 mg 09/23/24 14:36 09/24/24 14:35 Ondansetron Inj 4 Mg/2 Ml Vial IV PUSH 4 mg Q4H PRN Administration Nausea Pantoprazole Sodium 40 mg 09/24/24 09:00 09/26/24 08:38 Pantoprazole Sodium Iv 40 Mg Vial IV PUSH [facility] Pred[facility]one 40 mg 09/24/24 08:00 09/26/24 08:37 Prednisone 20 Mg Tablet PO 40 mg DAILY@0800 [facility] Administration Radiology Results: ITS Impressions Abdomen/Pelvis CT 09/23/24 13:04 IMPRESSION: 1. Dilated small bowel proximal to the terminal ileum suggestive of obstruction. Ileus is also possible. Thickening wall of the small bowel in the pelvic area is noted. 2. Sliding hiatus hernia. 3. Focal area of atelectasis versus pneumonia in the left lung base. Fibrotic changes in the lungs. 4. 4 mm nodule in the left lower lobe 6 months follow-up CT is advised. 5. Trace of pericardial effusion. Small Bowel X-Ray 09/24/24 12:33 IMPRESSION: 1. Mild small bowel dilation but without evident delayed transit to the colon which occurs within 1 hour. This could be due to a mild ileus or partial small bowel obstruction related to likely chronic Crohn's disease related stricture at the terminal ileum. Quality VTE Prophylaxis VTE prophylaxis: mechanical ordered
[2024-09-26 10:29] LABS: Hematocrit 33.5 % (37.0-47.0); Hemoglobin 10.6 g/dL (12.0-15.0); Mean Corpuscular HGB Conc 31.6 g/dl (32-36); Mean Corpuscular Hemoglobin 28.3 pg (26-34); Mean Corpuscular Volume 89.3 fl (80-100); Mean Platelet Volume 10.1 fl (7.4-10.4); Platelet Count Result 200 k/mm3 (150-375); Red Blood Count 3.75 M/mm3 (4.2-5.4); Red Cell Distribution Width 15.4 % (11.5-14.5); White Blood Count 7.8 K/mm3 (4.5-10.0)
[2024-09-26 11:09] LABS: Alanine Aminotransferase 20 U/L (6-35); Albumin Level 3.5 g/dL (3.5-5.1); Alkaline Phosphatase 77 U/L (38-126); Anion Gap 8 mmol/L (4-12); Aspartate Amino Transferase 27 U/L (14-36); Bilirubin,Total 0.4 mg/dL (0.2-1.3); Blood Urea Nitrogen 15 mg/dL (7-17); Calcium 9.1 mg/dL (8.4-10.2); Carbon Dioxide 25 mmol/L (22-30); Chloride 105 mmol/L (98-107); Estimated CRCL calculation 44 ml/min; Estimated Glomerular Filt Rate > 60; Glucose 122 mg/dL (65-110); Potassium 3.1 mmol/L (3.4-5.0); Sodium 138 mmol/L (137-145)
[2024-09-26 14:00] VITALS: BP 152/66; PULSE 71; RESP 14; TEMP 36.8; O2SAT 98
--- NOTE | 2024-09-26 14:51 | P.DS_ITS ---
DS: Admitting Diagnosis Discharge Date 09/26/2024 Admitting Diagnosis Bowel obstruction Crohn's disease Acute kidney injury Hypertension DS: Discharge Diagnosis Discharge Diagnosis (1) Bowel obstruction: Qualifiers: Intestinal obstruction extent: unspecified extent Intestinal obstruction type: unspecified Qualified Code(s): K56.609 - Unspecified intestinal obstruction, unspecified as to partial versus complete obstruction Code(s): K56.609 - Unspecified intestinal obstruction, unspecified as to partial versus complete obstruction Status: Suspected (2) Crohn's disease: Qualifiers: Digestive disease complication type: unspecified complication Gastrointestinal tract location: unspecified location Qualified Code(s): K50.919 - Crohn's disease, unspecified, with unspecified complications Code(s): K50.90 - Crohn's disease, unspecified, without complications Status: Acute (3) Acute kidney injury: Code(s): N17.9 - Acute kidney failure, unspecified Status: Acute (4) HTN (hypertension): Qualifiers: Hypertension type: primary hypertension Qualified Code(s): I10 - Essential (primary) hypertension Code(s): I10 - Essential (primary) hypertension Status: Chronic DS: Summary Hospital Course Reason for hospitalization: Bowel obstruction Crohn's disease Acute kidney injury Hypertension Hospital Course: 84 y/o F presents here with lower abdominal pain, nausea, vomiting, diarrhea with PMH of Crohn's disease, COPD, diastolic dysfunction, hypothyroidism, small bowel stricture, and hypertension. Patient not meeting sepsis criteria on admission. CT of the abdomen/pelvis showed a dilated small bowel proximal to the terminal ileum suggestive of obstruction (ileus also possible), thickened walled small bowel in the pelvic area, sliding hiatus hernia. GI consulted. Patient remained on mesalamine and was started on prednisone. Small bowel XR showing mild small bowel dilation but without evident delayed transit to the colon which occurs within 1 hour. This could be due to a mild ileus or partial small bowel obstruction related to likely chronic Crohn's disease related stricture at the terminal ileum. Patient diet advanced and tolerated well. Patient to remain on sterara at discharge. Prior to discharge discussed patient with GI Dr. Abrams who states patient is able to be discharged from a GI perspective. He notes that she does not need to continue the prednisone course for the potential Crohn flare. Patient to follow up with GI in [address] abdomen/pelvis also showed focal area of atelectasis versus pneumonia in left lung base, 4 mm nodule in the left lower lobe, and trace pericardial effusion. Likely atelectasis given no current respiratory symptoms. Not started on antibiotics. On admission patient was noted to have an JANE likely secondary to hypovolemia given patient has been experiencing nausea, vomiting, and diarrhea due to partial obstruction/suspected Crohn's flare. Resolved with fluids prior to discharge. At time of discharge patient has no complaints denying chest pain, shortness a breath, palpitations, nausea/vomiting, and abdominal pain. She has been independently ambulating throughout her room throughout admission and denies any need for home health. Patient discharged in a stable condition. She is to follow up her primary care provider in 1 week and GI in 4 weeks. Status at Discharge Functional status at discharge: independent ambulation Time Spent with Patient Time attestation: Total time spent providing and/or coordinating discharge services: Time spent: Greater than 30 minutes Exam Narrative: AF HR 71 RR 14 SPO2 98 BP 152/66 General: female in no acute respiratory distress who is nontoxic appearing, lying semi recumbent in bed. HEENT: Normocephalic. Atraumatic. Extraocular movement intact. Sclera clear and anicteric.No facial asymmetry. Chest: Lungs are clear to auscultation bilaterally. No wheezes or crackles. CV: Heart was regular rate and rhythm. Abd: Abdomen was soft. Nontender. Nondistended. Positive bowel sounds. No organomegaly or masses. Ext: No clubbing, cyanosis, or edema. DP pulses bilaterally. Neuro: Patient is alert and oriented x4. Speech is clear. DS: Data Data Completed and Pending Completed studies during hospitalization: Small-bowel x-ray Abdomen pelvis CT Labs on day of discharge: Labs from last 24 hours 09/26/24 10:24 WBC 7.8 RBC 3.75 L Hgb 10.6 L Hct 33.5 L MCV 89.3 MCH 28.3 MCHC 31.6 L RDW 15.4 H Plt Count 200 MPV 10.1 Sodium 138 Potassium 3.1 L Chloride 105 Carbon Dioxide 25 Anion Gap 8 BUN 15 D Creatinine 0.79 Estim Creat Clear Calc 44 Estimated GFR > 60 Glucose 122 H Calcium 9.1 Total Bilirubin 0.4 AST 27 ALT 20 Alkaline Phosphatase 77 Total Protein 7.0 Albumin 3.5 Discharge Plan Discharge Attending physician on discharge: Carin Hwang Consulting providers: Beto Langley Discharging Clinician: Modesta Bose Anticipated Discharge Date/Time: 09/26/24 14:37 Patient Disposition: Home, Self-Care Activity: as tolerated Diet: as tolerated and low fiber Discharge Instructions: Discharge disposition: Patient admitted to the hospital for bowel obstruction vs crohns flare Evaluated by GI and surgery during admission No surgical intervention required Take home medications as prescribed During admission patient had a slight kidney injury likely related to dehydration vs hypovolemia Resolved with fluids Take all medications as prescribed even if feeling better Eat well balanced meals and stay hydrated Keep active to remain strong Trend urine output Monitor blood pressures Take caution while standing, rising, or moving Change positions slowly taking a break between each position change If you standing feel dizzy sit back down and take a break Encouraged to continue with yearly vaccinations Return to the emergency department if he developed sudden shortness of breath, chest pain, nausea, vomiting, upset stomach or intractable diarrhea Return to the emergency department if you develop fever greater than 101.5 Follow-up with the primary care physician within 1-2 weeks Thank you for [facility] for your healthcare needs Patient Instructions: Dehydration (DC), Crohn Disease (DC), Acute Kidney Injury (DC), Bowel Obstruction (DC) Patient Language: Syriac Stand Alone Forms: General Discharge Information Follow-up/Referrals: Manjit Obregon MD [Primary Care Provider] - 1 Week Beto Langley MD [Physician] - 4 Weeks Discharge Medications: Continued Stelara 90 mg/mL syringe 90 mg subcut .every 8 weeks mesalamine 500 mg capsule, extended release See Rx Instructions .ROUTE .COMPLEX Rx Instructions: 4 capsules in AM, 4 capsules before dinner lisinopril-hydrochlorothiazide 10-12.5 mg tablet 1 tablet PO DAILY Date of admission: 09/24/24 10:02 Primary Care Provider: Manjit Obregon Admitting Provider: Luis Hernandez Attending physician on admission: Modesta Bose Condition: Stable Hospitalist MIPS Heart Failure (Exclusion) Patient has history of Heart Transplant or Left Ventricular Assistive Device?: No IF YES, STOP HERE Heart Failure (Qualifier) Patient has current or prior documentation of LVEF less than or equal to 40%, or mod/servere depressed LVSF?: No IF NO, STOP HERE
[2024-09-26] MEDS: PANTOPRAZOLE 40 MG TABLET PO (15:14)
[2024-09-26] MEDS: POTASSIUM CHLORIDE 20 MEQ ER TABLET 40 MEQ PO (15:14)
--- NOTE | 2024-09-26 15:27 | WPDGIPROGNO ---
Progress Note: A&P Assessment and Plan (1) Crohn's disease: Qualifiers: Digestive disease complication type: unspecified complication Gastrointestinal tract location: unspecified location Qualified Code(s): K50.919 - Crohn's disease, unspecified, with unspecified complications Code(s): K50.90 - Crohn's disease, unspecified, without complications Status: Acute Assessment and Plan: back to baseline, she is going home today she is on stelara at home with mesalamine, will resume medications, no need to use steroid SBFT with chronic findings at ileum follow-up office in 3-4 weeks (2) Ileitis: Code(s): K52.9 - Noninfective gastroenteritis and colitis, unspecified Status: Acute (3) Small bowel stricture: Code(s): K56.699 - Other intestinal obstruction unspecified as to partial versus complete obstruction Status: Acute Assessment and Plan: chronic (4) LLQ pain: Code(s): R10.32 - Left lower quadrant pain Status: Acute Assessment and Plan: resolved Subjective Date/time seen: 09/26/24 15:27 Interval history: doing well tolerating diet, no pain and had BM going home Review of Systems Review of Systems: All systems reviewed & are unremarkable except as noted in HPI and below Exam Const: General: comfortable and no acute distress Orientation/consciousness: patient oriented x3 HENMT: Head: normocephalic and atraumatic Eyes: General: appearance normal, both eyes and all related structures Neck: Neck: normal visual inspection and full ROM Resp: Effort & Inspection: no respiratory distress Auscultation: clear to auscultation bilaterally Cardio: Rate: regular rate Rhythm: regular rhythm GI: GI Palp: Yes Soft to palpation and No Tenderness to palpation present (GI) Auscultation: normal bowel sounds Skin: General skin exam: normal color Neuro: General: moves all extremities and no focal motor deficits Speech: normal speech Motor exam (neuro): 5/5 motor strength present throughout Extrem: General: normal to inspection and no edema Psych: Mental Status: mental status grossly normal Attitude: cooperative Insight: Good insight present (Psych) Judgement: Good judgement present (Psych) Objective Data Vital Signs Vital Signs: Vital Signs - 24 hr 09/25/24 20:00 09/25/24 20:20 09/25/24 20:40 Temperature 97.7 F Pulse Rate 55 L 55 L Respiratory Rate 16 16 Blood Pressure 137/53 L Pulse Oximetry 97 95 97 Oxygen Delivery Room Air Room Air Fraction of Inspired Oxygen 21 21 09/26/24 05:40 09/26/24 08:35 09/26/24 14:00 Temperature 97.5 F L 98.2 F Pulse Rate 61 71 Respiratory Rate 18 14 Blood Pressure 155/71 H 152/66 H Pulse Oximetry 97 98 Oxygen Delivery Room Air Fraction of Inspired Oxygen Intake/Output Intake/Output: Intake & Output 09/23/24 09/24/24 09/25/24 09/26/24 23:59 23:59 23:59 23:59 Intake Total 1999 1610 3942 760 Output Total 300 1601 350 Balance 1700 9 3942 410 Meds/Results Medications: Active Medications Generic Name Dose Route Start Last Admin Trade Name Freq PRN Reason Stop Dose Admin Hydrochlorothiazide 12.5 mg 09/24/24 09:00 09/26/24 08:37 Hydrochlorothiazide 12.5 Mg Capsule PO 12.5 mg QAM [facility] Administration Lisinopril 10 mg 09/24/24 09:00 09/26/24 08:37 Lisinopril 10 Mg Tablet PO 10 mg QAM [facility] Administration Mesalamine 2,000 mg 09/24/24 08:00 09/26/24 08:37 Mesalamine 250 Mg Cap Cr PO 2,000 mg DAILY@0800,1600 [facility] Administration Morphine Sulfate 2 mg 09/23/24 16:50 Morphine Sulfate (*Crx) 2 Mg/Ml Inj IV PUSH Q4H PRN Pain Rated 6 or Greater Ondansetron HCl 4 mg 09/23/24 14:36 09/24/24 14:35 Ondansetron Inj 4 Mg/2 Ml Vial IV PUSH 4 mg Q4H PRN Administration Nausea Pantoprazole Sodium 40 mg 09/26/24 14:40 09/26/24 15:14 Pantoprazole 40 Mg Tablet PO 40 mg QAM [facility] Administration Prednisone 40 mg 09/24/24 08:00 09/26/24 08:37 Prednisone 20 Mg Tablet PO 40 mg DAILY@0800 [facility] Administration Radiology Results: ITS Impressions Abdomen/Pelvis CT 09/23/24 13:04 IMPRESSION: 1. Dilated small bowel proximal to the terminal ileum suggestive of obstruction. Ileus is also possible. Thickening wall of the small bowel in the pelvic area is noted. 2. Sliding hiatus hernia. 3. Focal area of atelectasis versus pneumonia in the left lung base. Fibrotic changes in the lungs. 4. 4 mm nodule in the left lower lobe 6 months follow-up CT is advised. 5. Trace of pericardial effusion. Small Bowel X-Ray 09/24/24 12:33 IMPRESSION: 1. Mild small bowel dilation but without evident delayed transit to the colon which occurs within 1 hour. This could be due to a mild ileus or partial small bowel obstruction related to likely chronic Crohn's disease related stricture at the terminal ileum. Labs Labs: Laboratory Results - last 24 hr 09/26/24 10:24 WBC 7.8 RBC 3.75 L Hgb 10.6 L Hct 33.5 L MCV 89.3 MCH 28.3 MCHC 31.6 L RDW 15.4 H Plt Count 200 MPV 10.1 Sodium 138 Potassium 3.1 L Chloride 105 Carbon Dioxide 25 Anion Gap 8 BUN 15 D Creatinine 0.79 Estim Creat Clear Calc 44 Estimated GFR > 60 Glucose 122 H Calcium 9.1 Total Bilirubin 0.4 AST 27 ALT 20 Alkaline Phosphatase 77 Total Protein 7.0 Albumin 3.5
== END 2024-09-26 15:40 | disposition home or self-care (01) | DRG 386 ==
LOC: ANHED 14:18 → ANH2MED 17:48
PROVIDERS: Student in an Organized Health Care Education/Training Program; Admitting Provider Family Medicine; Emergency Provider Emergency Medicine; PCP Emergency Medicine; Visit Provider Student in an Organized Health Care Education/Training Program
DX: K50.912 Crohn's disease, unspecified, with intestinal obstruction (principal); J98.11 Atelectasis; N17.9 Acute kidney failure, unspecified; I10 Essential (primary) hypertension; J44.9 Chronic obstructive pulmonary disease, unspecified; E03.9 Hypothyroidism, unspecified; K57.90 Diverticulosis of intestine, part unspecified, without perforation or abscess without bleeding; F17.210 Nicotine dependence, cigarettes, uncomplicated; R91.1 Solitary pulmonary nodule
CPT/HCPCS: 36415; 74176; 74250; 80048; 80053; 81001; 83690; 85025; 85027; 96361; 96374; 96375; 99285; A9270; G0378; J1171; J2405; J2470; J7030; J7120; J7512

== ENCOUNTER 2024-10-11 12:35 | Outpatient (CLI) | payer MEDICARE, SELFPAY ==
--- OUTSIDE RECORDS SUMMARY | 2024-10-11 12:46 | XMS_ITS | Clinical Summary ---
Author Organization [facility] Address [address] [place] [address] Care Team Providers Care Cat Scanner Operator Name Role Phone Manjit Obregon MD Primary Care Provider [phone] Source Comments [facility],non[facility] and Associated Physician Practices is amultiple site organization consisting of ambulatory clinics and hospital sitesin [place], [place], [place] and [place]. This disclosure is being madepursuant to the Care Everywhere program and may not contain all information available regarding this patient. Last updated 18.[facility] Social History Tobacco Use Types [...] age to complete this topic Care Teams Cat Scanner Operator Relationship Specialty Start Date End Date Manjit Obregon MD [address] [place] [id number] PCP - General 04/21/22
--- OUTSIDE RECORDS SUMMARY | 2024-10-11 12:46 | XMS_ITS | Encounter Summary ---
Author Organization [facility] Address [address] [facility] [place] [address] Phone Care Team Providers Care Galvanizing Pot Runner Name Role Phone Manjit Obregon MD Primary Care Provider [phone] Leeroy Kim DO Unavailable Reason for Visit * Reason Comments Medication Refill Encounter Details Date Type Department Care Team (Late Contact Info) Description 12/26/2019 Refill [facility] - Gastroenterology [facility] [address] [place] [address] Leeroy Kim, DO [address] [address] Medication Refill Social History Tobacco [...] on filedocumented in this encounter Care Teams Galvanizing Pot Runner Relationship Specialty Start Date End Date Manjit Obregon MD [address] [place] [address] PCP - General Internal Medicine 04/28/16 Leeroy Kim DO [address] [place] [address] Gastroenterology 04/29/16 documented as of this encounter
--- OUTSIDE RECORDS SUMMARY | 2024-10-11 12:46 | XMS_ITS | Continuity of Care Document ---
Author Organization [facility] [place] [address] [place] [address] [place] [address] Phone Care Team Providers Care Insurance Case Manager Name Role Phone Marah Birmingham Unavailable Unavailable [...] Providers Copied on Encounter Office/outpat ient Visit, [facility], [address] [place] [address] [address], [place], [place], [id number], [place] tel:[phone] [facility] No Information Sep-1 4-201 0 [address], [place], [address], [place]. tel:[phone] Office/outpat ient Visit, [facility], [address] [place] [address] [address], [place], [place], [id number], [place] tel:[phone] [facility] No Information Sep-0 8-200 9 Valencia [address]on [address] , [address], [place], [place], [facility], [place]. tel:[phone] Referring Provider: Marah Taveras, [address], [place], [place], [facility]. tel:[phone] Office/outpat ient Visit, Est [facility], [address], [place], [place], [id number], [place] tel:[phone] [facility] No Information 200 9 [address] [place]. [address], [place], [place], [facility], [place]. tel:[phone] [facility], [address], [place], [place], [id number], [place] tel:[phone] [facility] No Information 200 8 [address] [place]. [address], [place], [place], [facility], [place]. tel:[phone] [facility], [address], [place], [place], [id number], [place] tel:[phone] [facility] No Information 0 8-200 8 [address] [place]. [address], [place], [place], [facility], [place]. tel:[phone] [facility], [address], [place], [place], [id number], [place] tel:[phone] [facility] No Information 1-200 8 Haddad OD Leeroy. [address], [place], [place], [facility], [place]. tel:[phone] [facility], [address], [place], [place], [id number], [place] tel:[phone] [facility] No Information [address] [place]. [address], [place], [place], [facility], . tel:[phone] [facility], [address] [place] [address] [address], [place], [place], [id number], tel:[phone] [facility] No Information Jan-2 2-200 8 Valencia [address]on [address] [facility] [address] [facility] , [address], [place], [place], [facility], . tel:[phone] Referring Provider: Marah Taveras [address], [place], [facility]. tel:[phone] [facility], [address] [place] [address] [address], [place], [place], [id number], tel:[phone] [facility] No Information Elias-0 1-200 8 Valencia [place]. [address] [facility] , [address], [place], [place], [facility], . tel:[phone] [facility], [address] [place] [address] [address], [place], [place], [id number], tel:[phone] [facility] No Information Apr-0 3-200 7 [address]. [facility] , [address], [place], [place], [facility], . tel:[phone] Family History Family Member Type Diagnosis Age At Onset No Information Payers Payer name Insurance type Covered libertarian ID Authorshahida tisenia(s) [place] [id number] Social History Type Description Quantity Date Captured [...]
--- OUTSIDE RECORDS SUMMARY | 2024-10-11 12:47 | XMS_ITS | Clinical Summary ---
Author Organization [facility] Address [address] [place] [address] Phone Care Team Providers Care Shuttle Repairer Name Role Phone Manjit Obregon MD Primary Care Provider [phone] Leeroy Kim DO Unavailable [phone] Allergies Active Allergy Reactions Criticality Noted [...] Capsule 3 1 Active ergocalciferol (VITAMIN D) 10484 UNIT Capsule Take 1 Capsule by mouth [...] Covid-19 Vaccine, Vector-nr, Rs-ad26, Pf, 0.5 Ml ([employer]) 09/16/2020 Hepatitis B Vaccine 04/07/2015 Influenza, Seasonal, [...] 07/19/2021 DEXA Bone Density 06/13/2023 06/13/2021, 04/27/2019 SARS-COV-2 Immunization ( season) 2024 08/21/2021, 09/16/2020 Influenza Immunization (Season Ended) 2025 04/28/2019, 05/28/2018, 05/18/2017, Additional history exists Colonoscopy High Risk 07/19/2029 07/19/2019 , 04/14/2017, [...] Comments BONE DENSITY GENERIC 06/13/2021 12:00 AM ACCIDENT INVESTIGATOR COLONOSCOPY Routine 07/19/2019 from Last 3 Months or Most Recently Relevant to Health Maintenance Results * BONE DENSITY GENERIC SCAN (06/13/2021 12:00 AM ACCIDENT INVESTIGATOR) 06/13/2021 us Not On File Provider IMG DEXA ORDERABLES Final R esult SCAN * HM COLONOSCOPY (07/19/2019) Leeroy Kim DO PROCEDURE/MINOR SURGICAL ORDERA BLES Final Result from Last 3 Months or Most Recently Relevant to Health Maintenance Insurance MEDICARE [facility] Care Teams Shuttle Repairer Relationship Specialty Start Date End Date Manjit Obregon MD [address] [place] [address] PCP - General Internal Medicine 04/28/16 Leeroy Kim DO [address] [place] [address] Gastroenterology 04/29/16
--- OUTSIDE RECORDS SUMMARY | 2024-10-11 12:47 | XMS_ITS | Encounter Summary ---
Author Organization [facility] Address [address] [place] [address] Phone Care Team Providers Care Dress Finisher Name Role Phone Manjit Obregon MD Primary Care Provider [phone] Leeroy Kim DO Unavailable [phone] Reason for Visit * Reason Comments Medication Refill Encounter Details Date Type Department Care Team (Late st Contact Info) Description 01/13/[address] [facility] - Gastroenterology [facility] [address] [place] [address] Linda Gallego Ketty, PAC [address] [place] [address] Medication Refill Social History Tobacco Use Types [...] encounter Miscellaneous Notes * Telephone Encounter - aGbby Shell CMA - 01/13/2021 4:55 PM CDT [...] on filedocumented in this encounter Care Teams Dress Finisher Relationship Specialty Start Date End Date Manjit Obregon MD [address] [place] [address] PCP - General Internal Medicine 04/28/16 Leeroy Kim DO [address] [place] [address] Gastroenterology 04/29/16 documented as of this encounter
--- OUTSIDE RECORDS SUMMARY | 2024-10-11 12:47 | XMS_ITS | Encounter Summary ---
Author Organization [facility] Address [address] [facility] [address] Phone Care Team Providers Care Food Production Manager Name Role Phone Manjit Obregon MD Primary Care Provider [phone] Leeroy Kim DO Unavailable [phone] Reason for Visit * Reason Comments Medication Refill Encounter Details Date Type Department Care Team ([facility] Contact Info) Description 06/30/2021 Refill [facility] - Gastroenterology [facility] [address] [place] [address] Linda Gallego Ketty, PAC [address] [place] [address] Medication Refill Social History Tobacco Use Types [...] Emilia Padron RN - 07/01/2021 9:48 AM COLLECTION SYSTEMS ADMINISTRATOR Pharmacy requesting refill of: Requested Prescriptions Pending Prescriptions Disp Refills ??? azaTHIOprine (IMURAN) 50 MG Tablet [Pharmacy Med Name: AZATHIOPRINE TABS 50MG] 90 Tablet 3 Sig: TAKE 1 TABLET DAILY Last fill: 01/28/2021 Patients last OV with GI: 01/28/2021 Next Office Visit with GI: None scheduled. Medication failed protocol. Order pended, please review. ECTION SYSTEMS ADMINISTRATOR documented in this encounter Plan of Treatment Not on file documented as of this encounter Visit Diagnoses Diagnosis Crohn's disease of small intestine without complication (HCC) Regional enteritis of small intestine documented in this encounter Care Teams Food Production Manager Relationship Specialty Start Date End Date Manjit Obregon MD [address] [place] [address] PCP - General Internal Medicine 04/28/16 Leeroy Kim DO [address] [place] [address] Gastroenterology 04/29/16 documented as of this encounter
--- OUTSIDE RECORDS SUMMARY | 2024-10-11 12:47 | XMS_ITS | Encounter Summary ---
Author Organization [facility] Address [address] [facility] [place] [address] Care Team Providers Care Production Reproduction Manager Name Role Phone Manjit Obregon MD Primary Care Provider Encounter Details Date Type Department Care Team (Late st Contact Info) Description 05/27/2022 Lab Requisition [facility] DermPath Lab [address] [place] [phone] Cachorro [place] [address] Social History Tobacco Use Types Packs/Day Years [...] Comments DERMATOPATHOLOGY Routine 05/26/2022 12:0 0 AM FLUTE GRINDER documented in this encounter Results * DERMATOPATHOLOGY (05/26/2022 12:00 AM FLUTE GRINDER) Case Report Dermatopathology Report Case: [id number] Authorizing Provider: Cachorro Ibrahim MD Collected: 05/26/2022 12:00 AM Ordering Location: [facility] DermPath Lab Received: 05/27/2022 01:33 PM Pathologist: Claudia Jorge MD Specimen: Skin, nose 2:18 PM FLUTE GRINDER DERMATOPATHOLOGY LABORATORY Final Diagnosis Specimen A. 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 Other 2 2:18 PM FLUTE GRINDER DERMATOPATHOLOGY LABORATORY Gross Description Specimen A: Received is one formalin filled container labeled with the patient's name and designated nose. The specimen consists of a shave biopsy measuring [id number]. Jar 0. 2 2:18 PM FLUTE GRINDER DERMATOPATHOLOGY LABORATORY Microscopic Description Specimen A. SKIN, nose: The epidermis shows parakeratosis, full thickness disorderly maturation of keratinocytes, mitoses at different levels, and dyskeratotic cells. Sections show abundant melanin within melanophages around the superficial vascular plexus. 2 2:18 PM FLUTE GRINDER DERMATOPATHOLOGY LABORATORY Disclaimer An external and internal positive and negative controls are appropriate for the histochemical, immunohistochemical and immunofluorescence stain(s) in this case (if any), except where stated explicitly. The performance characteristics of the stain(s) cited in this report were developed and its performance characteristic determined by the Dermatopathology Laboratory at [facility], directed by Dr. Roberto Jorge. These tests need not be, and therefore are not, approved by the [place] Food and Drug Administration. The tests are used for clinical purposes. Billing Codes Specimen Charges Stain Charges 51072 1 2 2:18 PM FLUTE GRINDER DERMATOPATHOLOGY LABORATORY Embedded Images 2 2:18 PM FLUTE GRINDER DERMATOPATHOLOGY LABORATORY Pathology/Cytolog y TISSUE SPECIMEN FROM SKIN / Unknown 05/26/2022 05/27/2022 1:33 PM FLUTE GRINDER Cachorro Ibrahim MD LAB - PATHOLOGY/CYTO LOGY ORDERABLES DERMATOPATHOLOGY LABORATORY [facility] - Department of Dermatology [facility] Medicine [address] [place] [address], [address] Floor [address] [phone] documented in this encounter Visit Diagnoses Not on filedocumented in this encounter Care Teams Production Reproduction Manager Relationship Specialty Start Date End Date Manjit Obregon MD [address] [address] PCP - General 04/21/22 documented as of this encounter
[2024-10-11 13:27] LABS: Basophils Percent Auto 0.4 % (0.2-1.2); Eosinophils Absolute Auto 0.1 K/mm3 (0-0.3); Eosinophils Percent Auto 1.2 % (0-4.4); Hematocrit 35.8 % (37.0-47.0); Hemoglobin 11.2 g/dL (12.0-15.0); Lymphocytes Absolute Auto 1.32 K/mm3 (0.9-3.2); Lymphocytes Percent Auto 27.1 % (18.3-44.2); Mean Corpuscular HGB Conc 31.3 g/dl (32-36); Mean Corpuscular Hemoglobin 27.8 pg (26-34); Mean Corpuscular Volume 88.8 fl (80-100); Mean Platelet Volume 9.5 fl (7.4-10.4); Monocytes Absolute Auto 0.4 K/mm3 (0.1-0.6); Monocytes Percent Auto 7.2 % (2.6-8.5); Neutrophils Absolute Auto 3.1 K/mm3 (1.3-6.7); Neutrophils Percent Auto 64.1 % (45.5-73.1); Platelet Count Result 291 k/mm3 (150-375); Red Blood Count 4.03 M/mm3 (4.2-5.4); Red Cell Distribution Width 15.5 % (11.5-14.5); White Blood Count 4.9 K/mm3 (4.5-10.0)
[2024-10-11 13:37] LABS: Alanine Aminotransferase 12 U/L (6-35); Albumin Level 3.7 g/dL (3.5-5.1); Alkaline Phosphatase 95 U/L (38-126); Anion Gap 8 mmol/L (4-12); Aspartate Amino Transferase 20 U/L (14-36); Bilirubin,Total 0.2 mg/dL (0.2-1.3); Blood Urea Nitrogen 14 mg/dL (7-17); Carbon Dioxide 30 mmol/L (22-30); Chloride 104 mmol/L (98-107); Estimated Glomerular Filt Rate > 60; Glucose 110 mg/dL (65-110); Potassium 3.2 mmol/L (3.4-5.0); Sodium 142 mmol/L (137-145)
[2024-10-11 13:59] LABS: Vitamin D 25 Hydroxy 19.6 ng/mL
[2024-10-11 14:07] LABS: Thyroid Stimulating Hormone 0.223 uIU/mL (0.465-4.680)
== END 2024-10-11 12:36 | disposition home or self-care (01) ==
PROVIDERS: PCP Emergency Medicine; Visit Provider Emergency Medicine
DX: E78.5 Hyperlipidemia, unspecified (principal); I10 Essential (primary) hypertension; E55.9 Vitamin D deficiency, unspecified; R53.83 Other fatigue
CPT/HCPCS: 36415; 80053; 82306; 84443; 85025

== ENCOUNTER 2024-10-15 13:47 | Outpatient (CLI) | payer MEDICARE, SELFPAY ==
[2024-10-15 14:29] LABS: Potassium 4.3 mmol/L (3.4-5.0)
--- OUTSIDE RECORDS SUMMARY | 2024-10-15 15:46 | XMS_ITS | Clinical Summary ---
Author Organization [facility] Address [address] [facility] [place] [address] Care Team Providers Care Garment Parts Cutter Machine Name Role Phone Manjit Obregon MD Primary Care Provider Source Comments [facility],non-Critical access hospitalates and Associated Physician Practices is amultiple site organization consisting of ambulatory clinics and hospital sitesin [place], [place], [place] and [place]. This disclosure is being madepursuant to the Care Everywhere program and may not contain all information available regarding this patient. Last updated 18.[facility] Social History Tobacco Use Types Packs/Day [...] VACCINE ( - 2023-2 5 season) 2024 DEPRESSION SCREENING 07/11/2024 INFLUENZA VACCINE (Season Ended) 2025 HEPATITIS B VACCINE Aged Out No longe [...] age to complete this topic Care Teams Garment Parts Cutter Machine Relationship Specialty Start Date End Date Manjit Obregon MD [address] [place] [address] PCP - General 04/21/22
--- OUTSIDE RECORDS SUMMARY | 2024-10-15 15:46 | XMS_ITS | Encounter Summary ---
Author Organization [facility] Address [address] [facility] [place] [address] Care Team Providers Care Carbide Die Maker Name Role Phone Manjit Obregon MD Primary Care Provider Encounter Details Date Type Department Care Team (Late st Contact Info) Description 05/27/2022 Lab Requisition [facility] DermPath Lab [address] [place] [phone] [place] [address] Social History Tobacco Use Types Packs/Day Years [...] Comments DERMATOPATHOLOGY Routine 05/26/2022 12:0 0 AM MEDICARE INTERVIEWER documented in this encounter Results * DERMATOPATHOLOGY (05/26/2022 12:00 AM MEDICARE INTERVIEWER) Case Report Dermatopathology Report Case: [id number] Authorizing Provider: Cachorro Ibrahim MD Collected: 05/26/2022 12:00 AM Ordering Location: [facility] DermPath Lab Received: 05/27/2022 01:33 PM Pathologist: Claudia Jorge MD Specimen: Skin, nose 2:18 PM MEDICARE INTERVIEWER DERMATOPATHOLOGY LABORATORY Final Diagnosis Specimen A. 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 Other 2 2:18 PM MEDICARE INTERVIEWER DERMATOPATHOLOGY LABORATORY Gross Description Specimen A: Received is one formalin filled container labeled with the patient's name and designated nose. The specimen consists of a shave biopsy measuring [id number]. Jar 0. 2 2:18 PM MEDICARE INTERVIEWER DERMATOPATHOLOGY LABORATORY Microscopic Description Specimen A. SKIN, nose: The epidermis shows parakeratosis, full thickness disorderly maturation of keratinocytes, mitoses at different levels, and dyskeratotic cells. Sections show abundant melanin within melanophages around the superficial vascular plexus. 2 2:18 PM MEDICARE INTERVIEWER DERMATOPATHOLOGY LABORATORY Disclaimer An external and internal [...] purposes. Billing Codes Specimen Charges Stain Charges 01278 1 2 2:18 PM MEDICARE INTERVIEWER DERMATOPATHOLOGY LABORATORY Embedded Images 2 2:18 PM MEDICARE INTERVIEWER DERMATOPATHOLOGY LABORATORY Pathology/Cytolog y TISSUE SPECIMEN FROM SKIN / Unknown 05/26/2022 05/27/2022 1:33 PM MEDICARE INTERVIEWER Cachorro Ibrahim MD LAB - PATHOLOGY/CYTO LOGY ORDERABLES DERMATOPATHOLOGY LABORATORY [facility] - Department of Dermatology [facility] Medicine [address] [place] [address], [address] [phone] documented in this encounter Visit Diagnoses Not on filedocumented in this encounter Care Teams Carbide Die Maker Relationship Specialty Start Date End Date Manjit Obregon MD [address] [address] PCP - General 04/21/22 documented as of this encounter
--- OUTSIDE RECORDS SUMMARY | 2024-10-15 15:46 | XMS_ITS | Continuity of Care Document ---
Author Organization [facility] [place] Address [address] [place] [address] [place] [address] Phone Care Team Providers Care Lime Puller Name Role Phone Marah Birmingham Unavailable Unavailable [...] Providers Copied on Encounter Office/outpat ient Visit, [facility], [address] [place] [address] [address], [place], [place], [id number], [place] tel:[phone] [facility] No Information Sep-1 4-201 0 Valencia [address]on [address], [place], [address], [place]. tel:[phone] Office/outpat ient Visit, [facility], [address] [place] [address] [address], [place], [place], [address], [place] tel:[phone] [facility] No Information Sep-0 8-200 9 Valencia Weston [address] , [address], [place], [place], [facility], [place]. tel:[phone] Referring Provider: Marah Taveras, [address], [place], [place], [facility]. tel:[phone] Office/outpat ient Visit, [facility], [address], [place], [place], [address], [place] tel:[phone] [facility] No Information 200 9 [address] [place]. [address], [place], [facility], [place]. tel:[phone] [facility], [address], [place], [place], [address], [place] tel:[phone] [facility] No Information 200 8 [address] [place]. [address], [place], [facility], [place]. tel:[phone] [facility], [address], [place], [place], [address], [place] tel:[phone] [facility] No Information 0 8-200 8 Valencia Crystal. [address] , [address], [place], [facility], [place]. tel:[phone] [facility], [address], [place], [place], [address], [place] tel:[phone] [facility] No Information 1-200 8 Haddad OD Leeroy. [address], [place], [facility], [place]. tel:[phone] [facility], [address], [place], [place], [address], [place] tel:[phone] [facility] No Information 1200 8 [address] [place]. [address], [place], [facility], . tel:[phone] [facility], [address] [place] [address] [address], [place], [place], [address], tel:[phone] [facility] No Information Jan-2 2-200 8 Valencia Weston [address] [facility] , [address], [place], [facility], . tel:[phone] Referring Provider: Marah Taveras [address] [facility], [place], [facility]. tel:[phone] [facility], [address] [place] [address] [address], [place], [place], [address], tel:[phone] [facility] No Information Elias-0 1-200 8 Valencia Crystal. [address] [facility] , [address], [place], [facility], . tel:[phone] [facility], [address] [place] [address] [address], [place], [place], [address], tel:[phone] [facility] No Information Apr-0 3-200 7 Valencia Crystal. [facility] , [address], [place], [place], [facility], . tel:[phone] Family History Family Member Type Diagnosis Age At Onset No Information Payers Payer name Insurance type Covered democrat ID Authorshahida tisenia(s) [place] [id number] Social History Type Description Quantity Date Captured [...]
--- OUTSIDE RECORDS SUMMARY | 2024-10-15 15:46 | XMS_ITS | Clinical Summary ---
Author Organization [facility] Address [address] [place] [address] Phone Care Team Providers Care Yarding Supervisor Name Role Phone Manjit Obregon MD Primary Care Provider [phone] Leeroy Kim DO Unavailable [phone] Allergies Active Allergy Reactions Criticality Noted [...] Capsule 3 1 Active ergocalciferol (VITAMIN D) 89559 UNIT Capsule Take 1 Capsule by mouth [...] Covid-19 Vaccine, Vector-nr, Rs-ad26, Pf, 0.5 Ml (WestEd/TYFFON) 09/16/2020 Hepatitis B Vaccine 04/07/2015 Influenza, Seasonal, [...] Comments BONE DENSITY GENERIC 06/13/2021 12:00 AM MANAGEMENT TRAINEE MARKETING COLONOSCOPY Routine 07/19/2019 from Last 3 Months or Most Recently Relevant to Health Maintenance Results * BONE DENSITY GENERIC SCAN (06/13/2021 12:00 AM MANAGEMENT TRAINEE MARKETING) 06/13/2021 us Not On File Provider IMG DEXA ORDERABLES Final R esult SCAN * HM COLONOSCOPY (07/19/2019) Leeroy Kim DO PROCEDURE/MINOR SURGICAL ORDERA BLES Final Result from Last 3 Months or Most Recently Relevant to Health Maintenance Insurance MEDICARE [facility] Care Teams Yarding Supervisor Relationship Specialty Start Date End Date Manjit Obregon MD [address] [place] [address] PCP - General Internal Medicine 04/28/16 Leeroy Kim DO [address] [place] [address] Gastroenterology 04/29/16
--- OUTSIDE RECORDS SUMMARY | 2024-10-15 15:46 | XMS_ITS | Encounter Summary ---
Author Organization [facility] Address [address] [facility] [place] [address] Phone Care Team Providers Care Information Support Project Manager Name Role Phone Manjit Obregon MD Primary Care Provider [phone] Leeroy Kim DO Unavailable [phone] Reason for Visit * Reason Comments Medication Refill Encounter Details Date Type Department Care Team (Late st Contact Info) Description 01/13/2021 Refill [facility] - Gastroenterology [facility] [address] [place] [address] Linda Gallego Ketty, PAC [address] [place] [address] Medication Refill Social History Tobacco Use Types [...] on filedocumented in this encounter Care Teams Information Support Project Manager Relationship Specialty Start Date End Date Manjit Obregon MD [address] [place] [address] PCP - General Internal Medicine 04/28/16 Leeroy Kim DO [address] [place] [address] Gastroenterology 04/29/16 documented as of this encounter
--- OUTSIDE RECORDS SUMMARY | 2024-10-15 15:46 | XMS_ITS | Encounter Summary ---
Author Organization [facility] Address [address] [facility] [place] [address] Phone Care Team Providers Care Cork Insulation Setter Name Role Phone Manjit Obregon MD Primary Care Provider [phone] Leeroy Kim DO Unavailable [phone] Reason for Visit * Reason Comments Medication Refill Encounter Details Date Type Department Care Team (Late Contact Info) Description 12/26/2019 Refill [facility] Group - Gastroenterology [facility] [address] [place] [address] Leeroy Kim, DO [address] [address] Medication Refill Social History Tobacco [...] on filedocumented in this encounter Care Teams Cork Insulation Setter Relationship Specialty Start Date End Date Manjit Obregon MD [address] [place] [address] PCP - General Internal Medicine 04/28/16 Leeroy Kim DO [address] [place] [address] Gastroenterology 04/29/16 documented as of this encounter
--- OUTSIDE RECORDS SUMMARY | 2024-10-15 15:46 | XMS_ITS | Encounter Summary ---
Author Organization [facility] Address [address] [place] [address] Phone Care Team Providers Care Med Care Manager Name Role Phone Manjit Obregon MD Primary Care Provider [phone] Leeroy Kim DO Unavailable Reason for Visit * Reason Comments Medication Refill Encounter Details Date Type Department Care Team ([facility] Contact Info) Description 06/30/2021 Refill [facility] Medical Group - Gastroenterology [facility] [address] [place] [address] Linda Gallego Ketty, PAC [address] [place] [address] Medication Refill Social History Tobacco Use Types [...] Emilia Padron RN - 07/01/2021 9:48 AM VALET SERVICE ATTENDANT Pharmacy requesting refill of: Requested Prescriptions Pending Prescriptions Disp Refills ??? azaTHIOprine (IMURAN) 50 MG Tablet [Pharmacy Med Name: AZATHIOPRINE TABS 50MG] 90 Tablet 3 Sig: TAKE 1 TABLET DAILY Last fill: 01/28/2021 Patients last OV with GI: 01/28/2021 Next Office Visit with GI: None scheduled. Medication failed protocol. Order pended, please review. T SERVICE ATTENDANT documented in this encounter Plan of Treatment Not on file documented as of this encounter Visit Diagnoses Diagnosis Crohn's disease of small intestine without complication (HCC) Regional enteritis of small intestine documented in this encounter Care Teams Med Care Manager Relationship Specialty Start Date End Date Manjit Obregon MD [address] [place] [address] PCP - General Internal Medicine 04/28/16 Leeroy Kim DO [address] [place] [address] Gastroenterology 04/29/16 documented as of this encounter
== END 2024-10-15 13:48 | disposition home or self-care (01) ==
PROVIDERS: PCP Emergency Medicine; Visit Provider Emergency Medicine
DX: E87.6 Hypokalemia (principal)
CPT/HCPCS: 36415; 84132

== ENCOUNTER 2024-11-20 09:31 | Outpatient (CLI) | payer MEDICARE, SELFPAY ==
--- OUTSIDE RECORDS SUMMARY | 2024-11-20 09:44 | XMS_ITS | Encounter Summary ---
Author Organization [facility] Address [address] [facility] [place] [address] Care Team Providers Care Residential Pest Control Technician Name Role Phone Manjit Obregon MD Primary Care Provider Encounter Details Date Type Department Care Team (Late st Contact Info) Description 05/27/2022 Lab Requisition [facility] DermPath Lab [address] [place] [address] [place] [address] Social History Tobacco Use Types Packs/Day Years Used Date Smoking Tobacco: Never Assessed Comments Unknown Sex and Gender Information Value Date Recorded Sex Assigned at Not on file Legal Sex Female 10:51 AM MATERIAL HANDLER 1ST SHIFT Gender Identity Not on file Sexual Orientation Not on file documented as of this encounter Plan of Treatment Not on file documented as of this encounter Procedures Procedure Name Priority Date/Time Associated Diagnosis Comments DERMATOPATHOLOGY Routine 05/26/2022 12:0 0 AM MATERIAL HANDLER 1ST SHIFT documented in this encounter Results * DERMATOPATHOLOGY (05/26/2022 12:00 AM MATERIAL HANDLER 1ST SHIFT) Case Report Dermatopathology Report Case: [id number] Authorizing Provider: Cachorro Ibrahim MD Collected: 05/26/2022 12:00 AM Ordering Location: [facility] Care DermPath Lab Received: 05/27/2022 01:33 PM Pathologist: Claudia Jorge MD Specimen: Skin, nose 2:18 PM MATERIAL HANDLER 1ST SHIFT DERMATOPATHOLOGY LABORATORY Final Diagnosis Specimen A. 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 Other 2 2:18 PM [facility] DERMATOPATHOLOGY LABORATORY Gross Description Specimen A: Received is one formalin filled container labeled with the patient's name and designated nose. The specimen consists of a shave biopsy measuring [id number]. Jar 0. 2 2:18 PM MATERIAL HANDLER 1ST SHIFT DERMATOPATHOLOGY LABORATORY Microscopic Description Specimen A. SKIN, nose: The epidermis shows parakeratosis, full thickness disorderly maturation of keratinocytes, mitoses at different levels, and dyskeratotic cells. Sections show abundant melanin within melanophages around the superficial vascular plexus. 2 2:18 PM [facility] DERMATOPATHOLOGY LABORATORY Disclaimer An external and internal positive and negative controls are appropriate for the histochemical, immunohistochemical and immunofluorescence stain(s) in this case (if any), except where stated explicitly. The performance characteristics of the stain(s) cited in this report were developed and its performance characteristic determined by the Dermatopathology Laboratory at [facility], directed by Dr. Roberto Jorge. These tests need not be, and therefore are not, approved by the [place] Food and Drug Administration. The tests are used for clinical purposes. Billing Codes Specimen Charges Stain Charges 76447 1 2 2:18 PM MATERIAL HANDLER 1ST SHIFT DERMATOPATHOLOGY LABORATORY Embedded Images 2 2:18 PM [facility] DERMATOPATHOLOGY LABORATORY Pathology/Cytolog y TISSUE SPECIMEN FROM SKIN / Unknown 05/26/2022 05/27/2022 1:33 PM MATERIAL HANDLER 1ST SHIFT Cachorro Ibrahim MD LAB - PATHOLOGY/CYTOLOGY ORD ERABLES Final Result DERMATOPATHOLOGY LABORATORY [facility] - Department of Dermatology [facility] Medicine [address] [place] [address], [address] [phone] documented in this encounter Visit Diagnoses Not on filedocumented in this encounter Care Teams Residential Pest Control Technician Relationship Specialty Start Date End Date Manjit Obregon MD Count includes the [facility] [place] [id number] PCP - General 04/21/22 documented as of this encounter
--- OUTSIDE RECORDS SUMMARY | 2024-11-20 09:44 | XMS_ITS | Clinical Summary ---
Author Organization [facility] Address [address] [facility] [place] [address] Care Team Providers Care Picking Machine Operator Name Role Phone Manjit Obregon MD Primary Care Provider Source Comments [facility] [facility] and Associated Physician Practices is amultiple site organization consisting of ambulatory clinics and hospital sitesin [place], [place], [place] and [place]. This disclosure is being madepursuant to the Care Everywhere program and may not contain all information available regarding this patient. Last updated 18.[facility] Social History Tobacco Use Types Packs/Day Years Used Date Smoking Tobacco: Never Assessed Comments Unknown Sex and Gender Information Value Date Recorded Sex Assigned at Not on file Legal Sex Female 10:51 AM BANK CLERK Gender Identity Not on file Sexual Orientation [...] on patient's age to complete this topic Insurance MEDICARE MEDICARE MEDICARE Care Teams Picking Machine Operator Relationship Specialty Start Date End Date Manjit Obregon MD [address] [address] [facility] - General 04/21/22
--- OUTSIDE RECORDS SUMMARY | 2024-11-20 09:44 | XMS_ITS | Encounter Summary ---
Author Organization [facility] Address [address] [facility] [place] [address] Phone Care Team Providers Care Director Peoplesoft Name Role Phone Manjit Obregon MD Primary Care Provider [phone] Leeroy Kim DO Unavailable [phone] Reason for Visit * Reason Comments Medication Refill Encounter Details Date Type Department Care Team (Late st Contact Info) Description 12/26/2019 Refill [facility] Medical Group - Gastroenterology [facility] [address] [place] [address] Leeroy Kim, DO 4 [facility] [address] [id number] Medication Refill Social History Tobacco Use Types [...] requesting: Requested Prescriptions Pending Prescriptions Disp Refills â€¢ HUMIRA 40 MG/0.8ML Prefilled Syringe Kit [Pharmacy Med Name: HUMIRA PREFLD SYR 0.8ML 2'S 40MG] 6 Each 3 Sig: INJECT 0.8 ML UNDER THE SKIN EVERY 14 DAYS Last refill: 10/23/19 Last OV: 04/24/19 Next OV: 01/16/20 documented in this encounter Plan of Treatment Not on file documented as of this encounter Visit Diagnoses Not on filedocumented in this encounter Care Teams Director Peoplesoft Relationship Specialty Start Date End Date Manjit Obregon MD [address] [place] [address] PCP - General Internal Medicine 04/28/16 Leeroy Kim DO [address] [place] [address] Gastroenterology 04/29/16 documented as of this encounter
--- OUTSIDE RECORDS SUMMARY | 2024-11-20 09:44 | XMS_ITS | Encounter Summary ---
Author Organization [facility] Address [address] [facility] [place] [address] Phone Care Team Providers Care Mine Engineer Name Role Phone Manjit Obregon MD Primary Care Provider [phone] Leeroy Kim DO Unavailable [phone] Reason for Visit * Reason Comments Medication Refill Encounter Details Date Type Department Care Team (Late st Contact Info) Description 01/13/[address] [facility] - Gastroenterology [facility] [address] [place] [address] Linda Gallego Ketty, PAC [address] [place] [address] Medication Refill Social History Tobacco Use Types [...] of: Requested Prescriptions Pending Prescriptions Disp Refills â€¢ Pentasa 500 MG Capsule CR [Pharmacy Med Name: PENTASA ER CAPS 500MG] 240 Capsule 11 Sig: TAKE 2 CAPSULES FOUR TIMES A DAY Last fill: 01/07/2021 Patients last OV with GI: 01/16/2020 Next Office Visit with GI: 01/16/2021 documented in this encounter Plan of Treatment Not on file documented as of this encounter Visit Diagnoses Not on filedocumented in this encounter Care Teams Mine Engineer Relationship Specialty Start Date End Date Manjit Obregon MD [address] [place] [address] PCP - General Internal Medicine 04/28/16 Leeroy Kim DO [address] [place] [address] Gastroenterology 04/29/16 documented as of this encounter
--- OUTSIDE RECORDS SUMMARY | 2024-11-20 09:44 | XMS_ITS | Encounter Summary ---
Author Organization [facility] Address [address] [facility] [place] [place] [address] Phone Care Team Providers Care Survey Research Professor Name Role Phone Manjit Obregon MD Primary Care Provider [phone] Leeroy Kim DO Unavailable [phone] Reason for Visit * Reason Comments Medication Refill Encounter Details Date Type Department Care Team (Late st Contact Info) Description 06/30/2021 Refill [facility] - Gastroenterology [facility] [address] [place] [address] Linda Gallego Ketty, PAC [address] [place] [address] Medication Refill Social History Tobacco Use Types [...] Emilia Padron RN - 07/01/2021 9:48 AM PORTFOLIO CONSULTANT Pharmacy requesting refill of: Requested Prescriptions Pending Prescriptions Disp Refills â€¢ azaTHIOprine (IMURAN) 50 MG Tablet [Pharmacy Med Name: AZATHIOPRINE TABS 50MG] 90 Tablet 3 Sig: TAKE 1 TABLET DAILY Last fill: 01/28/2021 Patients last OV with GI: 01/28/2021 Next Office Visit with GI: None scheduled. Medication failed protocol. Order pended, please review. FOLIO CONSULTANT documented in this encounter Plan of Treatment Not on file documented as of this encounter Visit Diagnoses Diagnosis Crohn's disease of small intestine without complication (HCC) Regional enteritis of small intestine documented in this encounter Care Teams Survey Research Professor Relationship Specialty Start Date End Date Manjit Obregon MD [address] [place] [address] PCP - General Internal Medicine 04/28/16 Leeroy Kim DO [address] [place] [address] Gastroenterology 04/29/16 documented as of this encounter
--- OUTSIDE RECORDS SUMMARY | 2024-11-20 09:44 | XMS_ITS | Clinical Summary ---
Author Organization [facility] Address [address] [place] [address] Phone Care Team Providers Care Aviation Manager Name Role Phone Manjit Obregon MD Primary Care Provider [phone] Leeroy Kim DO Unavailable [phone] Allergies Active Allergy Reactions Criticality Noted Date [...] Capsule 3 1 Active ergocalciferol (VITAMIN D) 51242 UNIT Capsule Take 1 Capsule by mouth [...] Covid-19 Vaccine, Vector-nr, Rs-ad26, Pf, 0.5 Ml ([employer]) 09/16/2020 Hepatitis B Vaccine 04/07/2015 Influenza, Seasonal, [...] Comments BONE DENSITY GENERIC 06/13/2021 12:00 AM LITHOGRAPHING MACHINE OPERATOR COLONOSCOPY Routine 07/19/2019 from Last 3 Months or Most Recently Relevant to Health Maintenance Results * BONE DENSITY GENERIC SCAN (06/13/2021 12:00 AM LITHOGRAPHING MACHINE OPERATOR) 06/13/2021 us Not On File Provider IMG DEXA ORDERABLES Final R esult SCAN * HM COLONOSCOPY (07/19/2019) Leeroy Kim DO PROCEDURE/MINOR SURGICAL ORDERA BLES Final Result from Last 3 Months or Most Recently Relevant to Health Maintenance Insurance MEDICARE [facility] Care Teams Aviation Manager Relationship Specialty Start Date End Date Manjit Obregon MD [address] [place] [address] PCP - General Internal Medicine 04/28/16 Leeroy Kim DO [address] [place] [address] Gastroenterology 04/29/16
[2024-11-20 10:59] LABS: Thyroid Stimulating Hormone 0.646 uIU/mL (0.465-4.680)
== END 2024-11-20 09:32 | disposition home or self-care (01) ==
PROVIDERS: PCP Emergency Medicine; Visit Provider Emergency Medicine
DX: E03.9 Hypothyroidism, unspecified (principal)
CPT/HCPCS: 36415; 84443

== ENCOUNTER 2025-01-10 10:45 | Outpatient (CLI) | payer MEDICARE, SELFPAY ==
--- OUTSIDE RECORDS SUMMARY | 2025-01-10 10:49 | XMS_ITS | Encounter Summary ---
Author Organization [facility] Address [address] [facility] [place] [address] Care Team Providers Care Director Video Name Role Phone Manjit Obregon MD Primary Care Provider Encounter Details Date Type Department Care Team (Late st Contact Info) Description 05/27/2022 Lab Requisition [facility] [address] [place] [address] [place] [address] Social History Tobacco Use Types Packs/Day Years Used Date Smoking Tobacco: Never Assessed Comments Unknown Sex and Gender Information Value Date Recorded Sex Assigned at Not on file Legal Sex Female 10:51 AM CORE ANALYST Gender Identity Not on file Sexual Orientation Not on file documented as of this encounter Plan of Treatment Not on file documented as of this encounter Procedures Procedure Name Priority Date/Time Associated Diagnosis Comments DERMATOPATHOLOGY Routine 05/26/2022 12:0 0 AM CORE ANALYST documented in this encounter Results * DERMATOPATHOLOGY (05/26/2022 12:00 AM CORE ANALYST) Case Report Dermatopathology Report Case: [id number] Authorizing Provider: Cachorro Ibrahim MD Collected: 05/26/2022 12:00 AM Ordering Location: [facility] Care D[facility] Lab Received: 05/27/2022 01:33 PM Pathologist: Claudia Jorge MD Specimen: Skin, nose 2:18 PM CORE ANALYST DERMATOPATHOLOGY LABORATORY Final Diagnosis Specimen A. 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 Other 2 2:18 PM [facility] DERMATOPATHOLOGY [facility]OR[facility]ORY Gross Description Specimen A: Received is one formalin filled container labeled with the patient's name and designated nose. The specimen consists of a shave biopsy measuring [id number]. Jar 0. 2 2:18 PM [facility] DERMATOPATHOLOGY [facility]ORATORY Microscopic Description Specimen A. SKIN, nose: The epidermis shows parakeratosis, full thickness disorderly maturation of keratinocytes, mitoses at different levels, and dyskeratotic cells. Sections show abundant melanin within melanophages around the superficial vascular plexus. 2 2:18 PM [facility] DERMATOPATHOLOGY [facility]ORATORY Disclaimer An external and internal positive and negative controls are appropriate for the histochemical, immunohistochemical and immunofluorescence stain(s) in this case (if any), except where stated explicitly. The performance characteristics of the stain(s) cited in this report were developed and its performance characteristic determined by the Dermatopathology Laboratory at [facility], directed by Dr. Roberto Jorge. These tests need not be, and therefore are not, approved by the [place] Food and Drug Administration. The tests are used for clinical purposes. Billing Codes Specimen Charges Stain Charges 37571 1 2 2:18 PM [facility] DERMATOPATH[facility]Y [facility]OR[facility]ORY Embedded Images 2 2:18 PM [facility]ATH[facility] Pathology/Cytolog y TISSUE SPECIMEN FROM SKIN / Unknown 05/26/2022 05/27/2022 1:33 PM CORE ANALYST Cachorro Ibrahim MD LAB - PATHOLOGY/CYTOLOGY ORD ERABLES Final Result DERMATOPATHOLOGY LABORATORY [facility] - Department of Dermatology [facility] Medicine [address] [place] [address], [address] [phone] documented in this encounter Visit Diagnoses Not on filedocumented in this encounter Care Teams Director Video Relationship Specialty Start Date End Date Manjit Obregon MD [facility] [address] PCP - General 04/21/22 documented as of this encounter
--- OUTSIDE RECORDS SUMMARY | 2025-01-10 10:49 | XMS_ITS | Clinical Summary ---
Author Organization [facility] Address [address] [place] [address] Phone Care Team Providers Care Advertising Sales Assistant Name Role Phone Manjit Obregon MD Primary Care Provider [phone] Leeroy Kim DO Unavailable [phone] Allergies Active Allergy Reactions Criticality Noted [...] Capsule 3 1 Active ergocalciferol (VITAMIN D) 65228 UNIT Capsule Take 1 Capsule by mouth [...] Covid-19 Vaccine, Vector-nr, Rs-ad26, Pf, 0.5 Ml ([employer]) 09/16/2020 Hepatitis B Vaccine 04/07/2015 Influenza, Seasonal, [...] 11:24 AM CDT Height 170.2 cm (5' 7) 01/28/2021 11:24 AM CDT Body Mass Index 23.02 01/28/2021 11:24 AM CDT Plan of Treatment Health Maintenance Due Date Last Done Comments Hepatitis C Virus (HCV) Screening 1940 TdaP Immunization 1940 Cologuard 1986 Immunochemical Fecal Occult Blood 1986 Hepatitis B Immunization (2 of 3 - 19+ 3-dose series) 05/05/2015 04/07/2015 Respiratory Syncytial Virus (RSV) Immunization (Adult) (1 - 1-dose 75+ series) 2016 Colonoscopy 07/19/2021 07/19/2019, 11/2016, 05/15/2015, Additional history exists Colorectal Cancer Screening 07/19/2021 SARS-COV-2 Immunization (2023- season) 2024 08/21/2021, 09/16/2020 Influenza Immunization (#1) 03/11/202504/10, 05/28/2018, 05/18/2017, Additional history exists Pneumococcal Immunization (50+ years) Completed 05/13/2016, 04/16/2015 Pneumococcal Immunization Combined Discontinued 05/13/2016, 04/16/2015 Zoster Immunization Completed 08/31/2018, 8 DEXA Bone Density Discontinued 06/13/2021, 04/27/2019 Human Papillomavirus (HPV) Immunization Aged Out No longer eligible based on patient's age to complete this topic Meningococcal Immunization (ACWY) Aged Out No longer eligible based on patient's age to complete this topic Rotavirus Immunization Aged Out No lo nger eligible based on patient's age to complete this topic Procedures Procedure Name Priority Date/Time Associated Diagnosis Comments BONE DENSITY GENERIC 06/13/2021 12:00 AM FERRYBOAT OPERATOR COLONOSCOPY Routine 07/19/2019 from Last 3 Months or Most Recently Relevant to Health Maintenance Results * BONE DENSITY GENERIC SCAN (06/13/2021 12:00 AM FERRYBOAT OPERATOR) 06/13/2021 us Not On File Provider IMG DEXA ORDERABLES Final R esult SCAN * HM COLONOSCOPY (07/19/2019) Leeroy Kim DO PROCEDURE/MINOR SURGICAL ORDERA BLES Final Result from Last 3 Months or Most Recently Relevant to Health Maintenance Insurance MEDICARE [facility] Care Teams Advertising Sales Assistant Relationship Specialty Start Date End Date Manjit Obregon MD [address] [place] [address] PCP - General Internal Medicine 04/28/16 Leeroy Kim DO [address] [place] [address] Gastroenterology 04/29/16
--- OUTSIDE RECORDS SUMMARY | 2025-01-10 10:49 | XMS_ITS | Encounter Summary ---
Author Organization [facility] Address [address] [facility] [place] [address] Phone Care Team Providers Care Anesthesia Director Name Role Phone Manjit Obregon MD Primary Care Provider [phone] Leeroy Kim DO Unavailable [phone] Reason for Visit * Reason Comments Medication Refill Encounter Details Date Type Department Care Team (Late st Contact Info) Description 01/13/2021 Refill [facility] - Gastroenterology [facility] [address] [place] [address] Linda Gallego Ketty, PAC [address] [place] [address] Medication Refill Social History Tobacco Use Types [...] on filedocumented in this encounter Care Teams Anesthesia Director Relationship Specialty Start Date End Date Manjit Obregon MD [address] [place] [address] PCP - General Internal Medicine 04/28/16 Leeroy Kim DO [address] [place] [address] Gastroenterology 04/29/16 documented as of this encounter
--- OUTSIDE RECORDS SUMMARY | 2025-01-10 10:49 | XMS_ITS | Clinical Summary ---
Author Organization [facility] Address [address] [place] [address] Care Team Providers Care Foam Rubber Mixer Name Role Phone Manjit Obregon MD Primary Care Provider Source Comments [facility] and Associated [facility]ician Practices is amultiple site organization consisting of ambulatory clinics and hospital sitesin [place], [place], [place] and [place]. This disclosure is being madepursuant to the Care Everywhere program and may not contain all information available regarding this patient. Last updated 18.[facility] Social History Tobacco Use Types Packs/Day Years Used Date Smoking Tobacco: Never Assessed Comments Unknown Sex and Gender Information Value Date Recorded Sex Assigned at Not on file Legal Sex Female 10:51 AM SEWING DEMONSTRATOR Gender Identity Not on file Sexual Orientation [...] topic Insurance MEDICARE MEDICARE MEDICARE Care Teams Foam Rubber Mixer Relationship Specialty Start Date End Date Manjit Obregon MD [address] [address] [facility] - General 04/21/22
--- OUTSIDE RECORDS SUMMARY | 2025-01-10 10:49 | XMS_ITS | Encounter Summary ---
Author Organization [facility] Address [address] [facility] [place] [address] Phone Care Team Providers Care Pearl Glue Drier Name Role Phone Manjit Obregon MD Primary Care Provider [phone] Leeroy Kim DO Unavailable [phone] Reason for Visit * Reason Comments Medication Refill Encounter Details Date Type Department Care Team (Late st Contact Info) Description 06/30/2021 Refill [facility] - Gastroenterology [facility] [address] [place] [address] Linda Gallego Ketty, PAC [address] [place] [address] Medication Refill Social History Tobacco Use Types [...] Emilia Padron RN - 07/01/2021 9:48 AM HARDWOOD FLOOR INSTALLER Pharmacy requesting refill of: Requested Prescriptions Pending Prescriptions Disp Refills ??? azaTHIOprine (IMURAN) 50 MG Tablet [Pharmacy Med Name: AZATHIOPRINE TABS 50MG] 90 Tablet 3 Sig: TAKE 1 TABLET DAILY Last fill: 01/28/2021 Patients last OV with GI: 01/28/2021 Next Office Visit with GI: None scheduled. Medication failed protocol. Order pended, please review. WOOD FLOOR INSTALLER documented in this encounter Plan of Treatment Not on file documented as of this encounter Visit Diagnoses Diagnosis Crohn's disease of small intestine without complication (HCC) Regional enteritis of small intestine documented in this encounter Care Teams Pearl Glue Drier Relationship Specialty Start Date End Date Manjit Obregon MD [address] [place] [address] PCP - General Internal Medicine 04/28/16 Leeroy Kim DO [address] [place] [address] Gastroenterology 04/29/16 documented as of this encounter
[2025-01-10 11:24] LABS: Hematocrit 41.1 % (37.0-47.0); Hemoglobin 12.9 g/dL (12.0-15.0); Mean Corpuscular HGB Conc 31.4 g/dl (32-36); Mean Corpuscular Hemoglobin 28.3 pg (26-34); Mean Corpuscular Volume 90.1 fl (80-100); Platelet Count Result 263 k/mm3 (150-375); Red Blood Count 4.56 M/mm3 (4.2-5.4); White Blood Count 8.2 K/mm3 (4.5-10.0)
[2025-01-10 11:42] LABS: Alanine Aminotransferase 11 U/L (6-35); Albumin Level 4.0 g/dL (3.5-5.1); Alkaline Phosphatase 95 U/L (38-126); Anion Gap 9 mmol/L (4-12); Aspartate Amino Transferase 25 U/L (14-36); Bilirubin,Total 0.4 mg/dL (0.2-1.3); Blood Urea Nitrogen 15 mg/dL (7-17); CRP 0.7 mg/dL (<1.0); Calcium 9.5 mg/dL (8.4-10.2); Carbon Dioxide 27 mmol/L (22-30); Chloride 104 mmol/L (98-107); Creatine Kinase 43 U/L (30-135); Estimated Glomerular Filt Rate > 60; Glucose 123 mg/dL (65-110); Potassium 3.8 mmol/L (3.4-5.0); Sodium 140 mmol/L (137-145); Total Protein 7.9 g/dL (6.3-8.2)
== END 2025-01-10 10:46 | disposition home or self-care (01) ==
LOC: ANHLAB 10:47
PROVIDERS: PCP Emergency Medicine; Visit Provider Internal Medicine Gastroenterology
DX: K50.919 Crohn's disease, unspecified, with unspecified complications (principal); K56.600 Partial intestinal obstruction, unspecified as to cause
CPT/HCPCS: 36415; 80053; 82550; 85027; 86140

== ENCOUNTER 2025-03-04 14:00 | Outpatient (CLI) | payer MEDICARE, SELFPAY ==
--- OUTSIDE RECORDS SUMMARY | 2010-03-24 09:00 | XMS_ITS | Continuity of Care Document ---
Author Organization [facility] [place] [place] Address [address] [place] [address] [place] [address] Phone Care Team Providers Care Front Desk Attendant Name Role Phone Marah Birmingham Unavailable Unavailable [...] Providers Copied on Encounter Office/outpat ient Visit, [facility], [address] [place] [address] [address], [place], [place], [address], [place] tel:[phone] [facility] No Information Sep-1 4-201 0 Valencia Weston [address], [place], [address], [place]. tel:[phone] Office/outpat ient Visit, [facility], [address] [place] [address] [address], [place], [place], [address], tel:[phone] [facility] No Information Sep-0 8-200 9 Valencia Weston [address], [place], [facility], [place]. tel:[phone] Referring Provider: Marah Taveras, [address], [place], [facility]. tel:[phone] Office/outpat ient Visit, Est [facility], [address], [place], [place], [address], [place] tel:[phone] [facility] No Information 200 9 Valencia Crystal. [address], [place], [facility], [place]. tel:[phone] [facility], [address], [place], [place], [address], [place] tel:[phone] [facility] No Information 200 8 Valencia Crystal. [address], [place], [facility], [place]. tel:[phone] [facility], [address], [place], [place], [address], [place] tel:[phone] [facility] No Information 0 8-200 8 Valencia Crystal. [address], [place], [facility], [place]. tel:[phone] [facility], [address], [place], [place], [address], [place] tel:[phone] [facility] No Information 1-200 8 Haddad OD Leeroy. [address], [place], [facility], [place]. tel:[phone] [facility], [address], [place], [place], [address], [place] tel:[phone] [facility] No Information 1200 8 Valencia Crystal. [address], [place], [facility], . tel:[phone] [facility], [address] [place] [address] [address], [place], [place], [address], tel:[phone] [facility] No Information Jan-2 2-200 8 Valencia Weston [address] [facility] , [address], [place], [facility], . tel:[phone] Referring Provider: Marah Taveras [address] [facility] [place] [address], [place], [facility]. tel:[phone] [facility], [address] [place] [address] [address], [place], [place], [address], tel:[phone] [facility] No Information Elias-0 1-200 8 Valencia Crystal. [address] [facility] , [address], [place], [facility], . tel:[phone] [facility], [address] [place] [address] [address], [place], [place], [address], tel:[phone] [facility] No Information Apr-0 3-200 7 Valencia Crystal. [facility] , [address], [place], [facility], . tel:[phone] Family History Family Member Type Diagnosis Age At Onset No Information Payers Payer name Insurance type Covered libertarian ID Authorshahida tisenia(s) [place] [id number] Social History Type Description Quantity Date Captured [...]
--- NOTE | ~2025-03-04 | MM_ITS ---
EXAMINATION: MM screening rajiv BI w deangelo HISTORY: Screening TECHNIQUE: Craniocaudal and mediolateral oblique 3-D tomosynthesis images were obtained and synthetic 2-D images were generated. CAD analysis was submitted and interpreted. COMPARISON: Comparison to multiple prior studies sequentially, with oldest reviewed study dated 09/12/2019. BREAST PARENCHYMAL COMPOSITION: There are scattered areas of fibroglandular density. FINDINGS: There is no evidence of suspicious mass, calcification, or architectural distortion to suggest malignancy in either breast. IMPRESSION: 1. No mammographic evidence of malignancy. 2. Recommend routine screening mammography in one year. BI-RADS Category 1: Negative Reviewed, dictated and finalized at location B.
--- OUTSIDE RECORDS SUMMARY | 2025-03-04 14:05 | XMS_ITS | Clinical Summary ---
Author Organization [facility] Address [address] [place] [address] Phone Care Team Providers Care Student Assistance Counselor Name Role Phone Manjit Obregon MD Primary Care Provider [phone] Leeroy Kim DO Unavailable [phone] Allergies Active Allergy Reactions Criticality Noted [...] Capsule 3 1 Active ergocalciferol (VITAMIN D) 30544 UNIT Capsule Take 1 Capsule by mouth [...] Covid-19 Vaccine, Vector-nr, Rs-ad26, Pf, 0.5 Ml ([employer]) 09/16/2020 Hepatitis B Vaccine 04/07/2015 Influenza, Seasonal, [...] Comments BONE DENSITY GENERIC 06/13/2021 12:00 AM GAS METER INSTALLER HELPER COLONOSCOPY Routine 07/19/2019 from Last 3 Months or Most Recently Relevant to Health Maintenance Results * BONE DENSITY GENERIC SCAN (06/13/2021 12:00 AM GAS METER INSTALLER HELPER) 06/13/2021 us Not On File Provider IMG DEXA ORDERABLES Final R esult SCAN * HM COLONOSCOPY (07/19/2019) Leeroy Kim DO PROCEDURE/MINOR SURGICAL ORDERA BLES Final Result from Last 3 Months or Most Recently Relevant to Health Maintenance Insurance MEDICARE [facility] Care Teams Student Assistance Counselor Relationship Specialty Start Date End Date Manjit Obregon MD [address] [place] [address] PCP - General Internal Medicine 04/28/16 Leeroy Kim DO [address] [place] [address] Gastroenterology 04/29/16
--- OUTSIDE RECORDS SUMMARY | 2025-03-04 14:05 | XMS_ITS | Clinical Summary ---
Author Organization [facility] Address [address] [place] [address] Care Team Providers Care Gmat Tutor Name Role Phone Manjit Obregon MD Primary Care Provider [phone] Source Comments [facility] and Associated Physician Practices is amultiple site organization consisting of ambulatory clinics and hospital sitesin [place], [place], [place] and [place]. This disclosure is being madepursuant to the Care Everywhere program and may not contain all information available regarding this patient. Last updated 18.[facility] Social History Tobacco Use Types Packs/Day Years Used Date Smoking Tobacco: Never Assessed Comments Unknown Sex and Gender Information Value Date Recorded Sex Assigned at Not on file Legal Sex Female 10:51 AM LONG TERM CARE PHLEBOTOMIST Gender Identity Not on file Sexual Orientation [...] season) 2024 DEPRESSION SCREENING 07/11/2024 INFLUENZA VACCINE (#1) 2025 HEPATITIS B VACCINE Aged Out No [...] topic Insurance MEDICARE MEDICARE MEDICARE Care Teams Gmat Tutor Relationship Specialty Start Date End Date Manjit Obregon MD [address] [address] [facility] - General 04/21/22
--- OUTSIDE RECORDS SUMMARY | 2025-03-04 14:05 | XMS_ITS | Encounter Summary ---
Author Organization [facility] Address [address] [facility] [place] [address] Phone Care Team Providers Care Avionics System Engineer Name Role Phone Manjit Obregon MD Primary Care Provider [phone] Leeroy Kim DO Unavailable [phone] Reason for Visit * Reason Comments Medication Refill Encounter Details Date Type Department Care Team (Late st Contact Info) Description 06/30/2021 Refill [facility] Group - Gastroenterology [facility] [address] [place] [address] Linda Gallego Ketty, PAC [address] [place] [address] Medication Refill Social History Tobacco Use Types [...] Emilia Padron RN - 07/01/2021 9:48 AM RETAIL SERVICE TECHNICIAN Pharmacy requesting refill of: Requested Prescriptions Pending Prescriptions Disp Refills ??? azaTHIOprine (IMURAN) 50 MG Tablet [Pharmacy Med Name: AZATHIOPRINE TABS 50MG] 90 Tablet 3 Sig: TAKE 1 TABLET DAILY Last fill: 01/28/2021 Patients last OV with GI: 01/28/2021 Next Office Visit with GI: None scheduled. Medication failed protocol. Order pended, please review. [place] SERVICE TECHNICIAN documented in this encounter Plan of Treatment Not on file documented as of this encounter Visit Diagnoses Diagnosis Crohn's disease of small intestine without complication (HCC) Regional enteritis of small intestine documented in this encounter Care Teams Avionics System Engineer Relationship Specialty Start Date End Date Manjit Obregon MD [address] [place] [address] PCP - General Internal Medicine 04/28/16 Leeroy Kim DO [address] [place] [address] Gastroenterology 04/29/16 documented as of this encounter
--- OUTSIDE RECORDS SUMMARY | 2025-03-04 14:05 | XMS_ITS | Encounter Summary ---
Author Organization [facility] Address [address] [facility] [place] [address] Phone Care Team Providers Care Customer Sales Consultant Name Role Phone Manjit Obregon MD Primary Care Provider [phone] Leeroy Kim DO Unavailable [phone] Reason for Visit * Reason Comments Medication Refill Encounter Details Date Type Department Care Team (Late st Contact Info) Description 01/13/2021 Refill [facility] - Gastroenterology [facility] [address] [place] [address] Linda Gallego Ketty, PAC [address] [place] [address] Medication Refill Social History Tobacco Use Types [...] on filedocumented in this encounter Care Teams Customer Sales Consultant Relationship Specialty Start Date End Date Manjit Obregon MD [address] [place] [address] PCP - General Internal Medicine 04/28/16 Leeroy Kim DO [address] [place] [address] Gastroenterology 04/29/16 documented as of this encounter
--- OUTSIDE RECORDS SUMMARY | 2025-03-04 14:05 | XMS_ITS | Encounter Summary ---
Author Organization [facility] Address [address] [place] [address] Care Team Providers Care Business Services Manager Name Role Phone Manjit Obregon MD Primary Care Provider Encounter Details Date Type Department Care Team (Late st Contact Info) Description 05/27/2022 Lab Requisition [facility] DermPath Lab [address] [place] [address] [place] [address] Social History Tobacco Use Types Packs/Day Years Used Date Smoking Tobacco: Never Assessed Comments Unknown Sex and Gender Information Value Date Recorded Sex Assigned at Not on file Legal Sex Female 10:51 AM POLISHING PAD MOUNTER Gender Identity Not on file Sexual Orientation Not on file documented as of this encounter Plan of Treatment Not on file documented as of this encounter Procedures Procedure Name Priority Date/Time Associated Diagnosis Comments DERMATOPATHOLOGY Routine 05/26/2022 12:0 0 AM POLISHING PAD MOUNTER documented in this encounter Results * DERMATOPATHOLOGY (05/26/2022 12:00 AM POLISHING PAD MOUNTER) Case Report Dermatopathology Report Case: [id number] Authorizing Provider: Cachorro Ibrahim MD Collected: 05/26/2022 12:00 AM Ordering Location: [facility] Care DermPath Lab Received: 05/27/2022 01:33 PM Pathologist: Claudia Jorge MD Specimen: Skin, nose 2:18 PM POLISHING PAD MOUNTER DERMATOPATHOLOGY LABORATORY Final Diagnosis Specimen A. 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 Other 2 2:18 PM [facility] DERMATOPATHOLOGY LABORATORY Gross Description Specimen A: Received is one formalin filled container labeled with the patient's name and designated nose. The specimen consists of a shave biopsy measuring [id number]. Jar 0. 2 2:18 PM [facility] DERMATOPATHOLOGY LABORATORY Microscopic Description Specimen A. SKIN, nose: The epidermis shows parakeratosis, full thickness disorderly maturation of keratinocytes, mitoses at different levels, and dyskeratotic cells. Sections show abundant melanin within melanophages around the superficial vascular plexus. 2 2:18 PM [facility] DERMATOPATHOLOGY LABORATORY Disclaimer An external and internal positive and negative controls are appropriate for the histochemical, immunohistochemical and immunofluorescence stain(s) in this case (if any), except where stated explicitly. The performance characteristics of the stain(s) cited in this report were developed and its performance characteristic determined by the Dermatopathology Laboratory at [facility], directed by Dr. Roberto Jorge. These tests need not be, and therefore are not, approved by the [place] Food and Drug Administration. The tests are used for clinical purposes. Billing Codes Specimen Charges Stain Charges 64800 1 2 2:18 PM [facility] DERMATOPATHOLOGY LABORATORY Embedded Images 2 2:18 PM [facility] DERMATOPATHOLOGY LABORATORY Pathology/Cytolog y TISSUE SPECIMEN FROM SKIN / Unknown 05/26/2022 05/27/2022 1:33 PM POLISHING PAD MOUNTER Cachorro Ibrahim MD LAB - PATHOLOGY/CYTOLOGY ORD ERABLES Final Result DERMATOPATHOLOGY LABORATORY [facility] - Department of Dermatology [facility] Medicine [address] [place] [address], [address] [phone] documented in this encounter Visit Diagnoses Not on filedocumented in this encounter Care Teams Business Services Manager Relationship Specialty Start Date End Date Manjit Obregon MD formerly [facility] [address] PCP - General 04/21/22 documented as of this encounter
== END 2025-03-04 14:01 | disposition home or self-care (01) ==
PROVIDERS: PCP Emergency Medicine; Visit Provider Emergency Medicine
DX: Z12.31 Encounter for screening mammogram for malignant neoplasm of breast (principal)
CPT/HCPCS: 77063; 77067

== ENCOUNTER 2025-05-16 11:02 | Outpatient (CLI) | payer MEDICARE, SELFPAY ==
--- OUTSIDE RECORDS SUMMARY | 2010-03-24 08:00 | XMS_ITS | Continuity of Care Document ---
Author Organization [facility] Address [address] [place] [address] [place] [address] Phone Care Team Providers Care Independent Living Instructor Name Role Phone Marah Birmingham Unavailable Unavailable [...] Providers Copied on Encounter Office/outpat ient Visit, [facility], [address] [place] [address] [address], [place], [place], [address], [place] tel:[phone] [facility] No Information Sep-1 4-201 0 Valencia Weston [address], [place], [address], [place]. tel:[phone] Office/outpat ient Visit, [facility], [address] [place] [address] [address], [place], [place], [address], tel:[phone] [facility] No Information Sep-0 8-200 9 Valencia Weston [address], [place], [facility], [place]. tel:[phone] Referring Provider: Marah Taveras, [address], [place], [facility]. tel:[phone] Office/outpat ient Visit, Est [facility], [address], [place], [place], [address], [place] tel:[phone] [facility] No Information 200 9 Valencia Crystal. [address], [place], [facility], [place]. tel:[phone] [facility], [address], [place], [place], [address], [place] tel:[phone] [facility] No Information 200 8 Valencia Crystal. [address], [place], [facility], [place]. tel:[phone] [facility], [address], [place], [place], [address], [place] tel:[phone] [facility] No Information 0 8-200 8 Valencia Crystal. [address], [place], [facility], [place]. tel:[phone] [facility], [address], [place], [place], [address], [place] tel:[phone] [facility] No Information 1-200 8 Haddad OD Leeroy. [address], [place], [facility], [place]. tel:[phone] [facility], [address], [place], [place], [address], [place] tel:[phone] [facility] No Information 1200 8 Valencia Crystal. [address], [place], [facility], . tel:[phone] [facility], [address] [place] [address] [address], [place], [place], [address], tel:[phone] [facility] No Information Jan-2 2-200 8 Valencia Weston [address] [facility] , [address], [place], [facility], . tel:[phone] Referring Provider: Marah Taveras [address] [facility] [place] [address], [place], [facility]. tel:[phone] [facility], [address] [place] [address] [address], [place], [place], [address], tel:[phone] [facility] No Information Elias-0 1-200 8 Valencia Crystal. [address] [facility] , [address], [place], [facility], . tel:[phone] [facility], [address] [place] [address] [address], [place], [place], [address], tel:[phone] [facility] No Information Apr-0 3-200 7 Valencia Crystal. [facility] , [address], [place], [facility], . tel:[phone] Family History Family Member Type Diagnosis Age At Onset No Information Payers Payer name Insurance type Covered republican ID Authorshahida tisenia(s) [place] [id number] Social History Type Description Quantity Date Captured [...]
[2025-05-16 12:05] LABS: Hematocrit 40.5 % (37.0-47.0); Hemoglobin 12.4 g/dL (12.0-15.0); Immature Granulocyte Percent A 0.3 % (0-0.5); Lymphocytes Absolute Auto 1.41 K/mm3 (0.9-3.2); Mean Corpuscular HGB Conc 30.6 g/dl (32-36); Mean Corpuscular Hemoglobin 27.8 pg (26-34); Mean Corpuscular Volume 90.8 fl (80-100); Nucleated Red Blood Cells Absolute Auto 0.000 K/mm3 (0.0-0.012); Nucleated Red Blood Cells Perc 0.0 % (0.0-0.2); Platelet Count Result 238 k/mm3 (150-375); Red Blood Count 4.46 M/mm3 (4.2-5.4); White Blood Count 5.9 K/mm3 (4.5-10.0)
[2025-05-16 12:25] LABS: Alanine Aminotransferase 10 U/L (6-35); Albumin Level 4.0 g/dL (3.5-5.1); Alkaline Phosphatase 106 U/L (38-126); Anion Gap 6 mmol/L (4-12); Aspartate Amino Transferase 22 U/L (14-36); Bilirubin,Total 0.5 mg/dL (0.2-1.3); Blood Urea Nitrogen 12 mg/dL (7-17); Calcium 9.2 mg/dL (8.4-10.2); Carbon Dioxide 28 mmol/L (22-30); Chloride 104 mmol/L (98-107); Estimated Glomerular Filt Rate > 60; Glucose 87 mg/dL (65-110); Potassium 3.5 mmol/L (3.4-5.0); Sodium 138 mmol/L (137-145); Total Protein 7.8 g/dL (6.3-8.2)
--- OUTSIDE RECORDS SUMMARY | 2025-05-16 19:00 | XMS_ITS | Encounter Summary ---
Author Organization [facility] Address [address] [place] [address] Phone Care Team Providers Care Insurance Account Representative Name Role Phone Manjit Obregon MD Primary Care Provider Leeroy Kim DO Unavailable [phone] Reason for Visit * Reason Comments Medication Refill Encounter Details Date Type Department Care Team (Late st Contact Info) Description 06/30/2021 Refill [facility] - Gastroenterology [facility] [address] [place] [address] Linda Gallego Ketty, PAC [address] [place] [address] Medication Refill Social History Tobacco Use Types [...] Emilia Padron RN - 07/01/2021 9:48 AM AUTO REPAIR SHOP MANAGER Pharmacy requesting refill of: Requested Prescriptions Pending Prescriptions Disp Refills ??? azaTHIOprine (IMURAN) 50 MG Tablet [Pharmacy Med Name: AZATHIOPRINE TABS 50MG] 90 Tablet 3 Sig: TAKE 1 TABLET DAILY Last fill: 01/28/2021 Patients last OV with GI: 01/28/2021 Next Office Visit with GI: None scheduled. Medication failed protocol. Order pended, please review. REPAIR SHOP MANAGER documented in this encounter Plan of Treatment Not on file documented as of this encounter Visit Diagnoses Diagnosis Crohn's disease of small intestine without complication Regional enteritis of small intestine documented in this encounter Care Teams Insurance Account Representative Relationship Specialty Start Date End Date Manjit Obregon MD [address] [place] [address] PCP - General Internal Medicine 04/28/16 Leeroy Kim DO [address] [place] [address] Gastroenterology 04/29/16 documented as of this encounter
--- OUTSIDE RECORDS SUMMARY | 2025-05-16 19:00 | XMS_ITS | Encounter Summary ---
Author Organization [facility] Address [address] [place] [address] Care Team Providers Care Preprint Analyst Name Role Phone Manjit Obregon MD Primary Care Provider Encounter Details Date Type Department Care Team (Late st Contact Info) Description 05/27/2022 Lab Requisition [facility] DermPath Lab [address] [place] [address] [place] [address] Social History Tobacco Use Types Packs/Day Years Used Date Smoking Tobacco: Never Assessed Comments Unknown Sex and Gender Information Value Date Recorded Sex Assigned at Not on file Legal Sex Female 10:51 AM COMMUNITY CASE MANAGER Gender Identity Not on file Sexual Orientation Not on file documented as of this encounter Plan of Treatment Not on file documented as of this encounter Procedures Procedure Name Priority Date/Time Associated Diagnosis Comments DERMATOPATHOLOGY Routine 05/26/2022 12:0 0 AM COMMUNITY CASE MANAGER documented in this encounter Results * DERMATOPATHOLOGY (05/26/2022 12:00 AM COMMUNITY CASE MANAGER) Case Report Dermatopathology Report Case: [id number] Authorizing Provider: Cachorro Ibrahim MD Collected: 05/26/2022 12:00 AM Ordering Location: [facility] Care DermPath Lab Received: 05/27/2022 01:33 PM Pathologist: Claudia Jorge MD Specimen: Skin, nose 2:18 PM COMMUNITY CASE MANAGER DERMATOPATHOLOGY LABORATORY Final Diagnosis Specimen A. 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 DERMATOPATHOLOGY LABORATORY at 1418 COMMUNITY CASE MANAGER Clinical History R/O [place] vs. Other 2 2:[address] [facility] DERMATOPATHOLOGY LABORATORY Gross Description Specimen A: Received is one formalin filled container labeled with the patient's name and designated nose. The specimen consists of a shave biopsy measuring [id number]. Jar 0. 2 2:[address] [facility] DERMATOPATHOLOGY LABORATORY Microscopic Description Specimen A. SKIN, nose: The epidermis shows parakeratosis, full thickness disorderly maturation of keratinocytes, mitoses at different levels, and dyskeratotic cells. Sections show abundant melanin within melanophages around the superficial vascular plexus. 2 2:[address] [facility] DERMATOPATHOLOGY LABORATORY Disclaimer An external [...] purposes. Billing Codes Specimen Charges Stain Charges 60266 1 2 2:[address] [facility] DERMATOPATHOLOGY LABORATORY Embedded Images 2 2:[address] [facility] DERMATOPATHOLOGY LABORATORY Pathology/Cytolog y TISSUE SPECIMEN FROM SKIN / Unknown 05/26/2022 05/27/2022 1:33 PM COMMUNITY CASE MANAGER Cachorro Ibrahim MD LAB - PATHOLOGY/CYTOLOGY ORD ERABLES Final Result DERMATOPATHOLOGY LABORATORY [facility] - Department of Dermatology [facility] Medicine [address] [place] [address], [address] [phone] documented in this encounter Visit Diagnoses Not on filedocumented in this encounter Care Teams Preprint Analyst Relationship Specialty Start Date End Date Manjit Obregon MD [facility] [address] PCP - General 04/21/22 documented as of this encounter
--- OUTSIDE RECORDS SUMMARY | 2025-05-16 19:00 | XMS_ITS | Clinical Summary ---
Author Organization [facility] Address [address] [place] [address] Phone Care Team Providers Care Cosmetic Account Coordinator Name Role Phone Manjit Obregon MD Primary Care Provider [phone] Leeroy Kim DO Unavailable [phone] Allergies Active Allergy Reactions Criticality Noted Date Comments Tetracycline Unknown Medications levothyroxine (SYNTHROID) 75 MCG Tablet 6 Active lisinopril-hydro CHLOROthiazide (PRINZIDE, ZESTORETIC) 10-12.5 MG Tablet 6 Active Potassium 75 MG Tablet Take by mouth. Activ e COLLAGEN PO Take by mouth. Act néstor Mesalamine (Pentasa) 500 MG Capsule CRIndications:Cr ohn's disease of small intestine without complication 2 capsule capsules 4 x a day 720 Capsule 3 1 Active ergocalciferol (VITAMIN D) 55071 UNIT Capsule Take 1 Capsule by mouth once a week. 12 Capsule 1 1 Active azaTHIOprine (IMURAN) 50 MG TabletIndication s:Crohn's disease of small intestine without complication TAKE 1 TABLET DAILY 90 Tablet 2 1 Active Cyanocobalamin 1000 MCG/ML KitIndications:V itamin B12 deficiency 1,000 mcg by Subcutaneous route every 14 days. 6 Kit 1 2 Active folic acid (FOLVITE) 1 MG TabletIndication s:Crohn's disease of small intestine without complication TAKE 1 TABLET DAILY 90 Tablet 3 2 Active Adalimumab (Humira) 40 MG/0.8ML Prefilled Syringe Kit 0.8 mL by Subcutaneous route every 14 days. 8 Each 2 Active Active Problems Problem Noted Date Diagnosed Date Low bone mass 01/16/2020 Vitamin D deficiency 01/16/2020 Vitamin B12 deficiency 01/16/2020 Crohn's disease Immunizations Immunization Administration Dates Next Due Covid-19 Vaccine, Vector-nr, Rs-ad26, Pf, 0.5 Ml (PubGame/TagMii&TagMii) 09/16/2020 Hepatitis B Vaccine 04/07/2015 Influenza, Seasonal, [...] Cologuard 1986 Immunochemical Fecal Occult Blood 1986 Medicare Initial AWV [id number] 07/11/2007 Hepatitis B Immunization (2 of 3 - 19+ 3-dose series) 05/05/2015 04/07/2015 Respiratory Syncytial Virus (RSV) Immunization (Adult) (1 - 1-dose 75+ series) 2016 Colonoscopy 07/19/2021 07/19/2019, 11/2016, 05/15/2015, Additional history exists Colorectal Cancer Screening 07/19/2021 Influenza Immunization (#1) 03/11/202504/10, 05/28/2018, 05/18/2017, Additional history exists SARS-COV-2 Immunization ( season) 2025 08/21/2021, 09/16/2020 Pneumococcal Immunization (50+ years) Completed 05/13/2016, 04/16/2015 [...] Comments BONE DENSITY GENERIC 06/13/2021 12:00 AM HVAC/R INSTRUCTOR COLONOSCOPY Routine 07/19/2019 from Last 3 Months or Most Recently Relevant to Health Maintenance Results * BONE DENSITY GENERIC SCAN (06/13/2021 12:00 AM HVAC/R INSTRUCTOR) 06/13/2021 us Not On File Provider IMG DEXA ORDERABLES Final R esult SCAN * COLONOSCOPY (07/19/2019) Leeroy Kim DO PROCEDURE/MINOR SURGICAL ORDERA BLES Final Result from Last 3 Months or Most Recently Relevant to Health Maintenance [facility] Care Teams Cosmetic Account Coordinator Relationship Specialty Start Date End Date Manjit Obregon MD [address] [place] [address] PCP - General Internal Medicine 04/28/16 Leeroy Kim DO [address] [place] [address] Gastroenterology 04/29/16
--- OUTSIDE RECORDS SUMMARY | 2025-05-16 19:00 | XMS_ITS | Encounter Summary ---
Author Organization [facility] Address [address] [place] [address] Phone Care Team Providers Care Sales Representative Meats Name Role Phone Manjit Obregon MD Primary Care Provider [phone] Leeroy Kim DO Unavailable [phone] Reason for Visit * Reason Comments Medication Refill Encounter Details Date Type Department Care Team (Late st Contact Info) Description 01/13/2021 Refill [facility] - Gastroenterology [facility] [address] [place] [address] Linda Gallego Ketty, PAC [address] [place] [address] Medication Refill Social History Tobacco Use Types [...] Miscellaneous Notes * Telephone Encounter - Gabby Shell, GREGORIO - 01/13/2021 4:55 PM CDT Pharmacy requesting [...] on filedocumented in this encounter Care Teams Sales Representative Meats Relationship Specialty Start Date End Date Manjit Obregon MD [address] [place] [address] PCP - General Internal Medicine 04/28/16 Leeroy Kim DO [address] [place] [address] Gastroenterology 04/29/16 documented as of this encounter
--- OUTSIDE RECORDS SUMMARY | 2025-05-16 19:00 | XMS_ITS | Clinical Summary ---
Author Organization [facility] Address [address] [place] [address] Care Team Providers Care Industrial Maintenance Repairer Helper Name Role Phone Manjit Obregon MD Primary Care Provider Source Comments [facility] and Associated Physician Practices is amultiple site organization consisting of ambulatory clinics and hospital sitesin [place], [place], [place] and [place]. This disclosure is being madepursuant to the Care Everywhere program and may not contain all information available regarding this patient. Last updated 18.[facility] Social History Tobacco Use Types Packs/Day Years Used Date Smoking Tobacco: Never Assessed Comments Unknown Sex and Gender Information Value Date Recorded Sex Assigned at Not on file Legal Sex Female 10:51 AM RESEARCH TEST ENGINE OPERATOR Gender Identity Not on file Sexual Orientation [...] yrs (1 - 1-dose 75+ series) 2016 DEPRESSION SCREENING 07/11/2024 COVID-19 VACCINE (1 - 2023-2 5 season) 2025 INFLUENZA VACCINE (#1) 2025 HEPATITIS B VACCINE [...] topic Insurance MEDICARE MEDICARE MEDICARE Care Teams Industrial Maintenance Repairer Helper Relationship Specialty Start Date End Date Manjit Obregon MD [address] [address] [facility] - General 04/21/22
== END 2025-05-16 11:03 | disposition home or self-care (01) ==
PROVIDERS: PCP Emergency Medicine; Visit Provider Emergency Medicine
DX: K50.919 Crohn's disease, unspecified, with unspecified complications (principal); I10 Essential (primary) hypertension; E78.5 Hyperlipidemia, unspecified; E55.9 Vitamin D deficiency, unspecified
CPT/HCPCS: 36415; 80053; 82306; 85025

== ENCOUNTER 2025-05-21 00:58 | Day surgery (SDC) | payer MEDICARE, SELFPAY ==
--- OUTSIDE RECORDS SUMMARY | 2010-03-24 08:00 | XMS_ITS | Continuity of Care Document ---
Author Organization [facility] Address [address] [place] [address] [place] [address] Phone Care Team Providers Care Manager Traffic Name Role Phone Marah Birmingham Unavailable Unavailable Procedures Procedure Date Office/outpatient Visit, Est Office/outpatient Visit, Est Office/outpatient Visit, Est Post-op Follow-up Visit Post-op Follow-up Visit Post-op Follow-up Visit Remove Cataract, Insert Lens IOLMaster Eye Exam & Treatment Eye Exam & Treatment Refraction Advance Directives Directive Yes / No Effective Date File Name No Information Encounters Encounter Description Practice Location Reason(s) For Visit Diagnoses Date Provider Providers Copied on Encounter Office/outpat ient Visit, [facility], [address] [place] [address] [address], [place], [place], [address], [place] tel:[phone] [facility] No Information Sep-1 4-201 0 Valencia Weston [address], [place], [address], [place]. tel:[phone] Office/outpat ient Visit, [facility], [address] [place] [address] [address], [place], [place], [address], tel:[phone] [facility] No Information Sep-0 8-200 9 Valencia Weston [address], [place], [facility], [place]. tel:[phone] Referring Provider: Marah Taveras, [address], [place], [facility]. tel:[phone] Office/outpat ient Visit, Est [facility], [address], [place], [place], [address], [place] tel:[phone] [facility] No Information 200 9 Valencia Crystal. [address], [place], [facility], [place]. tel:[phone] [facility], [address], [place], [place], [address], [place] tel:[phone] [facility] No Information 200 8 Valencia Crystal. [address], [place], [facility], [place]. tel:[phone] [facility], [address], [place], [place], [address], [place] tel:[phone] [facility] No Information 0 8-200 8 Valencia Crystal. [address], [place], [facility], [place]. tel:[phone] [facility], [address], [place], [place], [address], [place] tel:[phone] [facility] No Information 1-200 8 Haddad OD Leeroy. [address], [place], [facility], [place]. tel:[phone] [facility], [address], [place], [place], [address], [place] tel:[phone] [facility] No Information 1200 8 Valencia Crystal. [address], [place], [facility], . tel:[phone] [facility], [address] [place] [address] [address], [place], [place], [address], tel:[phone] [facility] No Information Jan-2 2-200 8 Valencia Weston [address] [facility] , [address], [place], [facility], . tel:[phone] Referring Provider: Marah Taveras [address] [facility] [address], [place], [facility]. tel:[phone] [facility], [address] [place] [address] [address], [place], [place], [address], tel:[phone] [facility] No Information Elias-0 1-200 8 Valencia Crystal. [address] [facility] , [address], [place], [facility], . tel:[phone] [facility], [address] [place] [address] [address], [place], [place], [address], tel:[phone] [facility] No Information Apr-0 3-200 7 Valencia Crystal. [facility] , [address], [place], [facility], . tel:[phone] Family History Family Member Type Diagnosis Age At Onset No Information Payers Payer name Insurance type Covered green party ID Authorshahida tisenia(s) [place] [id number] Social History Type Description Quantity Date Captured Comments Sex Female Smoking Status No Information Chief Complaint And Reason For Visit No Information Reason For Referral Reason For Referral No Information History Of Present Illness Encounter Date Complaint History Of Prese nt Illness No Information Functional Status Date Functional Assessmen t No Information Instructions Date Instruction Additional Infor mation No Information Assessments Type Assessment Date No Information Patient Care Teams Name Effective Dates (start - stop) Status Members No Information
[2025-05-09 14:14] VITALS: BMI 23.1
[2025-05-21] VITALS (7 sets, daily range): BP systolic 162–201; BP diastolic 78–96; PULSE 67–88; RESP 16–27; TEMP 36.2; O2SAT 94–100; BMI 22.5
--- OUTSIDE RECORDS SUMMARY | 2025-05-21 01:00 | XMS_ITS | Encounter Summary ---
Author Organization [facility] Address [address] [place] [address] Phone Care Team Providers Care Wooling Machine Operator Name Role Phone Manjit Obregon MD Primary Care Provider [phone] Leeroy Kim DO Unavailable [phone] Reason for Visit * Reason Comments Medication Refill Encounter Details Date Type Department Care Team (Late st Contact Info) Description 06/30/2021 Refill [facility] - Gastroenterology [facility] [address] [place] [address] Linda Gallego Ketty, PAC [address] [place] [address] Medication Refill Social History Tobacco Use Types [...] Emilia Padron RN - 07/01/2021 9:48 AM PAPER REEL OPERATOR Pharmacy requesting refill of: Requested Prescriptions Pending Prescriptions Disp Refills ??? azaTHIOprine (IMURAN) 50 MG Tablet [Pharmacy Med Name: AZATHIOPRINE TABS 50MG] 90 Tablet 3 Sig: TAKE 1 TABLET DAILY Last fill: 01/28/2021 Patients last OV with GI: 01/28/2021 Next Office Visit with GI: None scheduled. Medication failed protocol. Order pended, please review. R REEL OPERATOR documented in this encounter Plan of Treatment Not on file documented as of this encounter Visit Diagnoses Diagnosis Crohn's disease of small intestine without complication Regional enteritis of small intestine documented in this encounter Care Teams Wooling Machine Operator Relationship Specialty Start Date End Date Manjit Obregon MD [address] [place] [address] PCP - General Internal Medicine 04/28/16 Leeroy Kim DO [address] [place] [address] Gastroenterology 04/29/16 documented as of this encounter
--- OUTSIDE RECORDS SUMMARY | 2025-05-21 01:00 | XMS_ITS | Encounter Summary ---
Author Organization [facility] Address [address] [place] [address] Phone Care Team Providers Care Credit Union Field Examiner Name Role Phone Manjit Obregon MD Primary Care Provider [phone] Leeroy Kim DO Unavailable [phone] Reason for Visit * Reason Comments Medication Refill Encounter Details Date Type Department Care Team (Late st Contact Info) Description 01/13/2021 Refill [facility] - Gastroenterology [facility] [address] [place] [address] Linda Gallego Ketty, PAC [address] [place] [address] Medication Refill Social History Tobacco Use Types [...] on filedocumented in this encounter Care Teams Credit Union Field Examiner Relationship Specialty Start Date End Date Manjit Obregon MD [address] [place] [address] PCP - General Internal Medicine 04/28/16 Leeroy Kim DO [address] [place] [address] Gastroenterology 04/29/16 documented as of this encounter
--- OUTSIDE RECORDS SUMMARY | 2025-05-21 01:00 | XMS_ITS | Encounter Summary ---
Author Organization [facility] Address [address] [place] [address] Care Team Providers Care Steam Powerplant Supervisor Name Role Phone Manjit Obregon MD Primary Care Provider Encounter Details Date Type Department Care Team (Late st Contact Info) Description 05/27/2022 Lab Requisition [facility] DermPath Lab [address] [place] [address] Cachorro [place] [address] Social History Tobacco Use Types Packs/Day Years Used Date Smoking Tobacco: Never Assessed Comments Unknown Sex and Gender Information Value Date Recorded Sex Assigned at Not on file Legal Sex Female 10:51 AM INVESTMENT DIRECTOR Gender Identity Not on file Sexual Orientation Not on file documented as of this encounter Plan of Treatment Not on file documented as of this encounter Procedures Procedure Name Priority Date/Time Associated Diagnosis Comments DERMATOPATHOLOGY Routine 05/26/2022 12:0 0 AM INVESTMENT DIRECTOR documented in this encounter Results * DERMATOPATHOLOGY (05/26/2022 12:00 AM INVESTMENT DIRECTOR) Case Report Dermatopathology Report Case: [id number] Authorizing Provider: Cachorro Ibrahim MD Collected: 05/26/2022 12:00 AM [facility] Lab Received: 05/27/2022 01:33 PM Pathologist: Claudia Jorge MD Specimen: Skin, nose 2:18 PM INVESTMENT DIRECTOR DERMATOPATHOLOGY LABORATORY Final Diagnosis Specimen A. 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 Other 2 2:18 PM [facility] DERMATOPATHOLOGY LABORATORY Gross Description Specimen A: Received is one formalin filled container labeled with the patient's name and designated nose. The specimen consists of a shave biopsy measuring 2d1w5td. Jar 0. 2 2:18 PM [facility] DERMATOPATHOLOGY LABORATORY Microscopic Description Specimen A. SKIN, nose: The epidermis shows parakeratosis, full thickness disorderly maturation of keratinocytes, mitoses at different levels, and dyskeratotic cells. Sections show abundant melanin within melanophages around the superficial vascular plexus. 2 2:18 PM [facility] DERMATOPATHOLOGY LABORATORY Disclaimer An [...] purposes. Billing Codes Specimen Charges Stain Charges 32127 1 2 2:18 PM [facility] DERMATOPATHOLOGY LABORATORY Embedded Images 2 2:18 PM [facility] DERMATOPATHOLOGY LABORATORY Pathology/Cytolog y TISSUE SPECIMEN FROM SKIN / Unknown 05/26/2022 05/27/2022 1:33 PM INVESTMENT DIRECTOR Cachorro Ibrahim MD LAB - PATHOLOGY/CYTOLOGY ORD ERABLES Final Result DERMATOPATHOLOGY LABORATORY [facility] - Department of Dermatology [facility] Medicine [address] [place] [address], [address] [phone] documented in this encounter Visit Diagnoses Not on filedocumented in this encounter Care Teams Steam Powerplant Supervisor Relationship Specialty Start Date End Date Manjit Obregon MD [facility] [address] PCP - General 04/21/22 documented as of this encounter
--- OUTSIDE RECORDS SUMMARY | 2025-05-21 01:00 | XMS_ITS | Clinical Summary ---
Author Organization [facility] Address [address] [place] [address] Care Team Providers Care Electric Stove Mechanic Name Role Phone Manjit Obregon MD Primary Care Provider Source Comments [facility] and Associated Physician Practices is amultiple site organization consisting of ambulatory clinics and hospital sitesin [place], [place], [place] and [place]. This disclosure is being madepursuant to the Care Everywhere program and may not contain all information available regarding this patient. Last updated 18.[facility] Social History Tobacco Use Types Packs/Day Years Used Date Smoking Tobacco: Never Assessed Comments Unknown Sex and Gender Information Value Date Recorded Sex Assigned at Not on file Legal Sex Female 10:51 AM ECHO VASCULAR TECHNOLOGIST Gender Identity Not on file Sexual Orientation [...] topic Insurance MEDICARE MEDICARE MEDICARE Care Teams Electric Stove Mechanic Relationship Specialty Start Date End Date Manjit Obregon MD [address] [address] [facility] - General 04/21/22
--- OUTSIDE RECORDS SUMMARY | 2025-05-21 01:00 | XMS_ITS | Clinical Summary ---
Author Organization [facility] Address [address] [place] [address] Phone Care Team Providers Care Associate Veterinarian Name Role Phone Manjit Obregon MD Primary Care Provider [phone] Leeroy Kim DO Unavailable [phone] Allergies Active Allergy Reactions Criticality Noted [...] Capsule 3 1 Active ergocalciferol (VITAMIN D) 14320 UNIT Capsule Take 1 Capsule by mouth [...] Covid-19 Vaccine, Vector-nr, Rs-ad26, Pf, 0.5 Ml ([employer]/Schedule Savvy[employer]Schedule [employer]) 09/16/2020 Hepatitis B Vaccine 04/07/2015 Influenza, Seasonal, [...] Comments BONE DENSITY GENERIC 06/13/2021 12:00 AM WEB WE[employer]ER COLONOSCOPY Routine 07/19/2019 from Last 3 Months or Most Recently Relevant to Health Maintenance Results * BONE DENSITY GENERIC SCAN (06/13/2021 12:00 AM WEB WEAVER) 06/13/2021 us Not On File Provider IMG DEXA ORDERABLES Final R esult SCAN * COLONOSCOPY (07/19/2019) Leeroy Kim DO PROCEDURE/MINOR SURGICAL ORDERA BLES Final Result from Last 3 Months or Most Recently Relevant to Health Maintenance Insurance MEDICARE [facility] Care Teams Associate Veterinarian Relationship Specialty Start Date End Date Manjit Obregon MD [address] [place] [address] PCP - General Internal Medicine 04/28/16 Leeroy Kim DO [address] [place] [address] Gastroenterology 04/29/16
[2025-05-21] MEDS: LACTATED RINGERS 1,000 ML 150 ML IV CONT (07:54)
--- NOTE | 2025-05-21 08:02 | WPDANESEPP ---
Anes - Eval Pre Procedure Procedure: Operation Date: 05/21/25 08:30 Proposed Procedures p Diagnostic Colonoscopy - Beto Langley MD Date/Time: 05/21/25 08:02 Pre Op Diagnosis: Partial intestinal obstruction, unspecified as to Patient Data Age: 84 Gender: F Height: 1.68 m Weight: 63.4 kg Last Vital Signs Temp 36.2 C L 05/21/25 07:46 Pulse 79 05/21/25 07:46 Resp 16 05/21/25 07:46 BP 179/80 H 05/21/25 07:46 Pulse Ox 94 05/21/25 07:46 O2 Del Method Room Air 05/21/25 07:46 Allergies Allergy/AdvReac Type Severity Reaction Status Date / Time certolizumab pegol Allergy Unknown RASH, Verified 05/21/25 07:45 SWELLING tetracycline Allergy Unknown Unknown Verified 05/21/25 07:45 Tetracyclines Allergy Unknown unknown Verified 05/21/25 07:45 Home Medications ?Medication ?Instructions ?Recorded ?Confirmed ?Type ustekinumab 90 mg/mL subcutaneous 90 mg subcut .every 8 weeks 08/21/24 05/09/25 History syringe (Stelara) mesalamine 500 mg capsule,extended See Rx Instructions .Route .COMPLEX 09/23/24 05/21/25 History release lisinopril 10 1 tablet PO DAILY #90 tabs 03/08/25 05/21/25 Rx mg-hydrochlorothiazide 12.5 mg tablet Thera Tears SteriLid 1 drp EACH EYE DAILY 05/09/25 05/21/25 History fluticasone propionate 50 1 spray intranasal DAILY PRN nasal 05/09/25 05/09/25 History mcg/actuation nasal congestion spray,suspension (24 Hour Allergy Relief) folic acid 1 mg tablet 1 mg PO DAILY 05/09/25 05/21/25 History potassium 99 mg tablet 99 mg PO DAILY 05/09/25 05/21/25 History Patient hx anesthesia problems: none Family hx anesthesia problems: none Results Review: All pre-operative results and documents have been reviewed as part of the pre-operative evaluation. [facility] Past Medical History Medical History (Updated 05/17/25 @ 15:15 by Marina Langston MA) URI with cough and congestion Small bowel stricture Ileitis Acute kidney injury Pulmonary nodule COPD (chronic obstructive pulmonary disease) High risk medication use Anxiety Diastolic dysfunction Hypothyroid Vitamin D2 deficiency Vitamin B 12 deficiency Abnormal mammogram Tobacco abuse Thigh shingles Slow transit constipation Post herpetic neuralgia Polyosteoarthritis, unspecified Plantar fasciitis of left foot Interstitial lung disease Breast asymmetry Hypokalemia Sinusitis Contact dermatitis Hypertension Crohn's disease Surgical History Surgical History Hx of tubal ligation History of squamous cell carcinoma excision Hx of colonoscopy Family History Family History Father Family history of malignant neoplasm of brain, Onset Age: 68 Grandparent Diabetes mellitus Hypertension Asthma Family history of cardiovascular disease Other Family history of malignant neoplasm Family history of throat cancer Social History Social History Smoking packs per day: 1 Smoking cigarettes per day: 20.0 Years smoked: 61 Smoking pack-years: 61.00 Smoking status: Current every day smoker Tobacco type: cigarettes Second hand tobacco smoke exposure: Yes Alcohol intake: never Substance use: never Substance use type: does not use Do You Feel Safe in your Home?: Yes Lack of Transportation: No Lack of Food: Never True Current Housing: I Have Housing Concerned About Future Housing: No Difficulty Paying Gas/Electric Bills: No Difficulty Paying for Meds: No Currently Unemployed: No Education: Associate Degree Difficulty w/ Childcare or Family Care: No Living arrangements: alone Gender identity (if verbalized by the patient): Female Spiritual care concerns: No Exam Day of Procedure 05/21/25 08:02
--- NOTE | 2025-05-21 08:06 | P.PNAN_ITS ---
Anes - Eval Final PreProcedure Day of Procedure 05/21/25 08:06 Patient weight: normal Heart: regular rate and rhythm Lungs: clear to auscultation and normal air movement Airway: Mallampati scale class II Neurological: alert and oriented Last oral intake: >/= 8 hours ASA classification: III Emergent: no Anesthetic plan: proceed Anesthesia type and monitoring: general GIVS and standard monitoring Results Review: All pre-operative results and documents have been reviewed as part of the pre- operative evaluation. Informed Consent: The patient's anesthetic plan and its attendant risks and benefits were discussed with the patient/family/POA. Questions were solicited and answers provided to the satisfaction of the patient/family/POA.
--- NOTE | 2025-05-21 08:27 | PM.HPGS ---
History of Present Illness History of Present Illness Consent: Risks, benefits, and alternatives have been discussed and questions answered. Patient agrees to proceed with procedure. Chief complaint: Partial intestinal obstruction, unspecified as to Narrative: Mikaela Mesa is a 84 year old female here for another colonoscopy, patient initially diagnosed with Crohn's around 2009. Initially on cimzia but caused rash then changed to humira in 2016 and pentasa but since 2019 with flare up every 2-3 month finally currently on stelara since 01/2023. SBFT 01/2023 showed persistent stricture of approximately 20 cm length at the terminal ileum consistent with sequela of chronic Crohn's disease. Last colonoscopy September 2021 at which time mild benign appearing stenosis at terminal ileum noted and biopsies showed active ileitis. She is in clinical remission with stelara. Review of Systems Review of Systems: All systems reviewed & are unremarkable except as noted in HPI and below PMFSH Past Medical History Medical History (Updated 05/17/25 @ 15:15 by Marina Langston MA) URI with cough and congestion Small bowel stricture Ileitis Acute kidney injury Pulmonary nodule COPD (chronic obstructive pulmonary disease) High risk medication use Anxiety Diastolic dysfunction Hypothyroid Vitamin D2 deficiency Vitamin B 12 deficiency Abnormal mammogram Tobacco abuse Thigh shingles Slow transit constipation Post herpetic neuralgia Polyosteoarthritis, unspecified Plantar fasciitis of left foot Interstitial lung disease Breast asymmetry Hypokalemia Sinusitis Contact dermatitis Hypertension Crohn's disease Surgical History Surgical History Hx of tubal ligation History of squamous cell carcinoma excision Hx of colonoscopy Family History Family History Father Family history of malignant neoplasm of brain, Onset Age: 68 Grandparent Diabetes mellitus Hypertension Asthma Family history of cardiovascular disease Other Family history of malignant neoplasm Family history of throat cancer Social History Social History Smoking packs per day: 1 Smoking cigarettes per day: 20.0 Years smoked: 61 Smoking pack-years: 61.00 Smoking status: Current every day smoker Tobacco type: cigarettes Second hand tobacco smoke exposure: Yes Alcohol intake: never Substance use: never Substance use type: does not use Do You Feel Safe in your Home?: Yes Lack of Transportation: No Lack of Food: Never True Current Housing: I Have Housing Concerned About Future Housing: No Difficulty Paying Gas/Electric Bills: No Difficulty Paying for Meds: No Currently Unemployed: No Education: Associate Degree Difficulty w/ Childcare or Family Care: No Living arrangements: alone Gender identity (if verbalized by the patient): Female Spiritual care concerns: No Meds Home Medications and Allergies Home Medications ?Medication ?Instructions ?Recorded ?Confirmed ?Type ustekinumab 90 mg/mL subcutaneous 90 mg subcut .every 8 weeks 08/21/24 05/09/25 History syringe (Stelara) mesalamine 500 mg capsule,extended See Rx Instructions .Route .COMPLEX 09/23/24 05/21/25 History release lisinopril 10 1 tablet PO DAILY #90 tabs 03/08/25 05/21/25 Rx mg-hydrochlorothiazide 12.5 mg tablet Thera Tears SteriLid 1 drp EACH EYE DAILY 05/09/25 05/21/25 History fluticasone propionate 50 1 spray intranasal DAILY PRN nasal 05/09/25 05/09/25 History mcg/actuation nasal congestion spray,suspension (24 Hour Allergy Relief) folic acid 1 mg tablet 1 mg PO DAILY 05/09/25 05/21/25 History potassium 99 mg tablet 99 mg PO DAILY 05/09/25 05/21/25 History Allergies Allergy/AdvReac Type Severity Reaction Status Date / Time certolizumab pegol Allergy Unknown RASH, Verified 05/21/25 07:45 SWELLING tetracycline Allergy Unknown Unknown Verified 05/21/25 07:45 Tetracyclines Allergy Unknown unknown Verified 05/21/25 07:45 Vital Signs Vital Signs - 24 hr 05/21/25 07:46 Temperature 97.1 F L Pulse Rate 79 Respiratory Rate 16 Blood Pressure 179/80 H Pulse Oximetry 94 Oxygen Delivery Room Air Exam Const: General: comfortable and no acute distress HENMT: Face/Nose/Sinus: Normal nares present Resp: Auscultation: clear to auscultation bilaterally Cardio: Rate: regular rate Rhythm: regular rhythm GI: Inspection: non-distended GI Palp: Yes Soft to palpation Skin: General skin exam: normal color Extrem: General: normal to inspection Psych: Mental Status: mental status grossly normal Assessment and Plan Assessment and plan (1) Crohn's disease: Qualifiers: Digestive disease complication type: unspecified complication Gastrointestinal tract location: unspecified location Qualified Code(s): K50.919 - Crohn's disease, unspecified, with unspecified complications Code(s): K50.90 - Crohn's disease, unspecified, without complications Status: Acute Assessment and Plan: colonoscopy doing well on stelara (2) Small bowel stricture: Code(s): K56.699 - Other intestinal obstruction unspecified as to partial versus complete obstruction Status: Acute
--- NOTE | 2025-05-21 08:42 | S_PTH ---
PATIENT: Mikaela Mesa LOC: [facility]#:[id number] AGE/SX: 84/F ROOM: RE05/21/[address]: Beto Langley MD : 1940 BED: DIS: 05/21/2025 SPEC #: [id number] RECD: 05/21/25 09:32 STATUS: JENNIFER MITCHELL #: [id number] JACOB: 05/21/25 08:[address]: Beto Langley DEPT: [facility] Surgical RECD BY: Mell Patel ENTERED: 05/21/25 09:34 SP TYPE: Surgical OTHR DR: Manjit Obregon MD Tissues: A - Colon Biopsy B - Colon Biopsy C - Colon Polypectomy D - Colon Polypectomy Procedures: Hematoxylin and Eosin Stain Gross and Microscopic Level 4
--- NOTE | 2025-05-21 09:07 | SUR.PHASEII ---
Patient hypertensive in recovery, consistently running 200's/90's. Notified Vanessa Cortes CRNA. Received orders to administer Labetolol 10mg IVP x1.
--- NOTE | 2025-05-21 09:22 | SUR.PHASEII ---
Patient BP following Labetolol IVP, 180/85. Notified Vanessa Cortes CRNA. Received verbal orders for Hydralazine 10mg IVP x1.
--- NOTE | 2025-05-21 09:50 | SUR.PHASEII ---
BP on discharge 173/80. Per LORRIE Mendez okay for discharge. Patient instructed to take her lisinopril/hctz when she gets home today.
== END 2025-05-21 09:50 | disposition home or self-care (01) ==
PROVIDERS: PCP Emergency Medicine; Referring Provider Internal Medicine Gastroenterology; Visit Provider Internal Medicine Gastroenterology
PROC: 0DJD8ZZ Inspection of Lower Intestinal Tract, Via Natural or Artificial Opening Endoscopic (ICD-10-PCS; CPT 45378; principal; 2025-05-21 08:30)
DX: K50.90 Crohn's disease, unspecified, without complications (principal); K56.699 Other intestinal obstruction unspecified as to partial versus complete obstruction; D12.2 Benign neoplasm of ascending colon; D12.3 Benign neoplasm of transverse colon; K57.30 Diverticulosis of large intestine without perforation or abscess without bleeding; I11.0 Hypertensive heart disease with heart failure; I50.30 Unspecified diastolic (congestive) heart failure; E03.9 Hypothyroidism, unspecified; E55.9 Vitamin D deficiency, unspecified; J44.9 Chronic obstructive pulmonary disease, unspecified; F41.9 Anxiety disorder, unspecified; E87.6 Hypokalemia; E53.8 Deficiency of other specified B group vitamins; K59.01 Slow transit constipation; F17.210 Nicotine dependence, cigarettes, uncomplicated; Z98.890 Other specified postprocedural states; Z98.51 Tubal ligation status; Z85.828 Personal history of other malignant neoplasm of skin; Z87.19 Personal history of other diseases of the digestive system; Z80.8 Family history of malignant neoplasm of other organs or systems; Z80.1 Family history of malignant neoplasm of trachea, bronchus and lung; Z82.49 Family history of ischemic heart disease and other diseases of the circulatory system
CPT/HCPCS: 45380; 45385; 88305; J0360; J2003; J2704; J7120